=== PATIENT | male | born 1950 | race Caucasian/White ===

== ENCOUNTER 2021-08-18 08:06 | Inpatient (IN) | payer OTHER, SELFPAY ==
[2021-08-18] VITALS (15 sets, daily range): BP systolic 111–150; BP diastolic 67–97; PULSE 37–137; RESP 17–25; TEMP 36.1–36.9; O2SAT 95–100; BMI 32.5
--- NOTE | 2021-08-18 | ECHO_ITS ---
Patient Info Name: Rico Monteiro Age: 71 years : 1950 Gender: Male Ht: 71 in Wt: 225 lbs BSA: 2.29 m2 HR: 82 bpm BP: 140 / 80 mmHg Heart Rhythm: Atrial Fibrillation Technical Quality: Fair Exam Date: 08/18/2021 1:32 PM Exam Location: [facility] Patient Status: Outpatient Admit Date: 08/18/2021 Staff Ordering Physician: Dustin Wagner PA-C Home Appliance Installer: Karol Hall RDCS Attending Provider: Angy Wall MD Referring Physician: Bernard PIZANO; Exam Type: CA echo doppler color flow Study Info Indications - PULMONARY CONGESTION I51.7 - Cardiomegaly Complete two-dimensional, color flow and Doppler transthoracic echocardiogram is performed. Summary 1. Complete two-dimensional, color flow and Doppler transthoracic echocardiogram is performed. 2. Left ventricular systolic function is moderately reduced, estimated at 35-40% with severe hypokinesis of the anterolateral and anterior moore.. 3. Left ventricular chamber dimension is moderately enlarged. 4. Left ventricular septal wall motion is abnormal with septal motion related to bundle branch block. 5. Right ventricular chamber dimension is mildly enlarged. 6. Left atrial chamber dimension is severely enlarged. 7. There is no aortic valve stenosis. 8. There is mild mitral valve regurgitation. 9. There is mild tricuspid valve regurgitation. 10. No pulmonary hypertension, estimated pulmonary arterial systolic pressure is 29 mmHg. Left Ventricle Left ventricular systolic function is moderately reduced, estimated at 35-40% with severe hypokinesis of the anterolateral and anterior moore.. Left ventricular chamber dimension is moderately enlarged. There is mildly increased left ventricular wall thickness. Left ventricular septal wall motion is abnormal with septal motion related to bundle branch block. The left ventricular diastolic function is indeterminate. Right Ventricle Right ventricular chamber dimension is mildly enlarged. Right ventricular systolic function is normal. Left Atria Left atrial chamber dimension is severely enlarged. Right Atria Right atrial chamber dimension is moderately enlarged. Aortic Valve The aortic valve is trileaflet. There is mild aortic valve sclerosis. There is no aortic valve stenosis. There is mild aortic valve regurgitation. Pulmonic Valve The pulmonic valve is not well visualized. There is trace pulmonic regurgitation. Mitral Valve The mitral valve has normal leaflets. There is mild mitral valve regurgitation. The mitral valve annulus is mildly calcified. Tricuspid Valve The tricuspid valve leaflets are normal. There is mild tricuspid valve regurgitation. No pulmonary hypertension, estimated pulmonary arterial systolic pressure is 29 mmHg. Pericardium/Pleural The pericardium appears normal. There is no pericardial effusion. Inferior Vena Cava Normal inferior vena cava with >50% collapse upon inspiration consistent with normal right atrial pressure, 5 mmHg. Aorta The aortic root size at the sinus of Valsalva is normal. There is mild-moderate aortic atherosclerosis. Left Ventricular Outflow Tract Name Value Normal LVOT 2D LVOT Diameter 2.0 cm
--- NOTE | ~2021-08-18 | MR_ITS ---
EXAMINATION: MR brain/brain stem wo con DATE: 08/20/2021 13:08 INDICATION: Syncope. New onset atrial fibrillation. TECHNIQUE: Magnetic resonance imaging (MRI) of the brain and brainstem was performed without intraven ous contrast. Sequences included sagittal and axial T1-weighted SE, axial diffusion-weighted FS SE, a xial T2*-weighted GRE, axial T2-weighted FLAIR, and axial T2-weighted FSE. Apparent diffusion coeffic ient (ADC) maps were created. COMPARISON: Head CT dated 08/18/2021 FINDINGS: There are no areas of restricted diffusion to suggest acute infarction. Small old infarcts in the deanne ateral cerebellar hemispheres. No intracranial hemorrhage or abnormal intracranial mass lesion. There are scattered areas of nonspecific increased T2-weighted signal intensity in the cerebral white ramirez er, predominantly involving the deep and periventricular white matter is within normal limits for age . There are no intraparenchymal signal abnormalities seen on the other pulse sequences. Symmetric pro minence of the sulci and and subarachnoid spaces overlying the convexities consistent with mild age-a ppropriate diffuse cerebral volume loss. The ventricles are symmetric and normal in size. There are no abnormal extra-axial fluid collections. Flow voids are seen in the cerebral arteries on the T2-sergio ghted sequences consistent with their expected patency. Left vertebral artery is dominant. Mucosal th ickening throughout the paranasal sinuses. Small right mastoid effusion. Visualized orbits and soft t issues are unremarkable. IMPRESSION: 1. 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 No acute intracranial process. Reviewed, dictated and finalized at location A.
--- NOTE | ~2021-08-18 | XR_ITS ---
EXAMINATION: XR chest 1V portable EXAM DATE: 08/18/2021 10:16 INDICATION: Chest pain, vertigo. Falling. Confusion. TECHNIQUE: Portable AP frontal chest x-ray was obtained. There is no prior study for comparison. FINDINGS: There is cardiomegaly and pulmonary vascular congestion. No confluent consolidation, pneumo thorax or pleural effusion suspected. There are no osseous abnormalities identified. IMPRESSION: Cardiomegaly, pulmonary vascular congestion. Reviewed, dictated and finalized at location A.
--- NOTE | ~2021-08-18 | US_ITS ---
EXAMINATION: US renal BI DATE: 08/20/2021 10:15 INDICATION: Abnormal exophytic lesion at the lower pole of the right kidney on prior CT. TECHNIQUE: Multiple ultrasound grayscale images of the kidneys were obtained. COMPARISON: CT dated 08/18/2021 FINDINGS: The right kidney measures 10.5 x 5.1 x 6.2 cm. The left kidney measures 1.7 x 5.3 x 5.6 cm. Bilateral mild diffuse increased renal cortical echogenicity consistent with medical renal disease. Several bi lateral anechoic renal cysts the largest measuring 2.9 cm on the right and 1.4 cm on the left. The 9 mm exophytic lesion at the lower pole the right kidney seen on prior CT is visualized in the current study. There is no hydronephrosis in either kidney. Tiny renal stone seen on prior CT are also not i dentified on the current study likely due to their small size. The bladder is normal. IMPRESSION: 1. Bilateral renal cysts. The 9 mm exophytic lesion at the lower pole of the right kidney seen on pr ior CT is not identified in the current study. Recommend further evaluation with pre and postcontrast MRI or CT . 2. Mild bilateral increased renal cortical echogenicity consistent with medical renal disease. Reviewed, dictated and finalized at location A. IMPRESSION: 1. Bilateral renal cysts. The 9 mm exophytic lesion at the lower pole of the r ight kidney seen on prior CT is not identified in the current study. Recommend further evaluation with pre and postcontrast MRI or CT . 2. Mild bilateral increased renal cortical echogenicity consistent with medical renal disease.
--- NOTE | ~2021-08-18 | CT_ITS ---
EXAMINATION: CT brain wo con INDICATION: Headache COMPARISON: None TECHNIQUE: Standard unenhanced head CT. The dose-length product (DLP) was 681.00 mGy-cm. The mA was a djusted according to patient size. Iterative reconstruction technique was employed. FINDINGS: There is no acute intraparenchymal hemorrhage. No evidence of mass lesion. No evidence of a cute infarction. There is mild periventricular and subcortical hypodensity probably related to small vessel ischemic disease. There is mild prominence of the sulci and ventricles related to cerebral atr ophy. Intracranial calcified cerebral atherosclerosis is noted. There are no extra-axial collections. There is no mass effect or midline shift. The orbits and soft tissues are unremarkable. There is mil d mucosal thickening of the paranasal sinuses. IMPRESSION: 1. No acute intracranial abnormality. 2. Age related findings. Reviewed, dictated and finalized at location B.
--- NOTE | ~2021-08-18 | US_ITS ---
EXAMINATION: US carotid duplex BI EXAM DATE: 08/19/2021 14:23 INDICATION: Recurrent syncope, dizziness . TECHNIQUE: Grayscale, color and pulsed Doppler images of the cervical carotid arteries were obtained . The degree of vessel stenosis is placed in one of the following categories: normal, <50% stenosis, 50-69% stenosis, >=70% stenosis but less than near-occlusion, near-occlusion, or occlusion. Note that percent stenosis relative to normal distal artery lumen diameter is indirectly measured from velocit y measurements as described by Lenny, et al. Radiology 2003; 229:340-346. There is no prior study fo r comparison. FINDINGS: Arrhythmia. RIGHT SIDE: Right common carotid artery peak systolic velocity (PSV in cm/s): 68 Right bulb/internal carotid artery peak systolic velocity (PSV in cm/s): 48 Right internal carotid artery end diastolic velocity (EDV in cm/s): 16 Right ICA/CCA peak systolic ratio: 0.7 Right external carotid artery peak systolic velocity (PSV in cm/s): 53 Right vertebral artery antegrade flow: yes There is no focal plaque identified. LEFT SIDE: Left common carotid artery peak systolic velocity (PSV in cm/s): 61 Left bulb/internal carotid artery peak systolic velocity (PSV in cm/s): 62 Left internal carotid artery end diastolic velocity (EDV in cm/s): 27 Left ICA/CCA peak systolic ratio: 1.0 Left external carotid artery peak systolic velocity (PSV in cm/s): 56 Left vertebral artery antegrade flow: yes There is no focal plaque identified. IMPRESSION: 1. Normal right internal carotid artery. 2. Normal left internal carotid artery. 3. Arrhythmia. Correlate with EKG. Reviewed, dictated and finalized at location A.
--- NOTE | ~2021-08-18 | US_ITS ---
EXAMINATION: US thyroid DATE: 08/20/2021 14:01 INDICATION: Goiter with thyroid mass. TECHNIQUE: Multiple ultrasound images of the thyroid were obtained. COMPARISON: None. FINDINGS: The right thyroid lobe measures 4.2 x 2.0 x 1.7 cm. The left thyroid lobe measures 5.4 x 3.5 x 2.6 c m. Multiple TI-RADS 4 (moderately suspicious, FNA if >=1.5 cm, annual followup is >=1 cm) nodules in the left and right thyroid lobes which are all solid, hypoechoic, wider than tall and with either sm ooth or ill-defined margins and without echogenic foci. These measure 9 mm at the upper pole of the r ight thyroid, 1.8 cm and 1.4 cm in the mid left thyroid and 2.6 cm in the inferior left thyroid. Hete rogeneous echotexture and coarsened echogenicity throughout the thyroid. IMPRESSION: 1. Multinodular goiter with 4 TI-RADS 4 nodules. Would recommend biopsy of the largest 2.6 cm nodule in the inferior left thyroid. Reviewed, dictated and finalized at location A.
--- NOTE | ~2021-08-18 | CT_ITS ---
EXAMINATION: CTA chest PE protocol DATE: 08/18/2021 18:58 INDICATION: Chest pain. Syncope. Dizziness. Loss of consciousness, fatigue, multiple falls. TECHNIQUE: Computed tomography angiography (CTA) of the chest was performed with 100 mL Omnipaque-350 intravenous contrast timed to evaluate the pulmonary arteries. Coronal maximum intensity projection 3D-reconstructions were created by the technologist. Automated exposure control and iterative reconst ruction technique were employed. Exam dose: 761.38 mGy-cm total exam DLP. COMPARISON: 08/2021 portable AP chest FINDINGS: There is diagnostic contrast enhancement of the pulmonary arteries and no evidence of pulmo nary embolism. Left substernal thyroid goiter and/or thyroid mass lesion. 1.7 x 1.4 cm anterior mediastinal lymph node. Cardiomegaly. No pericardial or pleural effusion. No hilar or mediastinal mass lesion or lymphadenopathy. Thoracic aortic aneurysm, the aortic arch measuring up to 3.6 cm diameter. And 5 mm nodule in the middle lobe (series 4 image 59). There is focal infiltrate or atelectasis in the posterolateral right lower lobe. There is patchy groundglass density of the lungs which may be due to small airways disease. Normal morphology of the adrenal glands. Occasional scattered renal nonobstructing calculi. Right renal cysts. Indeterminate exophytic lesions of the posterolateral aspect of the lower pole of the right kidney. Probable small posterior upper pole left renal cyst. There is mild anterior wedging of T8, likely chronic there is degenerative spurring of the thoracic s pine. No suspicious osteolytic or osteoblastic lesions. A right fourth and right hip pain. IMPRESSION: No evidence of pulmonary embolism Left substernal thyroid goiter Cardiomegaly Mild thoracic aortic aneurysm 5 mm middle lobe pulmonary nodule Focal infiltrate or atelectasis in the posterolateral right lower lobe and patchy bilateral groundgla ss density of the lungs which may be due to small airways disease Bilateral nephrolithiasis, renal cysts Indeterminate exophytic lesions of the posterolateral aspect of lower pole the right kidney; renal ne oplasm is not excluded Reviewed, dictated and finalized at Location A. Reviewed, dictated and finalized at location A. IMPRESSION: No evidence of pulmonary embolism Left substernal thyroid goiter Cardiomegaly Mild thoracic aortic aneurysm 5 mm middle lobe pulmonary nodule Focal infiltrate or atelectasis in the posterolateral right lower lobe and patc hy bilateral groundglass density of the lungs which may be due to small airways disease Bilateral nephrolithiasis, renal cysts Indeterminate exophytic lesions of the posterolateral aspect of lower pole the right kidney; renal neoplasm is not excluded
--- NOTE | 2021-08-18 08:24 | ECG_ITS ---
Measurements Intervals [place] Rate: 95 P: IA: 0 QRS: 114 QRSD: 124 T: -50 QT: 378 QTc: 476 Interpretive Statements ATRIAL FIBRILLATION VENTRICULAR PREMATURE COMPLEX RIGHT AXIS DEVIATION INTRAVENTRICULAR CONDUCTION DELAY BORDERLINE R WAVE PROGRESSION, ANTERIOR LEADS ST-T WAVE ABNORMALITY IN INFERIOR LEADS- CONSIDER ISCHEMIA BASELINE ARTIFACT- I, II, AVR, AVF ABNORMAL ECG Electronically Signed On 08-18-2021 9:07:33 CDT by Florian Duenas D.O.
[2021-08-18 08:38] LABS: Basophils Absolute Auto 0.1 K/mm3 (0.0-0.1); Basophils Percent Auto 0.8 % (0.2-1.2); Eosinophils Absolute Auto 0.3 K/mm3 (0-0.3); Hematocrit 46.9 % (42.0-52.0); Hemoglobin 16.8 g/dL (14.0-18.0); Immature Granulocyte Absolute 0.03 K/mm3 (0.00-0.031); Immature Granulocyte Percent A 0.5 % (0-0.5); Lymphocytes Absolute Auto 1.41 K/mm3 (0.9-3.2); Lymphocytes Percent Auto 22.6 % (18.3-44.2); Mean Corpuscular HGB Conc 35.8 g/dl (32-36); Mean Corpuscular Hemoglobin 31.8 pg (26-34); Mean Corpuscular Volume 88.8 fl (80-100); Mean Platelet Volume 10.6 fl (7.4-10.4); Monocytes Absolute Auto 0.7 K/mm3 (0.1-0.6); Monocytes Percent Auto 10.6 % (2.6-8.5); Neutrophils Absolute Auto 3.8 K/mm3 (1.3-6.7); Neutrophils Percent Auto 60.5 % (45.5-73.1); Platelet Count Result 157 k/mm3 (150-375); Red Blood Count 5.28 M/mm3 (4.6-6.20); Red Cell Distribution Width 13.3 % (11.5-14.5); White Blood Count 6.3 K/mm3 (4.5-10.0)
[2021-08-18 09:02] LABS: Alanine Aminotransferase 23 U/L (4-50); Albumin Level 4.4 g/dL (3.5-5.1); Alkaline Phosphatase 62 U/L (38-126); Anion Gap 8 mmol/L (8-16); Aspartate Amino Transferase 26 U/L (17-59); Bilirubin,Total 0.9 mg/dL (0.2-1.3); Blood Urea Nitrogen 28 mg/dL (9-20); Calcium 9.2 mg/dL (8.4-10.2); Carbon Dioxide 31 mmol/L (22-30); Chloride 105 mmol/L (98-107); Estimated CRCL calculation 65 ml/min; Estimated Glomerular Filt Rate > 60; Glucose 113 mg/dL (65-110); Potassium 3.5 mmol/L (3.4-5.0); Sodium 144 mmol/L (137-145)
[2021-08-18 09:13] LABS: Troponin I < 0.012 ng/mL (0.000-0.034)
--- NOTE | 2021-08-18 09:32 | ED.GENADULT ---
HPI - General Adult General Chief complaint: Altered Mental Status Stated complaint: fall, AMS Time Seen by Provider: 08/18/21 09:13 Source: patient and family () Limitations: no limitations History of Present Illness HPI narrative: Patient is 71-year-old male with history of TIA in 1996, borderline diabetes and hypertension presenting with chief complaint of recurrent episodes of dizziness that have occurred since February. Patient also reports he has had recurrent left-sided headaches. He has also experienced left-sided chest pain with tingling down his left arm. Patient reports this last episode occurred today at approximately 4:30 a.m. he reports they occur when he stands up quickly and he is oftentimes found on the floor. Patient states that he saw his primary care yesterday due to the dizzy spells. He sees Dr Gigi Uriarte in [facility]. He reports that flushed ears and diagnosed with vertigo yesterday and started on Antivert. Patient reports that since February he has also felt more tired with exertion. He denies any changes in his medications or daily habits at that time. Patient denies fever, chills, cough, shortness of breath, nausea, vomiting, diarrhea, bleeding, unilateral weakness or speech problems. Patient states when she found the patient on the bathroom floor today he had passed out very briefly. She also reports the patient was acting confused as well. Patient is now presently at his baseline per . Patient denies having any dizziness with cardiology or neurology to investigate his symptoms. Related Data Home Medications Medication Instructions Recorded Confirmed amlodipine 08/18/21 08/18/21 aspirin mg PO 08/18/21 hydrochlorothiazide 08/18/21 losartan 08/18/21 meclizine [Antivert/25] mg 08/18/21 metformin mg PO 08/18/21 potassium chloride [Klor-Con M20] meq PO 08/18/21 Allergies Allergy/AdvReac Type Severity Reaction Status Date / Time No Known Allergies Allergy Verified 08/18/21 09:19 Review of Systems Review of Systems: CONSTITUTIONAL: Denies fever, chills, or sweats. EYES: Denies visual changes, redness, or discharge. ENT: Denies rhinorrhea, congestion, sore throat, or otalgia. CARDIOVASCULAR: Denies chest pain, palpitations, or edema. RESPIRATORY: Denies cough or dyspnea. GASTROINTESTINAL: Denies abdominal pain, nausea, vomiting, or diarrhea. GENITOURINARY: Denies dysuria or hematuria. SKIN: Denies rash or itching. MUSCULOSKELETAL: Denies back pain, joint pain, or myalgia. NEUROLOGIC: Reports intermittent dizziness, tingling, syncope and headache is denies numbness or weakness. PSYCHIATRIC: Denies anxiety or depression. Exam Narrative: GENERAL: Well-appearing, well-nourished, and in no acute distress. HEAD: Normocephalic, atraumatic. No tenderness with palpation of temporal areas. EYES: PERRLA and EOMI. ENT: Nares clear, no rhinorrhea or epistaxis. Mucous membranes moist. Oropharynx without tonsillar hypertrophy exudate or other lesions. Bilateral TMs pearly gordon nonbulging. No hemotympanum. NECK: Supple. No adenopathy or masses. ROM intact CHEST: Clear to auscultation. No respiratory distress. No wheezes rales or rhonchi HEART: Irregular rate and rhythm. ABDOMEN: Soft, nontender, nondistended, normal active bowel sounds. EXTREMITIES: Normal range of motion. No peripheral edema. SKIN: Warm, dry, no rash. NEURO: No unilateral deficits appreciated. Range of motion and sensation intact in upper and lower extremities bilaterally. alert and oriented x3. PSYCH: Normal mood and affect. Course Vital Signs Vital signs: Vital Signs Temperature 98.4 F 08/18/21 08:16 Pulse Rate 100 08/18/21 08:16 Respiratory Rate 22 H 08/18/21 08:16 Blood Pressure 150/93 H 08/18/21 08:16 Pulse Oximetry 99 08/18/21 08:16 Temperature 98.4 F 08/18/21 08:16 Pulse Rate 100 08/18/21 08:16 Respiratory Rate 22 H 08/18/21 08:16 Blood Pressure 150/93 H 08/18/21 08:16 Pulse Oximetry 99
[2021-08-18 09:43] LABS: Add Urine Microscopic? YES; Appearance Urine Cloudy (Clear); Bacteria Urine Trace /hpf; Bilirubin Urine Negative (Negative); Blood Urine Negative (Negative); Color Urine Amber (Yellow); Glucose Urine UA Negative (Negative); Ketones Urine Negative (Negative); Leukocyte Esterase Ur Trace LEU/UL (Negative); Mucus Urine Moderate /lpf; Nitrate Urine Negative (Negative); Protein Urine 1+ mg/dL (Negative); Specific Grav Ur 1.019 (1.001-1.035); Transitional Epi Cells Urine Rare /hpf (None Seen); WBC Urine 0-3 /hpf
[2021-08-18] MEDS: ASPIRIN 81 MG CHEWABLE TABLET 324 MG PO (10:12)
[2021-08-18 10:51] LABS: NT Pro B Type Natriuretic Pept 575 pg/mL (5-100)
[2021-08-18 11:27] LABS: Erythrocyte Sedimentation Rate 6 mm/hr (0-20)
--- NOTE | 2021-08-18 12:40 | PC.NURSE ---
This patient, Rico Monteiro, was admitted to [facility] Surg Room 314-01. Patient/family oriented to hospital policies and general routines including ID bracelet, bed and alarms, visiting hours, pain management, procedures, bathroom and other care routines, personal items, smoking policy, room service/diet, and visiting hours. Report received from Megan MORALES. Information on how to activate the Rapid Response Team has been discussed. Patient/Family are encouraged to report perceived risks to care and to ask questions if they do not understand what they are told or what they should do.
--- NOTE | 2021-08-18 13:16 | ADMGEN ---
This patient, Rico Monteiro, was admitted to [address] [facility] Surg Room 314-01. Patient/family oriented to hospital policies and general routines including ID bracelet, bed and alarms, visiting hours, pain management, procedures, bathroom and other care routines, personal items, smoking policy, room service/diet, and visiting hours. at bedside, pt alert, able to answer all questions. Information on how to activate the Rapid Response Team has been discussed. Patient/Family are encouraged to report perceived risks to care and to ask questions if they do not understand what they are told or what they should do.
--- NOTE | 2021-08-18 15:46 | PM.IMHP ---
H&P: HPI History of Present Illness Date/Time: 08/18/21 15:46 this is a 71-year-old male patient who has had a history of a TIA, diabetes and hypertension. The patient stated that he has been having episodes of dizziness ever since February. The dizziness has been getting progressively worse. Had an episode this morning at 4:30 a.m. where he feels dizzy when he stands up too quickly. This morning the found him on the bathroom floor where he lost consciousness. The patient does not recall the events and did realize that he had fallen on the floor. The patient has been feeling more tired with exertion. No changes in any medications. He has had no prior arrhythmias. The patient was confused earlier and stated he finally became aware when he was in the emergency room. The patient stated that he was seen by his regular primary care doctor yesterday with some lab work. The patient stated that he explained to his physician that he is feeling dizzy and he was given Antivert. The patient stated that he is been falling and fell at least 3 times in July due to the dizziness. The patient stated he has not taken Antivert so he does not office working or not. The patient stated that his blood sugars have been doing very well and there was some discussion about him stopping the metformin with his primary care doctor. After the discussion it was decided that the patient should just continue with metformin. Chest x-ray was read as cardiomegaly, pulmonary vascular congestion. Head CT no acute intracranial abnormality. Age-related findings. The patient was found to be in AFib with rate control. The patient was given an aspirin in the emergency room. The patient has no prior history of being in atrial fibrillation. Cardiology has been consulted. The patient is being admitted to observation status on the date of service of 08/18/2021. Chief Complaint: Dizziness with syncopal episode Review of Systems Review of Systems: All systems reviewed & are unremarkable except as noted in HPI and below Constitutional: Constitutional: Reports as per HPI and Reports no additional constitutional complaints Eyes: Eyes: Reports as per HPI and Reports no additional eye complaints ENT: Reports system reviewed and no additional complaints, except as documented and Reports Normal hearing present Cardiovascular: Cardiovascular: Reports no additional cardiovascular complaints Respiratory: Respiratory: Reports no additional respiratory complaints and Reports no additional respiratory complaints Gastrointestinal: Gastrointestinal: Reports as per HPI and Reports no additional gastrointestinal complaints Musculoskeletal: Musculoskeletal: Reports no additional musculoskeletal complaints Integumentary/Breasts: Skin/Breast: Reports system reviewed and no additional complaints, except as docu and Reports as per HPI Neurologic: Reports system reviewed and no additional complaints, except as documented, Reports as per HPI and Reports Normal hearing present Psychiatric: Psychiatric: Reports no additional psychiatric complaints and Reports as per HPI Endocrine: Endocrine: Reports no additional endocrine complaints Hematologic/Lymphatic: Hematologic/Lymphatic: Reports no additional hematologic/lymphatic complaints Allergic/Immunologic: Allergic/Immunologic: Reports no additional allergic/immunologic complaints [facility] Past Medical History Medical History (Updated 08/18/21 @ 16:02 by Alicia Torres NP) Diabetes Hypertension Normal colonoscopy TMJ (dislocation of temporomandibular joint) Vertigo Surgical History Surgical History (Updated 08/18/21 @ 15:59 by Alicia Torres NP) History of colonoscopy Family History Family History (Updated 08/18/21 @ 16:02 by Alicia Torres NP) Sibling Acute myocardial infarction Diabetes mellitus Father Cancer Mother Acute myocardial infarction Alcoholic Social History Social History (Updated 08/18/21 @ 16:03 b
[2021-08-18] MEDS: ENOXAPARIN 100 MG/ML SYRINGE SUB-Q (18:31)
[2021-08-18 20:39] LABS: Glucose Point of Care 90 mg/dl (65-105)
[2021-08-18 22:01] LABS: Glucose Point of Care 123 mg/dl (65-105)
[2021-08-19] VITALS (12 sets, daily range): BP systolic 108–139; BP diastolic 69–95; PULSE 63–98; RESP 16–18; TEMP 36.3–36.8; O2SAT 94–100
[2021-08-19] MEDS: ENOXAPARIN 100 MG/ML SYRINGE SUB-Q ×2 (05:44→17:34)
[2021-08-19 06:38] LABS: Basophils Percent Auto 0.8 % (0.2-1.2); Eosinophils Absolute Auto 0.3 K/mm3 (0-0.3); Eosinophils Percent Auto 6.3 % (0-4.4); Hemoglobin 15.9 g/dL (14.0-18.0); Immature Granulocyte Absolute 0.02 K/mm3 (0.00-0.031); Immature Granulocyte Percent A 0.4 % (0-0.5); Immature Platelet Fraction Pct 4.7 % (0.9-11.2); Lymphocytes Absolute Auto 1.05 K/mm3 (0.9-3.2); Lymphocytes Percent Auto 21.2 % (18.3-44.2); Mean Corpuscular HGB Conc 35.3 g/dl (32-36); Mean Corpuscular Hemoglobin 31.1 pg (26-34); Mean Corpuscular Volume 87.9 fl (80-100); Mean Platelet Volume 10.7 fl (7.4-10.4); Monocytes Absolute Auto 0.5 K/mm3 (0.1-0.6); Monocytes Percent Auto 10.9 % (2.6-8.5); Neutrophils Percent Auto 60.4 % (45.5-73.1); Platelet Count Result 128 k/mm3 (150-375); Red Blood Count 5.12 M/mm3 (4.6-6.20); Red Cell Distribution Width 13.1 % (11.5-14.5)
[2021-08-19 06:51] LABS: Alanine Aminotransferase 21 U/L (4-50); Albumin Level 3.8 g/dL (3.5-5.1); Alkaline Phosphatase 54 U/L (38-126); Anion Gap 6 mmol/L (8-16); Aspartate Amino Transferase 25 U/L (17-59); Bilirubin,Total 1.6 mg/dL (0.2-1.3); Blood Urea Nitrogen 26 mg/dL (9-20); Calcium 8.6 mg/dL (8.4-10.2); Carbon Dioxide 27 mmol/L (22-30); Chloride 105 mmol/L (98-107); Estimated CRCL calculation 77 ml/min; Estimated Glomerular Filt Rate > 60; Glucose 97 mg/dL (65-110); Magnesium 2.1 mg/dL (1.6-2.3); Potassium 3.1 mmol/L (3.4-5.0); Sodium 138 mmol/L (137-145)
[2021-08-19 07:49] LABS: Hemoglobin A1C 5.3 % (<5.7)
[2021-08-19 08:20] LABS: Glucose Point of Care 98 mg/dl (65-105)
[2021-08-19] MEDS: LOSARTAN POTASSIUM 100 MG TABLET PO (08:22)
[2021-08-19] MEDS: amLODIPine BESYLATE 5 MG TABLET 10 MG PO (08:22)
[2021-08-19] MEDS: hydroCHLOROthiazide 25 MG TABLET PO (08:22)
[2021-08-19] MEDS: POTASSIUM CHLORIDE 20 MEQ TABLET.ER PO (08:22)
[2021-08-19] MEDS: metFORMIN HCL XR 500 MG TAB.SR.24H PO (08:22)
--- NOTE | 2021-08-19 09:16 | PM.CNCAR ---
Assessment and Plan Assessment and plan (1) Cardiomyopathy: Code(s): I42.9 - Cardiomyopathy, unspecified Status: Acute Assessment and Plan: New diagnosis moderate LV dysfunction EF 35-40% with severe hypokinesis of anterior anterolateral wall suggestive underlying CAD and or prior myocardial infarction. Patient is not in decompensated heart failure. Symptoms exertional dyspnea, fatigue and chest discomfort concerning for angina since in light of abnormalities warrant further invasive angiography to delineate coronary anatomy. Unfortunately, patient had eaten breakfast this morning and received full dose subcutaneous enoxaparin therefore angiography must be deferred in the interest of patient safety. Therefore, given recurrent syncope, new atrial fibrillation, LV dysfunction with severe wall motion abnormalities likely have underlying CAD is high. While this would not be ideal it would be prudent that patient remain hospitalized over the weekend for coronary angiography on Sunday morning while we optimize medical therapy and observe tolerance in addition to additional workup. Losartan 100 mg daily. Discontinue hydrochlorothiazide now. Cautious initiation of beta-jitendra with carvedilol 3.125 mg twice daily. Add ASA 81mg daily. Check lipid panel. Add statin therapy. Discussed potential dangers nature of the above findings and syncope, LV dysfunction, ventricular arrhythmia risk and concern for underlying CAD. All questions answered patient and his 's satisfaction. Spent 62 minutes in the care of this patient including bedside examination, discussion/counseling, chart review, and medical decision making. (2) Atrial fibrillation: Qualifiers: Atrial fibrillation type: unspecified Qualified Code(s): I48.91 - Unspecified atrial fibrillation Code(s): I48.91 - Unspecified atrial fibrillation Status: Acute Assessment and Plan: New diagnosis atrial fibrillation with controlled ventricular response and nonspecific interventricular conduction delay underlying. Duration is unknown. Discussed likelihood etiology related to underlying CAD given findings on echocardiogram in exertional symptoms. Given multiple falls and recurrent syncope patient is a questionable candidate for systemic anticoagulation at this time. Ultimately, however, this is yet to be precisely determined. CHADS2 Vasc score 6-7 (h/o TIA, HTN, DM, cardiomyopathy, age >65, +/- CAD) placing him at high risk for recurrent stroke with atrial fibrillation. We discussed the pathophysiology, embolic stroke risk and bleeding risk associated systemic anticoagulation as well as management options including medications, CHACORTA guided cardioversion. I would not consider cardioversion until after coronary angiography completed further plans of care solidified. Add carvedilol 3.125 mg twice daily predominantly for support of his cardiomyopathy. Caution given underlying conduction abnormality relative heart rate control to avoid symptomatic hypotension and or bradycardia. Continue telemetry. Monitor renal function and electrolytes. TSH normal 2.22 While we may eventually transition to oral anticoagulation at discharge if deemed a reasonable candidate DO NOT do so at this time in anticipation for coronary angiography Sunday. Continue with enoxaparin 1 milligram/kilogram subcutaneous q12 hours for now. (3) Syncope and collapse: Code(s): R55 - Syncope and collapse Status: Acute Assessment and Plan: Etiology unknown. Symptoms suggestive of orthostasis yet his vital signs were not consistent with hemodynamically significant orthostatic hypotension. Brief nonsustained VT on telemetry. Concern for ventricular arrhythmia or bradyarrhythmia as explanation for recurrent unexplained syncope. Continue telemetry in this regard. Check carotid duplex ultrasound given suggestion of underlying CAD and multiple risk factors, although clini
[2021-08-19 12:09] LABS: Glucose Point of Care 105 mg/dl (65-105)
--- NOTE | 2021-08-19 15:54 | PM.IMPN ---
Progress Note: A&P Assessment and Plan (1) Atrial fibrillation: Qualifiers: Atrial fibrillation type: unspecified Qualified Code(s): I48.91 - Unspecified atrial fibrillation Code(s): I48.91 - Unspecified atrial fibrillation Status: Acute Assessment and Plan: -New onset, was started on Lovenox on admission, rate controlled -CHADS2 Vasc score 6-7 (h/o TIA, HTN, DM, cardiomyopathy, age >65, +/- CAD) placing him at high risk for recurrent stroke with atrial fibrillation -Given multiple falls and recurrent syncope will defer to cardiology regarding oral anticoagulation -Holding at this time in anticipation of coronary angiography planned for Sunday -Per cardiology recommendations: 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 Carvedilol 3.125 BID. Aspirin 81 mg daily. Checking lipid panel. Atorvastatin 40 mg. -Continue telemetry monitoring -Continue to monitor electrolytes and renal function -Cardiology will continue to follow, appreciate their input (2) Cardiomyopathy: Code(s): I42.9 - Cardiomyopathy, unspecified Status: Acute Assessment and Plan: -New diagnosis moderate LV dysfunction EF 35-40% with severe hypokinesis of anterior anterolateral wall suggestive underlying CAD and or prior myocardial infarction -Patient is not in decompensated heart failure. -Per cardiology: symptoms exertional dyspnea, fatigue and chest discomfort concerning for angina since in light of abnormalities warrant further invasive angiography to delineate coronary anatomy. Therefore, given recurrent syncope, new atrial fibrillation, LV dysfunction with severe wall motion abnormalities likely have underlying CAD is high -Plan for patient to remain hospitalized over the weekend for cardiac cath Sunday -Further management per cardiology. (3) Syncope: Code(s): R55 - Syncope and collapse Status: Acute Assessment and Plan: -Etiology unknown at this time -Symptoms suggestive of orthostasis yet his vital signs were not consistent with hemodynamically significant orthostatic hypotension -Brief nonsustained VT on telemetry. Concern for ventricular arrhythmia or bradyarrhythmia as explanation for recurrent unexplained syncope. -Continue telemetry monitoring (4) Diabetes: Code(s): E11.9 - Type 2 diabetes mellitus without complications Status: Chronic Assessment and Plan: Continue with metformin. Accu-Cheks AC and HS. (5) Hypertension: Code(s): I10 - Essential (primary) hypertension Status: Chronic Assessment and Plan: Continue with amlodipine and losartan. HCTZ currently on hold per cardiology. Subjective Date/time seen: 08/19/21 15:54 Patient is a very pleasant 71-year-old male with a past medical history significant for remote TIA, hypertension, diabetes mellitus presents to the emergency department with complaints of progressive dyspnea as well as vertigo, multiple falls in 2-3 episodes where he lost consciousness over the past 1-2 weeks. He was subsequently found to be in new onset afib and admitted for further management and cardiology consult. This afternoon he feels well. Has not been dizzy since admission to the hospital. States when he gets the episodes he becomes dizzy sometimes passing out with associated cp and sob. He has no complaints at this time. Review of Systems Review of Systems: General: Denies fevers, chills Eyes: Denies vision changes or eye pain ENT: Denies nasal congestion or sore throat Respiratory: Denies cough, +shortness of breath Cardiovascular: + chest pain, no palpitations or lower extremity edema Gastrointestinal: Denies abdominal pain, vomiting, or diarrhea Genitourinary: Denies dysuria or urinary frequency Musculoskeletal: Denies back pain or muscle aches Neurological: +syncope, +dizziness Integumentary: Denies rash Exam Narrative: General: No a
[2021-08-19 16:01] LABS: Troponin I < 0.012 ng/mL (0.000-0.034)
[2021-08-19] MEDS: POTASSIUM CHLORIDE 20 MEQ PACKET (FOR LIQUID) PO (16:01)
[2021-08-19 16:19] LABS: Glucose Point of Care 97 mg/dl (65-105)
[2021-08-19] MEDS: ATORVASTATIN 40 MG TABLET PO (20:42)
[2021-08-19 22:10] LABS: Glucose Point of Care 106 mg/dl (65-105)
[2021-08-20] VITALS (14 sets, daily range): BP systolic 110–122; BP diastolic 71–86; PULSE 64–99; RESP 12–18; TEMP 36–36.4; O2SAT 95–99
[2021-08-20] MEDS: ENOXAPARIN 100 MG/ML SYRINGE SUB-Q ×2 (05:57→17:38)
[2021-08-20 06:56] LABS: Basophils Absolute Auto 0.1 K/mm3 (0.0-0.1); Basophils Percent Auto 1.3 % (0.2-1.2); Eosinophils Absolute Auto 0.3 K/mm3 (0-0.3); Eosinophils Percent Auto 6.4 % (0-4.4); Hematocrit 44.2 % (42.0-52.0); Immature Granulocyte Absolute 0.01 K/mm3 (0.00-0.031); Immature Granulocyte Percent A 0.2 % (0-0.5); Immature Platelet Fraction Pct 4.4 % (0.9-11.2); Lymphocytes Absolute Auto 0.86 K/mm3 (0.9-3.2); Lymphocytes Percent Auto 18.9 % (18.3-44.2); Mean Corpuscular HGB Conc 36.2 g/dl (32-36); Mean Corpuscular Hemoglobin 31.4 pg (26-34); Mean Corpuscular Volume 86.8 fl (80-100); Mean Platelet Volume 11.1 fl (7.4-10.4); Monocytes Absolute Auto 0.6 K/mm3 (0.1-0.6); Monocytes Percent Auto 12.1 % (2.6-8.5); Neutrophils Absolute Auto 2.8 K/mm3 (1.3-6.7); Neutrophils Percent Auto 61.1 % (45.5-73.1); Platelet Count Result 132 k/mm3 (150-375); Red Blood Count 5.09 M/mm3 (4.6-6.20); Red Cell Distribution Width 12.9 % (11.5-14.5); White Blood Count 4.6 K/mm3 (4.5-10.0)
[2021-08-20 07:02] LABS: INR 1.1; Prothrombin Time 14.1 Seconds (11.1-14.7)
[2021-08-20 07:03] LABS: Partial Thromboplastin Time 33.9 SECONDS (22.3-36.8)
[2021-08-20 07:05] LABS: Anion Gap 5 mmol/L (8-16); Blood Urea Nitrogen 27 mg/dL (9-20); Calcium 8.8 mg/dL (8.4-10.2); Carbon Dioxide 29 mmol/L (22-30); Chloride 105 mmol/L (98-107); Cholesterol 143 mg/dL (0-200); Estimated CRCL calculation 77 ml/min; Estimated Glomerular Filt Rate > 60; Glucose 114 mg/dL (65-110); HDL Direct 31 mg/dL; Potassium 3.3 mmol/L (3.4-5.0); Sodium 139 mmol/L (137-145); Triglycerides 132 mg/dL (<150)
[2021-08-20 07:15] LABS: LDL Cholesterol Direct 86 mg/dL
[2021-08-20 08:02] LABS: Glucose Point of Care 109 mg/dl (65-105)
[2021-08-20] MEDS: amLODIPine BESYLATE 5 MG TABLET 10 MG PO (08:40)
[2021-08-20] MEDS: metFORMIN HCL XR 500 MG TAB.SR.24H PO (08:40)
[2021-08-20] MEDS: LOSARTAN POTASSIUM 100 MG TABLET PO (08:40)
[2021-08-20] MEDS: carvediloL 3.125 MG TABLET PO ×2 (08:41→20:46)
[2021-08-20] MEDS: POTASSIUM CHLORIDE 20 MEQ PACKET (FOR LIQUID) 40 MEQ PO (08:41)
[2021-08-20] MEDS: POTASSIUM CHLORIDE 20 MEQ TABLET.ER PO (08:41)
[2021-08-20 11:48] LABS: Glucose Point of Care 101 mg/dl (65-105)
--- NOTE | 2021-08-20 12:04 | PM.PNCARD ---
Progress Note: A&P Assessment and Plan (1) Cardiomyopathy: Code(s): I42.9 - Cardiomyopathy, unspecified Status: Acute Assessment and Plan: New diagnosis moderate LV dysfunction EF 35-40% with severe hypokinesis of anterior anterolateral wall suggestive underlying CAD and or prior myocardial infarction. Patient is not in decompensated heart failure. Symptoms exertional dyspnea, fatigue and chest discomfort concerning for angina since in light of abnormalities warrant further invasive angiography to delineate coronary anatomy. Unfortunately, patient had eaten breakfast this morning and received full dose subcutaneous enoxaparin therefore angiography must be deferred in the interest of patient safety. Continue Losartan 100 mg daily. Aspirin 81 mg daily, atorvastatin 40 mg at bedtime. Once again, discussed potential dangers nature of the above findings and syncope, LV dysfunction, ventricular arrhythmia risk and concern for underlying CAD. All questions answered patient and his 's satisfaction. Reviewed at length risks and benefits with coronary angiography including but not limited to bleeding, stroke, NC, , renal insufficiency and what to expect from angiography. We discussed the difference between ischemic and nonischemic cardiomyopathy possibility of coronary intervention and or referral for CABG depending upon anatomy results. Once again discussed the need to remain hospitalized for angiography prior to discharge. They both agree completely. Spent 28 minutes in the care of this patient including bedside examination, discussion/counseling, chart review, and medical decision making. (2) Atrial fibrillation: Qualifiers: Atrial fibrillation type: unspecified Qualified Code(s): I48.91 - Unspecified atrial fibrillation Code(s): I48.91 - Unspecified atrial fibrillation Status: Acute Assessment and Plan: New diagnosis atrial fibrillation with generally controlled ventricular response and nonspecific interventricular conduction delay underlying. Duration is unknown. Discussed likelihood etiology related to underlying CAD given findings on echocardiogram in exertional symptoms. Given multiple falls and recurrent syncope patient is a questionable candidate for systemic anticoagulation at this time. Ultimately, however, this is yet to be precisely determined. CHADS2 Vasc score 6-7 (h/o TIA, HTN, DM, cardiomyopathy, age >65, +/- CAD) placing him at high risk for recurrent stroke with atrial fibrillation. We discussed the pathophysiology, embolic stroke risk and bleeding risk associated systemic anticoagulation as well as management options including medications, CHACORTA guided cardioversion. Again, I would not consider cardioversion until after coronary angiography completed further plans of care solidified. Continue carvedilol 3.125 mg twice daily. Transition to metoprolol if significant recurrent nonsustained VT. Caution given underlying conduction abnormality relative heart rate control to avoid symptomatic hypotension and or bradycardia. Continue telemetry. Monitor renal function and electrolytes. TSH normal 2.22 While we may eventually transition to oral anticoagulation at discharge if deemed a reasonable candidate DO NOT do so at this time in anticipation for coronary angiography Sunday. Continue with enoxaparin 1 milligram/kilogram subcutaneous q12 hours for now. (3) Syncope and collapse: Code(s): R55 - Syncope and collapse Status: Acute Assessment and Plan: Etiology unknown. Negative orthostatic vital signs. Brief nonsustained VT on telemetry. Concern for ventricular arrhythmia or bradyarrhythmia as explanation for recurrent unexplained syncope. Continue telemetry in this regard. Carotid duplex ultrasound normal bilaterally. 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 (4) Exertional angina:
--- NOTE | 2021-08-20 13:12 | PM.IMPN ---
Progress Note: A&P Assessment and Plan (1) Atrial fibrillation: Qualifiers: Atrial fibrillation type: unspecified Qualified Code(s): I48.91 - Unspecified atrial fibrillation Code(s): I48.91 - Unspecified atrial fibrillation Status: Acute Assessment and Plan: -New onset and rate controlled -CHADS2 Vasc score 6-7 (h/o TIA, HTN, DM, cardiomyopathy, age >65, +/- CAD) placing him at high risk for recurrent stroke with atrial fibrillation. Continue Lovenox until after catheterization -plan for cardiac catheterization on Sunday -continue losartan, carvedilol, and aspirin as well as atorvastatin -Continue telemetry monitoring (2) Cardiomyopathy: Code(s): I42.9 - Cardiomyopathy, unspecified Status: Acute Assessment and Plan: -New diagnosis moderate LV dysfunction EF 35-40% with severe hypokinesis of anterior anterolateral wall suggestive underlying CAD and or prior myocardial infarction -patient appears euvolemic -due to recent symptoms and new findings, plan for cardiac catheterization on Sunday. No signs of ACS at this current time. Patient is to call out if he has any chest pain (3) Syncope: Code(s): R55 - Syncope and collapse Status: Acute Assessment and Plan: -concerning for cardiac etiology, may consider monitor at discharge -will obtain MRI due to sudden dizziness/syncope and new onset AFib to ensure no CVA although patient neurologically it on exam looks normal -Brief nonsustained VT on telemetry per previous provider. Concern for ventricular arrhythmia or bradyarrhythmia as explanation for recurrent unexplained syncope. -Continue telemetry monitoring (4) Diabetes: Code(s): E11.9 - Type 2 diabetes mellitus without complications Status: Chronic Assessment and Plan: Last glucose 101 -continue metformin and sliding scale insulin (5) Hypertension: Code(s): I10 - Essential (primary) hypertension Status: Chronic Assessment and Plan: Last blood pressure 110/73 -continue amlodipine, losartan and carvedilol Time Spent With Patient Time with patient: 25 - 35 minutes Subjective Date/time seen: 08/20/21 13:12 Interval history: Pt is a 71-year-old male here for syncope and new onset AFib. Patient was seen today and states he is feeling great. He has not had any further syncope or dizziness episodes. He denies chest pain, shortness of breath, fevers, chills, nausea or vomiting. He has no neurological deficits. Review of Systems Review of Systems: All systems reviewed & are unremarkable except as noted in HPI and below Exam Narrative: General: Well developed well nourished patient in NAD HEENT: normocephalic Neck: supple Neuro: Alert and oriented x4. Cranial nerves 2-12 intact. Equal strength upper lower extremity 5/5 CV:RRR. Telemetry reviewed which shows occasional PVC and rate controlled AFib 96 Resp:CTA Abd: Soft, non distended. No pain to palpation. Positive bowel sounds Extremities: No swelling, erythema, or pain to palpation. Objective Data Vital Signs Vital Signs: Vital Signs - 24 hr 08/19/21 14:00 08/19/21 16:00 08/19/21 20:00 Temperature 97.4 F L 98.2 F Pulse Rate 82 85 78 Respiratory Rate 18 Blood Pressure 117/74 117/79 Pulse Oximetry 97 100 08/19/21 21:19 08/19/21 21:20 08/19/21 21:22 Temperature 98.2 F Pulse Rate 88 88 88 Respiratory Rate 18 Blood Pressure 117/79 110/78 139/83 Pulse Oximetry 100 97 99 08/20/21 00:00 08/20/21 04:00 08/20/21 06:00 Temperature 96.8 F L Pulse Rate 86 89 88 Respiratory Rate 18 Blood Pressure 118/80 Pulse Oximetry 95 08/20/21 08:00 08/20/21 08:22 08/20/21 08:25 Temperature Pulse Rate Respiratory Rate Blood Pressure 120/71 117/86 110/73 Pulse Oximetry 08/20/21 08:41 08/20/21 12:00 Temperature Pulse Rate 99 78 Respiratory Rate Blood Pressure Pulse Oximetry
[2021-08-20 16:44] LABS: Glucose Point of Care 103 mg/dl (65-105)
[2021-08-20] MEDS: ATORVASTATIN 40 MG TABLET PO (20:48)
[2021-08-21] VITALS (10 sets, daily range): BP systolic 100–123; BP diastolic 71–90; PULSE 54–101; RESP 14–20; TEMP 36.1–36.3; O2SAT 97–99
--- NOTE | 2021-08-21 01:00 | PC.NURSE ---
Daylight Savings Time For Daylight Savings Time Ending in the Fall - Clocks are moved back. For Daylight Savings Time Beginning in the Spring - Clocks are moved ahead. For [facility], the time of change occurs at 0200 hrs. Time is taken from the windows server administrator. This entry on the patient's chart recognizes the change in time reflected during documentation. Example: 2 entries for vital signs may be charted for 0200 hrs.
[2021-08-21] MEDS: ENOXAPARIN 100 MG/ML SYRINGE SUB-Q (05:45)
[2021-08-21 06:48] LABS: Glucose Point of Care 99 mg/dl (65-105)
[2021-08-21 07:20] LABS: Anion Gap 8 mmol/L (8-16); Blood Urea Nitrogen 26 mg/dL (9-20); Calcium 8.9 mg/dL (8.4-10.2); Carbon Dioxide 24 mmol/L (22-30); Chloride 107 mmol/L (98-107); Estimated CRCL calculation 77 ml/min; Estimated Glomerular Filt Rate > 60; Glucose 104 mg/dL (65-110); Magnesium 2.1 mg/dL (1.6-2.3); Potassium 3.6 mmol/L (3.4-5.0); Sodium 139 mmol/L (137-145)
--- NOTE | 2021-08-21 07:41 | PM.IMPN ---
Progress Note: A&P Assessment and Plan (1) Atrial fibrillation: Qualifiers: Atrial fibrillation type: unspecified Qualified Code(s): I48.91 - Unspecified atrial fibrillation Code(s): I48.91 - Unspecified atrial fibrillation Status: Acute Assessment and Plan: -New onset and rate controlled -CHADS2 Vasc score 6-7 (h/o TIA, HTN, DM, cardiomyopathy, age >65, +/- CAD) placing him at high risk for recurrent stroke with atrial fibrillation. Continue Lovenox until after catheterization -plan for cardiac catheterization on Sunday -continue losartan, carvedilol, and aspirin as well as atorvastatin -Continue telemetry monitoring (2) Cardiomyopathy: Code(s): I42.9 - Cardiomyopathy, unspecified Status: Acute Assessment and Plan: -New diagnosis moderate LV dysfunction EF 35-40% with severe hypokinesis of anterior anterolateral wall suggestive underlying CAD and or prior myocardial infarction -patient appears euvolemic -due to recent symptoms and new findings, plan for cardiac catheterization on Sunday. No signs of ACS at this current time. Patient is to call out if he has any chest pain (3) Syncope: Code(s): R55 - Syncope and collapse Status: Acute Assessment and Plan: -concerning for cardiac etiology, may consider monitor at discharge -MRI shows no acute CVA but does show his known old strokes -Brief nonsustained VT on telemetry per previous provider. Concern for ventricular arrhythmia or bradyarrhythmia as explanation for recurrent unexplained syncope. -Continue telemetry monitoring (4) Diabetes: Code(s): E11.9 - Type 2 diabetes mellitus without complications Status: Chronic Assessment and Plan: Last glucose 104 -continue metformin and sliding scale insulin (5) Hypertension: Code(s): I10 - Essential (primary) hypertension Status: Chronic Assessment and Plan: Last blood pressure 123/88 -continue amlodipine, losartan and carvedilol (6) Thyroid goiter: Code(s): E04.9 - Nontoxic goiter, unspecified Status: Acute Assessment and Plan: U/S shows: Multinodular goiter with 4 TI-RADS 4 nodules. Would recommend biopsy of the largest 2.6 cm nodule in the inferior left thyroid. -would recommend outpt biopsy once acute illness has improved, discussed with patient. -tsh wnl (7) Renal lesion: Code(s): N28.9 - Disorder of kidney and ureter, unspecified Status: Acute Assessment and Plan: CTA showed Indeterminate exophytic lesions of the posterolateral aspect of lower pole the right kidney; renal neoplasm is not excluded. u/s was not able to evaluate this abnormality. Pt will need outpt MRI for further evaluation Subjective Date/time seen: 08/21/21 07:41 Interval history: Pt is a 71-year-old male here for syncope and new onset AFib. Patient was seen today and states he is feeling great. He has not had any further syncope or dizziness episodes. He states he occasionally feels off with his balance but it quicky goes away and nothing like the episodes that brought him him. He has not had any further fluttering in his chest. He denies chest pain, shortness of breath, fevers, chills, nausea or vomiting. He has no neurological deficits. He had a hx of a stroke in 1996 Exam Narrative: General: Well developed well nourished patient in NAD HEENT: normocephalic Neck: supple Neuro: Alert and oriented x4. Cranial nerves 2-12 intact. Equal strength upper lower extremity 5/5 CV:Irregularly irregular. Telemetry reviewed which shows occasional PVC and rate controlled AFib 96 Resp:CTA Abd: Soft, non distended. No pain to palpation. Positive bowel sounds Extremities: No swelling, erythema, or pain to palpation. Objective Data Vital Signs Vital Signs: Vital Signs - 24 hr 08/20/21 12:00 08/20/21 14:00 08/20/21 16:00 Temperature 97.6 F Pulse Rate 78
[2021-08-21 07:49] LABS: Glucose Point of Care 107 mg/dl (65-105)
[2021-08-21] MEDS: amLODIPine BESYLATE 5 MG TABLET 10 MG PO (09:13)
[2021-08-21] MEDS: carvediloL 3.125 MG TABLET PO ×2 (09:13→21:07)
[2021-08-21] MEDS: metFORMIN HCL XR 500 MG TAB.SR.24H PO (09:14)
[2021-08-21] MEDS: LOSARTAN POTASSIUM 100 MG TABLET PO (09:14)
[2021-08-21] MEDS: POTASSIUM CHLORIDE 20 MEQ TABLET.ER PO (09:14)
--- NOTE | 2021-08-21 10:51 | PM.PNCARD ---
Progress Note: A&P Assessment and Plan (1) Cardiomyopathy: Code(s): I42.9 - Cardiomyopathy, unspecified Status: Acute Assessment and Plan: New diagnosis moderate LV dysfunction EF 35-40% with severe hypokinesis of anterior anterolateral wall suggestive underlying CAD and or prior myocardial infarction. PAtient presented with symptoms concerning for angina with exertional dyspnea, fatigue and chest discomfort. . -Continue Losartan 100 mg daily. Aspirin 81 mg daily, atorvastatin 40 mg at bedtime. He is not in decompensated HF. -NPO after midnight for coronary angiography tomorrow morning. Patient must not receive subcutaneous enoxaparin tomorrow morning. Recommendation to follow after coronary angiography. (2) Atrial fibrillation: Qualifiers: Atrial fibrillation type: unspecified Qualified Code(s): I48.91 - Unspecified atrial fibrillation Code(s): I48.91 - Unspecified atrial fibrillation Status: Acute Assessment and Plan: New diagnosis atrial fibrillation with generally controlled ventricular response and nonspecific interventricular conduction delay underlying. Duration is unknown. Discussed likelihood etiology related to underlying CAD given findings on echocardiogram in exertional symptoms. Given multiple falls and recurrent syncope patient is a questionable candidate for systemic anticoagulation at this time. Ultimately, however, this is yet to be precisely determined. CHADS2 Vasc score 6-7 (h/o TIA, HTN, DM, cardiomyopathy, age >65, +/- CAD) placing him at high risk for recurrent stroke with atrial fibrillation. We discussed the pathophysiology, embolic stroke risk and bleeding risk associated systemic anticoagulation as well as management options including medications, CHACORTA guided cardioversion. Again, I would not consider cardioversion until after coronary angiography completed further plans of care solidified. Heart rate controlled and tolerating Carvedilol 3.125 mg twice daily. Transition to metoprolol if significant recurrent nonsustained VT. Caution given underlying conduction abnormality relative heart rate control to avoid symptomatic hypotension and or bradycardia. Continue telemetry. Monitor renal function and electrolytes. TSH normal 2.22 multinodular goiter on thyroid ultrasound up to 2.6cm biopsy recommended. While we may eventually transition to oral anticoagulation at discharge if deemed a reasonable candidate DO NOT do so at this time in anticipation for coronary angiography Sunday. Continue with enoxaparin 1 milligram/kilogram subcutaneous q12 hours for now. (3) Syncope and collapse: Code(s): R55 - Syncope and collapse Status: Acute Assessment and Plan: Etiology unknown. Negative orthostatic vital signs. Brief nonsustained VT on telemetry. Concern for ventricular arrhythmia or bradyarrhythmia as explanation for recurrent unexplained syncope. Continue telemetry in this regard. Carotid duplex ultrasound normal bilaterally. 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 (4) Exertional angina: Code(s): I20.8 - Other forms of angina pectoris Status: Acute Assessment and Plan: Currently stable asymptomatic in this regard. Repeat troponin negative. (5) Hypertension associated with type 2 diabetes mellitus: Code(s): E11.59 - Type 2 diabetes mellitus with other circulatory complications; I15.2 - Hypertension secondary to endocrine disorders Status: Acute Assessment and Plan: BP controlled. Tolerating home medical therapy. (6) Thrombocytopenia: Code(s): D69.6 - Thrombocytopenia, unspecified Status: Acute Assessment and Plan: Chronicity unknown, mild severity, platelet count stable. Continue to monitor. Check CBC in AM. Subjective Date/time seen: Date of service: 08/21/21 10:51 Follow-up for syncope, exertional ang
[2021-08-21 12:33] LABS: Glucose Point of Care 81 mg/dl (65-105)
[2021-08-21 17:04] LABS: Glucose Point of Care 139 mg/dl (65-105)
[2021-08-21] MEDS: ATORVASTATIN 40 MG TABLET PO (21:07)
[2021-08-22] VITALS (29 sets, daily range): BP systolic 107–129; BP diastolic 65–97; PULSE 49–96; RESP 12–18; TEMP 36.3–37.2; O2SAT 92–100
[2021-08-22 06:59] LABS: Hematocrit 44.8 % (42.0-52.0); Hemoglobin 15.8 g/dL (14.0-18.0); Immature Platelet Fraction Pct 5.1 % (0.9-11.2); Mean Corpuscular HGB Conc 35.3 g/dl (32-36); Mean Corpuscular Hemoglobin 31.9 pg (26-34); Mean Corpuscular Volume 90.3 fl (80-100); Platelet Count Result 137 k/mm3 (150-375); Red Blood Count 4.96 M/mm3 (4.6-6.20); White Blood Count 4.4 K/mm3 (4.5-10.0)
[2021-08-22 07:15] LABS: Anion Gap 6 mmol/L (8-16); Blood Urea Nitrogen 22 mg/dL (9-20); Calcium 8.7 mg/dL (8.4-10.2); Carbon Dioxide 24 mmol/L (22-30); Chloride 108 mmol/L (98-107); Estimated CRCL calculation 70 ml/min; Estimated Glomerular Filt Rate > 60; Glucose 112 mg/dL (65-110); Potassium 3.8 mmol/L (3.4-5.0); Sodium 138 mmol/L (137-145)
[2021-08-22 08:08] LABS: Glucose Point of Care 100 mg/dl (65-105)
[2021-08-22] MEDS: metFORMIN HCL XR 500 MG TAB.SR.24H PO (08:24)
[2021-08-22] MEDS: ASPIRIN 81 MG ENTERIC TABLET PO (08:25)
[2021-08-22] MEDS: LOSARTAN POTASSIUM 100 MG TABLET PO (08:25)
[2021-08-22] MEDS: POTASSIUM CHLORIDE 20 MEQ TABLET.ER PO (08:25)
[2021-08-22] MEDS: amLODIPine BESYLATE 5 MG TABLET 10 MG PO (08:25)
--- NOTE | 2021-08-22 09:40 | WPDMODSED ---
Moderate Sedation Note-Pt Data Patient Data Diagnosis: new diagnoses of atrial fib in left ventricular systolic dysfunction Present Complaint: syncopal event Procedure to be performed/Plan: left heart catheterization Allergies Allergy/AdvReac Type Severity Reaction Status Date / Time No Known Allergies Allergy Verified 08/18/21 13:37 Home Medications Medication Instructions Recorded Confirmed Type amlodipine 10 mg PO DAILY 08/18/21 08/18/21 History hydrochlorothiazide 25 mg PO DAILY 08/18/21 08/18/21 History losartan [Cozaar] 100 mg PO DAILY 08/18/21 08/18/21 History meclizine [Antivert/25] 25 mg PO PRN PRN 08/18/21 08/18/21 History metformin 500 mg PO DAILY 08/18/21 08/18/21 History potassium chloride [Klor-Con M20] 20 meq PO DAILY 08/18/21 08/18/21 History Current Medications: Active Medications Amlodipine Besylate (Amlodipine Besylate 5 Mg Tablet) 10 mg PO DAILY [facility] Last Admin: 08/22/21 08:25 Dose: 10 mg Documented by: Aspirin (Aspirin 81 Mg Enteric Tablet) 81 mg PO QAM [facility] Last Admin: 08/22/21 08:25 Dose: 81 mg Documented by: Atorvastatin Calcium (Atorvastatin 40 Mg Tablet) 40 mg PO HS [facility] Last Admin: 08/21/21 21:07 Dose: 40 mg Documented by: Carvedilol (Carvedilol 3.125 Mg Tablet) 3.125 mg PO Q12HR [facility] Last Admin: 08/21/21 21:07 Dose: 3.125 mg Documented by: Dextrose (Dextrose 50% 25 Gm/50 Ml Syringe) 12.5 gm IV PUSH PRN PRN; Protocol PRN Reason: Hypoglycemia Enoxaparin Sodium (Enoxaparin 100 Mg/Ml Syringe) 100 mg SUB-Q Q12H [facility] Last Admin: 08/21/21 05:45 Dose: 100 mg Documented by: Glucagon (Glucagon For Inj 1 Mg Vial) 1 mg IM PRN PRN; Protocol PRN Reason: Hypoglycemia Glucose (Glucose Oral Gel 15 Gm Of Glucse In 37.5 Gm Tube) 15 gm PO PRN PRN; Protocol PRN Reason: Hypoglycemia Dextrose (Dextrose 5% 1,000 Ml) 1,000 mls @ 100 mls/hr IVPB PRN PRN; Protocol PRN Reason: Hypoglycemia Insulin Aspart (Insulin Aspart (*Bkc) 100 Units/Ml) 2 - 5 units SUB-Q TIDWM [facility]; Protocol Last Admin: 08/22/21 08:30 Dose: Not Given Documented by: Losartan Potassium (Losartan Potassium 100 Mg Tablet) 100 mg PO DAILY [facility] Last Admin: 08/22/21 08:25 Dose: 100 mg Documented by: Meclizine HCl (Meclizine Hcl 25 Mg Tablet) 25 mg PO PRN PRN PRN Reason: Dizziness Metformin HCl (Metformin Hcl Xr 500 Mg Tab.Sr.24h) 500 mg PO DAILY@0800 [facility] Last Admin: 08/22/21 08:24 Dose: 500 mg Documented by: Potassium Chloride (Potassium Chloride 20 Meq Tablet.Er) 20 meq PO DAILY [facility] Last Admin: 08/22/21 08:25 Dose: 20 meq Documented by: Sedation/Anesthesia: No previous sedation/anesthesia problems (including family history). 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 He has 4 children. He lives with his . Lifelong nonsmoker does not use any alcohol marijuana or illicit drugs. His is the durable power attorney lawyer for healthcare. Code status full code Smoking status: Never smoker Alcohol intake: never Substance use: never Spiritual care concerns: No Mod Sed Physical Exam Physical Exam Pre Procedural Exam: Normal: Appearance ( overweight man in no distress), Neck, Throat, Airway, Lungs, Heart Size, Neuro Exam and Extremities and Variation: Heart Rate and Heart Rhythm ( irregularly irregular) Hours since solid foods: 12 Hours since liquid intake: 12 Mall
--- NOTE | 2021-08-22 10:22 | PC.NURSE ---
Pt went to [facility] at 1000.
--- NOTE | 2021-08-22 11:06 | WPDCARDPROC ---
Cardiac Cath Procedure Note Date of procedure:: 08/22/21 Performing physician:: Saulo Pearson MD Indication:: atrial fibrillation of unknown chronicity LV systolic dysfunction syncopal episode Brief clinical history:: this is a 71-year-old man who presents to the hospital after having a syncopal episode at home. He was found to be in atrial fibrillation with no prior history of this. He was also found to have significant left ventricular systolic dysfunction by ECHO prompting the recommendation for catheterization. Procedure Procedure performed:: Left ventriculography coronary angiography Sedation/Medication given:: fentanyl 50 mg Versed 2 mg case start 10 40 a.m. case end time 11:04 a.m. sedation provided by Arlette Granger RN, Access site:: right femoral Estimated blood loss:: 15 cc Procedure note:: patient was brought to the cardiac catheterization lab in the postabsorptive state where the right femoral triangle was prepared and draped in the usual fashion. Anesthesia was provided with 1% lidocaine infiltrated locally. Using modified Seldinger technique the femoral artery was punctured and a 5 Israeli vascular sheath was placed. After this I used a 5 Israeli angled pigtail catheter to measure left-sided hemodynamics and to inject LV g in the SAAVEDRA projection. Following this the pigtail catheter was withdrawn I used a 5 Israeli FL4 catheter to engage and inject the left coronary artery. After this the right coronary artery was engaged and injected using a standard 5 Israeli JR4 catheter. The cineangiograms were then reviewed and the case was terminated. The patient was taken to the holding area for manual sheath removal and there were no apparent procedural complications. 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 Findings:: Hemodynamics: Central aortic pressure is 140 over 84 left ventricle 140/80 end-diastolic pressure 18 there is no significant gradient on pullback across the aortic valve. Left ventricle: The LV is markedly dilated there is severe global hypocontractility in all segments the ejection fraction I would visually estimate to be 25%. the left main coronary artery is a large caliber vessel with mild distal disease that continues into the ostial /proximal segment of the LAD as detailed below. The left main itself has about 30-40% distal stenosis. The left anterior descending is a moderate to large caliber artery extending down to around the apex the LAD has ostial / proximal stenosis of 95%. There is an area of ostial to proximal disease that extends from the distal left main disease described above into the origin of the LAD where this high-grade subtotal stenosis is noted. There is CHRISTINA 3 flow in the LAD. The circumflex is a medium caliber artery consisting of 2 marginal branches the 1st of these is large and free of significant disease. The 2nd OM branch is smaller medium size vessel with about 70% stenosis in the midportion. The right coronary artery is large in caliber and dominant to the posterior circulation the 2nd portion of the right coronary artery has about 30-40% stenosis in a discrete segment. Conclusion:: 1. Coronary artery disease with severe stenosis in the proximal/ostial segment of the LAD which appears to extend from more modest atherosclerosis extending from the distal left main as detailed above. 2. Approximately 70% stenosis in the 2nd OM branch of the circumflex 3. modest 30-40% stenosis of the mid right coronary 4. left ventricular dilation with severe global systolic dysfunction as detailed above. Low ejection fraction and moderately elevated LVEDP 5. atrial fibrillation of unknown duration Saulo Pearson MD [facility]
--- NOTE | 2021-08-22 11:10 | SUR.PHASEII ---
BEGIN PHASE II RECOVERY. RETURNS TO SOCIAL RESEARCH ASSISTANT 5 VIA STRETCHER S/P [facility] W/ DR. REYES. 5FR SHEATH INTACT R. GROIN. DRESSING OVER SITE C/D/I. SITE SOFT, NONTENDER. NO BLEEDING OR HEMATOMA NOTED. DENIES CP OR SOB. ORIENTED TO ROOM, PLAN OF CARE, RECOVERY PROCESS. QUESTIONS ANSWERED. REVIEWED BEDREST ACTIVITY RESTRICTIONS. IVF'S RUNNING ORDERED. MONITOR AFIB. VSS. WILL MONITOR.
--- NOTE | 2021-08-22 11:37 | SUR.PHASEII ---
DR. REYSE TO BEDSIDE TO SPEAK W/ PT. AND RE: FINDINGS AND PLAN.
--- NOTE | 2021-08-22 12:06 | SUR.PHASEII ---
5FR SHEATH PULL FROM R. GROIN PUNCTURE PER PROTOCOL BY THIS RN, ANNETTE, AT 1206. TOLERATED WELL. FIRM, STEADY, MANUAL PRESSURE TO SITE UNTIL HEMOSTASIS ACHIEVED.
--- NOTE | 2021-08-22 12:36 | SUR.PHASEII ---
HEMOSTASIS ACHIEVED TO R. GROIN PUNCTURE SITE AFTER 30 MINUTE MANUAL PRESSURE HOLD BY THIS RN, ANNETTE. TOLERATED WELL. VSS. SITE SOFT, NONTENDER. NO BLEEDING OR HEMATOMA NOTED. SITE DRESSED W/ STAT SEAL AND TEGADERM DRESSING. REVIEWED MONITORING OF SITE WITH PT. REVIEWED BEDREST ORDERS AND RESTRICTIONS OF ACTIVITY WHILE ON BEDREST POST HEMOSTASIS. VOICED UNDERSTADING OF ALL. WILL CONTINUE TO MONITOR. TO BEDSIDE AND UPDATED.
--- NOTE | 2021-08-22 12:50 | SUR.PHASEII ---
NOTIFIED BICYCLE RENTAL CLERK SUSSY MONREAL OF PT/ DESIRE FOR TRANSFER TO [facility] FOR ADVANCED CARDIAC CARE/ CABG.
--- NOTE | 2021-08-22 13:30 | SUR.PHASEII ---
REPORT CALLED TO JENNIFER MORALES ON 3RD MED/SURG TELE. QUESTIONS ANSWERED. PT. IS TO RETURN TO 314 POST PHASE II RECOVERY. PT. STABLE. 314 ON TELE (PT'S PRE PROCEDURE LOCATION) APPROVED BY DR. REYES AND JUAN TUCKER RN FOR POST CATH RECOVERY.
--- NOTE | 2021-08-22 14:00 | SUR.PHASEII ---
END PHASE II RECOVERY. RETURNED TO 314 VIA BED ON TELE MONITOR. NO CHANGE IN R. GROIN SITE NOTED. VSS. IVF'S RUNNING. VOICES NO C/O. NO DISTRESS NOTED.
[2021-08-22] MEDS: carvediloL 3.125 MG TABLET PO ×2 (14:17→20:57)
[2021-08-22 14:53] LABS: Glucose Point of Care 99 mg/dl (65-105)
[2021-08-22] MEDS: SODIUM CHLORIDE 0.9% IV 1,000 ML 125 ML IV CONT (15:08)
--- NOTE | 2021-08-22 15:25 | PC.NURSE ---
Pt is awaiting transfer to [facility]. Pt transferred back to room at 1410.
--- NOTE | 2021-08-22 15:40 | PM.TDS ---
Transfer Discharge Sum: Prov Provider Date of admission: 08/18/21 10:45 Primary care physician: PHYSICIAN NOT ON STAFF Admitting clinician: Angy Wall MD Consults: 08/18/21 Consult to Physician Routine Comment: spoke to exchange @1815 (,us) Consulting Provider: Zeferino Bullard scallop shucker/MD group to consult: Cardiology Reason for consultation: New onset of AFib Has provider been notified: Yes 08/21/21 Care Coordination Consult Routine Comment: plz give pt a list of pcps. thanks! Reason for Consult:: Other Transfer Discharge Sum: Med Medications Active and Home Medications: Home Medications amlodipine 10 mg PO DAILY 08/18/21 [History Confirmed 08/18/21] hydrochlorothiazide 25 mg PO DAILY 08/18/21 [History Confirmed 08/18/21] losartan [Cozaar] 100 mg PO DAILY 08/18/21 [History Confirmed 08/18/21] meclizine [Antivert/25] 25 mg PO PRN PRN 08/18/21 [History Confirmed 08/18/21] metformin 500 mg PO DAILY 08/18/21 [History Confirmed 08/18/21] potassium chloride [Klor-Con M20] 20 meq PO DAILY 08/18/21 [History Confirmed 08/18/21] Active Medications Amlodipine Besylate (Amlodipine Besylate 5 Mg Tablet) 10 mg PO DAILY [facility] Last Admin: 08/22/21 08:25 Dose: 10 mg Documented by: Aspirin (Aspirin 81 Mg Enteric Tablet) 81 mg PO QAM [facility] Last Admin: 08/22/21 08:25 Dose: 81 mg Documented by: Atorvastatin Calcium (Atorvastatin 40 Mg Tablet) 40 mg PO HS [facility] Last Admin: 08/21/21 21:07 Dose: 40 mg Documented by: Carvedilol (Carvedilol 3.125 Mg Tablet) 3.125 mg PO Q12HR [facility] Last Admin: 08/22/21 14:17 Dose: 3.125 mg Documented by: Dextrose (Dextrose 50% 25 Gm/50 Ml Syringe) 12.5 gm IV PUSH PRN PRN; Protocol PRN Reason: Hypoglycemia Enoxaparin Sodium (Enoxaparin 100 Mg/Ml Syringe) 100 mg SUB-Q Q12H [facility] Last Admin: 08/21/21 05:45 Dose: 100 mg Documented by: Glucagon (Glucagon For Inj 1 Mg Vial) 1 mg IM PRN PRN; Protocol PRN Reason: Hypoglycemia Glucose (Glucose Oral Gel 15 Gm Of Glucse In 37.5 Gm Tube) 15 gm PO PRN PRN; Protocol PRN Reason: Hypoglycemia Dextrose (Dextrose 5% 1,000 Ml) 1,000 mls @ 100 mls/hr IVPB PRN PRN; Protocol PRN Reason: Hypoglycemia Sodium Chloride (Normal Saline Iv) 1,000 mls @ 125 mls/hr IV CONT .Q8H ONE Stop: 08/22/21 19:03 Last Admin: 08/22/21 15:08 Dose: 125 mls/hr Documented by: Insulin Aspart (Insulin Aspart (*Bkc) 100 Units/Ml) 2 - 5 units SUB-Q TIDWM [facility]; Protocol Last Admin: 08/22/21 14:25 Dose: Not Given Documented by: Losartan Potassium (Losartan Potassium 100 Mg Tablet) 100 mg PO DAILY [facility] Last Admin: 08/22/21 08:25 Dose: 100 mg Documented by: Meclizine HCl (Meclizine Hcl 25 Mg Tablet) 25 mg PO PRN PRN PRN Reason: Dizziness Metformin HCl (Metformin Hcl Xr 500 Mg Tab.Sr.24h) 500 mg PO DAILY@0800 [facility] Last Admin: 08/22/21 08:24 Dose: 500 mg Documented by: Potassium Chloride (Potassium Chloride 20 Meq Tablet.Er) 20 meq PO DAILY [facility] Last Admin: 08/22/21 08:25 Dose: 20 meq Documented by: Transfer Discharge Sum: Hosp Hospital Course Hospital course: Rico Monteiro is a 71 year old male Time Spent with Patient Time attestation: Total time spent providing and/or coordinating transfer services: DS: Data Data Completed and Pending Labs on day of discharge: Labs from last 24 hours 08/22/21 08/22/21 08/22/21 14:22 07:57 06:43 WBC RBC Hgb Hct MCV MCH MCHC RDW Plt Count MPV % Immature Plt Fraction Sodium 138 Potassium 3.8 Chloride 108 H Carbon Dioxide 24 Anion Gap 6 L BUN 22 H Creatinine 1.00 Estim Creat Clear Calc 70 Estimated GFR > 60 Glucose 112 H POC Capillary Glucose 99 100 Calcium 8.7 08/22/21 08/21/21 06:43 16:57 WBC 4.4 L RBC 4.96 Hgb 15.8 Hct 44.8 MCV 90.3 MCH 31.9 MCHC 35.3 RDW 13.0 Plt Count 137 L MPV 11.0 H % Immature Plt Fraction 5.1 Sodium Potassium Chloride Carbon Dioxide
--- NOTE | 2021-08-22 16:00 | PM.IMPN ---
Progress Note: A&P Assessment and Plan (1) Atrial fibrillation: Qualifiers: Atrial fibrillation type: unspecified Qualified Code(s): I48.91 - Unspecified atrial fibrillation Code(s): I48.91 - Unspecified atrial fibrillation Status: Acute Assessment and Plan: -New onset and rate controlled -CHADS2 Vasc score 6-7 (h/o TIA, HTN, DM, cardiomyopathy, age >65, +/- CAD) placing him at high risk for recurrent stroke with atrial fibrillation. Patient was on Lovenox but it is being held due to possible intervention -cardiac catheterization revealed extensive disease and he is awaiting a bed at [facility] for transfer -continue losartan, carvedilol, and aspirin as well as atorvastatin -Continue telemetry monitoring (2) Cardiomyopathy: Code(s): I42.9 - Cardiomyopathy, unspecified Status: Acute Assessment and Plan: -New diagnosis moderate LV dysfunction EF 35-40% with severe hypokinesis of anterior anterolateral wall suggestive underlying CAD and or prior myocardial infarction -patient appears euvolemic -as above (3) Syncope: Code(s): R55 - Syncope and collapse Status: Acute Assessment and Plan: -concerning for cardiac etiology -MRI shows no acute CVA but does show his known old strokes -Brief nonsustained VT on telemetry per previous provider. Concern for ventricular arrhythmia or bradyarrhythmia as explanation for recurrent unexplained syncope. -Continue telemetry monitoring (4) Diabetes: Code(s): E11.9 - Type 2 diabetes mellitus without complications Status: Chronic Assessment and Plan: Last glucose 89 -continue metformin and sliding scale insulin (5) Hypertension: Code(s): I10 - Essential (primary) hypertension Status: Chronic Assessment and Plan: Last blood pressure 135/71 -continue amlodipine, losartan and carvedilol (6) Thyroid goiter: Code(s): E04.9 - Nontoxic goiter, unspecified Status: Acute Assessment and Plan: U/S shows: Multinodular goiter with 4 TI-RADS 4 nodules. Would recommend biopsy of the largest 2.6 cm nodule in the inferior left thyroid. -would recommend outpt biopsy once acute illness has improved, discussed with patient. -tsh wnl (7) Renal lesion: Code(s): N28.9 - Disorder of kidney and ureter, unspecified Status: Acute Assessment and Plan: CTA showed Indeterminate exophytic lesions of the posterolateral aspect of lower pole the right kidney; renal neoplasm is not excluded. u/s was not able to evaluate this abnormality. Pt will need outpt MRI for further evaluation Subjective Date/time seen: 08/22/21 0930 Interval history: Pt is a 71-year-old male here for syncope and new onset AFib. Patient was seen prior to his procedure. He was feeling a little anxious about the procedure but overall feeling okay okay. He was having no chest pain, shortness of breath, fevers, chills, nausea, vomiting, dizziness, or leg swelling. Exam Narrative: General: Well developed well nourished patient in NAD HEENT: normocephalic Neck: supple Neuro: Alert and oriented x4. Cranial nerves 2-12 intact. Equal strength upper lower extremity 5/5 CV:Irregularly irregular. Telemetry reviewed which shows occasional PVC and rate controlled AFib 90 Resp:CTA Abd: Soft, non distended. No pain to palpation. Positive bowel sounds Extremities: No swelling, erythema, or pain to palpation. Objective Data Vital Signs Vital Signs: Vital Signs - 24 hr 08/22/21 08:00 08/22/21 08:30 08/22/21 11:20 Temperature 97.4 F L Pulse Rate 83 88 Respiratory Rate 17 Blood Pressure 118/86 123/85 117/97 H Pulse Oximetry 92 08/22/21 11:35 08/22/21 11:50 08/22/21 12:05 Temperature Pulse Rate 86 90 84 Respiratory Rate 18 16 12 Blood Pressure 112/92 H 126/86 119/88 Pulse Oximetry 92 96 93 08/22/21 12:15 08/22/21 12:25 08/22/21
[2021-08-22 17:17] LABS: Glucose Point of Care 100 mg/dl (65-105)
[2021-08-22] MEDS: ATORVASTATIN 40 MG TABLET PO (20:58)
[2021-08-23] VITALS (17 sets, daily range): BP systolic 104–135; BP diastolic 61–94; PULSE 69–115; RESP 16–20; TEMP 36.5–36.8; O2SAT 94–100
[2021-08-23 02:05] LABS: Glucose Point of Care 89 mg/dl (65-105)
[2021-08-23 07:55] LABS: Glucose Point of Care 95 mg/dl (65-105)
[2021-08-23] MEDS: POTASSIUM CHLORIDE 20 MEQ TABLET.ER PO (09:30)
[2021-08-23] MEDS: carvediloL 3.125 MG TABLET PO ×2 (09:30→21:27)
[2021-08-23] MEDS: LOSARTAN POTASSIUM 100 MG TABLET PO (09:31)
[2021-08-23] MEDS: ASPIRIN 81 MG ENTERIC TABLET PO (09:31)
[2021-08-23] MEDS: amLODIPine BESYLATE 5 MG TABLET 10 MG PO (09:31)
[2021-08-23] MEDS: metFORMIN HCL XR 500 MG TAB.SR.24H PO (09:31)
--- NOTE | 2021-08-23 10:58 | ECG_ITS ---
Measurements Intervals Squires Rate: 88 P: MD: 0 QRS: 106 QRSD: 118 T: -41 QT: 381 QTc: 463 Interpretive Statements ATRIAL FIBRILLATION VENTRICULAR PREMATURE COMPLEX RIGHT AXIS DEVIATION INTRAVENTRICULAR CONDUCTION DELAY CANNOT RULE OUT SEPTAL INFARCT, AGE INDETERMINATE ST-T WAVE ABNORMALITY IN INFERIOR LEADS- CONSIDER ISCHEMIA ABNORMAL ECG Electronically Signed On 08-23-2021 11:16:08 FISH FLIPPER by Florian Duenas D.O.
[2021-08-23] MEDS: NITROGLYCERIN SL 0.4 MG TABLET SUBLINGUAL (11:08)
[2021-08-23 11:37] LABS: Glucose Point of Care 99 mg/dl (65-105)
--- NOTE | 2021-08-23 11:48 | PC.NURSE ---
On 08/23/21, the student, [ Toña Dean], provided care and completed [facility] documentation on this patient. I have reviewed the student's documentation and agree with the findings.
[2021-08-23 12:27] LABS: Basophils Percent Auto 0.6 % (0.2-1.2); Eosinophils Absolute Auto 0.2 K/mm3 (0-0.3); Eosinophils Percent Auto 4.3 % (0-4.4); Hematocrit 43.1 % (42.0-52.0); Hemoglobin 15.2 g/dL (14.0-18.0); Immature Granulocyte Absolute 0.02 K/mm3 (0.00-0.031); Immature Granulocyte Percent A 0.4 % (0-0.5); Immature Platelet Fraction Pct 4.4 % (0.9-11.2); Lymphocytes Percent Auto 12.4 % (18.3-44.2); Mean Corpuscular HGB Conc 35.3 g/dl (32-36); Mean Corpuscular Hemoglobin 31.8 pg (26-34); Mean Corpuscular Volume 90.2 fl (80-100); Mean Platelet Volume 11.3 fl (7.4-10.4); Monocytes Absolute Auto 0.5 K/mm3 (0.1-0.6); Monocytes Percent Auto 10.3 % (2.6-8.5); Neutrophils Absolute Auto 3.5 K/mm3 (1.3-6.7); Platelet Count Result 133 k/mm3 (150-375); Red Blood Count 4.78 M/mm3 (4.6-6.20); Red Cell Distribution Width 13.1 % (11.5-14.5); White Blood Count 4.8 K/mm3 (4.5-10.0)
[2021-08-23 12:38] LABS: Anion Gap 4 mmol/L (8-16); Blood Urea Nitrogen 23 mg/dL (9-20); Calcium 8.6 mg/dL (8.4-10.2); Carbon Dioxide 23 mmol/L (22-30); Chloride 111 mmol/L (98-107); Estimated CRCL calculation 70 ml/min; Estimated Glomerular Filt Rate > 60; Glucose 104 mg/dL (65-110); Magnesium 2.2 mg/dL (1.6-2.3); Potassium 3.8 mmol/L (3.4-5.0); Sodium 138 mmol/L (137-145)
[2021-08-23 12:39] LABS: Prothrombin Time 13.4 Seconds (11.1-14.7)
--- NOTE | 2021-08-23 12:39 | PM.PNCARD ---
Progress Note: A&P Assessment and Plan (1) Cardiomyopathy: Code(s): I42.9 - Cardiomyopathy, unspecified <CHAU Hopper - Last Filed: 08/23/21 15:29> Status: Acute <CHAU Hopper - Last Filed: 08/23/21 15:29> Assessment and Plan: New diagnosis moderate LV dysfunction EF 35-40% with severe hypokinesis of anterior anterolateral wall suggestive underlying CAD and or prior myocardial infarction. PAtient presented with symptoms concerning for angina with exertional dyspnea, fatigue and chest discomfort. . -Continue Losartan 100 mg daily. Aspirin 81 mg daily, atorvastatin 40 mg at bedtime. He is not in decompensated HF. Coronary angiogram performed 08/22/2021 revealing 1. Coronary artery disease with severe stenosis in the proximal/ostial segment of the LAD which appears to extend from more modest atherosclerosis extending from the distal left main as detailed above. 2. Approximately 70% stenosis in the 2nd OM branch of the circumflex 3. modest 30-40% stenosis of the mid right coronary 4. Left ventricular dilation with severe global systolic dysfunction is also noted. Low ejection fraction and moderately elevated LVEDP. He is awaiting transfer to [facility] for consideration for CABG with Dr. Knight <CHAU Hopper - Last Filed: 08/23/21 15:29> (2) Atrial fibrillation: Qualifiers: Atrial fibrillation type: unspecified Qualified Code(s): I48.91 - Unspecified atrial fibrillation <CHAU Hopper - Last Filed: 08/23/21 15:29> Code(s): I48.91 - Unspecified atrial fibrillation <CHAU Hopper - Last Filed: 08/23/21 15:29> Status: Acute <CHAU Hopper - Last Filed: 08/23/21 15:29> Assessment and Plan: New diagnosis atrial fibrillation with generally controlled ventricular response and nonspecific interventricular conduction delay underlying. Duration is unknown. Given multiple falls and recurrent syncope patient is a questionable candidate for systemic anticoagulation at this time. Ultimately, however, this is yet to be precisely determined. CHADS2 Vasc score 6-7 (h/o TIA, HTN, DM, cardiomyopathy, age >65, +/- CAD) placing him at high risk for recurrent stroke with atrial fibrillation. Heart rate controlled and tolerating Carvedilol 3.125 mg twice daily. Transition to metoprolol if significant recurrent nonsustained VT. <CHAU Hopper - Last Filed: 08/23/21 15:29> (3) Syncope and collapse: Code(s): R55 - Syncope and collapse <CHAU Hopper - Last Filed: 08/23/21 15:29> Status: Acute <CHAU Hopper - Last Filed: 08/23/21 15:29> Assessment and Plan: Etiology unknown. Negative orthostatic vital signs. Brief nonsustained VT on telemetry. Concern for ventricular arrhythmia or bradyarrhythmia as explanation for recurrent unexplained syncope. Continue telemetry in this regard. Carotid duplex ultrasound normal bilaterally. Outpatient 30 day quality assurance monitor body unless further etiology elucidated prior to discharge. <CHAU Hopper - Last Filed: 08/23/21 15:29> (4) Exertional angina: Code(s): I20.8 - Other forms of angina pectoris <CHAU Hopper - Last Filed: 08/23/21 15:29> Status: Acute <CHAU Hopper - Last Filed: 08/23/21 15:29> Assessment and Plan: Currently stable asymptomatic in this regard. Repeat troponin negative. He did have some chest pain this morning that correlated with having a long run of ventricular tachycardia. PRN nitro ordered for any further occurrences of chest pain. Placed on heparin gtt. <CHAU Hopper - Last Filed: 08/23/21 15:29> (5) Hypertension associated with type 2 diabetes mellitus: Code(s): E11.59 - Type 2 diabetes mellitus with other circulatory complications; I15.2 - Hypertension secondary to endocrine disorders <WILLIE Hopper
--- NOTE | 2021-08-23 12:48 | PM.EVENT ---
Event Note Event Note Event Note: Received call from RN at 1050 to notify me of patient complaining of chest pain and dizziness after getting up to use the urinal. VS checked and stable. Ordered stat EKG and SL nitro PRN and proceeded to bedside to assess patient. Arrived at bedside to assess patient and found him asleep but arousable, alert and oriented once awake. Patient states he began to feel dizzy while using the urinal then developed chest tightness and shortness of breath. He also reports left arm numbness. Chest pain 4/10 at the time of bedside evaluation. EKG had not yet been performed but was reviewed with Dr. Phillips when it was available. No changes. Heparin gtt ordered. Telemetry showed sustained run of VT occurring at 10:33. Plan to transfer to IMU level of care, initiate amiodarone gtt, check BMP, mag levels. Called transfer center to update [facility] on change in patient status. Plan of care discussed with Dr. Phillips.
[2021-08-23 12:52] LABS: Troponin I < 0.012 ng/mL (0.000-0.034)
[2021-08-23] MEDS: HEPARIN SODIUM 5,000 UNITS/ML VIAL 4000 UNITS IV PUSH (13:18)
[2021-08-23] MEDS: HEPARIN SOD/D5W 100 UNITS/ML 25,000 UNITS/250 ML BAG 10 UNITS IV CONT (13:18)
--- NOTE | 2021-08-23 13:36 | PM.IMPN ---
Progress Note: A&P Assessment and Plan (1) Ventricular tachycardia: Code(s): I47.2 - Ventricular tachycardia Status: Acute Assessment and Plan: With symptoms of CP, SOB and dizziness -resolved on its own, symptoms improved with nitro -Discussed with cardiology and he was placed on heparin and amiodarone -bmp, trop, and mag WNL -Likely due to cardiomyopathy as noted below -plan to transfer when bed opens up. INSTITUTIONAL CUSTODIAN Al[facility] called and spoke with Lisa about this occurance (2) Cardiomyopathy: Code(s): I42.9 - Cardiomyopathy, unspecified Status: Acute Assessment and Plan: -New diagnosis moderate LV dysfunction EF 35-40% with severe hypokinesis of anterior anterolateral wall suggestive underlying CAD and or prior myocardial infarction -cardiac cath shows extensive disease and he is awaiting transfer -patient appears euvolemic -as above (3) Atrial fibrillation: Qualifiers: Atrial fibrillation type: unspecified Qualified Code(s): I48.91 - Unspecified atrial fibrillation Code(s): I48.91 - Unspecified atrial fibrillation Status: Acute Assessment and Plan: -New onset and rate controlled -CHADS2 Vasc score 6-7 (h/o TIA, HTN, DM, cardiomyopathy, age >65, +/- CAD) placing him at high risk for recurrent stroke with atrial fibrillation. Patient was on Lovenox but it is being held due to possible intervention -cardiac catheterization revealed extensive disease and he is awaiting a bed at [facility] for transfer -continue losartan, carvedilol, and aspirin as well as atorvastatin -Continue telemetry monitoring (4) Syncope: Code(s): R55 - Syncope and collapse Status: Acute Assessment and Plan: Likely due to ventricular arrhythmia since pt had a similar episode and VT was noted on the tele -MRI shows no acute CVA but does show his known old strokes (5) Diabetes: Code(s): E11.9 - Type 2 diabetes mellitus without complications Status: Chronic Assessment and Plan: Last glucose 89 -continue metformin and sliding scale insulin (6) Hypertension: Code(s): I10 - Essential (primary) hypertension Status: Chronic Assessment and Plan: Last blood pressure 135/71 -continue amlodipine, losartan and carvedilol (7) Thyroid goiter: Code(s): E04.9 - Nontoxic goiter, unspecified Status: Acute Assessment and Plan: U/S shows: Multinodular goiter with 4 TI-RADS 4 nodules. Would recommend biopsy of the largest 2.6 cm nodule in the inferior left thyroid. -would recommend outpt biopsy once acute illness has improved, discussed with patient. -tsh wnl (8) Renal lesion: Code(s): N28.9 - Disorder of kidney and ureter, unspecified Status: Acute Assessment and Plan: CTA showed Indeterminate exophytic lesions of the posterolateral aspect of lower pole the right kidney; renal neoplasm is not excluded. u/s was not able to evaluate this abnormality. Pt will need outpt MRI for further evaluation Subjective Date/time seen: 08/23/21 13:36 Interval history: Pt is a 71-year-old male here for syncope and new onset AFib. Patient was seen today and states he did not feel well earlier. At approximately 10:30 a.m. he was getting up to use the urinal and suddenly felt like he was going to pass out. He had substernal chest pain, arm pain, and felt short of breath. He felt like he was going to pass out. He said this was like his other episodes but was his worst 1 yet. He let the nurse know and cardiology came to see him. They gave him a nitro which resolved his symptoms. He has now feeling better without any issues. Exam Narrative: General: Well developed well nourished patient in NAD HEENT: normocephalic Neck: supple Neuro: Alert and oriented x4. Cranial nerves 2-12 intact. Equal strength upper lower extremity 5/5 CV:Irregularly irregular. Telemetry
--- NOTE | 2021-08-23 14:40 | PC.NURSE ---
This patient, Rico Monteiro, was transferred to IMU 207 on 08/23/21 at 1440. Personal belongings sent with patient. Report given to ANDREW Manjarrez. Appropriate documentation sent with patient.
[2021-08-23] MEDS: AMIODARONE 150 MG/D5W 100 ML 150 MG/100 ML BAG 600 MG IV CONT (15:24)
[2021-08-23] MEDS: AMIODARONE 360 MG/D5W 200 ML 360 MG/200 ML BAG 33.33 MG IV CONT (15:26)
[2021-08-23 19:02] LABS: Partial Thromboplastin Time 70.2 SECONDS (22.3-36.8)
[2021-08-23 20:15] LABS: Glucose Point of Care 114 mg/dl (65-105)
[2021-08-23] MEDS: ATORVASTATIN 40 MG TABLET PO (21:27)
[2021-08-23] MEDS: AMIODARONE 360 MG/D5W 200 ML 360 MG/200 ML BAG 16.67 MG IV CONT (21:28)
[2021-08-24] VITALS (11 sets, daily range): BP systolic 113–127; BP diastolic 82–94; PULSE 63–88; RESP 12–22; TEMP 36.6–36.9; O2SAT 95–100
[2021-08-24] MEDS: HEPARIN SODIUM 5,000 UNITS/ML VIAL 3500 UNITS IV PUSH (01:07)
[2021-08-24 07:45] LABS: Basophils Percent Auto 0.7 % (0.2-1.2); Eosinophils Absolute Auto 0.2 K/mm3 (0-0.3); Eosinophils Percent Auto 4.4 % (0-4.4); Hematocrit 42.6 % (42.0-52.0); Hemoglobin 15.1 g/dL (14.0-18.0); Immature Granulocyte Absolute 0.01 K/mm3 (0.00-0.031); Immature Granulocyte Percent A 0.2 % (0-0.5); Immature Platelet Fraction Pct 5.7 % (0.9-11.2); Lymphocytes Absolute Auto 0.76 K/mm3 (0.9-3.2); Lymphocytes Percent Auto 14.1 % (18.3-44.2); Mean Corpuscular HGB Conc 35.4 g/dl (32-36); Mean Corpuscular Hemoglobin 31.7 pg (26-34); Mean Corpuscular Volume 89.5 fl (80-100); Mean Platelet Volume 11.4 fl (7.4-10.4); Monocytes Absolute Auto 0.6 K/mm3 (0.1-0.6); Monocytes Percent Auto 10.9 % (2.6-8.5); Neutrophils Absolute Auto 3.8 K/mm3 (1.3-6.7); Neutrophils Percent Auto 69.7 % (45.5-73.1); Platelet Count Result 133 k/mm3 (150-375); Red Blood Count 4.76 M/mm3 (4.6-6.20); Red Cell Distribution Width 13.1 % (11.5-14.5); White Blood Count 5.4 K/mm3 (4.5-10.0)
[2021-08-24 07:56] LABS: Partial Thromboplastin Time 78.6 SECONDS (22.3-36.8)
[2021-08-24] MEDS: amLODIPine BESYLATE 5 MG TABLET 10 MG PO (08:46)
[2021-08-24] MEDS: ASPIRIN 81 MG ENTERIC TABLET PO (08:46)
[2021-08-24] MEDS: POTASSIUM CHLORIDE 20 MEQ TABLET.ER PO (08:46)
[2021-08-24] MEDS: metFORMIN HCL XR 500 MG TAB.SR.24H PO (08:46)
[2021-08-24] MEDS: carvediloL 3.125 MG TABLET PO (08:46)
[2021-08-24] MEDS: LOSARTAN POTASSIUM 100 MG TABLET PO (08:46)
[2021-08-24] MEDS: AMIODARONE 360 MG/D5W 200 ML 360 MG/200 ML BAG 16.67 MG IV CONT (08:59)
[2021-08-24 09:02] LABS: Glucose Point of Care 104 mg/dl (65-105)
--- NOTE | 2021-08-24 09:35 | PM.PNCARD ---
Progress Note: A&P Assessment and Plan (1) Ventricular tachycardia: Code(s): I47.2 - Ventricular tachycardia Status: Acute Assessment and Plan: He had an episode of sustained ventricular tachycardia rate 240 on 08/23/2021 complaints of dizziness and chest pain. He came out of this arrhythmia without intervention. Amiodarone drip initiated with no recurrence. Likely this is the etiology of his syncopal episodes recently. Although he will be revascularized he will need EP evaluation, possibly Life Vest or ICD, prior to discharge fr CABG.. (2) CAD (coronary artery disease): Code(s): I25.10 - Atherosclerotic heart disease of [place] coronary artery without angina pectoris Status: Acute Assessment and Plan: Has exertional angina. No ACS. Cardiac catheterization showed multivessel CAD and he is awaiting transfer to [facility] for CABG. Patient states he will go to [facility] of no bed is available at [facility]. Called cardiothoracic surgery at [facility] spoke to ANDREW Chavez who will work on transfer and call me back. (3) Cardiomyopathy: Code(s): I42.9 - Cardiomyopathy, unspecified Status: Acute Assessment and Plan: New diagnosis moderate LV dysfunction EF 35-40% with severe hypokinesis of anterior anterolateral wall suggestive underlying CAD and or prior myocardial infarction. No CHF. (4) Atrial fibrillation: Qualifiers: Atrial fibrillation type: unspecified Qualified Code(s): I48.91 - Unspecified atrial fibrillation Code(s): I48.91 - Unspecified atrial fibrillation Status: Acute Assessment and Plan: New diagnosis atrial fibrillation with generally controlled ventricular response and nonspecific interventricular conduction delay underlying. Heart rate controlled and tolerating beta-jitendra. Because of V-tach, will transition to metoprolol and titrate dose. (5) Syncope and collapse: Code(s): R55 - Syncope and collapse Status: Acute Assessment and Plan: Due to ventricular tachycardia. (6) Hypertension associated with type 2 diabetes mellitus: Code(s): E11.59 - Type 2 diabetes mellitus with other circulatory complications; I15.2 - Hypertension secondary to endocrine disorders Status: Acute Assessment and Plan: BP controlled. Tolerating home medical therapy. (7) Thrombocytopenia: Code(s): D69.6 - Thrombocytopenia, unspecified Status: Acute Assessment and Plan: Mild thrombocytopenia since admission. Platelet count today 133 K. Continue to monitor with daily CBC as he is now on heparin - Concern for HIT Subjective Date/time seen: 08/24/21 09:35 Interval history: Follow-up for CAD, V-tach, cardiomyopathy EF 35-40%, new atrial fibrillation. Patient was admitted with recurrent syncope and angina, though not ACS. Catheterization showed multivessel coronary disease and CABG is recommended. He is waiting for a bed at [facility]. He had an episode of ventricular tachycardia, rate 240, lasting about 45 seconds on 08/23/2021 associated with presyncope. He was started on heparin and IV amiodarone. Date of service 08/23/2021: Underwent LHC yesterday that showed severe LAD disease for which CABG was recommended. Arrangements have been made to transfer patient to [facility] for surgery. Long run of ventricular tachycardia as described above, transferred back to IMU to start amiodarone drip. Date of service 08/24/2021: Pt did well overnight, had a chest cramps resolved by change of position but no anginalchest pain or shortness of breath. Telemetry showed no ventricular tachycardia, although he did have some short pauses during the core rescuer hours up to 2.7 seconds. Review of Systems Constitutional: Constitutional: Reports no additional constitutional complaints Eyes: Eyes: Reports no additional eye complaints ENT: Denies epistaxis [facility]
--- NOTE | 2021-08-24 10:01 | PM.IMPN ---
Progress Note: A&P Assessment and Plan (1) Ventricular tachycardia: Code(s): I47.2 - Ventricular tachycardia Status: Acute Assessment and Plan: Seen 08/23/21 with no recurrence. During this time he had symptoms of CP, SOB and dizziness -resolved on its own, symptoms improved with nitro -now on heparin and amiodarone -bmp, trop, and mag WNL -Likely due to cardiomyopathy as noted below -plan to transfer when bed opens up. [facility] updated (2) Cardiomyopathy: Code(s): I42.9 - Cardiomyopathy, unspecified Status: Acute Assessment and Plan: -New diagnosis moderate LV dysfunction EF 35-40% with severe hypokinesis of anterior anterolateral wall suggestive underlying CAD and or prior myocardial infarction -cardiac cath shows extensive disease and he is awaiting transfer -patient appears euvolemic -as above (3) Atrial fibrillation: Qualifiers: Atrial fibrillation type: unspecified Qualified Code(s): I48.91 - Unspecified atrial fibrillation Code(s): I48.91 - Unspecified atrial fibrillation Status: Acute Assessment and Plan: -New onset and rate controlled and now on amiodarone -CHADS2 Vasc score 6-7 (h/o TIA, HTN, DM, cardiomyopathy, age >65, +/- CAD) placing him at high risk for recurrent stroke with atrial fibrillation. Patient was on Lovenox but it is being held due to possible intervention -cardiac catheterization revealed extensive disease and he is awaiting a bed at [facility] for transfer -continue losartan, carvedilol, heparin drip, and aspirin as well as atorvastatin -Continue telemetry monitoring (4) Syncope: Code(s): R55 - Syncope and collapse Status: Acute Assessment and Plan: Likely due to ventricular arrhythmia since pt had a similar episode and VT was noted on the tele -MRI shows no acute CVA but does show his known old strokes (5) Diabetes: Code(s): E11.9 - Type 2 diabetes mellitus without complications Status: Chronic Assessment and Plan: Last glucose 104 -continue metformin and sliding scale insulin (6) Hypertension: Code(s): I10 - Essential (primary) hypertension Status: Chronic Assessment and Plan: Last blood pressure 127/85 -continue amlodipine, losartan and carvedilol (7) Thyroid goiter: Code(s): E04.9 - Nontoxic goiter, unspecified Status: Acute Assessment and Plan: U/S shows: Multinodular goiter with 4 TI-RADS 4 nodules. Would recommend biopsy of the largest 2.6 cm nodule in the inferior left thyroid. -would recommend outpt biopsy once acute illness has improved, discussed with patient. -tsh wnl (8) Renal lesion: Code(s): N28.9 - Disorder of kidney and ureter, unspecified Status: Acute Assessment and Plan: CTA showed Indeterminate exophytic lesions of the posterolateral aspect of lower pole the right kidney; renal neoplasm is not excluded. u/s was not able to evaluate this abnormality. Pt will need outpt MRI for further evaluation Subjective Date/time seen: 08/24/21 10:01 Interval history: Pt is a 71-year-old male here for syncope and new onset AFib. Patient was seen today and had no new events overnight. He did have a new symptom of chest cramp overnight but this resolved with sitting up. He did not have any lightheadedness, arm pain or presyncopal episodes with this and it resolved on its own. He has not had any shortness of breath but has not been out of bed. He has a decreased appetite due to anxiety. He has not had a bowel movement. Exam Narrative: General: Well developed well nourished patient in NAD HEENT: normocephalic Neck: supple Neuro: Alert and oriented x4. Cranial nerves 2-12 intact. Equal strength upper lower extremity 5/5 CV:Irregularly irregular. Telemetry with no further ventricular rhythms noted Resp:CTA Abd: Soft, non distended. No pain to palpa
[2021-08-24] MEDS: METOPROLOL TARTRATE 25 MG TABLET PO (11:46)
[2021-08-24] MEDS: HEPARIN SOD/D5W 100 UNITS/ML 25,000 UNITS/250 ML BAG 12 UNITS IV CONT (11:46)
[2021-08-24 12:25] LABS: Glucose Point of Care 102 mg/dl (65-105)
--- NOTE | 2021-08-24 14:12 | PC.NURSE ---
Pt transferred to [facility] PCU Rm#[id number] via [facility]. Amiodarone drip and Heparin drip infusing and sent with patient. Report called to ANDREW Rico @ 0060.
--- NOTE | 2021-08-24 15:00 | PM.TDS ---
Transfer Discharge Sum: Prov Provider Date of admission: 08/23/21 14:41 Primary care physician: PHYSICIAN NOT ON STAFF Admitting clinician: Angy Wall MD Consults: 08/18/21 Consult to Physician Routine Comment: spoke to exchange @0036 (,[place]) Consulting Provider: Zeferino Bulladr directory assistance operator/MD group to consult: Cardiology Reason for consultation: New onset of AFib Has provider been notified: Yes 08/21/21 Care Coordination Consult Routine Comment: plz give pt a list of pcps. thanks! Reason for Consult:: Other DS: Admitting Diagnosis Discharge Date 08/24/21 Admitting Diagnosis syncope DS: Discharge Diagnosis Discharge Diagnosis (1) Ventricular tachycardia: Code(s): I47.2 - Ventricular tachycardia Status: Acute Assessment and Plan: Seen 08/23/21 with no recurrence. During this time he had symptoms of CP, SOB and dizziness -resolved on its own, symptoms improved with nitro -now on heparin and amiodarone -bmp, trop, and mag WNL -Likely due to cardiomyopathy as noted below. Will need to see EP specalist -pts transferred to [facility] room 1251 (2) Cardiomyopathy: Code(s): I42.9 - Cardiomyopathy, unspecified Status: Acute Assessment and Plan: -New diagnosis moderate LV dysfunction EF 35-40% with severe hypokinesis of anterior anterolateral wall suggestive underlying CAD and or prior myocardial infarction -cardiac cath shows extensive disease and he is awaiting transfer -patient appears euvolemic -as above (3) Atrial fibrillation: Qualifiers: Atrial fibrillation type: unspecified Qualified Code(s): I48.91 - Unspecified atrial fibrillation Code(s): I48.91 - Unspecified atrial fibrillation Status: Acute Assessment and Plan: -New onset and rate controlled and now on amiodarone -CHADS2 Vasc score 6-7 (h/o TIA, HTN, DM, cardiomyopathy, age >65, +/- CAD) placing him at high risk for recurrent stroke with atrial fibrillation. Patient was on Lovenox but it is being held due to possible intervention -cardiac catheterization revealed extensive disease and he is awaiting a bed at [facility] for transfer -continue losartan, carvedilol, heparin drip, and aspirin as well as atorvastatin (4) Syncope: Code(s): R55 - Syncope and collapse Status: Acute Assessment and Plan: Likely due to ventricular arrhythmia since pt had a similar episode and VT was noted on the tele -MRI shows no acute CVA but does show his known old strokes (5) Diabetes: Code(s): E11.9 - Type 2 diabetes mellitus without complications Status: Chronic Assessment and Plan: Last glucose 102 -continue metformin and sliding scale insulin (6) Hypertension: Code(s): I10 - Essential (primary) hypertension Status: Chronic Assessment and Plan: Last blood pressure 122/94 -continue amlodipine, losartan and carvedilol (7) Thyroid goiter: Code(s): E04.9 - Nontoxic goiter, unspecified Status: Acute Assessment and Plan: U/S shows: Multinodular goiter with 4 TI-RADS 4 nodules. Would recommend biopsy of the largest 2.6 cm nodule in the inferior left thyroid. -would recommend outpt biopsy once acute illness has improved, discussed with patient. -tsh wnl (8) Renal lesion: Code(s): N28.9 - Disorder of kidney and ureter, unspecified Status: Acute Assessment and Plan: CTA showed Indeterminate exophytic lesions of the posterolateral aspect of lower pole the right kidney; renal neoplasm is not excluded. u/s was not able to evaluate this abnormality. Pt will need outpt MRI for further evaluation Transfer Discharge Sum: Med Medications Active and Home Medications: Home Medications amlodipine 10 mg PO DAILY 08/18/21 [History Confirmed 08/18/21] hydrochlorothiazide 25 mg PO DAILY 08/18/21 [History Confirmed 08/18/21] snaty
== END 2021-08-24 14:17 | disposition short-term general hospital (02) | DRG 287 ==
LOC: ANHED 10:54 → ANH3MEDSUR 16:15 → ANHIMU 08-23 15:50
PROVIDERS: Internal Medicine Cardiovascular Disease; Nurse Practitioner; Physician Assistant; Specialist; Admitting Provider Hospitalist; Emergency Provider Emergency Medicine; Visit Provider Internal Medicine Cardiovascular Disease
PROC: 4A023N7 Measurement of Cardiac Sampling and Pressure, Left Heart, Percutaneous Approach (ICD-10-PCS; CPT 93452; principal; 2021-08-22 11:30)
DX: I47.2 Ventricular tachycardia (principal); I42.9 Cardiomyopathy, unspecified; I48.91 Unspecified atrial fibrillation; I25.118 Atherosclerotic heart disease of native coronary artery with other forms of angina pectoris; Z86.73 Personal history of transient ischemic attack (TIA), and cerebral infarction without residual deficits; I10 Essential (primary) hypertension; I51.7 Cardiomegaly; R09.89 Other specified symptoms and signs involving the circulatory and respiratory systems; E11.9 Type 2 diabetes mellitus without complications; Z79.84 Long term (current) use of oral hypoglycemic drugs; R29.6 Repeated falls; Z79.82 Long term (current) use of aspirin; E04.9 Nontoxic goiter, unspecified; N28.9 Disorder of kidney and ureter, unspecified; I49.3 Ventricular premature depolarization; D69.6 Thrombocytopenia, unspecified
CPT/HCPCS: 36415; 70450; 70551; 71045; 71275; 76536; 76775; 80048; 80053; 80061; 81001; 82948; 83036; 83735; 83880; 84443; 84484; 85025; 85027; 85055; 85610; 85652; 85730; 93005; 93306; 93458; 93880; 96365; 96372; 99285; A9270; C1887; C1894; G0378; J0282; J0461; J1644; J1650; J2250; J3010; J7030; J7040; Q9967

== ENCOUNTER 2021-10-13 13:30 | Outpatient (RCR) | payer OTHER, SELFPAY ==
[2021-09-20 09:02] VITALS: PULSE 45
== END 2021-11-14 14:28 | disposition home or self-care (01) ==
LOC: ANHCPREHAB 13:30
DX: Z95.5 Presence of coronary angioplasty implant and graft (principal)
CPT/HCPCS: 93798

== ENCOUNTER 2021-10-29 08:28 | Emergency (ER) | payer OTHER, SELFPAY ==
--- NOTE | ~2021-10-29 | XR_ITS ---
[XR ribs LT 2V w CXR 2V ] INDICATION: Left rib pain after fall TECHNIQUE: Frontal projection of the upper left ribs, frontal projection of the lower left ribs, obli que projection of all the left ribs, frontal inspiratory chest x-ray for interpretation. FINDINGS: There are no displaced rib fractures identified. There are no soft tissue abnormality see n. The lungs are clear. There is a healed left third rib fracture. There is a coronary artery stent s. There is atherosclerosis of the thoracic and abdominal aorta. IMPRESSION: 1:No acute displaced rib fractures. Reviewed, dictated and finalized at location [facility]. [facility]
[2021-10-29 08:34] VITALS: BP 135/76; PULSE 54; RESP 16; TEMP 36.4; O2SAT 100
--- NOTE | 2021-10-29 08:56 | ED.FALL ---
HPI - Fall General Chief Complaint: Fall Stated Complaint: fall, low back pain Time Seen by Provider: 10/29/21 08:52 Source: patient Mode of arrival: ambulatory Limitations: no limitations History of Present Illness HPI Narrative: Patient is a 71-year-old male complaining of left posterior rib pain, 8 out of 10, dull, worse with palpation and movement after he tripped on a recliner last night and fell hitting his left back ribs against a furniture. Patient was able to get up and ambulate after the fall. Patient denies any head, neck, chest, abdomen, back, pelvis, hip or any extremity pain/injury. Related Data Home Medications Medication Instructions Recorded Confirmed apixaban 5 mg PO BID 09/20/21 09/20/21 atorvastatin 40 mg PO DAILY 09/20/21 09/20/21 clopidogrel 75 mg PO DAILY 09/20/21 09/20/21 metoprolol succinate 50 mg PO DAILY 09/20/21 09/20/21 multivitamin 1 tablet PO DAILY 09/20/21 09/20/21 sacubitril-valsartan 1 tablet PO BID 09/20/21 09/20/21 spironolactone 25 mg PO DAILY 09/20/21 09/20/21 Allergies Allergy/AdvReac Type Severity Reaction Status Date / Time No Known Allergies Allergy Verified 10/29/21 08:41 Review of Systems Review of Systems: All systems reviewed & are unremarkable except as noted in HPI and below Constitutional: Constitutional: Denies body ache(s), Denies chills, Denies excessive sweating, Denies fatigue, Denies fever(s), Denies headache(s), Denies lethargy, Denies malaise, Denies weakness and Denies weight loss Eyes: Eyes: Denies blurry vision, Denies change in vision and Denies loss of vision ENT: Denies dizziness, Denies ear discharge, Denies headache(s), Denies lip swelling, Denies epistaxis, Denies nasal congestion, Denies neck pain, Denies throat swelling and Denies tongue swelling Cardiovascular: Cardiovascular: Denies chest pain, Denies chest pain at rest, Denies chest pain with activity, Denies diaphoresis, Denies rapid heart rate, Denies edema, Denies irregular heart rhythm, Denies lightheadedness, Denies palpitations, Denies dyspnea and Denies dyspnea on exertion Respiratory: Respiratory: Denies chest congestion, Denies cough, Denies hemoptysis, Denies dyspnea and Denies dyspnea on exertion Gastrointestinal: Gastrointestinal: Denies abdominal pain, Denies melena, Denies hematochezia, Denies diarrhea, Denies nausea, Denies vomiting and Denies hematemesis Musculoskeletal: Musculoskeletal: Denies abnormal gait, Denies deformity, Denies joint swelling, Denies limited range of motion, Denies neck pain and Denies numbness Neurologic: Denies Abnormal speech present, Denies abnormal gait, Denies confusion, Denies dizziness, Denies headache(s), Denies focal weakness, Denies loss of vision, Denies numbness, Denies Other visual disturbances, Denies Sensory deficit (Neuro) and Denies weakness Psychiatric: Psychiatric: Denies confusion, Denies depression, Denies auditory hallucinations, Denies homicidal ideation and Denies suicidal ideation Endocrine: Endocrine: Denies cold intolerance, Denies excessive sweating, Denies fatigue, Denies heat intolerance and Denies palpitations Hematologic/Lymphatic: Hematologic/Lymphatic: Denies easy bleeding and Denies easy bruising Allergic/Immunologic: Allergic/Immunologic: Denies lip swelling, Denies throat swelling and Denies tongue swelling PMFSH Past Medical History Medical History Diabetes Hypertension Normal colonoscopy TMJ (dislocation of temporomandibular joint) Vertigo Surgical History Surgical History History of colonoscopy Family History Family History Sibling Diabetes mellitus Acute myocardial infarction Hypercholesteremia Father Cancer Hypercholesteremia Lung disease Mother Acute myocardial infarction Alcoholic Cancer Hypertension Hypercholesteremia Diabete
[2021-10-29] MEDS: HYDROcodone/acetaminophen (*CRX) 5-325 MG TABLET 1 TAB PO (09:03)
[2021-10-29 09:45] VITALS: PULSE 55; RESP 14; O2SAT 98
== END 2021-10-29 09:45 | disposition home or self-care (01) ==
PROVIDERS: Emergency Provider Emergency Medicine; PCP Family Medicine
DX: S20.212A Contusion of left front wall of thorax, initial encounter (principal); E11.9 Type 2 diabetes mellitus without complications; I10 Essential (primary) hypertension; Z79.01 Long term (current) use of anticoagulants; W18.09XA Striking against other object with subsequent fall, initial encounter
CPT/HCPCS: 71046; 71100; 99283; A9270

== ENCOUNTER 2023-06-11 16:23 | Emergency (ER) | payer OTHER, SELFPAY ==
[2023-06-11] VITALS (9 sets, daily range): BP systolic 63–107; BP diastolic 31–72; PULSE 69–117; RESP 14–28; TEMP 36.6; O2SAT 86–100
--- NOTE | ~2023-06-11 | XR_ITS ---
EXAMINATION: XR chest 1V portable DATE: 06/11/2023 17:14 INDICATION: Syncope. Fall. TECHNIQUE: A single frontal view of the chest was obtained. COMPARISON: Chest 2 views 10/29/2021 FINDINGS: There is a diffuse interstitial pattern, consistent with mild pulmonary edema. No pleural e ffusion or pneumothorax. Cardiomegaly is noted. There is a left chest wall pacer with leads in the ri ght atrium and right ventricle. IMPRESSION: 1. Mild pulmonary edema. 2. Cardiomegaly. Reviewed, dictated and finalized at location E.
--- NOTE | ~2023-06-11 | CT_ITS ---
EXAMINATION: CT chest abdomen pelvis w con DATE: 06/11/2023 17:50 INDICATION: Abdominal tenderness. Fall. Hypotension. TECHNIQUE: Computed tomography (CT) of the chest, abdomen, and pelvis was performed with 100 mL Omnip aque 350 intravenous contrast. Automated exposure control and iterative reconstruction technique were employed. The dose-length product was 1605.03 mGy-cm. COMPARISON: Chest CT 08/18/2021 FINDINGS: CHEST CT: The lungs demonstrate mild atelectasis. There is a cluster small nodules in right lower lobe, likely infection. No pleural effusion. There is a multinodular goiter with the largest nodule measuring 1.8 cm . There is a 15 mm mass in the anterior mediastinum. The heart size is normal. There are coronary artery calcifications. There is a left chest wall pacer with leads in the right atrium and right vent ricle. There is a trace pericardial effusion. There is mild chronic anterior wedging of multiple thor acic vertebral bodies. There is severe thoracic spondylosis. ABDOMEN/PELVIS CT: The liver, gallbladder, spleen, pancreas, and adrenal glands are normal. There is a large right perin ephric hematoma with mass effect on the kidney. There are cysts in the kidneys measuring up to 3.0 cm on the right. There are 2 foci of active extravasation of contrast from the right kidney. There are lacerations of right kidney with the deepest laceration from the renal cortex to a calyx. The prostat e is severely enlarged. There is a left inguinal hernia containing fat. There is diverticulosis of th e colon without evidence of diverticulitis. The inferior vena cava is flattened. There is mild aortic atherosclerosis. There are no pathologically enlarged lymph nodes. There is severe lumbar spondylosi s. IMPRESSION: 1. Laceration of right kidney with maximum depth extending from the cortex to a calyx. Large right pe rinephric hematoma with 2 foci of active extravasation of contrast. I called this result to Dr. Nargis lawrence 2. Cluster of nodules in right lung lower lobe, likely infection. 3. Multinodular goiter. Consider thyroid ultrasound for risk stratification. 4. 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 Consider thyroid scintigraphy. Reviewed, dictated and finalized at location E. IMPRESSION: 1. Laceration of right kidney with maximum depth extending from the cortex to a calyx. Large right perinephric hematoma with 2 foci of active extravasation of contrast. I called this result to Dr. Patel. 2. Cluster of nodules in right lung lower lobe, likely infection. 3. Multinodular goiter. Consider thyroid ultrasound for risk stratification. 4. 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 Consider thyroid scintigraph y.
--- NOTE | 2023-06-11 16:55 | ECG_ITS ---
Measurements Intervals [place] Rate: 70 P: -69 [place]: 193 QRS: 97 QRSD: 150 T: -10 QT: 443 QTc: 481 Interpretive Statements ELECTRONIC ATRIAL PACEMAKER ELECTRONIC VENTRICULAR PACEMAKER ABNORMAL RHYTHM ECG COMPARED TO ECG 08/23/2021 11:14:43 PATIENT IS NOW ELECTRONICALLY PACED, PREVIOUS ECG WAS ATRIAL FIBRILLATION Electronically Signed On 06-12-2023 11:56:30 CDT by Saulo Pearson M.D.
--- NOTE | 2023-06-11 17:07 | ED.FALL ---
HPI - Fall General Chief Complaint: Fall Stated Complaint: fell yesterday, L shoulder pain, hit head Time Seen by Provider: 06/11/23 16:54 History of Present Illness HPI Narrative: Pt said he passed out yesterday and fell and struck his left shoulder and his right ribs on a push zinc plater he thinks. He awoke laying on the mower.. Pt says he continues to have right rib and left shoulder pain and passed out again at triage. Pt denies CP. Pt complains of right lower latera rib pain and left shoulder pain. Related Data Home Medications Medication Instructions Recorded Confirmed apixaban 5 mg tablet 5 mg PO BID 09/20/21 09/20/21 atorvastatin 40 mg tablet 40 mg PO DAILY 09/20/21 09/20/21 clopidogrel 75 mg tablet 75 mg PO DAILY 09/20/21 09/20/21 metoprolol succinate 50 mg 50 mg PO DAILY 09/20/21 09/20/21 tablet,extended release 24 hr multivitamin 1 tablet PO DAILY 09/20/21 09/20/21 sacubitril 24 mg-valsartan 26 mg 1 tablet PO BID 09/20/21 09/20/21 tablet spironolactone 25 mg tablet 25 mg PO DAILY 09/20/21 09/20/21 Allergies Allergy/AdvReac Type Severity Reaction Status Date / Time No Known Allergies Allergy Verified 10/29/21 08:41 Review of Systems Review of Systems: All systems reviewed & are unremarkable except as noted in HPI and below PMFSH Past Medical History Medical History Diabetes Hypertension Normal colonoscopy TMJ (dislocation of temporomandibular joint) Vertigo Surgical History Surgical History History of colonoscopy Family History Family History Sibling Diabetes mellitus Acute myocardial infarction Hypercholesteremia Father Cancer Hypercholesteremia Lung disease Mother Acute myocardial infarction Alcoholic Cancer Hypertension Hypercholesteremia Diabetes mellitus Social History Social History Social History: 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 He has 4 children. He lives with his . Lifelong nonsmoker does not use any alcohol marijuana or illicit drugs. His is the durable power admitted attorneys for healthcare. Code status full code Smoking status: Never smoker Alcohol intake: never Substance use: never Spiritual care concerns: No Exam Const: General: no acute distress Nutritional Appearance: well nourished Orientation/consciousness: patient oriented x3 Limitations: no limitations HENMT: Head: normal to inspection Eyes: Pupils: Equal, round and reactive pupils present EOM: EOMs intact bilaterally Neck: Neck: normal visual inspection and no meningeal signs Other: no midline pain Chest: Other: tender over right lower lateral ribs, no crepitance Resp: Effort & Inspection: normal respiratory effort Auscultation: clear to auscultation bilaterally Cardio: Rate: regular rate Rhythm: regular rhythm GI: Auscultation: normal bowel sounds Other: tender right upper quadrant Skin: General skin exam: pallor Wounds: no wounds Neuro: General: patient oriented x3, moves all extremities and no focal motor deficits Speech: normal speech Extrem: Other: bruising left shoulder Psych: Mental Status: mental status grossly normal Affect: normal affect Attitude: cooperative Course Vital Signs Vital signs: Vital Signs Temperature 98 F 06/11/23 16:54 Pulse Rate 117 H 06/11/23 16:54 Respiratory Rate 14 06/11/23 16:54 Blood Pressure 63/31 L 06/11/23 16:54 Pulse Oximetry 86 L 06/11/23 16:54 Oxygen Delivery Room Air 06/11/23 16:54 Temperature 97.9 F 06/11/23 18:42 Pulse Rate 71 06/11/23 18:42 Respiratory Rate 28 H 06/11/23 18:42 Blood Pressure 107/70 06/11/23 18:42 Pulse Oximetry 99 06/11/23 18:42 Oxygen Delivery Room Air 06/11/23 16:54
[2023-06-11 17:12] LABS: Basophils Percent Auto 0.2 % (0.2-1.2); Eosinophils Percent Auto 0.2 % (0-4.4); Hematocrit 37.1 % (42.0-52.0); Hemoglobin 12.3 g/dL (14.0-18.0); Immature Granulocyte Absolute 0.07 K/mm3 (0.00-0.031); Immature Granulocyte Percent A 0.6 % (0-0.5); Lymphocytes Absolute Auto 1.03 K/mm3 (0.9-3.2); Lymphocytes Percent Auto 8.4 % (18.3-44.2); Mean Corpuscular HGB Conc 33.2 g/dl (32-36); Mean Corpuscular Hemoglobin 31.7 pg (26-34); Mean Corpuscular Volume 95.6 fl (80-100); Mean Platelet Volume 11.9 fl (7.4-10.4); Neutrophils Absolute Auto 10.1 K/mm3 (1.3-6.7); Neutrophils Percent Auto 82.6 % (45.5-73.1); Platelet Count Result 118 k/mm3 (150-375); Red Blood Count 3.88 M/mm3 (4.6-6.20); Red Cell Distribution Width 13.9 % (11.5-14.5); White Blood Count 12.2 K/mm3 (4.5-10.0)
--- NOTE | 2023-06-11 17:15 | PC.NURSE ---
Patient states he had a fall yesterday hitting his right side on a tractor. Patient is tender to the RUQ.
[2023-06-11 17:22] LABS: Alanine Aminotransferase 28 U/L (6-50); Albumin Level 3.2 g/dL (3.5-5.1); Alkaline Phosphatase 45 U/L (38-126); Anion Gap 5 mmol/L (8-16); Aspartate Amino Transferase 22 U/L (17-59); Bilirubin,Total 1.4 mg/dL (0.2-1.3); Blood Urea Nitrogen 38 mg/dL (9-20); Calcium 8.5 mg/dL (8.4-10.2); Carbon Dioxide 21 mmol/L (22-30); Chloride 107 mmol/L (98-107); Estimated CRCL calculation 42 ml/min; Estimated Glomerular Filt Rate 42; Glucose 217 mg/dL (65-110); Lipase 73 U/L (23-300); Sodium 133 mmol/L (137-145)
[2023-06-11 17:24] LABS: INR 1.3; Partial Thromboplastin Time 25.4 SECONDS (22.3-36.8); Prothrombin Time 17.2 Seconds (11.1-14.7)
[2023-06-11 17:33] LABS: Troponin I < 0.012 ng/mL (0.000-0.034)
[2023-06-11] MEDS: SODIUM CHLORIDE 0.9% IV 1,000 ML 999 ML IV CONT (17:43)
[2023-06-11 18:41] LABS: Magnesium 2.2 mg/dL (1.6-2.3)
[2023-06-11 18:42] LABS: Lactic Acid Reflex 2.6 mmol/L (0.7-2.0)
[2023-06-11 21:26] LABS: Reflex Lactic Acid Yes or No Add Lactic
== END 2023-06-11 18:59 | disposition short-term general hospital (02) ==
PROVIDERS: Emergency Provider Emergency Medicine; PCP Family Medicine
DX: S37.031A Laceration of right kidney, unspecified degree, initial encounter (principal); E11.9 Type 2 diabetes mellitus without complications; I10 Essential (primary) hypertension; Z95.0 Presence of cardiac pacemaker; W18.30XA Fall on same level, unspecified, initial encounter
CPT/HCPCS: 36415; 36430; 71045; 71260; 74177; 80053; 83605; 83690; 83735; 84484; 85025; 85610; 85730; 86850; 86900; 86901; 86920; 93005; 96360; 99285; J7030; P9016; Q9967

== ENCOUNTER 2024-09-15 10:59 | Emergency (ER) | payer OTHER, SELFPAY ==
--- NOTE | ~2024-09-15 | CT_ITS ---
EXAMINATION: CT brain wo con DATE: 09/15/2024 11:29 INDICATION: Endocrine the patient post fall with posterior head injury TECHNIQUE: Computed tomography (CT) of the head was performed without intravenous contrast. Sagittal and coronal reconstructions were performed. The mA was adjusted according to patient size. Iterative reconstruction technique was employed. The dose-length product was 605.33 mGy-cm. COMPARISON: head CT dated 08/18/2021 FINDINGS: No fracture. No acute intracranial hemorrhage, acute infarction or abnormal extra axial fluid collect ion. There is mild scattered white matter hypoattenuation consistent with chronic small vessel ischem ic disease. Symmetric prominence of the sulci and subarachnoid spaces overlying the convexities consi stent with mild to moderate age-appropriate diffuse cerebral volume loss. Ventricles are normal and s ymmetric. No mass/mass effect. Intracranial calcified cerebral atherosclerosis is noted. The orbits, paranasal sinuses and mastoid air cells are normal. IMPRESSION: 1. Normal aging brain. No fracture or acute intracranial process. Reviewed, dictated and finalized at location A. DENTIAL INSTRUCTOR
--- NOTE | ~2024-09-15 | CT_ITS ---
EXAMINATION: CT cervical spine wo con DATE: 09/15/2024 11:29 INDICATION: Neck injury. Fall. TECHNIQUE: Computed tomography (CT) of the cervical spine was performed without intravenous contrast. Automated exposure control and iterative reconstruction technique were employed. The dose-length pro duct was 487.95 mGy-cm. COMPARISON: Thyroid ultrasound 08/20/2021 FINDINGS: Again seen is a multinodular goiter. Bone alignment is normal. Vertebral body heights are n ormal. There is moderately decreased disc height at C3-C4 and mildly decreased disc height at C5-C6 a nd C6-C7. The following disc levels are specifically discussed: C2-C3: There is mild bilateral uncovertebral joint osteoarthritis. There is moderate right and severe left facet joint osteoarthritis. There is mild left neural foraminal stenosis. There is no central c anal stenosis. C3-C4: There is severe bilateral uncovertebral joint osteoarthritis. There is severe bilateral facet joint osteoarthritis. There is mild bilateral neural foraminal stenosis. There is mild central canal stenosis. C4-C5: There is mild bilateral uncovertebral joint osteoarthritis. There is severe right and moderate left facet joint osteoarthritis. There is mild bilateral neural foraminal stenosis. There is mild ce ntral canal stenosis. C5-C6: There is mild bilateral uncovertebral joint osteoarthritis. There is severe bilateral facet hermelinda int osteoarthritis. There is mild left neural foraminal stenosis. There is mild central canal stenosi s. C6-C7: There is mild bilateral uncovertebral joint osteoarthritis. There is severe bilateral facet hermelinda int osteoarthritis. There is mild bilateral neural foraminal stenosis. There is no central canal sten osis. C7-T1: There is no uncovertebral joint osteoarthritis. There is severe bilateral facet joint osteoart hritis. There is mild bilateral neural foraminal stenosis. There is no central canal stenosis. IMPRESSION: 1. No fracture. 2. Moderate cervical spondylosis. Reviewed, dictated and finalized at location A. ER CUTTER
[2024-09-15 11:02] VITALS: BP 169/109; PULSE 74; RESP 18; TEMP 36.6; O2SAT 100
--- NOTE | 2024-09-15 14:55 | ED_ITS ---
HPI - Fall General Chief Complaint: Fall Stated Complaint: fall Time Seen by Provider: 09/15/24 14:27 History of Present Illness HPI Narrative: 74-year-old male presenting after a fall. He was getting out of his car when he slipped on the ice and fell straight back striking his head. No loss of consciousness. Went to urgent care who advised he come to the ER for CT scan is he is on Eliquis. States that he was having some pain in the back of his head earlier but this is improved. Denies complaints currently. Related Data Home Medications Medication Instructions Recorded Confirmed apixaban 5 mg tablet 5 mg PO BID 09/20/21 09/20/21 atorvastatin 40 mg tablet 40 mg PO DAILY 09/20/21 09/20/21 clopidogrel 75 mg tablet 75 mg PO DAILY 09/20/21 09/20/21 metoprolol succinate 50 mg 50 mg PO DAILY 09/20/21 09/20/21 tablet,extended release 24 hr multivitamin 1 tablet PO DAILY 09/20/21 09/20/21 sacubitril 24 mg-valsartan 26 mg 1 tablet PO BID 09/20/21 09/20/21 tablet spironolactone 25 mg tablet 25 mg PO DAILY 09/20/21 09/20/21 Allergies Allergy/AdvReac Type Severity Reaction Status Date / Time No Known Allergies Allergy Verified 09/15/24 10:59 Review of Systems Review of Systems: All systems reviewed & are unremarkable except as noted in HPI and below PMFSH Past Medical History Medical History Diabetes Hypertension Normal colonoscopy TMJ (dislocation of temporomandibular joint) Vertigo Surgical History Surgical History History of colonoscopy Family History Family History Sibling Diabetes mellitus Acute myocardial infarction Hypercholesteremia Father Cancer Hypercholesteremia Lung disease Mother Acute myocardial infarction Alcoholic Cancer Hypertension Hypercholesteremia Diabetes mellitus Social History Social History Social History: 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 He has 4 children. He lives with his . Lifelong nonsmoker does not use any alcohol marijuana or illicit drugs. His is the durable power sports attorney for healthcare. Code status full code Smoking status: Never smoker Alcohol intake: never Substance use: never Spiritual care concerns: No Exam Narrative: GENERAL: Well-appearing, in no acute distress, pleasant cooperative HEAD: Normocephalic, atraumatic. EYES: PERRLA and EOMI. ENT: Mucous membranes moist. NECK: Supple. No midline tenderness CHEST: No respiratory distress. HEART: Regular rate and rhythm EXTREMITIES: Normal range of motion SKIN: Warm, dry, no rash. NEURO: Alert and oriented x3. PSYCH: Normal mood and affect. Course Vital Signs Vital signs: Vital Signs Temperature 97.9 F 09/15/24 11:02 Pulse Rate 74 09/15/24 11:02 Respiratory Rate 18 09/15/24 11:02 Blood Pressure 169/109 H 09/15/24 11:02 Pulse Oximetry 100 09/15/24 11:02 Temperature 97.9 F 09/15/24 11:02 Pulse Rate 74 09/15/24 11:02 Respiratory Rate 18 09/15/24 11:02 Blood Pressure 169/109 H 09/15/24 11:02 Pulse Oximetry 100 09/15/24 11:02 MDM - Fall MDM Narrative Medical decision making narrative: 74-year-old male presenting after a ground level fall. Vitals are stable. Exam remarkable for the above. CT brain and C-spine show no acute abnormalities. Patient is safe for outpatient management. Discussed appropriate supportive care and follow-up. Appropriate return precautions given. Patient is agreeable this plan. Discharged in stable condition. Differential Diagnosis Differential diagnosis: Likely other (Fall, closed head trauma, cervical strain) Medical Records Attestation: I reviewed the patient's medical records. Imaging Data Radiologist's impression: ITS Impressions Head CT 09/15/24 11:33 IMPRESSION: 1. Normal aging brain. No fracture or acute intracranial process. Cervical Spine CT 09/15/24 11:51 IMPRESSION: 1. No fracture. 2. Moderate cervical spondylosis. Critical Care Time Critical Care Time Critical Care Time: No Discharge Plan Discharge Clinical Impression: Fall, Closed head injury Patient Disposition: Home, Self-Care Condition: Stable Instructions: Antibiotic Form, Head Injury (ED) Additional Instructions: The imaging today shows no acute abnormalities. Please use Tylenol for pain control. Follow-up closely with your PCP. If your symptoms worsen or other concerning symptoms arise, please return to the ER. Prescriptions: No Action hydrocodone-acetaminophen 5-325 mg tablet 1 tablet PO Q8-10H PRN (Reason: pain) Qty: 6 0RF multivitamin Tablet 1 tablet PO DAILY atorvastatin 40 mg Tablet 40 mg PO DAILY metoprolol succinate 50 mg Tablet Extended Release 24 Hr 50 mg PO DAILY clopidogrel 75 mg Tablet 75 mg PO DAILY spironolactone 25 mg Tablet 25 mg PO DAILY apixaban 5 mg Tablet 5 mg PO BID sacubitril-valsartan 24-26 mg Tablet 1 tablet PO BID Follow-up/Referrals: Ronan,Ignacio Witt MD [Non-Staff] -
== END 2024-09-15 15:24 | disposition home or self-care (01) ==
PROVIDERS: Emergency Provider Emergency Medicine; PCP Family Medicine
DX: S09.90XA Unspecified injury of head, initial encounter (principal); W00.0XXA Fall on same level due to ice and snow, initial encounter; Z79.01 Long term (current) use of anticoagulants; E11.9 Type 2 diabetes mellitus without complications; I10 Essential (primary) hypertension
CPT/HCPCS: 70450; 72125; 99284

== ENCOUNTER 2024-11-03 12:45 | Outpatient (CLI) | payer OTHER, SELFPAY ==
[2024-11-03 13:31] LABS: Basophils Absolute Auto 0.1 K/mm3 (0.0-0.1); Eosinophils Absolute Auto 0.3 K/mm3 (0-0.3); Hematocrit 46.3 % (42.0-52.0); Hemoglobin 15.6 g/dL (14.0-18.0); Immature Granulocyte Absolute 0.01 K/mm3 (0.00-0.031); Immature Granulocyte Percent A 0.2 % (0-0.5); Immature Platelet Fraction Pct 4.3 % (0.9-11.2); Lymphocytes Absolute Auto 1.05 K/mm3 (0.9-3.2); Lymphocytes Percent Auto 20.3 % (18.3-44.2); Mean Corpuscular HGB Conc 33.7 g/dl (32-36); Mean Corpuscular Hemoglobin 31.7 pg (26-34); Mean Corpuscular Volume 94.1 fl (80-100); Mean Platelet Volume 11.2 fl (7.4-10.4); Monocytes Absolute Auto 0.7 K/mm3 (0.1-0.6); Monocytes Percent Auto 12.9 % (2.6-8.5); Neutrophils Absolute Auto 3.1 K/mm3 (1.3-6.7); Neutrophils Percent Auto 59.6 % (45.5-73.1); Platelet Count Result 102 k/mm3 (150-375); Red Blood Count 4.92 M/mm3 (4.6-6.20); Red Cell Distribution Width 12.9 % (11.5-14.5); White Blood Count 5.2 K/mm3 (4.5-10.0)
[2024-11-03 14:01] LABS: Alanine Aminotransferase 26 U/L (6-50); Albumin Level 4.2 g/dL (3.5-5.1); Alkaline Phosphatase 49 U/L (38-126); Anion Gap 6 mmol/L (4-12); Aspartate Amino Transferase 35 U/L (17-59); Bilirubin,Total 1.3 mg/dL (0.2-1.3); Blood Urea Nitrogen 27 mg/dL (9-20); Calcium 9.1 mg/dL (8.4-10.2); Carbon Dioxide 28 mmol/L (22-30); Chloride 107 mmol/L (98-107); Cholesterol 97 mg/dL (0-200); Estimated Glomerular Filt Rate > 60; Glucose 93 mg/dL (65-110); HDL Direct 46 mg/dL; Potassium 4.6 mmol/L (3.4-5.0); Sodium 141 mmol/L (137-145); Triglycerides 64 mg/dL (<150)
[2024-11-03 14:06] LABS: LDL Cholesterol Direct 38 mg/dL
[2024-11-03 14:14] LABS: Prostate Specific Antigen 3.2 ng/mL (< OR = 4.0)
[2024-11-03 14:38] LABS: Hemoglobin A1C 5.3 % (<5.7)
== END 2024-11-03 12:46 | disposition home or self-care (01) ==
LOC: ANHGOSHLAB 12:46
PROVIDERS: PCP Internal Medicine; Visit Provider Internal Medicine
DX: E11.59 Type 2 diabetes mellitus with other circulatory complications (principal); I48.91 Unspecified atrial fibrillation; I15.2 Hypertension secondary to endocrine disorders; I25.10 Atherosclerotic heart disease of native coronary artery without angina pectoris; Z12.5 Encounter for screening for malignant neoplasm of prostate; E04.9 Nontoxic goiter, unspecified; Z86.2 Personal history of diseases of the blood and blood-forming organs and certain disorders involving the immune mechanism; I11.0 Hypertensive heart disease with heart failure; I50.9 Heart failure, unspecified
CPT/HCPCS: 36415; 80053; 80061; 82172; 82728; 83036; 84153; 84443; 85025; 85055; G0103

== ENCOUNTER 2025-03-14 10:03 | Emergency (ER) | payer OTHER, SELFPAY ==
--- NOTE | ~2025-03-14 | XR_ITS ---
EXAMINATION: XR chest 2V 03/14/2025 10:55 INDICATION: Cough PROCEDURE: 2 view chest COMPARISON: 06/11/2023 FINDINGS: The lungs are clear. Moderate cardiomegaly. There is ectasia of the aorta. There are no ple ural effusions. There is no pneumothorax suspected. Pacemaker leads in expected position. IMPRESSION: 1: NO ACUTE CARDIOPULMONARY DISEASE. Reviewed, dictated and finalized at location A.
--- NOTE | ~2025-03-14 | CT_ITS ---
EXAMINATION: CT diagnostic chest wo con DATE: 03/14/2025 12:01 INDICATION: Productive cough. Right-sided chest pain. TECHNIQUE: Computed tomography (CT) of the chest was performed without intravenous contrast. The dose -length product was 250.11 mGy-cm. Automated exposure control and iterative reconstruction technique were employed. COMPARISON: CT dated 06/11/2023 FINDINGS: Cardiomegaly. There is a new 4.3 cm low-density mass along the right cardiophrenic angle, l ikely a pericardial cyst versus atypical lymph node. Nonobstructing left nephrolithiasis. There is a 3.2 cm low-density mass in the right kidney, consistent with a cyst. The pancreas and adrenal glands are unremarkable. Visualized bowel pattern is nonobstructive.. There is a prevascular space lymph nod e anterior to the aortic arch measuring 1.4 cm short axis. There is enlargement of the left thyroid l obe. Pacemaker leads are in expected position. There is a 3-4 mm right middle lobe nodule. There is a calcified granuloma right lower lobe adjacent to the fissure measuring 4 mm. No focal airspace conso lidation. IMPRESSION: 1. No acute cardiopulmonary disease. 2: Mediastinal lymphadenopathy, nonspecific. Low density right cardiophrenic angle mass measuring 4.3 cm which may represent a cyst or atypical ly mph node. 3: Right middle lobe nodule measuring 3-4 mm, likely benign. Consider follow-up low dose CT chest and 6-12 months. Reviewed, dictated and finalized at location A. IMPRESSION: 1. No acute cardiopulmonary disease. 2: Mediastinal lymphadenopathy, nonspecific. Low density right cardiophrenic angle mass measuring 4.3 cm which may represent a cyst or atypical lymph node. 3: Right middle lobe nodule measuring 3-4 mm, likely benign. Consider follow-up low dose CT chest and 6-12 months.
--- NOTE | ~2025-03-14 | XR_ITS ---
XR knee LT 3V 03/14/2025 10:55 Indication: Left knee pain Procedure: 3 views left knee Comparison: No prior studies for comparison. Findings: No fracture, subluxation or dislocation. No significant joint effusion. No foreign bodies. There is atherosclerosis. Impression: 1: No acute bone or joint abnormality. Reviewed, dictated and finalized at location A. Impression: 1: No acute bone or joint abnormality.
--- NOTE | ~2025-03-14 | CT_ITS ---
EXAMINATION: CTA chest abdomen pelvis DATE: 03/14/2025 13:25 CDT INDICATION: Right-sided chest pain and headache. Brief loss of consciousness. TECHNIQUE: Computed tomographic angiography (CTA) of the chest, abdomen, and pelvis was performed wit hout and with 100 mL Omnipaque-350 intravenous contrast. The dose-length product was 818.73 mGy-cm. M aximum intensity projection 3D-reconstructions of the aorta and other arteries were constructed by dionte sharpe technologist on a separate workstation. Automated exposure control and iterative reconstruction ki hnique were employed. COMPARISON: CT dated 03/14/2025 FINDINGS: CHEST CTA: Borderline heart size. Low-density mass right cardiophrenic angle, likely a cyst or atypical lymph no de. Cardiomegaly. No significant pleural or pericardial effusion. Pacemaker leads are present. Medias tinal lymphadenopathy in the prevascular space reidentified. There is fusiform dilation of the thorac ic abdominal aorta measuring up to 3.2 cm in the suprarenal abdominal aorta. There is ectasia of the common iliac arteries without aneurysm. There is patchy groundglass opacities, likely secondary to ex piratory imaging. No endobronchial lesions. No pneumothorax. ABDOMEN AND PELVIS CTA: Fatty infiltration of the liver. The spleen, pancreas, adrenal glands are unremarkable. There is bila teral renal atrophy. There is a right renal cysts. Gallbladder is present. Nonobstructive bowel gas p attern. Severely enlarged prostate gland. Moderate thoracic and lumbar spondylosis. Mild wedge compre ssion deformity of T8, likely chronic. The celiac axis, SMA and HELEN are patent. There is mild atheros clerosis at the origin of the left renal artery. The right renal artery is widely patent. IMPRESSION: 1. Mild fusiform dilation of the thoracic and abdominal aorta with ectasia. 2: Mediastinal lymphadenopathy. Low-density mass right cardiophrenic angle, likely benign cyst or aty pical lymph node. 3: Cardiomegaly. 4: Severely enlarged prostate gland. Reviewed, dictated and finalized at location A. IMPRESSION: 1. Mild fusiform dilation of the thoracic and abdominal aorta with ectasia. 2: Mediastinal lymphadenopathy. Low-density mass right cardiophrenic angle, lik robbie benign cyst or atypical lymph node. 3: Cardiomegaly. 4: Severely enlarged prostate gland.
--- NOTE | ~2025-03-14 | CT_ITS ---
EXAMINATION: CT BRAIN W/O DATE: 03/14/2025 10:44 INDICATION: Weakness. TECHNIQUE: Computed tomography (CT) of the head was performed without intravenous contrast. The dose- length product was 681.00 mGy-cm. Automated exposure control and iterative reconstruction technique w ere employed. COMPARISON: No prior studies for comparison. FINDINGS: There is generalized atrophy. There are scattered mild periventricular and subcortical whit e matter changes, most likely related to small vessel ischemic disease (microangiopathy). There is in tracranial atherosclerosis. No acute infarction, hemorrhage, mass or mass effect. No ventriculomegaly or midline shift. Midline sagittal images demonstrate a normal corpus callosum, c raniovertebral junction and sella turcica. Basilar cisterns are patent. There are air-fluid levels in the maxillary sinuses. There is mucosal thickening of the maxillary, et hmoid and frontal sinuses. Mastoids are pneumatized. IMPRESSION: 1. Moderate sinus disease. 2: Chronic age-related findings. Reviewed, dictated and finalized at location A.
[2025-03-14 10:09] VITALS: BP 134/81; PULSE 73; RESP 16; TEMP 36.9; O2SAT 100
--- NOTE | 2025-03-14 10:14 | ECG_ITS ---
Test Date: 2025-03-14 10:19:46 Measurements Intervals [place] Rate: 70 P: 140 DE: 199 QRS: -33 QRSD: 165 T: 114 QT: 446 QTc: 482 Interpretive Statements ELECTRONIC ATRIAL PACEMAKER ELECTRONIC VENTRICULAR PACEMAKER VENTRICULAR PREMATURE COMPLEX BASELINE ARTIFACT- I, III, AVR, AVL NO FURTHER INTERPRETATION IS POSSIBLE ATYPICAL ECG No previous ECG available for comparison Electronically Signed On 03-15-2025 06:45:02 CDT by Florian Duenas D.O.
[2025-03-14 10:31] VITALS: PULSE 73
--- NOTE | 2025-03-14 10:34 | ED_ITS ---
HPI - General Adult General Chief complaint: Dizziness Stated complaint: cough x 2 weeks, dizzy Time Seen by Provider: 03/14/25 10:15 History of Present Illness HPI narrative: This is a 74-year-old male presenting for dizziness. Patient has had a dry cough for the last 2 weeks associated with right-sided chest pain. Yesterday started to become weak and dizzy and had a fall where he landed on his knee. He did not strike his head. He is on blood thinners. He denies fevers chills nausea vomiting or diarrhea. No abdominal pain. Related Data Home Medications ?Medication ?Instructions ?Recorded ?Confirmed ?Last Taken ?Type apixaban 5 mg tablet 5 mg PO BID 09/20/21 11/03/24 Unknown History atorvastatin 40 mg tablet 40 mg PO DAILY 09/20/21 11/03/24 Unknown History multivitamin 1 tablet PO DAILY 09/20/21 11/03/24 Unknown History aspirin 81 mg tablet,delayed 81 mg PO DAILY 11/03/24 11/03/24 Unknown History release (Adult Aspirin Regimen) carvedilol 12.5 mg tablet 12.5 mg PO Q12H 11/03/24 11/03/24 Unknown History ketoconazole 2 % shampoo 1 applic topical 3XW 11/03/24 11/03/24 Unknown History losartan 50 mg tablet 50 mg PO DAILY 11/03/24 11/03/24 Unknown History tamsulosin 0.4 mg capsule (Flomax) 0.4 mg PO DAILY 11/03/24 11/03/24 Unknown History Allergies Allergy/AdvReac Type Severity Reaction Status Date / Time No Known Allergies Allergy Verified 03/14/25 10:09 [facility] Past Medical History Medical History Chronic kidney disease History of CHF (congestive heart failure) Chronic anticoagulation CHF (congestive heart failure) 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 He has 4 children. He lives with his . Lifelong nonsmoker does not use any alcohol marijuana or illicit drugs. His is the durable power employee benefits attorney for healthcare. Code status full code Smoking status: Never smoker Alcohol intake: never Substance use: never Do You Feel Safe in your Home?: Yes Lack of Transportation: No Lack of Food: Never True Current Housing: I Have Housing Concerned About Future Housing: No Difficulty Paying Gas/Electric Bills: No Difficulty Paying for Meds: No Currently Unemployed: No Education: Decline to Answer Difficulty w/ Childcare or Family Care: No Living arrangements: with family Occupation/Education: retired Gender identity (if verbalized by the patient): Male Sexual Orientation (if Verbalized by the Patient): Straight or Heterosexual Spiritual care concerns: No Exam 2 Narrative: APPEARANCE: No apparent distress. Head: atraumatic. EYES: EOMI, NOSE: Atraumatic NECK: Trachea midline RESPIRATORY: No increased rate of breathing clear to auscultation CARDIOVASCULAR: RRR, no peripheral edema ABDOMINAL: Non-distended soft nontender MUSCULOSKELETAl: No obvious deformities, reproducible chest wall pain over the right side of the abdomen NEURO: Alert. Cranial nerves 2-12 grossly intact. Sensation light touch, motor function cerebellar function intact for 4 extremities. Gait exam was normal. SKIN:: Warm, dry. Normal color PSYCHIATRIC: Normal affect Course Vital Signs Vital signs: Vital Signs Temperature 98.5 F 03/14/25 10:09 Pulse Rate 73 03/14/25 10:09 Respiratory Rate 16 03/14/25 10:09 Blood Pressure 134/81 03/14/25 10:09 Pulse Oximetry 100 03/14/25 10:09 Oxygen Delivery Room Air 03/14/25 10:09 Temperature 97.5 F L 03/14/25 12:48 Pulse Rate 71 03/14/25 15:46 Respiratory Rate 14 03/14/25 15:46 Blood Pressure 131/90 03/14/25 15:46 Pulse Oximetry 97 03/14/25 15:46 Oxygen Delivery Room Air 03/14/25 10:09 Medical Decision Making [facility] Narrative Medical decision making narrative: -Course: This is a 74-year-old male presenting ED with CC of cough and dizziness with a fall yesterday. CT imaging the brain was negative for acute bleed. On physical exam his neurologic exam is normal. He does have some reproducible chest pain over the right thorax. The rest of his workup was largely unremarkable. However during his stay he developed an episode where he became unresponsive, had upward gaze deviation and forced extension of the right arm. Episode lasted for approximately 15 seconds before he regained consciousness. No postictal period. No tongue biting or loss of consciousness. During this episodes the patient remained in a paced rhythm on the monitor. Patient does not recall the episode. His pacemaker was interrogated they reported no dysrhythmias. CTA chest abdomen pelvis was added on due to the complaint of right-sided chest pain and headache. This showed some fusiform dilation of the thoracic and abdominal aorta with ectasia but no other findings. Patient was given 1500 of Keppra case this was a focal seizure. We do not have neurology this weekend. Patient will be transferred to the [facility] system for further workup of his transient loss of consciousness. Accepted by Dr. Kc at [facility]. -DDX includes but is not limited to: Sepsis UTI dehydration pneumonia viral syndrome syncope-cardiac, focal seizures Independent EKG interpretation: Rhythm [sinus], Rate [69], Wright -[normal], WI -[normal], QRS [wide], QTC [458], T waves -[negative for concerning inversions], ST Segments - [Negative for concerning elevations] Final interpretations: Paced rhythm Vital Signs Vital Signs: Vital Signs Temperature 98.5 F 03/14/25 10:09 Pulse Rate 73 03/14/25 10:09 Respiratory Rate 16 03/14/25 10:09 Blood Pressure 134/81 03/14/25 10:09 Pulse Oximetry 100 03/14/25 10:09 Oxygen Delivery Room Air 03/14/25 10:09 Temperature 97.5 F L 03/14/25 12:48 Pulse Rate 71 03/14/25 15:46 Respiratory Rate 14 03/14/25 15:46 Blood Pressure 131/90 03/14/25 15:46 Pulse Oximetry 97 03/14/25 15:46 Oxygen Delivery Room Air 03/14/25 10:09 Lab Data 03/14/25 10:29 03/14/25 10:29 Labs: Lab Results 03/14/25 03/14/25 Range/Units 10:29 11:07 WBC 5.1 (4.5-10.0) K/mm3 RBC 4.69 (4.6-6.20) M/mm3 Hgb 14.8 (14.0-18.0) g/dL Hct 43.3 (42.0-52.0) % MCV 92.3 (80-100) fl MCH 31.6 (26-34) pg MCHC 34.2 (32-36) g/dl RDW 13.2 (11.5-14.5) % Plt Count 107 L (150-375) k/mm3 MPV 10.2 (7.4-10.4) fl Immature Gran % (Auto) 0.0 (0-0.5) % Neut % (Auto) 71.1 (45.5-73.1) % Lymph % (Auto) 15.6 L (18.3-44.2) % [place] % (Auto) 8.9 H (2.6-8.5) % Eos % (Auto) 3.8 (0-4.4) % Baso % (Auto) 0.6 (0.2-1.2) % Lymph # (Auto) 0.79 L (0.9-3.2) K/mm3 [place] # (Auto) 0.5 (0.1-0.6) K/mm3 Eos # (Auto) 0.2 (0-0.3) K/mm3 Baso # (Auto) 0.0 (0.0-0.1) K/mm3 Abs Immat Gran (auto) 0.00 (0.00-0.031) K/mm3 Absolute Neuts (auto) 3.6 (1.3-6.7) K/mm3 Absolute Nucleated RBC 0.000 (0.0-0.012) K/mm3 Nucleated RBC % 0.0 (0.0-0.2) % PT 16.7 H (11.1-14.7) Seconds INR 1.4 APTT 29.2 (22.3-36.8) Seconds Sodium 138 (137-145) mmol/L Potassium 4.0 (3.4-5.0) mmol/L Chloride 107 (98-107) mmol/L Carbon Dioxide 24 (22-30) mmol/L Anion Gap 7 (4-12) mmol/L BUN 28 H (9-20) mg/dL Creatinine 0.89 (0.7-1.3) mg/dL Estim Creat Clear Calc 66 ml/min Estimated GFR > 60 (59 - ) Glucose 105 (65-110) mg/dL Lactic Acid 0.7 (0.7-2.0) mmol/L Calcium 8.8 (8.4-10.2) mg/dL Total Bilirubin 1.1 (0.2-1.3) mg/dL AST 24 (17-59) U/L ALT 23 (6-50) U/L Alkaline Phosphatase 60 (38-126) U/L Troponin I < 0.012 (0.000-0.034) ng/mL NT-Pro-B Natriuret Pep 292 H (19.9-100) pg/mL Total Protein 6.0 L (6.3-8.2) g/dL Albumin 3.7 (3.5-5.1) g/dL Influenza A (RT-PCR) Negative (Negative) Influenza B (RT-PCR) Negative (Negative) RSV (RT-PCR) Negative (Negative) SARS-CoV-2 RNA (RT-PCR) Negative (Negative) Discharge Plan Discharge Clinical Impression: Consciousness loss, transient Patient Disposition: Acute Care Hospital Condition: Stable Patient Language: Chinese Prescriptions: No Action carvedilol 12.5 mg tablet 12.5 mg PO Q12H Rx Instructions: must administer with a meal/food losartan 50 mg tablet 50 mg PO DAILY tamsulosin [Flomax] 0.4 mg capsule 0.4 mg PO DAILY aspirin [Adult Aspirin Regimen] 81 mg tablet,delayed release (DR/EC) 81 mg PO DAILY ketoconazole 2 % shampoo 1 applic topical 3XW multivitamin Tablet 1 tablet PO DAILY atorvastatin 40 mg Tablet 40 mg PO DAILY apixaban 5 mg Tablet 5 mg PO BID Follow-up/Referrals: Ignacio Henry DO [Primary Care Provider] -
--- OUTSIDE RECORDS SUMMARY | 2025-03-14 10:34 | XMS_ITS | Referral Summary ---
Author Organization [facility] [place] [address] Address [address] [place] [address] Care Team Providers Care Imaging Nurse Name Role Phone Roverto Velazquez MD Unavailable Wade PERSON MD, Viet Boo Unavailable [phone] Miscellaneous, Not In File Unavailable Unava ilable Valdez Leyva MD Unavailable [phone] Missy Jones NP Unavailable Obed Garcia MD Unavailable Etta Vivas MD Unavailable [phone] Ignacio Henyr DO Primary Care Provider [phone] Encounters Date Type Department Care Team Description 03/13/2025 Results Follow-Up [facility] Cardiology [address] [place] [address] Delmy Garcia NP Potassium level, serum 03/13/2025 10:00 AM CDT Lab [address] [place] [address] Hyperkalemia 03/13/2025 10:30 AM CDT Ancillary Procedure [facility] Cardiology [address] [place] [address] Ischemic cardiomyopathy; Heart failure with reduced ejection fraction, NYHA class III (HCC) 03/04/2025 Results Follow-Up [facility] Cardiology [address] [place] [address] [address] [place] [address] Delmy Garcia, BRAIDING MACHINE OPERATOR CBC with auto differential, Basic metabolic panel, Pro B-type natriuretic peptide, Additional followed-up results: 3 03/04/2025 12:05 PM CDT Lab [facility] Outpatient Lab [address] [place] [phone] Cardiomyopathy, unspecified type (HCC); Biventricular congestive heart failure (HCC); Hypertension, unspecified type; MARI (dyspnea on exertion) 03/03/2025 Telephone [facility] Cardiology [address] [place] [address] [address] [place] [address] Delmy Garcia, BRAIDING MACHINE OPERATOR Testing 03/02/2025 Documentation [facility] Cardiology [address] [place] [address] [address] [place] [address] Delmy Garcia, BRAIDING MACHINE OPERATOR 01/13/2025 Telephone [facility] Cardiology [address] [place] [address] [address] [place] [address] Delmy Garcia BRAIDING MACHINE OPERATOR 01/12/2025 Results Follow-Up [facility] Cardiology [address] [place] [address] [address] [place] [address] Delmy Garcia, BRAIDING MACHINE OPERATOR Magnesium, Basic metabolic panel, eGFR 01/09/2025 11:00 AM CDT Lab [facility] Outpatient Lab [address] [place] [phone] Heart failure with reduced ejection fraction, NYHA class III (HCC); Encounter for long-term current use of medication 12/29/2024 Results Follow-Up [facility] Cardiology [address] [place] [address] [address] [place] [address] Delmy Garcia NP Magnesium, Basic metabolic panel, eGFR 12/28/2024 12:05 PM CDT Lab [facility] Outpatient Lab [address] [place] [address] Encounter for long-term current use of medication 12/14/2024 8:15 AM EXPERIMENTAL MACHINING LAB MANAGER Ancillary Procedure [facility] [address] [facility] [address] [place] [address] Presence of cardiac pacemaker (Primary Dx); Complete heart block (HCC) from Last 3 Months Allergies Active Allergy Reactions Criticality Noted Date Comments Opioids - Morphine Analogues Nausea only Low 2021 Hiccups Medications aspirin 81 mg enteric coated tablet Take 1 tablet (81 mg total) by mouth daily Active MULTIVITAMIN ORAL Take 1 tablet by mouth daily Active atorvastatin (LIPITOR) 40 mg tablet TAKE 1 TABLET BY MOUTH EVERY DAY AT NIGHT 90 tablet 3 4 Active ketoconazole (NIZORAL) 2 % shampoo APPLY TO SCALP TWO TO THREE TIMES WEEKLY 4 Active benzonatate (TESSALON) 100 mg capsuleIndicatio ns:Cough Take 1 capsule (100 mg total) by mouth 3 (three) times a day as needed for cough 42 capsule 4 Active Additional Information Patient not taking.Reported on 11/07/2024 clobetasoL (TEMOVATE) 0.05 % external solution APPLY TO SCALP TWICE DAILY NEEDED 4 Active tamsulosin (FLOMAX) 0.4 mg extended release capsule TAKE 1 CAPSULE BY MOUTH EVERY DAY WITH DINNER 90 capsule 3 4 Active Eliquis 5 mg tablet TAKE 1 TABLET BY MOUTH EVERY 12 HOURS 180 tablet 3 4 Active carvediloL (COREG) 12.5 mg tablet TAKE 1 TABLET BY MOUTH TWICE A DAY WITH MEAL/FOOD 180 tablet 1 5 Active sacubitriL-valsa rtan (ENTRESTO) 24-26 mg tabletIndication s:chronic heart failure Take 1 tablet by mouth 2 (two) times a day 180 tablet 3 5 Active dapagliflozin propanediol (FARXIGA) 10 mg tabletIndication s:Heart failure with reduced ejection fraction, NYHA class III (HCC) Take 1 tablet (10 mg total) by mouth daily 30 tablet 11 5 Active Hospital, Clinic, or Other Facility Administered Medication Ordered Dose Route Frequency Start Date End Date Status perflutren lipid (DEFINITY) 1.5 mL in sodium chloride 0.9% 10 mL syringe 1 - 10 mL IV Once in imaging 03/13/2025 03/13/2025 Ended Active Problems Problem Noted Date Diagnosed Date Viral upper respiratory tract infection 09/26/20 Assessment & Plan (09/26/2024 8:56 PM EXPERIMENTAL MACHINING LAB MANAGER): Viral infection. [id number] for symptoms Bilateral impacted cerumen 09/26/2024 Assessment & Plan (09/26/2024 8:56 PM EXPERIMENTAL MACHINING LAB MANAGER): Rinsed with warm water bilaterally until clear. Platelets decreased 11/07/2023 Chronic renal failure, stage 3a 11/07/2023 Encounter for Medicare annual wellness exam 10/16 Assessment & Plan (11/07/2023 9:34 AM EXPERIMENTAL MACHINING LAB MANAGER): A(n) yearly Medicare Annual Wellness Visit has been performed today. Rico Monteiro is not up to date on screening tests. He is in need of Cholesterol screening. He is not up to date on needed preventative vaccinations; He is in need of Zoster and Covid-19 (booster). We discussed healthy lifestyle habits, educational material has been given. Medications reviewed, changes documented as per the medical record and discussed with patient along with risks vs benefits. Return in 6 months Encounter for interrogation of cardiac pacemaker 05/07/2023 Complete heart block 08/14/2022 Assessment & Plan (06/25/2024 3:16 PM CDT): Chronic, stable problem. S/p dual chamber pacemaker, excellent function. 88% HEALTH POLICY NURSE in context of moderate LV dysfunction (LVEF 40%). No heart failure symptoms. Could consider device revision to RCIS-P system, but in absence of clinical HF would favor observation for now. --Continue remote device monitoring --Consider device revision to RCIS-P system in future if HF symptoms arise, LVEF declines or at time of generator replacement. Assessment & Plan (06/26/2023 9:43 AM CDT): S/p dual chamber pacemaker. Excellent device function. --Continue remote device f/u remotely Assessment & Plan (10/02/2022 9:03 AM EXPERIMENTAL MACHINING LAB MANAGER): Transient, perioperatively. No recurrence. No current indication for pacing. Assessment & Plan (08/14/2022 10:01 AM CDT): Transient episode of complete AV block following cardioversion during AF ablation. Recovered conduction within 12 hours. Pt has baseline LBBB and is at risk for recurrent AV block in future. Recent symptoms of dizziness more likely related to vagal effect from coughing. --OK to continue metoprolol --No current indication for pacing --Report any syncope Atrial fibrillation with RVR 05/09/2022 Assessment & Plan (06/26/2023 10:23 AM CDT): Prior to signing off on note, Urology OV reviewed, Eliquis was restarted. Thyroid nodule 11/02/2021 Chronic systolic heart failure 09/13/2021 Assessment & Plan (04/29/2024 9:39 AM CDT): Euvolemic with stable NYHA 2 symptoms. Continue metoprolol XL 25, torsemide 20 daily. Continue carvedilol and losartan Assessment & Plan (10/30/2023 11:03 AM EXPERIMENTAL MACHINING LAB MANAGER): Well compensated on physical exam. No significant weight gain. Had previously been on Entresto and Aldactone suspect these were discontinued with hypotension and hyperkalemia. Continue carvedilol, losartan. Most recent EF 40%. Assessment & Plan (05/01/2023 2:15 PM CDT): Euvolemic with stable NYHA 2 symptoms. Continue metoprolol XL 25, torsemide 20 daily. Continue carvedilol and losartan Assessment & Plan (01/30/2023 10:31 AM CDT): With normalization of his EF. Continue losartan 50 mg. Will transition from metoprolol XL to carvedilol. We discussed that if he is gaining more than 3 lb in 24 hours or 5 lb in 1 week he should call our office to discuss diuretic therapy. Assessment & Plan (10/25/2022 10:03 AM EXPERIMENTAL MACHINING LAB MANAGER): Euvolemic with stable NYHA 2 symptoms. Continue metoprolol XL 25, torsemide 20 daily. Due to high co-pay cost switch Entresto to losartan 25 daily, which should be reasonably equivalent therapy given he has a normalization of his EF Assessment & Plan (07/19/2022 10:07 AM CDT): EF 25% at time of diagnosis etiology likely multifactorial due to ischemic heart disease and also nonischemic component due to AFib. EF has recovered with revascularization and medical therapy. Euvolemic on exam with stable NYHA 2 symptoms. - continue metoprolol XL 25, Entresto 24-26 b.i.d torsemide 20 daily Assessment & Plan (03/22/2022 11:43 AM CDT): EF 25% at time of diagnosis etiology likely multifactorial due to ischemic heart disease and also nonischemic component due to AFib. EF has recovered with revascularization and medical therapy. Euvolemic on exam with stable NYHA 2 minimal symptoms - continue metoprolol XL 25, Entresto 24-26 b.i.d. and spironolactone 25 Assessment & Plan (12/14/2021 10:28 AM EXPERIMENTAL MACHINING LAB MANAGER): EF 25% at time of diagnosis etiology likely multifactorial due to ischemic heart disease and also nonischemic component due to AFib. Significantly improved symptoms following cardioversion, stable NYHA 2 and his ejection fraction has improved to normal range on medical therapy and revascularization - continue metoprolol XL 25, Entresto 24-26 b.i.d. and spironolactone 25 Assessment & Plan (11/09/2021 2:00 PM EXPERIMENTAL MACHINING LAB MANAGER): EF 25% at time of diagnosis etiology likely multifactorial due to ischemic heart disease and also nonischemic component due to AFib. His symptoms have significantly improved after cardioversion and he is euvolemic with NYHA 2 symptoms. - continue metoprolol 25, Entresto 24-26 b.i.d. and spironolactone 25 - repeat echo in early November to determine need for ICD and/or pacemaker placement to up titrate his beta-jitendra - he had symptomatic bradycardia which improved with decreasing his metoprolol Assessment & Plan (10/18/2021 3:32 PM EXPERIMENTAL MACHINING LAB MANAGER): EF 25%, euvolemic on exam but persistent NYHA 3 symptoms. He has ischemic heart disease however the may be superimposed nonischemic cardiomyopathy given the degree of his cardiomyopathy seems out of proportion to Coronary artery disease. He is fully revascularized and euvolemic on exam but has persistent symptoms. I think his bradycardia is contributing so we have to decrease his beta-jitendra - reduce metoprolol to 25 daily XL - continue Entresto 24-26 b.i.d., spironolactone 25 - hold off on starting SGL2 inhibitor pending this hypoglycemia eval - plan to repeat echo in a month to determine need for device implant Assessment & Plan (09/14/2021 1:52 PM EXPERIMENTAL MACHINING LAB MANAGER): EF 25%, has underlying Coronary artery disease however suspect there is both ischemic and nonischemic component given his cardiomyopathy seems disproportionate to his coronary disease. He is fully revascularized now and on suboptimal medical therapy. We will adjust. He appears euvolemic and stable NYHA 3 symptoms - change metoprolol to 50 mg XL daily - stop losartan and start Entresto 24-26 b.i.d. - start spironolactone 25 - check labs 1 week - start Farxiga next visit - repeat echo in 3 months to determine ICD Coronary artery disease invo l[place] coronary artery of [place] heart without angina pectoris 08/24/2021 Assessment & Plan (04/29/2024 9:39 AM CDT): Status post PCI of LAD. Remains free of angina. LDL at goal - continue Eliquis, aspirin 81 - continue lipitor 20 daily Assessment & Plan (10/30/2023 11:02 AM EXPERIMENTAL MACHINING LAB MANAGER): Reassuring recent catheterization with nonobstructive CAD and patent LAD stent. Continue aspirin, statin, beta-jitendra, on Eliquis. Assessment & Plan (05/01/2023 2:14 PM CDT): Status post PCI of LAD. Remains free of angina. LDL at goal - continue Eliquis, aspirin 81 - continue lipitor 20 daily Assessment & Plan (01/30/2023 10:27 AM CDT): S/p PCI to LAD. Denies chest pain. LDL 65, at goal. Continue statin. Continue BB, ASA and Eliquis. Assessment & Plan (10/25/2022 9:10 AM EXPERIMENTAL MACHINING LAB MANAGER): Status post PCI of LAD. Remains free of angina. LDL at goal - continue Eliquis, aspirin 81 - continue lipitor 20 daily Assessment & Plan (07/19/2022 10:06 AM CDT): Status post PCI of LAD. Remains free of angina - continue Eliquis, Plavix and Lipitor Assessment & Plan (03/22/2022 11:42 AM CDT): Status post PCI of LAD. IFR negative circumflex. Fully revascularized, continue secondary prevention. Remains free of angina - continue Eliquis, Plavix and Lipitor Assessment & Plan (12/14/2021 10:27 AM EXPERIMENTAL MACHINING LAB MANAGER): Status post PCI of LAD. IFR negative circumflex. Fully revascularized, continue secondary prevention. Remains free of angina - continue Eliquis, Plavix and Lipitor Assessment & Plan (10/18/2021 3:33 PM EXPERIMENTAL MACHINING LAB MANAGER): Status post PCI of LAD. IFR negative circumflex. Fully revascularized continue secondary prevention - continue Eliquis, Plavix and Lipitor Assessment & Plan (09/14/2021 1:50 PM EXPERIMENTAL MACHINING LAB MANAGER): Status post PCI of LAD. IFR negative circumflex. Fully revascularized continue secondary prevention - stop aspirin - continue Eliquis and Plavix and Lipitor Ventricular tachycardia 08/24/2021 Assessment & Plan (10/30/2023 11:00 AM EXPERIMENTAL MACHINING LAB MANAGER): [facility]ed [facility], Dr. Olvera. Continue beta-jitendra. Assessment & Plan (05/29/2022 2:27 PM CDT): Resolved. Initially occurring during ACS. No recurrence, feeling well. --Continue metoprolol. Assessment & Plan (11/29/2021 11:17 AM EXPERIMENTAL MACHINING LAB MANAGER): SMVT, occurring in context of severe proximal LAD disease with NSTEMI. Now s/p PCI to proximal LAD. Doing well, without recurrence of VT. Wearing LifeVest without any therapies or arrhythmias documented. LVEF has markedly improved (essentially normalized) after PCI and on medical therapy- EF 60-6%. Discussed at length with patient. Suspect his VT was driven by ischemia. Now successfully revascularized with normalization of LV function and no VT for 3 months. Risk for SCD/recurrent VT is low. I would not recommend ICD implantation at this point. LifeVest can be removed. I asked him to call if he develops recurrent syncope or sustained palpitations. --No current indication for ICD implantation --OK to remove wearable defibrillator (LifeVest) --Continue metoprolol XL 25 mg daily --Monitor clinically for syncope and palpitations Assessment & Plan (11/09/2021 1:59 PM EXPERIMENTAL MACHINING LAB MANAGER): Continue life vest, no recent device therapies. Follow-up with Dr. Olvera for mid November after his repeat echo Assessment & Plan (10/18/2021 3:33 PM EXPERIMENTAL MACHINING LAB MANAGER): No recent shocks. Continue on with life vest pending decision about need for ICD implant Assessment & Plan (09/14/2021 1:50 PM EXPERIMENTAL MACHINING LAB MANAGER): Monomorphic VT prior to revascularization during index hospitalization. Currently on LifeVest. Seen by Dr. Olvera. Plan to reassess ICD need after 3 months of therapy and repeat echo Sinus node dysfunction 08/24/2021 Assessment & Plan (10/30/2023 11:01 AM EXPERIMENTAL MACHINING LAB MANAGER): Followed by EP as mentioned above. Assessment & Plan (10/02/2022 9:02 AM EXPERIMENTAL MACHINING LAB MANAGER): Mild, asymptomatic. No current indication for pacing. Assessment & Plan (05/29/2022 2:28 PM CDT): Significant resting sinus bradycardia. Rate 45 bpm currently on low dose metoprolol. Unable to tolerate antiarrhythmic drugs or higher dose metoprolol. Pacing might be required in future for adequate medical therapy for HF/CAD. --AF ablation as above. --Avoiding pacing for now. Assessment & Plan (11/29/2021 11:18 AM EXPERIMENTAL MACHINING LAB MANAGER): With symptomatic sinus bradycardia on amiodarone and higher dose metoprolol. Now doing better, with resolution of symptoms off amiodarone and lower dose metoprolol. Discussed possible need for pacing in future, but no immediate indication. --Continue metoprolol XL 25 mg daily --Consider pacing in future if pt requires escalation of metoprolol or antiarrhythmic drugs History of CVA (cerebrovascu lar accident) without residual deficits 08/24/2021 Multinodular goiter (nontoxic) 08/24/2021 Assessment & Plan (03/24/2024 9:23 AM CDT): History of multinodular goiter No compressive symptoms Status post dominant left thyroid nodule FNA biopsy 12/2021 with benign cytology Last TSH within normal limits Performed a follow-up thyroid ultrasound in office today - noted stable thyroid nodules Follow-up in 1 year Assessment & Plan (04/23/2023 7:18 AM CDT): History of multinodular goiter No compressive symptoms Status post dominant left thyroid nodule FNA biopsy 12/2021 with benign cytology Last TSH within normal limits Performed a follow-up thyroid ultrasound in office today - noted stable thyroid nodules Follow-up in 1 year Assessment & Plan (03/20/2022 11:16 AM CDT): History of multinodular goiter No compressive symptoms Status post dominant left thyroid nodule FNA biopsy 12/2021 with benign cytology Last TSH within normal limits Performed a follow-up thyroid ultrasound in office today - noted stable thyroid nodules Follow-up in 1 year Assessment & Plan (11/11/2021 9:07 AM EXPERIMENTAL MACHINING LAB MANAGER): Reviewed patient recent thyroid ultrasound report and images Bilateral thyroid nodules No compressive symptoms Recent TSH within normal limits Family history of thyroid cancer post Bilateral thyroid nodules meet criteria for FNA biopsy Patient currently on Eliquis Eliquis needs to be held 5 days prior to thyroid nodule FNA. He has history of atrial fibrillation and recent history of V-tach on LifeVest Patient following with surveyor helper rod and hair spring winder, he is due for cardiac procedure next month. Advised patient to discuss with his surveyor helper rod and hair spring winder before holding Eliquis. Advised patient to call me back once he gets cleared by his surveyor helper rod. Will schedule thyroid nodule biopsy Accordingly Further plans based on cytology results. Renal cyst 08/24/2021 Persistent atrial fibrillation 08/24/2021 Assessment & Plan (06/25/2024 3:15 PM CDT): Chronic, stable problem. Doing well, no recurrent AF post-ablation. 0% burden by device interrogation. Discussed anticoagulation with patient. He had some traumatic bleeding last year, but no recurrence and falls are not a chronic problem. Recommend continuing DOAC for now. Could consider LAAO in future of bleeding continues to be a problem. --Continue apixaban 5 mg BID --Continue carvedilol 12.5 mg BID Assessment & Plan (10/30/2023 11:01 AM EXPERIMENTAL MACHINING LAB MANAGER): Heart rates are controlled on oral beta-jitendra, continue Eliquis. Assessment & Plan (08/01/2023 10:19 AM CDT): Continuing Eliquis 5 mg BID. Has stress test scheduled for 08/09/23 per Cardio and ECHO 10/31/23. Recently had Coreg adjusted per Cardiology back to his original dose of 12.5 mg BID. No recurrence of A-fib post-ablation, there is discussion about possible Watchman's Procedure. Assessment & Plan (06/26/2023 9:43 AM CDT): No recurrence post-ablation. Doing well. --Resume Eliquis 5 mg BID, as directed by urology Assessment & Plan (05/01/2023 2:14 PM CDT): In sinus today, no recurrence since ablation. Continue coreg and Eliquis. S/p PPM for CHB Assessment & Plan (01/30/2023 10:26 AM CDT): S/p ablation. Underwent PPM placement on 01/22/[address] Olvera for CHB. Doing well since. Currently holding Eliquis and aspirin for procedure tomorrow, will resume tomorrow evening. Will transition from metoprolol to carvedilol. Assessment & Plan (10/25/2022 10:02 AM EXPERIMENTAL MACHINING LAB MANAGER): In sinus today, no recurrence since ablation. Continue metoprolol XL 25 and Eliquis Assessment & Plan (10/02/2022 9:02 AM EXPERIMENTAL MACHINING LAB MANAGER): Doing very well, maintaining sinus rhythm after AF ablation. --Continue apixaban 5 mg BID --Continue metoprolol XL 25 mg daily Assessment & Plan (08/14/2022 10:00 AM CDT): S/p AF ablation with partial PVI and CTI ablation. Doing very well, maintaining sinus rhythm without any AF recurrence. [id number] = 6+. Indefinite anticoagulation recommended. --Continue apixaban 5 mg BID --Continue metoprolol XL 25 mg daily Assessment & Plan (07/19/2022 10:07 AM CDT): Recurrent atrial fibrillation status post recent ablation with Dr. Olvera. Remains in sinus rhythm today and doing well following the ablation. Continue Eliquis and metoprolol Assessment & Plan (05/29/2022 2:27 PM CDT): Recurrent, highly symptomatic AF. Occurring on background of sinus node dysfunction. Pt unlikely to tolerate any antiarrhythmic drugs or escalation of rate control therapy. Reviewed options, including pacing and catheter ablation. We agreed catheter ablation is the preferred next step. I reviewed procedural steps, risks/benefits, recovery and expected outcomes in detail. He is at elevated risk for procedural complications due to coronary artery disease. He understands and would like to proceed. --Atrial fibrillation ablation w/anesthesia --Continue apixaban 5 mg BID. Hold starting the evening prior to procedure. --Continue metoprolol XL 25 mg daily. Assessment & Plan (03/22/2022 11:42 AM CDT): Remains in sinus rhythm by exam today - continue metoprolol 25 and Eliquis Assessment & Plan (12/14/2021 10:27 AM EXPERIMENTAL MACHINING LAB MANAGER): Status post cardioversion remains in sinus rhythm today - continue metoprolol 25 and Eliquis Assessment & Plan (11/29/2021 11:20 AM EXPERIMENTAL MACHINING LAB MANAGER): Highly symptomatic. Pt reports profound improvement in symptoms/QOL after cardioversion. Maintaining sinus rhythm without recurrence. Will manage expectantly for now. Strong indication for rhythm control if AF returns, given severe symptoms. [id number] = 4. Recommend indefinite anticoagulation. --Continue metoprolol XL 25 mg daily --Continue apixaban 5 mg BID Assessment & Plan (11/09/2021 1:59 PM EXPERIMENTAL MACHINING LAB MANAGER): Status post cardioversion remains in sinus rhythm today - continue metoprolol 25 and Eliquis Assessment & Plan (10/18/2021 3:32 PM EXPERIMENTAL MACHINING LAB MANAGER): Status post cardioversion and remains in sinus rhythm today - continue Eliquis - reduce metoprolol as stated Assessment & Plan (09/14/2021 1:51 PM EXPERIMENTAL MACHINING LAB MANAGER): Persistent AFib. Remains in AFib now and his rate control however remains symptomatic and with low EF therefore recommend rhythm control strategy. - schedule CHACORTA cardioversion - continue Eliquis - drop amiodarone to 200 mg daily maintenance History of non-ST elevation myocardial infarctio n (NSTEMI) 08/22/2021 Overview (08/25/2021): Added automatically from request for surgery [id number] Parkinson's disease without dyskinesia, unspecified whether manifestations fluctuate 07/22/2020 Assessment & Plan (08/01/2023 10:12 AM CDT): Has never been officially diagnosed per pt, he states that a prior PCP said he may have the beginning signs d/t a tremor. Patient's notes occasional shuffling gait and tremor that has remained unchanged. No tremor visualized today and normal vianey. Discussed potentially seeing Neurologist down the road if needed. Unilateral inguinal hernia without obstruction o r gangrene 04/23/2019 Essential hypertension 05/31/2013 Overview (08/24/2021): Description: prior to 01/2008 Assessment & Plan (10/30/2023 11:02 AM EXPERIMENTAL MACHINING LAB MANAGER): Blood pressure was initially elevated, when rechecked was back into normal range. Does monitor this daily at home and usually ranges 120-130/80s. Does have some occasional dizziness will not advance his medical therapy at this time, continue losartan and carvedilol. Assessment & Plan (06/26/2023 10:19 AM CDT): Home BP's ranging 110's-130's/60-70's. Continuing to hold the Losartan and take the decreased dose of Coreg per his [employer]. Assessment & Plan (01/30/2023 10:29 AM CDT): Blood pressure readings at home elevated. Now that he has PPM, we can go back up on beta-jitendra for blood pressure control. He would like to switch from metoprolol to carvedilol to see if this shows any improvement to his blood pressures. We discussed that discontinuing his hydrochlorothiazide will also help with his frequent urination. He will call our office if he gains more than 3 lb in 24 hours or 5 lb in 1 week. Assessment & Plan (11/09/2021 1:59 PM EXPERIMENTAL MACHINING LAB MANAGER): Well controlled, continue current meds Resolved Problems Problem Noted Date Diagnosed Date Resolved Date Administrative encounter 05/26/202406/2024 Assessment & Plan (05/26/2024 10:05 AM CDT): A(n) yearly Essence Enhanced Encounter has been performed today. Rico Monteiro is the up to date on screening tests. He is in need of Hep B screening . He is up to date on needed preventative vaccinations. We discussed healthy lifestyle habits, educational material has been given. Medications reviewed, changes documented as per the medical record and discussed with patient along with risks vs benefits. Return in 6 months Other chest pain 08/13/2023 09/26/2024 Fall, initial encounter 06/11/202309/14 Colon cancer screening 03/19/202309/26 A-fib 07/04/2022 01/25/2023 Paroxysmal atrial fibrillation 05/29/2022 07/12/2022 Overview (05/29/2022): Added automatically from request for surgery [id number] Stage 3b chronic kidney disease 05/18/2022 07/26/2023 Overview (07/26/2023): Per Dr Ferraro 04-12-23 this is resolved Atrial fibrillation with rap id ventricular response 05/12/2022 05/18/2022 Hyperkalemia 05/09/2022 09/26/2024 Acute kidney injury 05/09/2022 05/18/20 22 Contusion of rib on left side 11/02/2021 07/12/2022 Hypoglycemia 10/18/2021 12/15/2021 Assessment & Plan (10/18/2021 3:34 PM EXPERIMENTAL MACHINING LAB MANAGER): He was interestingly noted to have a glucose of 58 on a nonfasting chemistry panel on last check. He is on no hypoglycemic inducing medications. This is either a laboratory error or some type of Endocrine pathology. My guess is may be the former since his glucose is normal to today again however I will have him see Endocrine just to make sure he does need further testing Sinus bradycardia 10/18/2021 09/26/2024 Assessment & Plan (11/09/2021 2:00 PM EXPERIMENTAL MACHINING LAB MANAGER): This problem has improved since decreasing his metoprolol Assessment & Plan (10/18/2021 3:33 PM EXPERIMENTAL MACHINING LAB MANAGER): He has symptomatic sinus bradycardia on metoprolol but needs a beta-jitendra. He has follow-up scheduled with Dr. Olvera and we discussed possibly that he will need a device implant with class 1 indication due to needing a beta-jitendra precluded by sinus bradycardia Unstable angina 08/24/2021 10/18/2021 Class 1 obesity due to exces s calories with serious comorbidity and body mass index (BMI) of 31.0 to 31.9 in adult 08/24/2021 07/12/2022 Vertigo 08/17/2021 07/12/2022 Herpes zoster without complication 10/14/2020 07/12/2022 Impaired fasting glucose 05/31/201312/2021 Palpitations 07/12/2022 Immunizations Immunization Administration Dates Next Due Influenza, Quad, Adjuvantate d, Intramuscular 08/03/2023 Influenza, Quadrivalent, Hig h Dose, Preservative Free, Intrr 06/16/2022 Influenza, Quadrivalent, Spl it, Preservative Free, Intramuscular 06/24/2020 Influenza, Trivalent, High D ose, Split, Preservative Free, Intramuscular 06/18/2024,08/27/2019 Influenza, Unspecified 11/07/2023(Deferr ed: Patient Refused),08/03/2023,10/15/2022(Deferre d: Patient Refused),07/15/2021,08/01/2018 Pfizer Sars-Cov-2 Bivalent V accination (12+ YRS) 12/26/2022 Pneumococcal Conjugate PCV 13 08/07/2018 Pneumococcal Polysaccharide PPV23 08/29/2019 Respiratory Syncytial Virus (Rsv) Mab, Unspecified 07/07/2024 Sars-cov-2 Covid-19 Mrna, Bi valent, Original/spencer Ba.1 06/18/2024,08/11/2023 Tdap 04/18/2016 [facility] 09/14/2010 Social History Tobacco Use Types Packs/Day Years Used Date Smoking Tobacco: Never Cigarettes Passive Smoke Exposure: Never Smokeless Tobacco: Never Tobacco Cessation:Counseling Given: Not Answered Alcohol Use Standard Drinks/Week Comments Not Asked 0 (1 standard drink = 0.6 oz pure alcohol) Stopped alcohol consumption 2 years ago Social Connection and Isolat ion Panel [NHANES] Answer Date Recorded In a typical week, how many times do you talk on the phone with family, friends, or neighbors? More than three times a week 06/19/2023 How often do you get togethe r with friends or relatives? More than three times a week 06/19/2023 How often do you attend chur ch or congregation services? Never 06/19/2023 Do you belong to any clubs o r organizations such as sikhism groups, unions, fraternal or athletic groups, or school groups? No 06/19/2023 How often do you attend meet ings of the clubs or organizations you belong to? Never 06/19/2023 Are you , , di vorced, , never , or living with a partner? 06/19/2023 AUDIT-C Answer Date Recorded Q1: How often do you have a drink containing alcohol? Never 11/07/2023 Q2: How many drinks containi ng alcohol do you have on a typical day when you are drinking? Patient does not drink Q3: How often do you have si x or more drinks on one occasion? Never 11/07/2023 Overall Financial Resource Strain (CARDIA) Answe r Date Recorded How hard is it for you to pa y for the very basics like food, housing, medical care, and heating? Not hard at all 06/19/2023 PHQ-2 Answer Date Recorded PHQ-2 Total Score (If total score is 3 or more points, staff should administer the PHQ-9) 0 05/26/2024 Hunger Vital Sign Answer Date Recorded Within the past 12 months, y ou worried that your food would run out before you got the money to buy more. Never true 06/19/20 23 Within the past 12 months, t he food you bought just didn't last and you didn't have money to get more. Never true 06/19/2023 PRAPARE - Transportation Answer Date Re corded In the past 12 months, has l ack of transportation kept you from medical appointments or from getting medications? No 02/2023 In the past 12 months, has l ack of transportation kept you from meetings, work, or from getting things needed for daily living? No 06/19/2023 Housing Stability Vital Sign Answer Asael e Recorded In the last 12 months, was t here a time when you were not able to pay the mortgage or rent on time? No 06/19/2023 In the last 12 months, how many places have you lived? 1 06/19/2023 In the last 12 months, was t here a time when you did not have a steady place to sleep or slept in a detention (including now)? No 06/19/2023 Personal Safety Answer Date Recorded Have you ever been in or are you currently in a harmful physical or emotional relationship or is someone making you feel afraid or unsafe? Denies 01/03/2024 Sex and Gender Information Value Date Recorded Sex Assigned at Not on file Legal Sex Male 7:05 PM EXPERIMENTAL MACHINING LAB MANAGER Gender Identity Male 09/18/2021 7:10 AM EXPERIMENTAL MACHINING LAB MANAGER Sexual Orientation Straight 09/18/2021 7: 10 AM EXPERIMENTAL MACHINING LAB MANAGER Last Filed Vital Signs Vital Sign Reading Time Taken Comments Blood Pressure 144/80 11/07/2024 9:05 AM EXPERIMENTAL MACHINING LAB MANAGER Pulse 64 11/07/2024 9:05 AM EXPERIMENTAL MACHINING LAB MANAGER Temperature 36.6 C (97.8 F) 09/22/2024 3:30 PM EXPERIMENTAL MACHINING LAB MANAGER Respiratory Rate 16 09/22/2024 3:30 PM EXPERIMENTAL MACHINING LAB MANAGER Oxygen Saturation 98% 11/07/2024 9:05 AM EXPERIMENTAL MACHINING LAB MANAGER Inhaled Oxygen Concentration - - Weight 98.6 kg (217 lb 6.4 oz) 11/07/2024 9:05 A M EXPERIMENTAL MACHINING LAB MANAGER Height 175.3 cm (5' 9) 11/07/2024 9:05 AM EXPERIMENTAL MACHINING LAB MANAGER Body Mass Index 32.1 11/07/2024 9:05 AM EXPERIMENTAL MACHINING LAB MANAGER Plan of Treatment Not on file Medical Devices Implanted Type Area Nursing Specialist Device Identifier Shelf Expiration Date Model / Serial / Lot CardiERUCES Medical Inc Vascade Mvp 6-12fr Venous Closure [id number] - [id number] - [id number] Implanted:Qty : 1 on 07/05/2022 by Viet Olvera III, MD at [facility] Collagen [employer] Inc 04/05/2024 800-612C- 10U / [id number] 30B / [id number] 30B Cardiva [employer] Inc Vascade Mvp 6-12fr Venous Closure [id number] - [id number] - [id number] Implanted:Qty : 1 on 07/05/2022 by Viet Olvera III, MD at [facility] Collagen [employer] 04/05/2024 800-612C- 10U / [id number] 30B / [id number] 30B [employer]iva [employer] Inc Device Closure Vascade Od5 Fr Femoral Artery [id number] - [id number] - [id number] Implanted:Qty : 1 on 07/05/2022 by Viet Olvera III, MD at [facility] Collagen [employer] Inc 11/29/2023 [id number] -[id number] / [id number] / [id number] 217A [employer]iva [employer] Inc Vascade Mvp 6-12fr Venous Closure [id number] - [id number] - [id number] Implanted:Qty : 1 on 07/05/2022 by Viet Olvera III, MD at [facility] Collagen [employer] Inc 03/30/2024 800-612C- 10U / [id number] 28A / [id number] 28A Medtronic Inc Capsurefix Novus 6.2fr 2mm 58cm Bipolar Screw In Implantable 5076-58 - [id number] - [id number] Implanted:Qty : 1 on 01/22/2023 by Viet Olvera III, MD at [facility] Lead Medtronic Inc [id number] 09/19/2024 5076-58 / [id number] / Medtronic Inc Capsurefix Novus 6.2fr 2mm 52cm Bipolar Screw In Implantable Latex Free 5076-52 - [id number] - [id number] Implanted:Qty : 1 on 01/22/2023 by Viet Olvera III, MD at [facility] Lead Medtronic Inc [id number] 12/01/2024 5076-52 / [id number] / Davol Inc/C R Bard Mesh Surg 3dmax [id number] Left Mid Large Inguinal Hernia [id number] - [id number] Implanted:Qty : 1 on 12/22/2022 by Valdez Leyva MD at [facility] Mesh Left: Inguinal Davol Inc/C R Bard [id number] 04/11/2027 [id number] / / [id number] Other - See Comments Other - see comments Forehead Description:Internal stitche s from [facility] 11/2022 Medtronic Inc [place] S Mri Surescan 50.8x46.6mm 2 Chamber 7.4mm Pacemaker 22.5gm [id number] - [id number] - [id number] Implanted:Qty : 1 on 01/22/2023 by Viet Olvera III, MD at [facility] Pacemaker Medtronic Inc 05/28/2024 [id number] / [id number] / Fortuna [employer] Mari [id number] Synergy Xd Monorail 4mm 24mm 144cm Delivery System 1 Access Port - [id number] - [id number] Implanted:Qty : 1 on 08/25/2021 by Roverto Velazquez MD at [facility] Stent [employer] Mari 12/13/2022 [id number] / [id number] / [id number] Description:pLAD Moody Vascular Device Clsr Perclose Prostyle Sut-Mediatd Closure-Repai r Sys 57994-96 - S0 - [id number] Implanted:Qty : 1 on 08/22/2023 by Roverto Velazquez MD at [facility] Vascular Closure Device Right: Femoral [employer] V[employer] 05/14/2025 13466-52 / 0 / [id number] TerBioapter Medical Mari Angio-Seal Vip 6fr Closere Device [id number] - [id number] Implanted:Qty : 1 on 06/11/2023 at [facility] Ter[employer] Medical Mari 11/14/2023 [id number] / / [id number] Explanted Type Area Nursing Specialist Device Identifier Shelf Expiration Date Model / Serial / Lot [employer] Inc Tendril Sts 6fr 52cm Is-1 Connector Active Fixation Bipolar Soft - [id number] - [id number] Implanted:Qty : 1 on 07/05/2022 by Viet Olvera III, MD at [facility] Explanted:Qty : 1 on 07/06/[address] [employer] Inc [id number] 04/13/2025 / [id number] / [employer] Inc Assurity Mri [id number] 1 Chamber Is-1 Connector Thk6mm Pacemaker [id number] - [id number] - [id number] Implanted:Qty : 1 on 07/05/2022 by Viet Olvera III, MD at [facility] Pacemaker [employer] Inc [id number] 03/14/2023 [id number] / [id number] / Procedures Procedure Name Priority Date/Time Associated Diagnosis Comments POTASSIUM LEVEL, SERUM Routine 03/13/2025 10:11 AM CDT Hyperkalemia EGFR Routine 03/04/2025 12:16 PM CDT Cardiomyopathy, unspecified type (HCC) Biventricular congestive heart failure (HCC) Hypertension, unspecified type MARI (dyspnea on exertion) DIFFERENTIAL AUTO Routine 03/04/2025 12: 16 PM CDT Cardiomyopathy, unspecified type (HCC) Biventricular congestive heart failure (HCC) Hypertension, unspecified type MARI (dyspnea on exertion) MAGNESIUM Routine 03/04/2025 12:16 PM CDT Cardiomyopathy, unspecified type (HCC) Biventricular congestive heart failure (HCC) Hypertension, unspecified type MARI (dyspnea on exertion) PRO B-TYPE NATRIURETIC PEPTIDE Routine 03/04/2025 12:16 PM CDT Cardiomyopathy, unspecified type (HCC) Biventricular congestive heart failure (HCC) Hypertension, unspecified type MARI (dyspnea on exertion) BASIC METABOLIC PANEL Routine 03/04/2025 12:16 PM CDT Cardiomyopathy, unspecified type (HCC) Biventricular congestive heart failure (HCC) Hypertension, unspecified type MARI (dyspnea on exertion) CBC WITH AUTO DIFFERENTIAL Routine 03/04/2025 12:16 PM CDT Cardiomyopathy, unspecified type (HCC) Biventricular congestive heart failure (HCC) Hypertension, unspecified type MARI (dyspnea on exertion) EGFR Routine 01/09/2025 11:10 AM CDT Heart failure with reduced ejection fraction, NYHA class III (HCC) Encounter for long-term current use of medication BASIC METABOLIC PANEL Routine 01/09/2025 11:10 AM CDT Heart failure with reduced ejection fraction, NYHA class III (HCC) Encounter for long-term current use of medication MAGNESIUM Routine 01/09/2025 11:10 AM CDT Heart failure with reduced ejection fraction, NYHA class III (HCC) Encounter for long-term current use of medication EGFR Routine 12/28/2024 12:17 PM CDT Encounter for long-term current use of medication BASIC METABOLIC PANEL Routine 12/28/2024 12:17 PM CDT Encounter for long-term current use of medication MAGNESIUM Routine 12/28/2024 12:17 PM CDT Encounter for long-term current use of medication DEVICE CHECK - REMOTE Routine 12/14/2024 11:18 AM EXPERIMENTAL MACHINING LAB MANAGER Complete heart block (HCC) LIPID PANEL Routine 04/29/2024 1:18 PM CDT Essential hypertension HEPATITIS C ANTIBODY Routine 07/26/2023 8:13 AM CDT Encounter for hepatitis C screening test for low risk patient HEMOGLOBIN A1C Routine 07/26/2023 8:13 AM CDT Impaired fasting blood sugar COLONOSCOPY 04/19/2023 11:42 AM CDT from Last 3 Months or Most Recently Relevant to Health Maintenance Results * Potassium level, serum (03/13/2025 10:11 AM CDT) Potassium, sr 4.3 3.6 - 5.2 mmol/L Blood 03/13/2025 10:1 1 AM CDT 03/13/2025 11:10 AM CDT Delmy Garcia NP LAB BLOOD ORDERABLES Final Re sult Performing Organization Address [facility] Co de Phone Number [facility] [address] [place] [address] * eGFR (03/04/2025 12:16 PM CDT) eGFR 82 >=60 mL/min/1. 73 m2 Comment: Interpretive Data Reference Interval Normal >/= 90 mL/min/1.73m2 Mildly decreased* 60 - 89 mL/min/1.73m2 Mildly to moderately decreased 45 - 59 mL/min/1.73m2 Moderately to severely decreased 30 - 44 mL/min/1.73m2 Severely decreased 15 - 29 mL/min/1.73m2 Kidney Failure < 15 mL/min/1.73m2 *Relative to young adult level Estimated glomerular filtration rate is determined by the 2020 CKD-EPI equation recommended by the National Kidney Foundation (A Unifying Approach to GFR Estimation: Recommendations of the NKF-ASK Task Force on Reassessing the Inclusion of Race in Diagnosing Kidney Disease, JASN 2020). The CKD-EPI equation should not be used for patients with unstable renal function and has not been validated in children and those over 70. Current interpretive data was last reviewed 2021. Blood 03/04/2025 12:1 6 PM CDT 03/04/2025 12:53 PM CDT Delmy Garcia NP LAB BLOOD ORDERABLES Final Re sult Performing Organization Address [facility]/ZIP Co de Phone Number [facility] [address] Department [place] [address] * (ABNORMAL) Differential, auto (03/04/2025 12:16 PM CDT) Neutrophil abs 2.97 1.50 - 6.50 K/cumm Imm gran abs 0.01 0.00 - 0.10 K/cumm [facility] Lymphocyte abs 0.77(L) 0.80 - 3.30 K/cumm [facility] Monocyte abs 0.50 0.20 - 0.80 K/cumm [facility] Eosinophil abs 0.24 0.00 - 0.50 K/cumm [facility] Basophil abs 0.04 0.00 - 0.10 K/cumm [facility] Neutrophil pct 65.6 % [facility] Comment: Interpretive Data Percent cell count reference ranges are not reported, since discordance with absolute values may lead to misinterpretation of CBC data. Current Interpretive Data was last revised on 2018. Imm gran pct 0.2 % [facility] Comment: Interpretive Data Percent cell count reference ranges are not reported, since discordance with absolute values may lead to misinterpretation of CBC data. Current Interpretive Data was last revised on 2018. Lymphocyte pct 17.0 % [facility] Comment: Interpretive Data Percent cell count reference ranges are not reported, since discordance with absolute values may lead to misinterpretation of CBC data. Current Interpretive Data was last revised on 2018. Monocyte pct 11.0 % [facility] Comment: Interpretive Data Percent cell count reference ranges are not reported, since discordance with absolute values may lead to misinterpretation of CBC data. Current Interpretive Data was last revised on 2018. Eosinophil pct 5.3 % [facility] Comment: Interpretive Data Percent cell count reference ranges are not reported, since discordance with absolute values may lead to misinterpretation of CBC data. Current Interpretive Data was last revised on 2018. Basophil pct 0.9 % [facility] Comment: Interpretive Data Percent cell count reference ranges are not reported, since discordance with absolute values may lead to misinterpretation of CBC data. Current Interpretive Data was last revised on 2018. Blood 03/04/2025 12:1 6 PM CDT 03/04/2025 12:53 PM CDT Delmy Garcia NP LAB BLOOD ORDERABLES Final Re sult [facility] [address] Department [place] [address] * Pro B-type natriuretic peptide (03/04/2025 12:16 PM CDT) NT-proBNP 227 <=450 pg/mL Comment: Interpretive Comments: A. Dyspnea in Acute Care Setting All Ages: < 300 pg/ml, acute heart failure unlikely. < 50 yrs: 300 - 450 pg/ml, further investigation warranted. > 450 pg/ml, acute heart failure likely. 50 - 74 yrs: 300 - 900 pg/ml, further investigation warranted. > 900 pg/ml, acute heart failure likely . > or = 75 yrs: 450 - 1800 pg/ml, further investigation warranted. > 1800 pg/ml, acute heart failure likely. B. Non-acute Setting < 75 yrs < 125 pg/ml, rules out heart failure. > or = 125 pg/ml, further investigation warranted. > or = 75 yrs < 450 pg/ml, rules out heart failure. > or = 450 pg/ml, further investigation warranted. - Knowledge of each individual patient's NT-proBNP range may be more useful than using similar cut-points for every patient. Please note that marked elevations in NT-proBNP levels may be observed in state other than Left Ventricular Congestive Failure, including: acute coronary syndromes, right heart strain/failure (including pulmonary embolism and cor pulmonale), critical illness, renal failure, as well as advanced age. - References: 1. Myah SALCEDO et.al. Eur Heart J. 2006:27:330-337. 2. Suzy RW, Bill AM. J. AM Raul Cardiol: Cardiovasc Imag. 2009;2: 216- 225. Interpretive Data Last Revised Date: 2018. Blood 03/04/2025 12:1 6 PM CDT 03/04/2025 12:53 PM CDT Delmy Garcia BRAIDING MACHINE OPERATOR LAB BLOOD ORDERABLES Final Re sult Performing Organization Address [facility]/ZIP Co de Phone Number [facility] [address] [facility] [place] [address] * (ABNORMAL) CBC with auto differential (03/04/2025 12:16 PM CDT) WBC 4.53 3.80 - 9.90 K/cumm Hgb 14.8 13.0 - 17.5 g/dL [facility] Hct 44.4 38.9 - 50.3 % [facility] Plt 113(L) 150 - 400 K/cumm [facility] MPV 11.0 9.1 - 12.3 fL [facility] RBC 4.74 4.30 - 5.80 M/cumm [facility] MCV 93.7 81.3 - 96.4 fL [facility] MCH 31.2 27.1 - 33.3 pg [facility] MCHC 33.3 32.3 - 35.7 g/dL [facility] RDW CV 13.4 11.1 - 14.9 % [facility] RDW SD 45.7 35.7 - 48.1 fL [facility] NRBC abs 0.00 0.00 - 0.01 K/cumm [facility] Blood 03/04/2025 12:1 6 PM CDT 03/04/2025 12:53 PM CDT Delmy Garcia BRAIDING MACHINE OPERATOR LAB BLOOD ORDERABLES Final Re sult [facility] [address] Department [employer] [place], [place] [id number] * Magnesium (03/04/2025 12:16 PM CDT) Pathologist [facility] Magnesium 2.3 1.4 - 2.5 mg/dL Blood 03/04/2025 12:1 6 PM CDT 03/04/2025 12:53 PM CDT Delmy Garcia BRAIDING MACHINE OPERATOR LAB BLOOD ORDERABLES Final Re sult [facility] [address] [place] [address] * (ABNORMAL) Basic metabolic panel (03/04/2025 12:16 PM CDT) Sodium 140 135 - 145 mmol/L Potassium, pl 5.1(H) 3.3 - 4.9 mmol/L [facility] Chloride 106 97 - 110 mmol/L [facility] CO2 25 22 - 32 mmol/L [facility] Anion gap 9 2 - 15 mmol/L [facility] BUN 19 6 - 25 mg/dL [facility] Creatinine 0.96 0.80 - 1.30 mg/dL [facility] Glucose 91 70 - 199 mg/dL [facility] Comment: Interpretive Data Fasting glucose >/= 126 mg/dl is diagnostic for diabetes. Fasting is defined as no caloric intake for at least 8 hours. Fasting glucose between 100 mg/dl to 125 mg/dl is diagnostic of prediabetes. In a patient with classic symptoms of hyperglycemia or hyperglycemic crisis, a random glucose >/= 200 mg/dl is diagnostic for diabetes. In the absence of unequivocal hyperglycemia, results should be confirmed by repeat testing. The classification and Diagnosis of Diabetes Diabetes Care 2021; 46: S19-S40. Current interpretive data was last revised 2022. Calcium 8.8 8.5 - 10.3 mg/dL [facility] Blood 03/04/2025 12:1 6 PM CDT 03/04/2025 12:53 PM CDT Delmy Garcia BRAIDING MACHINE OPERATOR LAB BLOOD ORDERABLES Final Re sult [facility] [address] [place] [place] [address] * eGFR (01/09/2025 11:10 AM CDT) Pathologist [facility] eGFR 82 >=60 mL/min/1. 73 m2 Comment: Interpretive Data Reference Interval Normal >/= 90 mL/min/1.73m2 Mildly decreased* 60 - 89 mL/min/1.73m2 Mildly to moderately decreased 45 - 59 mL/min/1.73m2 Moderately to severely decreased 30 - 44 mL/min/1.73m2 Severely decreased 15 - 29 mL/min/1.73m2 Kidney Failure < 15 mL/min/1.73m2 *Relative to young adult level Estimated glomerular filtration rate is determined by the 2020 CKD-EPI equation recommended by the National Kidney Foundation (A Unifying Approach to GFR Estimation: Recommendations of the NKF-ASK Task Force on Reassessing the Inclusion of Race in Diagnosing Kidney Disease, JASN 2020). The CKD-EPI equation should not be used for patients with unstable renal function and has not been validated in children and those over 70. Current interpretive data was last reviewed 2021. Blood 01/09/2025 11:1 0 AM CDT 01/09/2025 11:42 AM CDT Delmy Garcia NP LAB BLOOD ORDERABLES Final Re sult Performing Organization Address [facility] Co de Phone Number [facility] [address] [facility] [employer] [place], [place] [phone] * Magnesium (01/09/2025 11:10 AM CDT) Pathologist [facility] Magnesium 2.1 1.4 - 2.5 mg/dL Blood 01/09/2025 11:1 0 AM CDT 01/09/2025 11:42 AM CDT Delmy Garcia NP LAB BLOOD ORDERABLES Final Re sult Performing Organization Address City/[facility] Co de Phone Number [facility] [address] [facility] [place] [address] * (ABNORMAL) Basic metabolic panel (01/09/2025 11:10 AM CDT) Sodium 141 135 - 145 mmol/L Potassium, pl 4.6 3.3 - 4.9 mmol/L [facility] Chloride 107 97 - 110 mmol/L [facility] CO2 20(L) 22 - 32 mmol/L [facility] Anion gap 14 2 - 15 mmol/L [facility] BUN 27(H) 6 - 25 mg/dL [facility] Creatinine 0.96 0.80 - 1.30 mg/dL [facility] Glucose 105 70 - 199 mg/dL [facility] Comment: Interpretive Data Fasting glucose >/= 126 mg/dl is diagnostic for diabetes. Fasting is defined as no caloric intake for at least 8 hours. Fasting glucose between 100 mg/dl to 125 mg/dl is diagnostic of prediabetes. In a patient with classic symptoms of hyperglycemia or hyperglycemic crisis, a random glucose >/= 200 mg/dl is diagnostic for diabetes. In the absence of unequivocal hyperglycemia, results should be confirmed by repeat testing. The classification and Diagnosis of Diabetes Diabetes Care 2021; 46: S19-S40. Current interpretive data was last revised 2022. Calcium 8.7 8.5 - 10.3 mg/dL [facility] Blood 01/09/2025 11:1 0 AM CDT 01/09/2025 11:42 AM CDT us Delmy Garcia NP LAB BLOOD ORDERABLES Final Re sult [facility] [address] Department [place] [address] * eGFR (12/28/2024 12:17 PM CDT) eGFR 77 >=60 mL/min/1. 73 m2 Comment: Interpretive Data Reference Interval Normal >/= 90 mL/min/1.73m2 Mildly decreased* 60 - 89 mL/min/1.73m2 Mildly to moderately decreased 45 - 59 mL/min/1.73m2 Moderately to severely decreased 30 - 44 mL/min/1.73m2 Severely decreased 15 - 29 mL/min/1.73m2 Kidney Failure < 15 mL/min/1.73m2 *Relative to young adult level Estimated glomerular filtration rate is determined by the 2020 CKD-EPI equation recommended by the National Kidney Foundation (A Unifying Approach to GFR Estimation: Recommendations of the NKF-ASK Task Force on Reassessing the Inclusion of Race in Diagnosing Kidney Disease, JASN 202). The CKD-EPI equation should not be used for patients with unstable renal function and has not been validated in children and those over 70. Current interpretive data was last reviewed 2021. Blood 12/28/2024 12:1 7 PM CDT 12/28/2024 12:45 PM CDT Delmy Garcia NP LAB BLOOD ORDERABLES Final Re sult Performing Organization Address [facility]/ZIP Co de Phone Number [facility] [address] [facility] [place], [place] [id number] * Magnesium (12/28/2024 12:17 PM CDT) Pathologist [facility] Magnesium 2.2 1.4 - 2.5 mg/dL Blood 12/28/2024 12:1 7 PM CDT 12/28/2024 12:45 PM CDT Delmy Garcia BRAIDING MACHINE OPERATOR LAB BLOOD ORDERABLES Final Re sult Performing Organization Address [facility]/ZIP Co de Phone Number [facility] [address] [facility] [place] [address] * Basic metabolic panel (12/28/2024 12:17 PM CDT) Sodium 142 135 - 145 mmol/L Potassium, pl 4.3 3.3 - 4.9 mmol/L [facility] Chloride 107 97 - 110 mmol/L [facility] CO2 24 22 - 32 mmol/L [facility] Anion gap 11 2 - 15 mmol/L [facility] BUN 20 6 - 25 mg/dL [facility] Creatinine 1.01 0.80 - 1.30 mg/dL [facility] Glucose 92 70 - 199 mg/dL [facility] Comment: Interpretive Data Fasting glucose >/= 126 mg/dl is diagnostic for diabetes. Fasting is defined as no caloric intake for at least 8 hours. Fasting glucose between 100 mg/dl to 125 mg/dl is diagnostic of prediabetes. In a patient with classic symptoms of hyperglycemia or hyperglycemic crisis, a random glucose >/= 200 mg/dl is diagnostic for diabetes. In the absence of unequivocal hyperglycemia, results should be confirmed by repeat testing. The classification and Diagnosis of Diabetes Diabetes Care 2021; 46: S19-S40. Current interpretive data was last revised 2022. Calcium 8.6 8.5 - 10.3 mg/dL [facility] Blood 12/28/2024 12:1 7 PM CDT 12/28/2024 12:45 PM CDT us Delmy Garcia NP LAB BLOOD ORDERABLES Final Re sult [facility] [address] Department [place] [address] * DEVICE CHECK - REMOTE (12/14/2024 11:18 AM EXPERIMENTAL MACHINING LAB MANAGER) Anatomical Region Laterality Modality Other Narrative 12/25/2024 7:53 AM CDT Table formatting from the original result was not included. PM CHECK (REMOTE) Patient ID: Rico Monteiro is a 74 y.o. male This patient received a Medtronic Pacemaker. They had a routine remote transmission on 12/14/2024. Device implant indications: Complete heart block Interrogation of the patient's device demonstrates the following: Presenting EGM: A paced V paced @ 70 bpm Original Device Settings Right Atrium Right Ventricle Sensitivity (mV) 0.3 mV 1.2 mV Pacing Outputs 3.0 V @ 0.4 ms 2.0 V @ 0.4 ms Testing Measurements Right Atrium Right Ventricle Sensitivity (mV) 3.8 mV 11.4 mV Impedence (Ohms) 456 ohms 475 ohms Pace Threshold 0.5 V @ 0.4 ms 0.5 V @ 0.4 ms Pacing % 99.1 % 94.2 % Battery Status: 7.4 years to ABBEY Episodes last 90 days/Comments: AF [place] 0 %, longest duration 0. There was 1 episode of nonsustained ventricular tachycardia 7 beats at a rate of 190 beats per minute. NORMAL DEVICE FUNCTION PROGRAMMED MEDICATIONS: Anti-coagulant(s): Eliquis 5 mg twice daily, aspirin 81 mg daily Anti-arrhythmic(s): Coreg 12.5 mg twice daily PLAN: 1) Medtronic Pacemaker evaluation 2) Medtronic remote transmission scheduled in 3 months. 3) Programming appropriate for device measurements Eleuterio Hernandes RN Viet Olvera III, MD [facility] PROCEDURES Final Result * Lipid panel (04/29/2024 1:18 PM CDT) Cholesterol 102 30 - 199 mg/dL Comment: Interpretive Data Ages < or = 19 years Acceptable: <170 mg/dL Borderline high: 170-199 mg/dL High: >or= 200 mg/dL Ages > or = 20 years Desirable: <200 mg/dL Borderline high: 200-239 mg/dL High: >or= 240 mg/dL Literature References: 1. Expert Panel on Integrated Guidelines for Cardiovascular Health and Risk Reduction in Children and Adolescents. Pediatrics 2011;128:S213 2. NCEP Expert Panel. Circulation 2004;110:227 Current Interpretive Data was last revised on 2018. Triglycerides 71 <=149 mg/dL [facility] Comment: Interpretive Data Ages < or = 9 years Acceptable: <75 mg/dL Borderline high: 75-99 mg/dL High: >or= 100 mg/dL Ages 10 to 20 years Acceptable: <90 mg/dL Borderline high: 90-129 mg/dL High: >or= 130 mg/dL Ages > or = 20 years Desirable: <150 mg/dL Borderline high: 150-199 mg/dL High: 200-499 mg/dL Very high: >or= 499 mg/dL Literature References: 1. Expert Panel on Integrated Guidelines for Cardiovascular Health and Risk Reduction in Children and Adolescents. Pediatrics 2011;128:S213 2. NCEP Expert Panel. Circulation 2004;110:227 Current Interpretive Data was last revised on 2018. HDL 46 >=40 mg/dL [facility] Comment: Interpretive Data Ages < or = 19 years Acceptable: >45 mg/dL Borderline low: 40-45 mg/dL Low: <40 mg/dL Ages > or = 20 years Desirable: >or= 60 mg/dL Low: <40 mg/dL Literature References: 1. Expert Panel on Integrated Guidelines for Cardiovascular Health and Risk Reduction in Children and Adolescents. Pediatrics 2011;128:S213 2. NCEP Expert Panel. Circulation 2004;110:227 Current Interpretive Data was last revised on 2018. LDL, calculated 42 <=129 mg/dL [facility] Comment: Interpretive Data Ages < or = 19 years Acceptable: <110 mg/dL Borderline high: 110-129 mg/dL High: >or= 130 mg/dL Ages > or = 20 years Optimal: <100 mg/dL Near optimal: 100-129 mg/dL Borderline high: 130-159 mg/dL High: >160 mg/dL Literature References: 1. Expert Panel on Integrated Guidelines for Cardiovascular Health and Risk Reduction in Children and Adolescents. Pediatrics 2011;128:S213 2. NCEP Expert Panel. Circulation 2004;110:227 Current Interpretive Data was last revised on 2018. Non-HDL Cholesterol 56 mg/dL [facility] Comment: Interpretive Data Ages < or = 19 years Acceptable: <120 mg/dL Borderline high: 120-144 mg/dL High: >145 mg/dL Ages > or = 20 years When triglycerides are >200 mg/dL, Non-HDL cholesterol is a secondary target of therapy with treatment goals that are 30 mg/dL greater than the LDL cholesterol target. Literature References: 1. Expert Panel on Integrated Guidelines for Cardiovascular Health and Risk Reduction in Children and Adolescents. Pediatrics 2011;128:S213 2. NCEP Expert Panel. Circulation 2004;110:227 Current Interpretive Data was last revised on 2018. Chol/HDL ratio 2 [facility] Blood 04/29/2024 1:18 PM CDT 04/29/2024 2:04 PM CDT us Gonzalo Helm MD LAB BLOOD ORDERABLES Final Result [facility] Department [place] [address] * Hepatitis C antibody Blood (07/26/2023 8:13 AM CDT) Hep C Ab Nonreactive Nonreactive Comment: Interpretive Data Nonreactive: Antibodies to HCV not detected. Does NOT exclude the possibility of recent exposure to HCV. Equivocal: Equivocal for HCV antibodies. Supplemental molecular testing will be automatically performed to determine infection status in accordance with current CDC screening recommendations. Reactive: Positive for HCV antibodies. This may represent current or past HCV infection. Supplemental molecular testing will be automatically performed to determine current infection status in accordance with current CDC screening recommendations. Interpretive data was last revised on 2019. Blood 07/26/2023 8:13 AM CDT 07/26/2023 2:07 PM CDT us Missy Jones NP LAB MICROBIOLOGY - GENERAL ORDER EMILIANA Final Result Performing Organization Address [facility] de Phone Number [facility] [address] [place] [address] * Hemoglobin A1c (07/26/2023 8:13 AM CDT) Hgb A1C 5.0 4.0 - 5.6 % Estimated Average Glucose 97 mg/dL [facility] Comment: The ADA recommends reporting an estimated Average Glucose (eAG) with all Hemoglobin A1c results using the equation derived from a study of 507 normal and diabetic adults. Minority populations were underrepresented and children were not included. (Diabetes Care 31:0277-2947, 2008). The eAG is not equivalent to a fasting glucose. Blood 07/26/2023 8:13 AM CDT 07/26/2023 2:07 PM CDT us Missy Jones NP LAB BLOOD ORDERABLES Final Resul t Performing Organization Address [facility] Co de Phone Number [facility] [address] [place], [place] [id number] * COLONOSCOPY (04/19/2023 11:42 AM CDT) Anatomical Region Laterality Modality Other Narrative Procedure Note David Wilkins, - 04/19/2023 11:42 AM CDT [facility] Patient Name: Rico Monteiro Procedure Date: 04/19/2023 11:42 AM Date of : 1950 Admit Type: Outpatient Age: 72 Gender: Male Attending MD: David Wilkins D.O. Room: [facility] ENDOSCOPY ROOM 05 Note Status: Finalized Procedure: Colonoscopy Indications: Screening for colorectal malignant neoplasm Referring MD: Ignacio Ferraro M.D. Providers: David Wilkins D.O. Medicines: See the Anesthesia note for documentation of the administered medications Complications: No immediate complications. Estimated blood loss:None. Estimated Blood Loss: Estimated blood loss: none. Procedure: The benefits, risks and alternatives of theprocedure and sedation were discussed and informed consentwas obtained. All questions were answered. Please referto the signed informed consent document in the medical record. The scope was passed under direct vision.The CF-H180AL colonoscope was introduced through theanus and advanced to the cecum, identified byappendiceal orifice and ileocecal valve. The colonoscopy was performed without difficulty. The patient tolerated the procedure well. The quality of the bowel preparation was good. Prep was administered in asplit dose. Findings: A polyp was found in the ascending colon. The polyp was sessile. The polyp was removed with a hot biopsy forceps. Resection and retrieval were complete. Impression: - One polyp in the ascending colon, removed with ahot biopsy forceps. Resected and retrieved. Recommendation: - Patient has a contact number available for emergencies. The signs and symptoms of potential delayed complications were discussed with thepatient. Return to normal activities tomorrow. Written discharge instructions were provided to thepatient. - Resume previous diet. - Continue present medications. - Await pathology results. - Repeat colonoscopy in 5 years for surveillancebased on pathology results. David Wilkins D.O. 04/19/2023 12:08:37 PM Number of Addenda: 0 Note Initiated On: 04/19/2023 11:42 AM Recognized by the [employer] for promoting quality in endoscopy David Wilkins DO ENDOSCOPY PROCEDURES Fin al Result from Last 3 Months or Most Recently Relevant to Health Maintenance Insurance Extend Labs CHOICE PPO Extend Labs CHOICE PPO [facility] Advance Directives For more information, please contact: [phone] Documents on File Type Date Recorded Patient Composition Worker Expl anation Advance Directives and Livin g Will 12/22/2022 5:37 AM Advance Directives and Livin g Will 09/11/2021 1:37 PM Advance Directives and Livin g Will 08/25/2021 2:50 PM * Full Code (Latest Code Status on File) Date Activated Date Inactivated Comments 06/12/2023 11:29 AM 06/15/2023 6:20 PM * Full Code Date Activated Date Inactivated Comments 07/04/2022 7:16 AM 07/07/2022 3:34 PM * Full Code Date Activated Date Inactivated Comments 05/09/2022 8:49 PM 05/10/2022 9:36 PM * Full Code Date Activated Date Inactivated Comments 08/24/2021 4:28 PM 08/28/2021 5:21 PM Care Teams Imaging Nurse Relationship Specialty [place] [address] [facility] [address] [place] [address] PCP - General Internal Medicine 12/09/24 Roverto Velazquez MD [address] [facility] [address] [place] [address] Consulting Physician Cardiovascular Disease 08/28/21 Viet Olvera III, MD [address] [facility] [address] [place] [address] Consulting Physician Cardiology 08/28/21 Miscellaneous, Not In File 05/10/22 Valdez Leyva MD [address] [facility] [address] [place] [address] Consulting Physician General Surgery 12/22/22 Missy Jones NP [address] [facility] [address] [place] [address] Nurse Practitioner Family Medicine 06/26/23 Obed Garcia MD [address] [facility] [address] [place] [address] Consulting Physician Urology 11/07/23 [place] [address] [facility] [address] [place] [address] Consulting Physician Endocrinology 11/07/23
--- OUTSIDE RECORDS SUMMARY | 2025-03-14 10:34 | XMS_ITS | Encounter Summary ---
Author Organization [facility] Healthcare Address [address] [place] [address] Care Team Providers Care University Librarian Name Role Phone Roverto Velazquez MD Unavailable [phone] Wade PERSON MD, Viet Boo Unavailable [phone] Miscellaneous, Not In File Unavailable Unava ilable Valdez Leyva MD Unavailable [phone] Missy Jones NP Unavailable Obed Garcia MD Unavailable Etta Vivas MD Unavailable [phone] Ignacio Henry DO Primary Care Provider [phone] Reason for Visit * Cardiology (Routine) - Closed Specialty Diagnoses / Procedures Referred By Contac t Referred To Contact Diagnoses Ischemic cardiomyopathy Heart failure with reduced ejection fraction, NYHA class III (HCC) Procedures Transthoracic Echo (TTE) Complete W Doppler/CF Delmy Garcia NP [address] [place] [address] Phone: tel: fax: [facility] Medical Group Cardiology [address] [facility] [address] [place] [address] Phone: tel: fax: Referral ID Status Reason Start Date Expiration Date Visits Re quested Visits Authorized [id number] Closed 03/03/2025 04/02/2026 1 1 Encounter Details Date Type Department Care Team (Latest Contact Info) Description 03/13/2025 10:30 AM CDT Ancillary Procedure [facility] Medical [facility] Cardiology [address] [facility] [address] [place] [address] Ischemic cardiomyopathy; Heart failure with reduced ejection fraction, NYHA class III (HCC) Social History Tobacco Use Types Packs/Day Years Used Date Smoking Tobacco: Never Cigarettes Passive Smoke Exposure: Never Smokeless Tobacco: Never Alcohol Use Standard Drinks/Week Comments Not Asked [...] often do you attend chur ch or restorationist services? Never 06/19/2023 Do you belong to any clubs o r organizations such as bahai groups, unions, fraternal or athletic groups, or [...] place to sleep or slept in a retirement (including now)? No 06/19/2023 Personal Safety Answer Date Recorded Have you ever been in or are you currently in a harmful physical or emotional relationship or is someone making you feel afraid or unsafe? Denies 01/03/2024 Sex and Gender Information Value Date Recorded Sex Assigned at Not on file Legal Sex Male 7:05 PM PROJECTION PRINTER Gender Identity Male 09/18/2021 7:10 AM PROJECTION PRINTER Sexual Orientation Straight 09/18/2021 7: 10 AM PROJECTION PRINTER documented as of this encounter Plan of Treatment Pending Results Name Type Priority Associated Diagnoses Date/Time Transthoracic Echo (TTE) Complete W Doppler/CF Echocardiography Routine Ischemic cardiomyopathy Heart failure with reduced ejection fraction, NYHA class III (HCC) 03/13/2025 11:21 AM CDT documented as of this encounter Visit Diagnoses Diagnosis Ischemic cardiomyopathy Other specified forms of chronic ischemic heart disease Heart failure with reduced ejection fraction, NYHA class III (HCC) documented in this encounter Administered Medications Inactive Administered Medications - up to 3 most recent administrations Medication Order MAR Action Action Date Dose Rate Site perflutren lipid (DEFINITY) 1.5 mL in sodium chloride 0.9% 10 mL syringe 1-10 mL, intravenous, Once in imaging, contrast, Starting on Sun03/13/25 at 1121, For 1 dose, Intra-Procedure (CV) Contrast Given 03/13/2025 11:21 AM CDT 10 mL documented in this encounter Orders Medications Ordered That Mj ht Not Have Been Administered Count Last Ordered Date First Ordered Date perflutren lipid (DEFINITY) 1.5 mL in sodium chloride 0.9% 10 mL syringe 1 03/13/2025 documented in this encounter Care Teams University Librarian Relationship Specialty [place] [address] [facility] [facility] [address] [place] [address] PCP - General Internal Medicine 12/09/24 Roverto Velazquez MD [address] [facility] [address] [place] [address] Consulting Physician Cardiovascular Disease 08/28/21 Viet Olvera III, MD [address] [facility] [address] [place] [address] Consulting Physician Cardiology 08/28/21 Miscellaneous, Not In File 05/10/22 Valdez Leyva MD [address] [facility] [address] [place] [address] Consulting Physician General Surgery 12/22/22 Missy Jones NP [address] [facility] [address] [place], [place] [id number] Nurse Practitioner Family Medicine 06/26/23 Obed Garcia MD [address] [facility] [address] [place] [address] Consulting Physician Urology 11/07/23 [place] [address] [address] Consulting Physician Endocrinology 11/07/23 documented as of this encounter
--- OUTSIDE RECORDS SUMMARY | 2025-03-14 10:34 | XMS_ITS | Encounter Summary ---
Author Organization [facility] Healthcare Address [address] [place] [address] Care Team Providers Care Type Casting Machine Operator Name Role Phone Roverto Velazquez MD Unavailable aWde PERSON MD, Viet Boo Unavailable [phone] Miscellaneous, Not In File Unavailable Unava ilable Valdez Leyva MD Unavailable [phone] Missy Jones NP Unavailable Obed Garcia MD Unavailable Etta Vivas MD Unavailable [phone] Ignacio Henry DO Primary Care Provider [phone] Reason for Visit * Reason Onset Date Comments Test Results 03/13/2025 Encounter Details Date Type Department Care Team (Late st Contact Info) Description 03/13/2025 Results Follow-Up [facility] Medical Group Cardiology [address] [facility] [address] [place] [address] Delmy Garcia NP [address] [facility] [address] [place] [address] Potassium level, serum Social History Tobacco Use Types Packs/Day Years [...] often do you attend chur ch or anglican services? Never 06/19/2023 Do you belong to any clubs o r organizations such as lutheran groups, unions, fraternal or athletic groups, or [...] place to sleep or slept in a residential (including now)? No 06/19/2023 Personal Safety Answer Date Recorded Have you ever been in or are you currently in a harmful physical or emotional relationship or is someone making you feel afraid or unsafe? Denies 01/03/2024 Sex and Gender Information Value Date Recorded Sex Assigned at Not on file Legal Sex Male 7:05 PM AUTOMOTIVE CUSTOMER EXPERIENCE ADVISOR Gender Identity Male 09/18/2021 7:10 AM AUTOMOTIVE CUSTOMER EXPERIENCE ADVISOR Sexual Orientation Straight 09/18/2021 7: 10 AM AUTOMOTIVE CUSTOMER EXPERIENCE ADVISOR documented as of this encounter Miscellaneous Notes * Telephone Encounter - Enma Niño - 03/13/2025 4:01 PM CDT Pt notified of results. Verbal understanding. * Result Encounter Note - Delmy Garcia NP - 03/13/2025 3:41 PM CDT Please let Don know potassium level is normal Continue current medications documented in this encounter Plan of Treatment Not on file documented as of this encounter Visit Diagnoses Not on filedocumented in this encounter Care Teams Type Casting Machine Operator Relationship Specialty Start [place] [address] [facility] [address] [place] [address] PCP - General Internal Medicine 12/09/24 Roverto Velazquez MD [address] [place] [address] Consulting Physician Cardiovascular Disease 08/28/21 Viet Olvera III, MD [address] [place] [address] Consulting Physician Cardiology 08/28/21 Miscellaneous, Not In File 05/10/22 Valdez Leyva MD [address] [facility] [address] [place], [place] [id number] Consulting Physician General Surgery 12/22/22 Missy Jones NP [address] [place], [place] [address] Nurse Practitioner Family Medicine 06/26/23 Obed Garcia MD [address] [facility] [address] [place] [address] Consulting Physician Urology 11/07/23 [place] [address] [address] [place] [address] Consulting Physician Endocrinology 11/07/23 documented as of this encounter
--- OUTSIDE RECORDS SUMMARY | 2025-03-14 10:34 | XMS_ITS | Encounter Summary ---
Author Organization [facility] Address [address] [place] [address] Care Team Providers Care Snow Removal Supervisor Name Role Phone WilkinsDavid dean Primary Care Provider [phone] Encounter Details Date Type Department Care Team (Late st Contact Info) Description 09/18/2023 Lab Requisition [facility] - DermPath Lab [address], [place] [id number] Wendy Castellanos DO [address] [place] [address] Social History Tobacco Use Types Packs/Day Years Used Date Smoking Tobacco: Never Smokeless Tobacco: Never Alcohol Use Standard Drinks/Week Comments Yes 0 (1 standard drink = 0.6 oz pur e alcohol) Sex and Gender Information Value Date Recorded Sex Assigned at Not on file Legal Sex Male 5:33 PM ROULETTE DEALER Gender Identity Not on file Sexual Orientation Not on file documented as of this encounter Plan of Treatment Not on file documented as of this encounter Procedures Procedure Name Priority Date/Time Associated Diagnosis Comments DERMATOPATHOLOGY Routine 09/18/2023 10:4 9 AM ROULETTE DEALER documented in this encounter Results * DERMATOPATHOLOGY (09/18/2023 10:49 AM ROULETTE DEALER) Case Report Dermatopathology Report Case: [id number] Authorizing Provider: Wendy Castellanos DO Collected: 09/18/2023 10:49 AM Ordering Location: [facility] DermPath Lab Received: 09/19/2023 01:36 PM Pathologist: Lydia Gomez MD Specimens: A) - Skin, left preauricular B) - Skin, right neck 1:48 PM [facility] DERMATOPATHOLOGY LABORATORY Final Diagnosis Specimen A. SKIN, left preauricular: BASAL CELL CARCINOMA, INFILTRATIVE PATTERN (C44.319) Specimen B. SKIN, right neck: SQUAMOUS CELL CARCINOMA, ACANTHOLYTIC TYPE (C44.42) 1:48 PM [facility] DERMATOPATHOLOGY LABORATORY at [address] ROULETTE DEALER Clinical History A: R/O BCC Growing B: R/O SCC Growing 1:48 PM [facility] DERMATOPATHOLOGY LABORATORY Gross Description Specimen A: Received is one formalin filled container labeled with the patient's name and designated left preauricular. The specimen consists of a shave biopsy measuring 5x4x1 mm. Jar 0. Specimen B: Received is one formalin filled container labeled with the patient's name and designated right neck. The specimen consists of a shave biopsy measuring 7x6x2 mm. Jar 0. 1:48 PM [facility] DERMATOPATHOLOGY LABORATORY Microscopic Description Specimen A. SKIN, left preauricular: Within the dermis there are nodular aggregates of basaloid cells associated with fibromyxoid stroma and epithelial-stromal clefts. At the advancing margin of the neoplasm, there are smaller angulated nests that infiltrate the dermis. Specimen B. SKIN, right neck: Sections show skin with irregularly shaped nests of keratinocytes with evidence of cornification. In some nests, there is loss of cohesion between the neoplastic cells, as well as individual dyskeratotic cells that lack intercellular bridges. 1:48 PM [facility] DERMATOPATHOLOGY LABORATORY Disclaimer An external and internal positive and negative controls are appropriate for the histochemical, immunohistochemical and immunofluorescence stain(s) in this case (if any), except where stated explicitly. The performance characteristics of the stain(s) cited in this report were developed and its performance characteristic determined by the Dermatopathology Laboratory at [facility], directed by Dr. Haylie Paz. These tests need not be, and therefore are not, approved by the [place] Food and Drug Administration. The tests are used for clinical purposes. Billing Codes Specimen Charges Stain Charges 62639 85146 1 1 3 1:48 PM ROULETTE DEALER DERMATOPATHOLOGY LABORATORY Embedded Images 3 1:48 PM ROULETTE DEALER DERMATOPATHOLOGY LABORATORY Pathology/Cytology TISSUE SPECIMEN FROM SKIN / Unknown 09/18/2023 10:49 AM ROULETTE DEALER 09/19/2023 1:36 PM ROULETTE DEALER Miscellaneous samples (specimen) TISSUE SPECIMEN FROM SKIN / Unknown 09/18/2023 10:49 AM ROULETTE DEALER 09/19/2023 1:36 PM ROULETTE DEALER Wendy Castellanos DO LAB - PATHOLOGY/CYTOLOGY ORDERABLES Final Result DERMATOPATHOLOGY LABORATORY [facility] - Department of Dermatology [facility] Specialized Medicine [address] [place] [address], [address] [phone] documented in this encounter Visit Diagnoses Not on filedocumented in this encounter Care Teams Snow Removal Supervisor Relationship Specialty Start Date End Date David Wilkins DO [address] [place] [address] PCP - General 03/19/17 documented as of this encounter
--- OUTSIDE RECORDS SUMMARY | 2025-03-14 10:34 | XMS_ITS | Encounter Summary ---
Author Organization [facility] Address [address] [place] [address] Care Team Providers Care Development Disability Specialist Name Role Phone Roverto Velazquez MD Unavailable Wade PERSON MD, Viet Boo Unavailable [phone] Miscellaneous, Not In File Unavailable Unava ilable Valdez Leyva MD Unavailable [phone] Missy Jones NP Unavailable Obed Garcia MD Unavailable Etta Vivas MD Unavailable [phone] Ignacio Henry DO Primary Care Provider [phone] Encounter Details Date Type Department Care Team (Late st Contact Info) Description 03/13/2025 10:00 AM CDT Lab [address] [place] [address] Hyperkalemia Social History Tobacco Use Types Packs/Day Years [...] often do you attend chur ch or judaism services? Never 06/19/2023 Do you belong to any clubs o r organizations such as oriental orthodox groups, unions, fraternal or athletic groups, or [...] place to sleep or slept in a mcc (including now)? No 06/19/2023 Personal Safety Answer Date Recorded Have you ever been in or are you currently in a harmful physical or emotional relationship or is someone making you feel afraid or unsafe? 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 Gender Identity Male 09/18/2021 7:10 AM SUPERVISOR SHUTTLE VENEERING Sexual Orientation Straight 09/18/2021 7: 10 AM SUPERVISOR SHUTTLE VENEERING documented as of this encounter Plan of Treatment Not on file documented as of this encounter Procedures Procedure Name Priority Date/Time Associated Diagnosis Comments POTASSIUM LEVEL, SERUM Routine 03/13/2025 10:11 AM CDT Hyperkalemia documented in this encounter Results * Potassium level, serum (03/13/2025 10:11 AM CDT) Potassium, sr 4.3 3.6 - 5.2 mmol/L Blood 03/13/2025 10:1 1 AM CDT 03/13/2025 11:10 AM CDT us Delmy Garcia LIFT TRUCK MECHANIC LAB BLOOD ORDERABLES Final Re sult [facility] [address] Department [place] [address] documented in this encounter Visit Diagnoses Diagnosis Hyperkalemia Hyperpotassemia documented in this encounter Care Teams Development Disability Specialist Relationship Specialty [place] [address] [address] [facility] [address] [place] [address] PCP - General Internal Medicine 12/09/24 Roverto Velazquez MD [address] [place] [address] Consulting Physician Cardiovascular Disease 08/28/21 Viet Olvera III, MD [address] [place] [address] Consulting Physician Cardiology 08/28/21 Miscellaneous, Not In File 05/10/22 Valdez Leyva MD [address] [facility] [address] [place], [place] [id number] Consulting Physician General Surgery 12/22/22 Missy Jones NP [address] [place], [place] [id number] Nurse Practitioner Family Medicine 06/26/23 Obed Garcia MD [address] [facility] [address] [place] [address] Consulting Physician Urology 11/07/23 [place] [address] [address] [place] [address] Consulting Physician Endocrinology 11/07/23 documented as of this encounter
--- OUTSIDE RECORDS SUMMARY | 2025-03-14 10:34 | XMS_ITS | Encounter Summary ---
Author Organization [facility] Address [address] [place] [address] Care Team Providers Care Property Technician Name Role Phone Roverto Velazquez MD Unavailable Wade PERSON MD, Viet Boo Unavailable [phone] Miscellaneous, Not In File Unavailable Unava ilable Valdez Leyva MD Unavailable [phone] Missy Jones NP Unavailable Obed Garcia MD Unavailable Etta Vivas MD Unavailable [phone] Ignacio Henry DO Primary Care Provider [phone] Reason for Visit * Reason Onset Date Comments Test Results 01/12/2025 Encounter Details Date Type Department Care Team (Late st Contact Info) Description 01/12/2025 Results Follow-Up [facility] Medical Group Cardiology [address] [place] [address] Delmy Garcia NP [address] [facility] [address] [place] [address] Magnesium, Basic metabolic panel, eGFR Social History Tobacco Use Types Packs/Day Years [...] often do you attend chur ch or shinto services? Never 06/19/2023 Do you belong to any clubs o r organizations such as sikh groups, unions, fraternal or athletic groups, or [...] place to sleep or slept in a fci (including now)? No 06/19/2023 Personal Safety Answer Date Recorded Have you ever been in or are you currently in a harmful physical or emotional relationship or is someone making you feel afraid or unsafe? 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 Patient expressed understanding. BP excellent. 104-126/72-85. Takes 3 times daily. * Telephone Encounter - Martha Weller - 01/12/2025 4:00 PM CDT ----- Message from Delmy Garcia NP sent at 01/12/2025 3:07 PM CDT ----- Please let patient know that his labs look good. Please see what his blood pressures have been running at home. documented in this encounter Plan of Treatment Not on file documented as of this encounter Visit Diagnoses Not on filedocumented in this encounter Care Teams Property Technician Relationship Specialty [place] [address] [address] [facility] [address] [place] [address] PCP - General Internal Medicine 12/09/24 Roverto Velazquez MD [address] [facility] [address] [place] [address] Consulting Physician Cardiovascular Disease 08/28/21 Viet Olvera III, MD [address] [facility] [address] [place] [address] Consulting Physician Cardiology 08/28/21 Miscellaneous, Not In File 05/10/22 Valdez Leyva MD [address] [facility] [address] [place], [place] [phone] Consulting Physician General Surgery 12/22/22 Missy Jones NP [address] [facility] [address] [place], [place] [phone] Nurse Practitioner Family Medicine 06/26/23 Obed Garcia MD [address] [facility] [address] [place] [address] Consulting Physician Urology 11/07/23 [place] [address] [address] [facility] [address] [place] [address] Consulting Physician Endocrinology 11/07/23 documented as of this encounter
--- OUTSIDE RECORDS SUMMARY | 2025-03-14 10:34 | XMS_ITS | Clinical Summary ---
Author Organization [facility] [place] [address] Address [address] [place] [address] Care Team Providers Care Application Security Engineer Name Role Phone Roverto Velazquez MD Unavailable Wade PERSON MD, Viet Boo Unavailable [phone] Miscellaneous, Not In File Unavailable Unava ilable Valdez Leyva MD Unavailable [phone] Missy Jones NP Unavailable Obed Garcia MD Unavailable Etta Vivas MD Unavailable [phone] Ignacio Henry DO Primary Care Provider [phone] Allergies Active Allergy Reactions Criticality Noted Date [...] 09/26/20 Assessment & Plan (09/26/2024 8:56 PM AUTOMATION APPLICATION ENGINEER): Viral infection. Ysxx-csj-aieahbqf for symptoms Bilateral impacted cerumen 09/26/2024 Assessment & Plan (09/26/2024 8:56 PM AUTOMATION APPLICATION ENGINEER): Rinsed with warm water bilaterally until clear. Platelets decreased 11/07/2023 Chronic renal failure, stage 3a 11/07/2023 Encounter for Medicare annual wellness exam 10/16 Assessment & Plan (11/07/2023 9:34 AM AUTOMATION APPLICATION ENGINEER): A(n) yearly Medicare Annual Wellness Visit has [...] S/p dual chamber pacemaker, excellent function. 88% MANAGER INSURANCE in context of moderate LV dysfunction (LVEF 40%). No heart failure symptoms. Could consider device revision to PHP MYSQL DEVELOPER-P system, but in absence of clinical HF would favor observation for now. --Continue remote device monitoring --Consider device revision to PHP MYSQL DEVELOPER-P system in future if HF symptoms arise, LVEF declines or at time of generator replacement. Assessment & Plan (06/26/2023 9:43 AM CDT): S/p dual chamber pacemaker. Excellent device function. --Continue remote device f/u remotely Assessment & Plan (10/02/2022 9:03 AM AUTOMATION APPLICATION ENGINEER): Transient, perioperatively. No recurrence. No current indication [...] losartan Assessment & Plan (10/30/2023 11:03 AM AUTOMATION APPLICATION ENGINEER): Well compensated on physical exam. No significant [...] therapy. Assessment & Plan (10/25/2022 10:03 AM AUTOMATION APPLICATION ENGINEER): Euvolemic with stable NYHA 2 symptoms. Continue [...] 25 Assessment & Plan (12/14/2021 10:28 AM AUTOMATION APPLICATION ENGINEER): EF 25% at time of diagnosis etiology likely multifactorial due to ischemic heart disease and also nonischemic component due to AFib. Significantly improved symptoms following cardioversion, stable NYHA 2 and his ejection fraction has improved to normal range on medical therapy and revascularization - continue metoprolol XL 25, Entresto 24-26 b.i.d. and spironolactone 25 Assessment & Plan (11/09/2021 2:00 PM AUTOMATION APPLICATION ENGINEER): EF 25% at time of diagnosis etiology [...] metoprolol Assessment & Plan (10/18/2021 3:32 PM AUTOMATION APPLICATION ENGINEER): EF 25%, euvolemic on exam but persistent [...] implant Assessment & Plan (09/14/2021 1:52 PM AUTOMATION APPLICATION ENGINEER): EF 25%, has underlying Coronary artery disease [...] determine ICD Coronary artery disease invo lving [place] coronary artery of [place] heart without angina pectoris 08/24/2021 Assessment & Plan (04/29/2024 9:39 AM CDT): Status post PCI of LAD. Remains free of angina. LDL at goal - continue Eliquis, aspirin 81 - continue lipitor 20 daily Assessment & Plan (10/30/2023 11:02 AM AUTOMATION APPLICATION ENGINEER): Reassuring recent catheterization with nonobstructive CAD and [...] Eliquis. Assessment & Plan (10/25/2022 9:10 AM AUTOMATION APPLICATION ENGINEER): Status post PCI of LAD. Remains free [...] Lipitor Assessment & Plan (12/14/2021 10:27 AM AUTOMATION APPLICATION ENGINEER): Status post PCI of LAD. IFR negative circumflex. Fully revascularized, continue secondary prevention. Remains free of angina - continue Eliquis, Plavix and Lipitor Assessment & Plan (10/18/2021 3:33 PM AUTOMATION APPLICATION ENGINEER): Status post PCI of LAD. IFR negative circumflex. Fully revascularized continue secondary prevention - continue Eliquis, Plavix and Lipitor Assessment & Plan (09/14/2021 1:50 PM AUTOMATION APPLICATION ENGINEER): Status post PCI of LAD. IFR negative circumflex. Fully revascularized continue secondary prevention - stop aspirin - continue Eliquis and Plavix and Lipitor Ventricular tachycardia 08/24/2021 Assessment & Plan (10/30/2023 11:00 AM AUTOMATION APPLICATION ENGINEER): [facility], Dr. Olvera. Continue beta-jitendra. Assessment & Plan (05/29/2022 2:27 PM CDT): Resolved. Initially occurring during ACS. No recurrence, feeling well. --Continue metoprolol. Assessment & Plan (11/29/2021 11:17 AM AUTOMATION APPLICATION ENGINEER): SMVT, occurring in context of severe proximal [...] palpitations Assessment & Plan (11/09/2021 1:59 PM AUTOMATION APPLICATION ENGINEER): Continue life vest, no recent device therapies. Follow-up with Dr. Olvera for mid November after his repeat echo Assessment & Plan (10/18/2021 3:33 PM AUTOMATION APPLICATION ENGINEER): No recent shocks. 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 Currently on LifeVest. Seen by Dr. Olvera. Plan to reassess ICD need after 3 months of therapy and repeat echo Sinus node dysfunction 08/24/2021 Assessment & Plan (10/30/2023 11:01 AM AUTOMATION APPLICATION ENGINEER): Followed by EP as mentioned above. Assessment & Plan (10/02/2022 9:02 AM AUTOMATION APPLICATION ENGINEER): Mild, asymptomatic. No current indication for pacing. Assessment & Plan (05/29/2022 2:28 PM CDT): Significant resting sinus bradycardia. Rate 45 bpm currently on low dose metoprolol. Unable to tolerate antiarrhythmic drugs or higher dose metoprolol. Pacing might be required in future for adequate medical therapy for HF/CAD. --AF ablation as above. --Avoiding pacing for now. Assessment & Plan (11/29/2021 11:18 AM AUTOMATION APPLICATION ENGINEER): With symptomatic sinus bradycardia on amiodarone and [...] year Assessment & Plan (11/11/2021 9:07 AM AUTOMATION APPLICATION ENGINEER): Reviewed patient recent thyroid ultrasound report and [...] of V-tach on LifeVest Patient following with buying intern and stamper blocker, he is due for cardiac procedure next month. Advised patient to discuss with his buying intern and stamper blocker before holding Eliquis. Advised patient to call me back once he gets cleared by his buying intern. Will schedule thyroid nodule biopsy Accordingly Further [...] BID Assessment & Plan (10/30/2023 11:01 AM AUTOMATION APPLICATION ENGINEER): Heart rates are controlled on oral beta-jitendra, [...] carvedilol. Assessment & Plan (10/25/2022 10:02 AM AUTOMATION APPLICATION ENGINEER): In sinus today, no recurrence since ablation. Continue metoprolol XL 25 and Eliquis Assessment & Plan (10/02/2022 9:02 AM AUTOMATION APPLICATION ENGINEER): Doing very well, maintaining sinus rhythm after AF ablation. --Continue apixaban 5 mg BID --Continue metoprolol XL 25 mg daily Assessment & Plan (08/14/2022 10:00 AM CDT): S/p AF ablation with partial PVI and CTI ablation. Doing very well, maintaining sinus rhythm without any AF recurrence. [id number] = 6+. Indefinite anticoagulation recommended. --Continue apixaban [...] Eliquis Assessment & Plan (12/14/2021 10:27 AM AUTOMATION APPLICATION ENGINEER): Status post cardioversion remains in sinus rhythm today - continue metoprolol 25 and Eliquis Assessment & Plan (11/29/2021 11:20 AM AUTOMATION APPLICATION ENGINEER): Highly symptomatic. Pt reports profound improvement in symptoms/QOL after cardioversion. Maintaining sinus rhythm without recurrence. Will manage expectantly for now. Strong indication for rhythm control if AF returns, given severe symptoms. [id number] = 4. Recommend indefinite anticoagulation. --Continue metoprolol XL 25 mg daily --Continue apixaban 5 mg BID Assessment & Plan (11/09/2021 1:59 PM AUTOMATION APPLICATION ENGINEER): Status post cardioversion remains in sinus rhythm today - continue metoprolol 25 and Eliquis Assessment & Plan (10/18/2021 3:32 PM AUTOMATION APPLICATION ENGINEER): Status post cardioversion and remains in sinus rhythm today - continue Eliquis - reduce metoprolol as stated Assessment & Plan (09/14/2021 1:51 PM AUTOMATION APPLICATION ENGINEER): Persistent AFib. Remains in AFib now and his rate control however remains symptomatic and with low EF therefore recommend rhythm control strategy. - schedule ABHINAV cardioversion - continue Eliquis - drop amiodarone to 200 mg daily maintenance History of non-ST elevation myocardial infarctio n (NSTEMI) 08/22/2021 Overview (08/25/2021): Added automatically from request for surgery [id number] Parkinson's disease without dyskinesia, unspecified whether manifestations [...] 01/2008 Assessment & Plan (10/30/2023 11:02 AM AUTOMATION APPLICATION ENGINEER): Blood pressure was initially elevated, when rechecked [...] the decreased dose of Coreg per his Registered Nurse Behavioral Health. Assessment & Plan (01/30/2023 10:29 AM CDT): [...] week. Assessment & Plan (11/09/2021 1:59 PM AUTOMATION APPLICATION ENGINEER): Well controlled, continue current meds Resolved Problems [...] (05/29/2022): Added automatically from request for surgery [id number] Stage 3b chronic kidney disease 05/18/2022 07/26/2023 Overview (07/26/2023): Per Dr Ferraro 04-12-23 this is resolved Atrial fibrillation with rap id ventricular response 05/12/2022 05/18/2022 Hyperkalemia 05/09/2022 09/26/2024 Acute kidney injury 05/09/2022 05/18/20 22 Contusion of rib on left side 11/02/2021 07/12/2022 Hypoglycemia 10/18/2021 12/15/2021 Assessment & Plan (10/18/2021 3:34 PM AUTOMATION APPLICATION ENGINEER): He was interestingly noted to have a [...] 09/26/2024 Assessment & Plan (11/09/2021 2:00 PM AUTOMATION APPLICATION ENGINEER): This problem has improved since decreasing his metoprolol Assessment & Plan (10/18/2021 3:33 PM AUTOMATION APPLICATION ENGINEER): He has symptomatic sinus bradycardia on metoprolol [...] 07/12/2022 Impaired fasting glucose 05/31/201312/2021 Palpitations 07/12/2022 Encounters Date Type Department Care Team Description 03/13/2025 10:30 AM CDT Ancillary Procedure [facility] [address] [place] [address] Ischemic cardiomyopathy; Heart failure with reduced ejection fraction, NYHA class III (HCC) 03/13/2025 10:00 AM CDT Lab [facility] [address] [place] [address] Hyperkalemia 03/13/2025 Results Follow-Up [facility] [address] [place] [address] [address] [place] [address] Delmy Garcia, UNDERGROUND MINING SECTION FOREMAN Potassium level, serum 03/04/2025 12:05 PM CDT Lab [facility] Outpatient Lab [address] [place] [address] Cardiomyopathy, unspecified type (HCC); Biventricular congestive heart failure (HCC); Hypertension, unspecified type; MARI (dyspnea on exertion) 03/04/2025 Results Follow-Up [facility] [address] [place] [address] [address] [place] [address] Delmy Garcia, UNDERGROUND MINING SECTION FOREMAN CBC with auto differential, Basic metabolic panel, Pro B-type natriuretic peptide, Additional followed-up results: 3 03/03/2025 Telephone [facility] [address] [place] [address] [address] [place] [address] Delmy Garcia, UNDERGROUND MINING SECTION FOREMAN Testing 03/02/2025 Documentation [facility] [address] [place] [address] [address] [place] [address] ZilandDelmy, UNDERGROUND MINING SECTION FOREMAN 01/13/2025 Telephone [facility] [address] [place] [address] [address] [address] Delmy Garcia, UNDERGROUND MINING SECTION FOREMAN 01/12/2025 Results Follow-Up [facility] [address] [place] [address] [address] [address] Delmy Garcia, UNDERGROUND MINING SECTION FOREMAN Magnesium, Basic metabolic panel, eGFR 01/09/2025 11:00 AM CDT Lab [facility] Outpatient Lab [address] [place] [address] Heart failure with reduced ejection fraction, NYHA class III (HCC); Encounter for long-term current use of medication 12/29/2024 Results Follow-Up [facility] [address] [place] [address] Delmy Garcia NP Magnesium, Basic metabolic panel, eGFR 12/28/2024 12:05 PM CDT Lab [facility] Outpatient Lab [address] [place] [address] Encounter for long-term current use of medication 12/14/2024 8:15 AM AUTOMATION APPLICATION ENGINEER Ancillary Procedure [facility] [address] [place] [address] Presence of cardiac pacemaker (Primary Dx); Complete heart block (HCC) from Last 3 Months Immunizations Immunization Administration Dates Next Due Influenza, [...] Unspecified 07/07/2024 Sars-cov-2 Covid-19 Mrna, Bi valent, Original/omicron Ba.1 06/18/2024,08/11/2023 Tdap 04/18/2016 ZOSTER LIVE 09/14/2010 Surgical History Surgery Date Site/Laterality Comments CARDIAC CATHETERIZATION 08/25/2021 CARDIOVERSION 06/15/2022 - 07/14/2022 Abhinav guided CARDIAC ELECTROPHYSIOLOGY MAPPING AND ABLATION 06/15/2022 - 07/14/2022 CARDIAC STENT PLACEMENT 10/15/2020 - 10/14/2021 X1 to proximal LAD. INSERT / REPLACE / REMOVE PACEMAKER 10/15/2022 - 10/14/2023 FL FLUORO GUIDED INJECTION H IP LEFT 01/31/2023 Left COLONOSCOPY VASECTOMY 1985 FL FLUORO GUIDED INJECTION H IP LEFT 05/25/2023 Left HERNIA REPAIR 2022 Medical History Medical History Date Comments Atrial fibrillation (HCC) Coronary artery disease Covid-19 06/2022 History of Ventricular tachycardia 2020 Wore life vest X90 days, no events since. NSTEMI (non-ST elevated myoc ardial infarction) (HCC) 2020 Hypertension TIA (transient ischemic attack) 1996 No residuals. Nontoxic multinodular goiter PONV (postoperative nausea and vomiting) GERD (gastroesophageal reflux disease) Rarely R/T diet. Colon polyp Basal cell carcinoma Anxiety Cataract Heart disease Stroke (HCC) Benign prostatic hyperplasia Clotting disorder Chronic kidney disease 2022 Family History Medical History Relation Name Comments Heart attack Brother 1 Javier Thania Obesity Brother 2 Tremayne Cancer Father David Thyroid cancer Father David Diabetes Mother Evangelina Monteiro Early Mother Evangelina Monteiro Heart attack Mother Evangelina Monteiro Obesity Mother Evangelina Monterio Hypothyroidism Sister Relation Name Status Comments Brother 1 Javier Thania Brother 2 Tremayne Father David Mother Evangelina Monteiro Sister Social History Tobacco Use Types Packs/Day Years [...] 06/19/2023 How often do you attend chur [employer] or orthodoxy services? Never 06/19/2023 Do you belong to any clubs o r organizations such as spiritism groups, unions, fraternal or athletic groups, or [...] place to sleep or slept in a half-way (including now)? No 06/19/2023 Personal Safety Answer Date Recorded Have you ever been in or are you currently in a harmful physical or emotional relationship or is someone making you feel afraid or unsafe? Denies 01/03/2024 Sex and Gender Information Value Date Recorded Sex Assigned at Not on file Legal Sex Male 7:05 PM AUTOMATION APPLICATION ENGINEER Gender Identity Male 09/18/2021 7:10 AM AUTOMATION APPLICATION ENGINEER Sexual Orientation Straight 09/18/2021 7: 10 AM AUTOMATION APPLICATION ENGINEER Obstetrics History Last Filed Vital Signs Vital Sign Reading Time Taken Comments Blood Pressure 144/80 11/07/2024 9:05 AM AUTOMATION APPLICATION ENGINEER Pulse 64 11/07/2024 9:05 AM AUTOMATION APPLICATION ENGINEER Temperature 36.6 C (97.8 F) 09/22/2024 3:30 PM AUTOMATION APPLICATION ENGINEER Respiratory Rate 16 09/22/2024 3:30 PM AUTOMATION APPLICATION ENGINEER Oxygen Saturation 98% 11/07/2024 9:05 AM AUTOMATION APPLICATION ENGINEER Inhaled Oxygen Concentration - - Weight 98.6 kg (217 lb 6.4 oz) 11/07/2024 9:05 AM AUTOMATION APPLICATION ENGINEER Height 175.3 cm (5' 9) 11/07/2024 9:05 AM AUTOMATION APPLICATION ENGINEER Body Mass Index 32.1 11/07/2024 9:05 AM AUTOMATION APPLICATION ENGINEER Plan of Treatment Health Maintenance Due Date Last Done Comments Albumin Creatinine Ratio, Urine 1948 Dilated Eye Exam 1950 Foot Exam 1948 Hepatitis B Screening 1966 Zoster Vaccine (2 of 3) 11/09/2010 09/14/2010 Hemoglobin A1C 01/25/2024 07/26/2023, 10/15, 08/24/2021 Covid-19 Vaccine (2023-2 5 season) 2024 06/18/2024, 08/11/2023, 08/11/2023, Additional history exists Lipid Panel 04/29/2025 04/29/2024, 07/15, 06/12/2023, Additional history exists Depression Screening 05/26/2025 05/26/2024, 11/07/2023, 08/01/2023, Additional history exists Fall Risk Assessment 05/26/2025 05/26/2024, 03/24/2024, 11/07/2023, Additional history exists Well Visit 65+ 05/26/2025 05/26/2024, 11/07/2023 eGFR 03/04/2026 03/04/2025, 12/14, 12/28/2024, Additional history exists DTaP/Tdap/Td Vaccine (2 - Td or Tdap) 04/18/2026 04/18/2016 Pneumococcal vaccine 65+ Completed 08/29/2019, 07/16 Colon Cancer Screening-Colonoscopy Discontinued 04/19/2023, 03/03/2013 Hepatitis C Screening Completed 07/26/2023 Influenza Vaccine Completed 06/18/2024, , 08/03/2023, Additional history exists Medical Devices Implanted Type Area Bobbin Fixer Device Identifier Shelf Expiration Date Model / Serial / Lot [employer] Inc Vascade Mvp 6-12fr Venous Closure [id number] - [id number] - [id number] Implanted:Qty : 1 on 07/05/2022 by Viet Olvera III, MD at [facility] Collagen [employer] Inc 04/05/2024 800-612C- 10U / [id number] 30B / [id number] 30B [employer] Inc Vascade Mvp 6-12fr Venous Closure [id number] - [id number] - [id number] Implanted:Qty : 1 on 07/05/2022 by Viet Olvera III, MD at [facility] Collagen [employer] Inc 04/05/2024 800-612C- 10U / [id number] 30B / [id number] 30B [employer] Inc Device Closure Vascade Od5 Fr Femoral Artery [id number] - [id number] - [id number] Implanted:Qty : 1 on 07/05/2022 by Viet Olvera III, MD at [facility] Collagen [employer] Inc 11/29/2023 [id number] -05U / [id number] / [id number] 217A [employer] Vascade Mvp 6-12fr Venous Closure [id number] - [id number] - [id number] Implanted:Qty : 1 on 07/05/2022 by Viet Olvera III, MD at [facility] Collagen [employer] Inc 03/30/2024 800-612C- 10U / [id number] 28A / [id number] 28A Medtronic Inc Capsurefix Novus 6.2fr 2mm 58cm Bipolar Screw In Implantable 5076-58 - [id number] - [id number] Implanted:Qty : 1 on 01/22/2023 by Viet Olvera III, MD at [facility] Lead Medtronic Inc [id number] 09/19/2024 5076-58 / [id number] / Medtronic Inc Capsurefix Novus 6.2fr 2mm 52cm Bipolar Screw In Implantable Latex Free 5076-52 - [id number] - [id number] Implanted:Qty : 1 on 01/22/2023 by Viet Olvera III, MD at [facility] Lead Medtronic Inc [id number] 12/01/2024 5076-52 / [id number] / Davol Inc/C R Bard Mesh Surg 3dmax 17d12es Left Mid Large Inguinal Hernia [id number] - [id number] Implanted:Qty : 1 on 12/22/2022 by Valdez Leyva MD at [facility] Mesh Left: Inguinal [employer]ol Inc/C R Bard [id number] 04/11/2027 [id number] / / [id number] Other - See Comments Other - see comments Forehead Description:Internal stitche s from MOHS 11/2022 Medtronic Inc [place] S Mri Surescan 50.8x46.6mm 2 Chamber 7.4mm Pacemaker 22.5gm [id number] - [id number] - [id number] Implanted:Qty : 1 on 01/22/2023 by Viet Olvera III, MD at [facility] Pacemaker Medtronic Inc 05/28/2024 [id number] / [id number] / [employer] Mari [id number] Synergy Xd Monorail 4mm 24mm 144cm Delivery System 1 Access Port - [id number] - [id number] Implanted:Qty : 1 on 08/25/2021 by Roverto Velazquez MD at [facility] Stent [employer] Mari 12/13/2022 [id number] / [id number] / [id number] Description:pLAD Moody Vascular Device Clsr Perclose Prostyle Sut-Mediatd Closure-Repai r Sys 93908-20 - S0 - [id number] Implanted:Qty : 1 on 08/22/2023 by Roverto Velazquez MD at [facility] Vascular Closure Device Right: Femoral [employer] 05/14/2025 99107-56 / 0 / [id number] TerMine Mari Angio-Seal Vip 6fr Closere Device [id number] - [id number] Implanted:Qty : 1 on 06/11/2023 at [facility] [employer] Mari 11/14/2023 [id number] / / [id number] Explanted Type Area Bobbin Fixer Device Identifier Shelf Expiration Date Model / Serial / Lot [employer] Inc Tendril Sts 6fr 52cm Is-1 Connector Active Fixation Bipolar Soft 52 - [id number] - [id number] Implanted:Qty : 1 on 07/05/2022 by Viet Olvera III, MD at [facility] Explanted:Qty : 1 on 07/06/[address] [employer] Inc [id number] 04/13/20252087TC/52 / [id number] / [employer] Inc Assurity Mri [id number] 1 Chamber Is-1 Connector Thk6mm Pacemaker [id number] - [id number] - [id number] Implanted:Qty : 1 on 07/05/2022 by Viet Olvera III, MD at [facility] Pacemaker [employer] [id number] 03/14/2023 [id number] / [id number] / Procedures Procedure Name Priority Date/Time Associated [...] CHECK - REMOTE Routine 12/14/2024 11:18 AM AUTOMATION APPLICATION ENGINEER Complete heart block (HCC) LIPID PANEL Routine [...] CDT 03/13/2025 11:10 AM CDT Delmy Garcia UNDERGROUND MINING SECTION FOREMAN LAB BLOOD ORDERABLES Final Re sult [facility] [address] Department [place] [address] * eGFR (03/04/2025 12:16 PM CDT) eGFR [...] 6 PM CDT 03/04/2025 12:53 PM CDT us Delmy Garcia NP LAB BLOOD ORDERABLES Final Re sult [facility] [address] [place] [address] * (ABNORMAL) Differential, auto (03/04/2025 12:16 PM [...] 6 PM CDT 03/04/2025 12:53 PM CDT us Delmy Garcia UNDERGROUND MINING SECTION FOREMAN LAB BLOOD ORDERABLES Final Re sult [facility] [address] [place] [address] * Pro B-type natriuretic peptide (03/04/2025 12:16 [...] CDT 03/04/2025 12:53 PM CDT Delmy Garcia UNDERGROUND MINING SECTION FOREMAN LAB BLOOD ORDERABLES Final Re sult [facility] [address] [place] [address] * (ABNORMAL) CBC with auto differential (03/04/2025 [...] CDT 03/04/2025 12:53 PM CDT Delmy Garcia UNDERGROUND MINING SECTION FOREMAN LAB BLOOD ORDERABLES Final Re sult Performing Organization Address [facility] Co de Phone Number [facility] [address] [facility] [place] [address] * Magnesium (03/04/2025 12:16 PM CDT) [facility] Magnesium 2.3 1.4 - 2.5 mg/dL Blood 03/04/2025 12:1 6 PM CDT 03/04/2025 12:53 PM CDT Delmy Garcia UNDERGROUND MINING SECTION FOREMAN LAB BLOOD ORDERABLES Final Re sult Performing Organization Address [facility] de Phone Number [facility] [address] [place] [address] * (ABNORMAL) Basic metabolic panel (03/04/2025 12:16 PM CDT) Pathologist [facility] Sodium 140 135 - 145 mmol/L Potassium, [...] 2022. Calcium 8.8 8.5 - 10.3 mg/dL [facility] Blood 03/04/2025 12:1 6 PM CDT 03/04/2025 12:53 PM CDT us Delmy Garcia NP LAB BLOOD ORDERABLES Final Re sult [facility] [address] [place] [address] * eGFR (01/09/2025 11:10 AM CDT) eGFR 82 >=60 mL/min/1. 73 m2 [...] ORDERABLES Final Re sult Performing Organization Address City/[facility]/ZIP Co de Phone Number [facility] [address] [place] [address] * Magnesium (01/09/2025 11:10 AM CDT) Pathologist [facility] Magnesium 2.1 1.4 - 2.5 mg/dL Blood 01/09/2025 11:1 0 AM CDT 01/09/2025 11:42 AM CDT Delmy Garcia NP LAB BLOOD ORDERABLES Final Re sult [facility] [address] Department [place] [address] * (ABNORMAL) Basic metabolic panel (01/09/2025 11:10 AM CDT) [facility] Sodium 141 135 - 145 mmol/L Potassium, [...] CDT 01/09/2025 11:42 AM CDT Delmy Garcia UNDERGROUND MINING SECTION FOREMAN LAB BLOOD ORDERABLES Final Re sult Performing Organization Address [facility] Co de Phone Number [facility] [address] [employer] [place], [place] [id number] * eGFR (12/28/2024 12:17 PM CDT) eGFR [...] CDT 12/28/2024 12:45 PM CDT Delmy Garcia UNDERGROUND MINING SECTION FOREMAN LAB BLOOD ORDERABLES Final Re sult Performing Organization Address [facility] Co de Phone Number [facility] [address] Department [employer] [place], [place] [id number] * Magnesium (12/28/2024 12:17 PM CDT) Magnesium 2.2 1.4 - 2.5 mg/dL Blood 12/28/2024 12:1 7 PM CDT 12/28/2024 12:45 PM CDT Delmy Garcia NP LAB BLOOD ORDERABLES Final Re sult [facility] [address] [place] [address] * Basic metabolic panel (12/28/2024 12:17 PM [...] NP LAB BLOOD ORDERABLES Final Re sult [facility] [address] [place] [address] * DEVICE CHECK - REMOTE (12/14/2024 11:18 AM AUTOMATION APPLICATION ENGINEER) Anatomical Region Laterality Modality Other Narrative 12/25/2024 [...] to ABBEY Episodes last 90 days/Comments: AF [place] 0 %, longest duration 0. There was [...] 3) Programming appropriate for device measurements Eleuterio Hernandes, RN Viet Olvera III, MD CV CARDIAC [...] revised on 2018. Triglycerides 71 <=149 mg/dL [facility] Comment: Interpretive Data Ages < or = [...] revised on 2018. HDL 46 >=40 mg/dL [facility] Comment: Interpretive Data Ages < or = [...] on 2018. LDL, calculated 42 <=129 mg/dL [facility] Comment: Interpretive Data Ages < or = [...] revised on 2018. Non-HDL Cholesterol 56 mg/dL [facility] Comment: Interpretive Data Ages < or = [...] last revised on 2018. Chol/HDL ratio 2 [facility] Blood 04/29/2024 1:18 PM CDT 04/29/2024 2:04 PM CDT Gonzalo Helm MD LAB BLOOD ORDERABLES Final Result Performing Organization Address [facility] Co de Phone Number [facility] Department [place] [address] * Hepatitis C antibody Blood (07/26/2023 8:13 [...] MICROBIOLOGY - GENERAL ORDER EMILIANA Final Result [facility] [address] [place] [address] * Hemoglobin A1c (07/26/2023 8:13 AM CDT) Hgb A1C 5.0 4.0 - 5.6 % Estimated Average Glucose 97 mg/dL [facility] Comment: The ADA recommends reporting an estimated Average Glucose (eAG) with all Hemoglobin A1c results using the equation derived from a study of 507 normal and diabetic adults. Minority populations were underrepresented and children were not included. (Diabetes Care 31:0467-7379, 2008). The eAG is not equivalent to a fasting glucose. Blood 07/26/2023 8:13 AM CDT 07/26/2023 2:07 PM CDT Missy Jones NP LAB BLOOD ORDERABLES Final Resul t [facility] [address] [place] [address] * COLONOSCOPY (04/19/2023 11:42 AM CDT) Anatomical Region Laterality Modality Other Narrative Procedure Note David Wilkins, - 04/19/2023 11:42 AM CDT [facility] GI ENDOSCOPY Patient Name: Rico Monteiro Procedure Date: 04/19/2023 11:42 AM Date of : 1950 Admit Type: Outpatient Age: 72 Gender: Male Attending MD: David Wilkins D.O. Room: [facility] ENDOSCOPY ROOM 05 Note Status: Finalized Procedure: [...] On: 04/19/2023 11:42 AM Recognized by the [employer] for promoting quality in endoscopy David Wilkins DO ENDOSCOPY PROCEDURES Fin al Result from Last 3 Months or Most Recently Relevant to Health Maintenance Insurance [facility] ADVANTAGE CHOICE PPO [facility] [employer] CHOICE PPO [facility] Advance Directives For more information, please contact: [phone] Documents on File Type Date Recorded Patient Loss Prevention Detective Expl anation Advance Directives and Livin g [...] 4:28 PM 08/28/2021 5:21 PM Care Teams Application Security Engineer Relationship Specialty [place] [address] [facility] [address] [place] [address] PCP - General Internal Medicine 12/09/24 Roverto Velazquez MD [address] [facility] [address] [place] [address] Consulting Physician Cardiovascular Disease 08/28/21 Viet Olvera III, MD [address] [facility] [address] [place] [address] Consulting Physician Cardiology 08/28/21 Miscellaneous, Not In File 05/10/22 Valdez Leyva MD [address] [facility] [address] [place] [address] Consulting Physician General Surgery 12/22/22 Missy Jones NP [address] [facility] [address] [place] [address] Nurse Practitioner Family Medicine 06/26/23 Obed Garcia MD [address] [facility] [address] [facility] [place] [address] Consulting Physician Urology 11/07/23 [place] [address] [facility] [address] [place] [address] Consulting Physician Endocrinology 11/07/23
--- OUTSIDE RECORDS SUMMARY | 2025-03-14 10:34 | XMS_ITS | Clinical Summary ---
Author Organization [facility] Address [address] [facility] [place] [address] Care Team Providers Care Medical Records Analyst Name Role Phone WilkinsDavid dean Primary Care Provider [phone] Source Comments [facility],non-owned Affiliates and Associated Physician Practices is amultiple site organization consisting of ambulatory clinics and hospital sitesin [place], [place], [place] and [place]. This disclosure is being madepursuant to the Care Everywhere program and may not contain all information available regarding this patient. Last updated 18.[facility] Allergies Active Allergy Reactions Criticality Noted Date Comments Penicillins Other Low 04/02/2017 Unsure. Medications * Be aware that medications may not be up to date on this document. Alwaysverify current medications with the patient. aspirin (ASPIRIN) 81 MG tablet Take 81 mg by mouth DAILY. 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 Gender Identity Not on file Sexual Orientation Not on file Last Filed Vital Signs Vital Sign Reading Time Taken Comments Blood Pressure 141/84 05/09/2017 11:08 AM CDT Pulse 58 05/09/2017 11:08 AM CDT Temperature - - Respiratory Rate - - Oxygen Saturation 98% 05/09/2017 11:08 AM CDT Inhaled Oxygen Concentration - - Weight 90.7 kg (200 lb) 05/09/2017 8:59 AM CDT Height 177.8 cm (5' 10) 05/09/2017 8:59 AM CDT Body Mass Index 28.7 05/09/2017 8:59 AM CDT Plan of Treatment Health Maintenance Due Date Last Done Comments MEDICARE AWV 12 MONTHS 1950 HEPATITIS C SCREENING 05/15/1966 DTAP/TDAP/TD VACCINES (1 - Tdap) 1967 PNEUMOCOCCAL VACCINE 50+ (1 of 1 - PCV) 1998 ZOSTER VACCINE (1 of 2) 1998 Respiratory Syncytial Virus (RSV) Vaccine Pt: or over 60 yrs (1 - 1-dose 75+ series) 2023 COVID-19 VACCINE ( - 2023-2 5 season) 2024 DEPRESSION SCREENING 10/15/2024 INFLUENZA VACCINE (Season Ended) 2025 HEPATITIS B VACCINE Aged Out No longe r eligible based on patient's age to complete this topic HIB VACCINE Aged Out No longer eligi ble based on patient's age to complete this topic HPV VACCINE Aged Out No longer eligi ble based on patient's age to complete this topic MENINGOCOCCAL (Group B) VACC INE SHARED DECISION-MAKING Aged Out No longer eligibl e based on patient's age to complete this topic MENINGOCOCCAL GROUPS A/C/Y/W VACCINE Aged Out No longer eligible b ased on patient's age to complete this topic Insurance [facility] MEDICARE [employer] Care Teams Medical Records Analyst Relationship Specialty Start Date End Date David Wilkins DO [address] [place] [id number] PCP - General 03/19/17
[2025-03-14 10:35] LABS: Basophils Percent Auto 0.6 % (0.2-1.2); Eosinophils Absolute Auto 0.2 K/mm3 (0-0.3); Eosinophils Percent Auto 3.8 % (0-4.4); Hematocrit 43.3 % (42.0-52.0); Hemoglobin 14.8 g/dL (14.0-18.0); Lymphocytes Absolute Auto 0.79 K/mm3 (0.9-3.2); Lymphocytes Percent Auto 15.6 % (18.3-44.2); Mean Corpuscular HGB Conc 34.2 g/dl (32-36); Mean Corpuscular Hemoglobin 31.6 pg (26-34); Mean Corpuscular Volume 92.3 fl (80-100); Mean Platelet Volume 10.2 fl (7.4-10.4); Monocytes Absolute Auto 0.5 K/mm3 (0.1-0.6); Monocytes Percent Auto 8.9 % (2.6-8.5); Neutrophils Absolute Auto 3.6 K/mm3 (1.3-6.7); Neutrophils Percent Auto 71.1 % (45.5-73.1); Platelet Count Result 107 k/mm3 (150-375); Red Blood Count 4.69 M/mm3 (4.6-6.20); Red Cell Distribution Width 13.2 % (11.5-14.5); White Blood Count 5.1 K/mm3 (4.5-10.0)
[2025-03-14] MEDS: ACETAMINOPHEN 500 MG TABLET 1000 MG PO (10:37)
[2025-03-14 10:49] LABS: Alanine Aminotransferase 23 U/L (6-50); Albumin Level 3.7 g/dL (3.5-5.1); Alkaline Phosphatase 60 U/L (38-126); Anion Gap 7 mmol/L (4-12); Aspartate Amino Transferase 24 U/L (17-59); Bilirubin,Total 1.1 mg/dL (0.2-1.3); Blood Urea Nitrogen 28 mg/dL (9-20); Calcium 8.8 mg/dL (8.4-10.2); Carbon Dioxide 24 mmol/L (22-30); Chloride 107 mmol/L (98-107); Estimated CRCL calculation 66 ml/min; Estimated Glomerular Filt Rate > 60; Glucose 105 mg/dL (65-110); INR 1.4; Prothrombin Time 16.7 Seconds (11.1-14.7); Sodium 138 mmol/L (137-145)
[2025-03-14 10:50] LABS: Partial Thromboplastin Time 29.2 Seconds (22.3-36.8)
[2025-03-14 11:01] LABS: NT Pro B Type Natriuretic Pept 292 pg/mL (19.9-100); Troponin I < 0.012 ng/mL (0.000-0.034)
[2025-03-14 11:11] LABS: Influenza A QL RT-PCR Negative (Negative); Influenza B QL RT-PCR Negative (Negative); RSV RNA, RT-PCR Negative (Negative); SARS-CoV-2 RNA PCR Negative (Negative)
[2025-03-14 11:20] LABS: Lactic Acid Reflex 0.7 mmol/L (0.7-2.0)
[2025-03-14 12:48] VITALS: BP 137/94; PULSE 70; RESP 16; TEMP 36.4; O2SAT 98
--- NOTE | 2025-03-14 13:00 | PC.NURSE ---
Pt. had multiple syncopal events with this RN, pt. and Dr. Styles at bedside. Pt. unable to wake up for approximately 10 seconds. Pt. did not lose a pulse. When pt. came to he was c/o R. sided head pain. Pt. immediately taken to CT on a monitor with this RN and Nadine MORALES at bedside. Pt. remained alert during CT. Crash cart placed outside of pt. room, per Dr. Styles verbal instruction.
--- NOTE | 2025-03-14 13:15 | ECG_ITS ---
Test Date: 2025-03-14 13:18:46 Measurements Intervals [place] Rate: 69 P: -87 PA: 200 QRS: 79 QRSD: 169 T: -55 QT: 458 QTc: 493 Interpretive Statements ELECTRONIC ATRIAL PACEMAKER ELECTRONIC VENTRICULAR PACEMAKER NO FURTHER INTERPRETATION IS POSSIBLE ATYPICAL ECG Compared to ECG 03/14/2025 10:19:46 NO SIGNIFICANT CHANGE Electronically Signed On 03-15-2025 06:50:01 CDT by Florian Duenas D.O.
--- NOTE | 2025-03-14 13:27 | PC.NURSE ---
Pt. has a medtronic pacemaker. Pacemaker interrogated by this RN. Received results from group sales representative Arlette. Arlette states pacemaker is working well, no a-fib or v-fib. Dr. Styles notified.
[2025-03-14] MEDS: levETIRAcetam 1500MG/NACL100ML 1,500 MG/100 ML BAG 400 MG IVPB (14:32)
[2025-03-14 15:46] VITALS: BP 131/90; PULSE 71; RESP 14; O2SAT 97
--- NOTE | 2025-03-14 16:22 | PC.NURSE ---
This RN spoke with Yajaira at the [facility] transfer center. All questions answered. No update on bed availability at this time. Lucy states the number to call for an update is [phone] option 2.
--- NOTE | 2025-03-14 17:55 | PC.NURSE ---
Report called to Maria T and given to ANDREW Vazquez. All questions answered by this RN. Pt. going to [address]. Phone number report called to: [phone]. EMS ETA 1930.
[2025-03-14 19:35] VITALS: BP 130/92; PULSE 71; RESP 14; O2SAT 99
--- NOTE | 2025-03-14 19:47 | PC.NURSE ---
Report given to [facility]. All questions answered.
== END 2025-03-14 19:51 | disposition short-term general hospital (02) ==
PROVIDERS: Emergency Medicine; Emergency Provider Emergency Medicine; PCP Internal Medicine
DX: R55 Syncope and collapse (principal); I13.0 Hypertensive heart and chronic kidney disease with heart failure and stage 1 through stage 4 chronic kidney disease, or unspecified chronic kidney disease; I50.9 Heart failure, unspecified; E11.22 Type 2 diabetes mellitus with diabetic chronic kidney disease; N18.9 Chronic kidney disease, unspecified; Z95.0 Presence of cardiac pacemaker; Z95.5 Presence of coronary angioplasty implant and graft; Z79.01 Long term (current) use of anticoagulants; W19.XXXA Unspecified fall, initial encounter; Z20.822 Contact with and (suspected) exposure to COVID-19
CPT/HCPCS: 36415; 70450; 71046; 71250; 71275; 73562; 74174; 80053; 83605; 83880; 84484; 85025; 85610; 85730; 87040; 87637; 93005; 96374; 99285; A9270; J1953; Q9967

== ENCOUNTER 2025-04-03 09:16 | Outpatient (CLI) | payer OTHER, SELFPAY ==
[2025-04-03 18:45] LABS: Alanine Aminotransferase 27 U/L (6-50); Albumin Level 3.8 g/dL (3.5-5.1); Alkaline Phosphatase 59 U/L (38-126); Anion Gap 8 mmol/L (4-12); Aspartate Amino Transferase 39 U/L (17-59); Bilirubin,Total 1.1 mg/dL (0.2-1.3); Blood Urea Nitrogen 27 mg/dL (9-20); Calcium 8.9 mg/dL (8.4-10.2); Carbon Dioxide 25 mmol/L (22-30); Chloride 107 mmol/L (98-107); Cholesterol 94 mg/dL (0-200); Estimated Glomerular Filt Rate > 60; Glucose 99 mg/dL (65-110); HDL Direct 33 mg/dL; Potassium 4.7 mmol/L (3.4-5.0); Sodium 140 mmol/L (137-145); Total Protein 6.5 g/dL (6.3-8.2); Triglycerides 65 mg/dL (<150)
[2025-04-03 18:56] LABS: LDL Cholesterol Direct 37 mg/dL
[2025-04-03 19:15] LABS: Prostate Specific Antigen 6.3 ng/mL (< OR = 4.0)
== END 2025-04-03 09:17 | disposition home or self-care (01) ==
PROVIDERS: PCP Internal Medicine
DX: E78.5 Hyperlipidemia, unspecified (principal); Z79.899 Other long term (current) drug therapy
CPT/HCPCS: 36415; 80053; 80061; 84153

== ENCOUNTER 2025-05-04 15:14 | Outpatient (CLI) | payer OTHER, SELFPAY ==
--- OUTSIDE RECORDS SUMMARY | 2025-05-04 15:19 | XMS_ITS | Clinical Summary ---
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 This disclosure is being madepursuant to the Care Everywhere program and may not contain all information available regarding this patient. Last updated 18.[facility] Allergies Active Allergy Reactions Criticality Noted Date [...] (KLOR-CON M) 20 MEQ tablet 02/28/2017 Active Encounters Date Type Department Care Team Description 04/08/2025 Lab Requisition [facility] - D[facility] Lab [address] [facility] [place] [id number] Bhakti Munoz MD from Last 3 Months Social History Tobacco Use Types Packs/Day Years Used Date Smoking Tobacco: Never Smokeless Tobacco: Never Alcohol Use Standard Drinks/Week Comments Yes 0 (1 standard drink = 0.6 oz pur e alcohol) Sex and Gender Information Value Date Recorded Sex Assigned at Not on file 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 Gender Identity Not on file Sexual Orientation [...] season) 2024 DEPRESSION SCREENING 10/15/2024 INFLUENZA VACCINE (#1) 2025 HEPATITIS B VACCINE Aged Out No [...] on patient's age to complete this topic Procedures Procedure Name Priority Date/Time Associated Diagnosis Comments DERMATOPATHOLOGY Routine 04/08/2025 10:0 7 AM CDT from Last 3 Months Results * DERMATOPATHOLOGY (04/08/2025 10:07 AM CDT) Case Report Dermatopathology Report Case: [id number] Authorizing Provider: Bhakti Munoz MD Collected: 04/08/2025 10:07 AM Ordering Location: [facility] - Received: 04/10/2025 07:58 AM DermPath Lab Pathologist: Kandace Gomez MD Specimens: A) - Skin, left back B) - Skin, left hand 1:08 PM CDT DERMATOPATHOLOGY LABORATORY Final Diagnosis Specimen A. SKIN, left back: BASAL CELL CARCINOMA, SUPERFICIAL MULTIFOCAL (C44.519) (see microscopic description) Specimen B. SKIN, left hand: SQUAMOUS CELL CARCINOMA IN SITU, PRESENT AT THE BASE OF THE SPECIMEN (D04.62) (see microscopic description and comment) 1:08 PM CDT DERMATOPATHOLOGY LABORATORY at 1307 CDT Clinical History A: R/O BCC B: R/O SCC 1:08 PM CDT DERMATOPATHOLOGY LABORATORY Gross Description Specimen A: Received is one formalin filled container labeled with the patient's name and designated left back. The specimen consists of a shave biopsy measuring 7x6x1 mm. Jar 0. Specimen B: Received is one formalin filled container labeled with the patient's name and designated left hand. The specimen consists of a shave biopsy measuring 9x6x2 mm. Jar 0. 1:08 PM CDT DERMATOPATHOLOGY LABORATORY Microscopic Description Specimen A. SKIN, left back: Within the dermis there are aggregates of basaloid cells with a high nuclear to cytoplasmic ratio and peripheral palisading. Additional deeper sections were obtained and reviewed. Specimen B. SKIN, left hand: The epidermis shows parakeratosis, full thickness disorderly maturation of keratinocytes, mitoses at different levels, and dyskeratotic cells. The lesion extends to the base of the biopsy. COMMENT: An invasive squamous cell carcinoma cannot be ruled out. 1:08 PM CDT DERMATOPATHOLOGY LABORATORY Disclaimer An external and internal positive and negative controls are appropriate for the histochemical, immunohistochemical and immunofluorescence stain(s) in this case (if any), except where stated explicitly. The performance characteristics of the stain(s) cited in this report were developed and its performance characteristic determined by the Dermatopathology Laboratory at [facility], directed by Dr. Haylie Paz. These tests need not be, and therefore are not, approved by the [place] Food and Drug Administration. The tests are used for clinical purposes. Billing Codes Specimen Charges Stain Charges 67839 [id number] 1 1 5 1:08 PM CDT DERMATOPATHOLOGY LABORATORY Embedded Images 5 1:08 PM CDT DERMATOPATHOLOGY LABORATORY Pathology/Cytology TISSUE SPECIMEN FROM SKIN / Unknown 04/08/2025 10:07 AM CDT 04/10/2025 7:58 AM CDT Miscellaneous samples (specimen) TISSUE SPECIMEN FROM SKIN / Unknown 04/08/2025 10:07 AM CDT 04/10/2025 7:58 AM CDT Bhakti Munoz MD LAB - PATHOLOGY/CYTOLOGY ORD ERABLES Final Result DERMATOPATHOLOGY LABORATORY [facility] - Department of Dermatology [facility] Medicine [address] [place] [address], [address] [phone] from Last 3 Months Insurance [facility] MEDICARE [facility] [employer]ICARE [facility] MEDICARE ADV PPO Care Teams Sheetmetal Trades Worker Relationship Specialty Start Date End Date David Wilkins DO [address] [place] [phone] PCP - General 03/19/17
--- OUTSIDE RECORDS SUMMARY | 2025-05-04 15:19 | XMS_ITS | Clinical Summary ---
Author Organization [facility] Address [address] [place] [address] Care Team Providers Care Coordinator Cardiopulmonary Services Name Role Phone Gigi Castellanos MD Primary Care Provider [phone] Allergies Active Allergy Reactions Criticality Noted Date Comments Aleksandr Inhibitors Unknown 05/31/2013 Penicillins Other (see comment) Low 04/02/2017 Unsure. Medications aspirin 81 MG tablet Take 1 tablet by mouth daily. Active vitamin C 500 MG tablet Active fluticasone propionate 50 MCG/ACT nasal spray 2 sprays by Nasal route daily. 8 Active multivitamin tablet Active triamcinolone 0.1 % creamIndications: Dermatitis Apply topically 2 (two) times daily. 80 g 1 Active Amiodarone HCl 400 MG Tab Take 1 tablet by mouth 2 (two) times a day. 1 Active apixaban (ELIQUIS) 5 MG tablet Take 1 tablet (5 mg total) by mouth 2 (two) times daily. 60 tablet 1 Active atorvastatin 40 MG tablet Take 1 tablet (40 mg total) by mouth nightly at bedtime. 30 tablet 1 Active clopidogrel 75 MG tablet Take 1 tablet (75 mg total) by mouth daily. 30 tablet 1 Active losartan 25 MG tabletIndications :Essential hypertension Take 1 tablet (25 mg total) by mouth daily. 1 Active metoprolol succinate ER 25 MG 24 hr tablet Take 1 tablet (25 mg total) by mouth 2 (two) times a day. 30 tablet 1 Active Active Problems Problem Noted Date Diagnosed Date Coronary artery disease invo lving [place] coronary artery of [place] heart without angina pectoris 08/31/2021 Paroxysmal atrial fibrillation ([facility]) 08/31/2021 Vertigo 08/17/2021 Dermatitis 11/27/2020 Herpes zoster without complication 10/14/2020 Parkinson's disease ([facility]) 07/22/2020 Unilateral inguinal hernia without obstruction o r gangrene 04/23/2019 Dysfunction of Eustachian tube, unspecified late rality 12/03/2017 Cerumen impaction 11/12/2017 Acute sinusitis, recurrence not specified, unspecified location 12/04/2016 Essential hypertension 05/31/2013 Overview (04/22/2019): Description: prior to 01/2008 Impaired fasting glucose 05/31/2013 Resolved Problems Problem Noted Date Diagnosed Date Resolved Date Herpes zoster 12/13/2018 04/23/2019 Routine general medical exam ination at a health care facility 05/22/2013 08/01/2021 Immunizations Immunization Administration Dates Next Due Fluzone 6 Months+ Quad (0.5 mL Prefilled Syringe ) 06/24/2020 Fluzone High Dose - >Age 65 (Prefilled Syringe) 08/27/2019 Influenza Adult (Generic) 08/01/2018 PFIZER COVID-19 (ORIGINAL FO RMULATION, PURPLE CAP) mRNA, LNP-S, PF, 30 MCG/0.3 ML DOSE 12/13/2020,11/22/2020 Pneumococcal (Pneumovax 23) 08/29/2019 Pneumococcal (Prevnar 13) 08/07/2018 Tdap (Generic) 04/18/2016 Zoster (Zostavax) 56449 Unt/0.65Ml 09/14/2010 Family History Medical History Relation Comments Brain cancer Father COPD Father Coronary artery disease Father Relation Status Comments Father Social History Tobacco Use Types Packs/Day Years Used Date Smoking Tobacco: Never Smokeless Tobacco: Never Alcohol Use Standard Drinks/Week Comments No 0 (1 standard drink = 0.6 oz pur e alcohol) AUDIT-C Answer Date Recorded Frequency of Alcohol Consumption Never 04/22/2019 Average Number of Drinks Not on file 019 Frequency of Binge Drinking Not on file 06/2019 Sex and Gender Information Value Date Recorded Sex Assigned at Not on file Legal 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 Gender Identity Not on file Sexual Orientation Not on file Last Filed Vital Signs Vital Sign Reading Time Taken Comments Blood Pressure 128/80 08/31/2021 10:07 AM TRACTOR MECHANIC HELPER Pulse 72 07/22/2020 8:54 AM CDT Temperature 36.7 C (98.1 F) 02/04/2021 9:36 AM CDT Respiratory Rate - - Oxygen Saturation - - Inhaled Oxygen Concentration - - Weight 101.6 kg (224 lb) 08/31/2021 10:07 AM TRACTOR MECHANIC HELPER Height 180.3 cm (5' 11) 08/31/2021 10:07 AM TRACTOR MECHANIC HELPER Body Mass Index 31.24 08/31/2021 10:07 AM TRACTOR MECHANIC HELPER Plan of Treatment Health Maintenance Due Date Last Done Comments ASCVD Statin 1950 Hepatitis C 1968 Zoster Vaccines (2 of 3) 11/09/2010 09/14/2010 Annual Medicare Wellness Visit 07/23/2021 07/22/2020 ASCVD LDL 07/25/2022 07/25/2021, 1005/2020, 08/06/2019, Additional history exists RSV Immunization or 60+ Years (1 - 1-dose 75+ series) 2023 COVID-19 Vaccine ( - season) 2024 07/18/2021, 12/13/2020, 11/22/2020 DTaP, Tdap and Td Vaccines (2 - Td or Tdap) 04/18/2026 04/18/2016 Colorectal Cancer Screening Colonoscopy (10 Years) Discontinued 10/15/2012 Pneumococcal Vaccine: 50+ Years Completed 08/29/2019, 08/07/2018 Meningococcal B Vaccine Aged Out No l onger eligible based on patient's age to complete this topic Meningococcal Vaccine Aged Out No mando arti eligible based on patient's age to complete this topic RSV Immunizations Under 20 Months Aged Out No longer eligible based on patient's age to complete this topic Procedures Procedure Name Priority Date/Time Associated Diagnosis Comments LIPID PANEL Routine 07/25/2021 10:32 AM CDT Impaired fasting glucose Essential hypertension COLONOSCOPY Routine 10/15/2012 12:00 AM TRACTOR MECHANIC HELPER from Last 3 Months or Most Recently Relevant to Health Maintenance Results * LIPID PANEL (07/25/2021 10:32 AM CDT) CHOLESTEROL 147 <200 mg/dL [facility] HDL 40 > OR = 40 mg/dL [facility] TRIGLYCERIDES 78 <150 mg/dL [facility] LDL (CALCULATED) 90 mg/dL (calc) [facility] Comment: Reference range: <100 Desirable range <100 mg/dL for primary prevention; <70 mg/dL for patients with CHD or diabetic patients with > or = 2 CHD risk factors. LDL-C is now calculated using the Linda calculation, which is a validated novel method providing better accuracy than the Friedewald equation in the estimation of LDL-C. Ori FREIRE et al. GRICELDA. 2013;310(19): 3163-4591 (http://education.Overinter[employer] Media/faq/EQV047) CHOL/HDL RATIO 3.7 <5.0 (calc) [facility] NON HDL CHOLESTEROL 107 <130 mg/dL (calc) [facility] Comment: For patients with diabetes plus 1 major ASCVD risk factor, treating to a non-HDL-C goal of <100 mg/dL (LDL-C of <70 mg/dL) is considered a therapeutic option. 07/25/2021 10:3 2 AM CDT 07/26/2021 4:15 AM CDT us Gigi Castellanos MD LABORATORY Final Resul t [facility] [address] [place] [address] * Colonoscopy (10/15/2012 12:00 AM TRACTOR MECHANIC HELPER) 10/15/2012 10/15/2012 Narrative TOUCHWORKS TO EPIC CONVERSION - 10/15/2012 12:00 AM TRACTOR MECHANIC HELPER Documented hx of procedure Procedure Note , Generic Conversion, - 01/02/2019 Documented hx of procedure us Generic Conversion Md MG GI PROCEDURE ORDERABLES Final Result TOUCHWORKS TO EPIC CONVERSION from Last 3 Months or Most Recently Relevant to Health Maintenance Insurance [employer] Care Teams Coordinator Cardiopulmonary Services Relationship Specialty Start Date End Date Gigi Castellanos MD [address] [phone] PCP - General FAMILY PRACTICE 01/29/19
--- OUTSIDE RECORDS SUMMARY | 2025-05-04 15:19 | XMS_ITS | Encounter Summary ---
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
--- OUTSIDE RECORDS SUMMARY | 2025-05-04 15:19 | XMS_ITS | Encounter Summary ---
Author Organization [facility] Address [address] [place] [address] Care Team Providers Care Sephora Operations Consultant Name Role Phone Roverto Velazquez MD Unavailable [phone] Wade PERSON MD, Viet Boo Unavailable [phone] Miscellaneous, Not In File Unavailable Unava ilable Valdez Leyva MD Unavailable [phone] Missy Jones NP Unavailable Obed Garcia MD Unavailable Etta Vivas MD Unavailable + [phone] Ignacio Henry DO Primary Care Provider + [phone] Delmy Garcia NP Unavailable [phone] Estrella Mcleod MD Unavailable [phone] Reason for Visit * Reason Onset Date Comments Test Results 03/13/2025 Encounter Details Date Type Department Care Team (Late st Contact Info) Description 03/13/2025 Results Follow-Up [facility] Cardiology [address] [facility] [address] [place] [address] Delmy Garcia NP [address] [facility] [address] [place] [address] Potassium level, serum Social History Tobacco Use Types Packs/Day Years Used Date Smoking Tobacco: Never Cigarettes Passive Smoke Exposure: Never Smokeless Tobacco: Never Alcohol Use Standard Drinks/Week Comments Not Asked 0 (1 standard drink = 0.6 oz pure alcohol) Stopped alcohol consumption 2 years ago [facility] [employer] Group[employer] Answer Date Recorded In the past 12 months has [employer], [employer], oil, or water [employer] threatened to shut off services in your home? No 03/17/2025 Social Connection and Isolat ion Panel [NHANES] Answer Date Recorded In a typical week, how many times do you talk on the phone with family, friends, or neighbors? More than three times a week 03/17/2025 How often do you get togethe r with friends or relatives? More than three times a week 03/17/2025 How often do you attend chur or adventism services? Never 03/17/2025 Do you belong to any clubs o r organizations such as protestant groups, unions, fraternal or athletic groups, or school groups? Yes 03/17/2025 How often do you attend meet ings of the clubs or organizations you belong to? More than 4 times per year 03/17/2025 Are you , , di vorced, , never , or living with a partner? 03/17/2025 AUDIT-C Answer Date Recorded Q1: How often [...] food, housing, medical care, and heating? Not very hard 03/17/2025 PHQ-2 Answer Date Recorded PHQ-2 Total Score (If total score is 3 or more points, staff should administer the PHQ-9) 0 05/26/2024 Hunger Vital Sign Answer Date Recorded Within the past 12 months, y ou worried that your food would run out before you got the money to buy more. Never true 03/17/20 25 Within the past 12 months, t he food you bought just didn't last and you didn't have money to get more. Never true 03/17/2025 PRAPARE - Transportation Answer Date Re corded In the past 12 months, has l ack of transportation kept you from medical appointments or from getting medications? No 12/2024 In the past 12 months, has l ack of transportation kept you from meetings, work, or from getting things needed for daily living? No 03/17/2025 Housing Stability Vital Sign Answer Asael e [...] place to sleep or slept in a senior living (including now)? No 06/19/2023 Housing Stability Vital Sign Answer Asael e Recorded In the last 12 months, was t here a time when you were not able to pay the mortgage or rent on time? No 03/17/2025 In the past 12 months, how m any times have you moved where you were living? 0 03/17/2025 At any time in the past 12 m [facility], were you homeless or living in a senior living (including now)? No 03/17/2025 Personal Safety Answer Date Recorded Have you ever been in or are you currently in a harmful physical or emotional relationship or is someone making you feel afraid or unsafe? 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 Gender Identity Male 09/18/2021 7:10 AM BROODMARE BARN GROOM Sexual Orientation Straight 09/18/2021 7: 10 AM BROODMARE BARN GROOM documented as of this encounter Miscellaneous Notes [...] on filedocumented in this encounter Care Teams Sephora Operations Consultant Relationship Specialty [place] [address] [facility] [facility] [address] [place] [address] PCP - General Internal Medicine 12/09/24 Roverto Velazquez MD [address] [facility] [address] [place] [address] Consulting Physician Cardiovascular Disease 08/28/21 Viet Olvera III, MD [address] [facility] [address] [place] [address] Consulting Physician Cardiology 08/28/21 Miscellaneous, Not In File 05/10/22 Valdez Leyva MD [address] [facility] [address] [place] [address] Consulting Physician General Surgery 12/22/22 Missy Jones NP [address] [facility] [address] [place] [address] Nurse Practitioner Family Medicine 06/26/23 Obed Garcia MD [address] [facility] [address] [place] [address] Consulting Physician Urology 11/07/23 [place] [address] [place] [address] Consulting Physician Endocrinology 11/07/23 Delmy Garcia NP [address] [place] [address] Nurse Practitioner Cardiovascular Disease 03/17/25 Estrella Mcleod MD [address] [place] [address] Consulting Physician Neurology 03/17/25 documented as of this encounter
--- OUTSIDE RECORDS SUMMARY | 2025-05-04 15:19 | XMS_ITS | Encounter Summary ---
Author Organization [facility] Address [address] [facility] [place] [address] Care Team Providers Care Public Relations Representative Name Role Phone WilkinsDavid dean Primary Care Provider [phone] Encounter Details Date Type Department Care Team (Late st Contact Info) Description 09/18/2023 Lab Requisition [facility] - DermPath Lab [address] [facility], [place] [phone] Wendy Castellanos DO [address] [facility] [address] [place] [address] Social History Tobacco Use Types Packs/Day Years Used Date Smoking Tobacco: Never Smokeless Tobacco: Never Alcohol Use Standard Drinks/Week Comments Yes 0 (1 standard drink = 0.6 oz pur e alcohol) Sex and Gender Information Value Date Recorded Sex Assigned at Not on file Legal Sex Male 5:33 PM CHEMICAL CELL CHANGER Gender Identity Not on file Sexual Orientation Not on file documented as of this encounter Plan of Treatment Not on file documented as of this encounter Procedures Procedure Name Priority Date/Time Associated Diagnosis Comments DERMATOPATHOLOGY Routine 09/18/2023 10:4 9 AM CHEMICAL CELL CHANGER documented in this encounter Results * DERMATOPATHOLOGY (09/18/2023 10:49 AM CHEMICAL CELL CHANGER) Case Report Dermatopathology Report Case: [id number] Authorizing Provider: Wendy Castellanos DO Collected: 09/18/2023 10:49 AM Ordering Location: [facility] Derm[facility] Lab Received: 09/19/2023 01:36 PM Pathologist: Lydia Gomez MD Specimens: A) - Skin, left preauricular B) - Skin, right neck 1:48 PM [facility] DERMATOPATHOLOGY LABORATORY Final Diagnosis Specimen A. SKIN, left preauricular: BASAL CELL CARCINOMA, INFILTRATIVE PATTERN (C44.319) Specimen B. SKIN, right neck: SQUAMOUS CELL CARCINOMA, ACANTHOLYTIC TYPE (C44.42) 1:48 PM [facility] DERMATOPATHOLOGY LABORATORY at [address] CHEMICAL CELL CHANGER Clinical History A: R/O BCC Growing B: R/O SCC Growing 1:48 PM [facility] DERMATOPATHOLOGY LABORATORY Gross Description Specimen A: Received [...] measuring 7x6x2 mm. Jar 0. 1:48 PM [facility] DERMATOPATHOLOGY LABORATORY Microscopic Description Specimen A. SKIN, [...] cells that lack intercellular bridges. 1:48 PM [facility] DERMATOPATHOLOGY LABORATORY Disclaimer An external and internal positive and negative controls are appropriate for the histochemical, immunohistochemical and immunofluorescence stain(s) in this case (if any), except where stated explicitly. The performance characteristics of the stain(s) cited in this report were developed and its performance characteristic determined by the Dermatopathology Laboratory at [facility], directed by Dr. Haylie Paz. These tests need not be, and therefore are not, approved by the [place] Food and Drug Administration. The tests are used for clinical purposes. Billing Codes Specimen Charges Stain Charges 21728 16772 1 1 3 1:48 PM CHEMICAL CELL CHANGER DERMATOPATHOLOGY LABORATORY Embedded Images 3 1:48 PM CHEMICAL CELL CHANGER DERMATOPATHOLOGY LABORATORY Pathology/Cytology TISSUE SPECIMEN FROM SKIN / Unknown 09/18/2023 10:49 AM CHEMICAL CELL CHANGER 09/19/2023 1:36 PM CHEMICAL CELL CHANGER Miscellaneous samples (specimen) TISSUE SPECIMEN FROM SKIN / Unknown 09/18/2023 10:49 AM CHEMICAL CELL CHANGER 09/19/2023 1:36 PM CHEMICAL CELL CHANGER Wendy Castellanos DO LAB - PATHOLOGY/CYTOLOGY ORDERABLES Final Result DERMATOPATHOLOGY LABORATORY [facility] - Department of Dermatology [facility] Specialized Medicine [address] [place] [address], [address] [phone] documented in this encounter Visit Diagnoses Not on filedocumented in this encounter Care Teams Public Relations Representative Relationship Specialty Start Date End Date David Wilkins DO [address] [place] [id number] PCP - General 03/19/17 documented as of this encounter
--- OUTSIDE RECORDS SUMMARY | 2025-05-04 15:20 | XMS_ITS | Clinical Summary ---
Author Organization [facility] [address] Address [address] [place] [address] Care Team Providers Care Geodesist Name Role Phone Roverto Velazquez MD Unavailable Wade PERSON MD, Viet Boo Unavailable [phone] Miscellaneous, Not In File Unavailable Unava ilable Valdez Leyva MD Unavailable [phone] Missy Jones NP Unavailable Obed Garcia MD Unavailable Etta Vivas MD Unavailable [phone] Ignacio Henry DO Primary Care Provider [phone] Delmy Jordan NP Unavailable Estrella Mcleod MD Unavailable Allergies Active Allergy Reactions Criticality Noted Date Comments Opioids - Morphine Analogues Nausea only Low 2021 Hiccups Medications aspirin 81 mg enteric coated tablet Take 1 tablet (81 mg total) by mouth daily Active MULTIVITAMIN ORAL Take 1 tablet by mouth daily Active carvediloL (COREG) 12.5 mg tablet Take 1 tablet (12.5 mg total) by mouth 2 (two) times a day with meals Active apixaban (ELIQUIS) 5 mg tablet Take 1 tablet (5 mg total) by mouth 2 (two) times a day Active ketoconazole (NIZORAL) 2 % shampoo Apply topically 3 (three) times a week Apply to damp skin, lather, leave on 5 minutes, and rinse Active tamsulosin (FLOMAX) 0.4 mg extended release capsule Take 1 capsule (0.4 mg total) by mouth daily after dinner Active sacubitriL-ann sartan (ENTRESTO) 24-26 mg tabletIndicati ons:chronic heart failure Take 0.5 tablets by mouth daily 0.5 tablet in morning, 1 tablet in evening Active sacubitriL-ann sartan (ENTRESTO) 24-26 mg tabletIndicati ons:chronic heart failure Take 1 tablet by mouth nightly 0.5 tablet in morning, 1 tablet in evening Active gabapentin (NEURONTIN) 100 mg capsule Take 2 capsules (200 mg total) by mouth 2 (two) times a day 120 capsule 11 03/17/20 25 026 Active atorvastatin (LIPITOR) 40 mg tablet TAKE 1 TABLET BY MOUTH EVERY DAY AT NIGHT 90 tablet 3 04/24/20 25 Active atorvastatin (LIPITOR) 40 mg tablet Take 1 tablet (40 mg total) by mouth nightly 025 Discontinued Active Problems Problem Noted Date Diagnosed Date Mediastinal mass 04/10/2025 Syncope and collapse 03/14/2025 Viral upper respiratory tract infection 09/26/20 Assessment & Plan (09/26/2024 8:56 PM TREE TRIMMING LINE TECHNICIAN): Viral infection. Ragp-pmz-lwwiygvq for symptoms Bilateral impacted cerumen 09/26/2024 Assessment & Plan (09/26/2024 8:56 PM TREE TRIMMING LINE TECHNICIAN): Rinsed with warm water bilaterally until clear. Platelets decreased 11/07/2023 Chronic renal failure, stage 3a 11/07/2023 Encounter for Medicare annual wellness exam 10/16 Assessment & Plan (11/07/2023 9:34 AM TREE TRIMMING LINE TECHNICIAN): A(n) yearly Medicare Annual Wellness Visit has been performed today. Berna Monteiro is not up to date on [...] S/p dual chamber pacemaker, excellent function. 88% MARKETING PRODUCTION MANAGER in context of moderate LV dysfunction (LVEF 40%). No heart failure symptoms. Could consider device revision to SPECIAL OFFICER-P system, but in absence of clinical HF would favor observation for now. --Continue remote device monitoring --Consider device revision to SPECIAL OFFICER-P system in future if HF symptoms arise, LVEF declines or at time of generator replacement. Assessment & Plan (06/26/2023 9:43 AM CDT): S/p dual chamber pacemaker. Excellent device function. --Continue remote device f/u remotely Assessment & Plan (10/02/2022 9:03 AM TREE TRIMMING LINE TECHNICIAN): Transient, perioperatively. No recurrence. No current indication [...] losartan Assessment & Plan (10/30/2023 11:03 AM TREE TRIMMING LINE TECHNICIAN): Well compensated on physical exam. No significant [...] therapy. Assessment & Plan (10/25/2022 10:03 AM TREE TRIMMING LINE TECHNICIAN): Euvolemic with stable NYHA 2 symptoms. Continue [...] 25 Assessment & Plan (12/14/2021 10:28 AM TREE TRIMMING LINE TECHNICIAN): EF 25% at time of diagnosis etiology likely multifactorial due to ischemic heart disease and also nonischemic component due to AFib. Significantly improved symptoms following cardioversion, stable NYHA 2 and his ejection fraction has improved to normal range on medical therapy and revascularization - continue metoprolol XL 25, Entresto 24-26 b.i.d. and spironolactone 25 Assessment & Plan (11/09/2021 2:00 PM TREE TRIMMING LINE TECHNICIAN): EF 25% at time of diagnosis etiology [...] metoprolol Assessment & Plan (10/18/2021 3:32 PM TREE TRIMMING LINE TECHNICIAN): EF 25%, euvolemic on exam but persistent [...] implant Assessment & Plan (09/14/2021 1:52 PM TREE TRIMMING LINE TECHNICIAN): EF 25%, has underlying Coronary artery disease [...] determine ICD Coronary artery disease invo lving lower elwha coronary artery of lower el[place]a heart without angina pectoris 08/24/2021 Assessment & Plan (04/29/2024 9:39 AM CDT): Status post PCI of LAD. Remains free of angina. LDL at goal - continue Eliquis, aspirin 81 - continue lipitor 20 daily Assessment & Plan (10/30/2023 11:02 AM TREE TRIMMING LINE TECHNICIAN): Reassuring recent catheterization with nonobstructive CAD and [...] Eliquis. Assessment & Plan (10/25/2022 9:10 AM TREE TRIMMING LINE TECHNICIAN): Status post PCI of LAD. Remains free [...] Lipitor Assessment & Plan (12/14/2021 10:27 AM TREE TRIMMING LINE TECHNICIAN): Status post PCI of LAD. IFR negative circumflex. Fully revascularized, continue secondary prevention. Remains free of angina - continue Eliquis, Plavix and Lipitor Assessment & Plan (10/18/2021 3:33 PM TREE TRIMMING LINE TECHNICIAN): Status post PCI of LAD. IFR negative circumflex. Fully revascularized continue secondary prevention - continue Eliquis, Plavix and Lipitor Assessment & Plan (09/14/2021 1:50 PM TREE TRIMMING LINE TECHNICIAN): Status post PCI of LAD. IFR negative circumflex. Fully revascularized continue secondary prevention - stop aspirin - continue Eliquis and Plavix and Lipitor Ventricular tachycardia 08/24/2021 Assessment & Plan (10/30/2023 11:00 AM TREE TRIMMING LINE TECHNICIAN): [facility]ed [facility], Dr. Olvera. Continue beta-jitendra. Assessment & Plan (05/29/2022 2:27 PM CDT): Resolved. Initially occurring during ACS. No recurrence, feeling well. --Continue metoprolol. Assessment & Plan (11/29/2021 11:17 AM TREE TRIMMING LINE TECHNICIAN): SMVT, occurring in context of severe proximal [...] palpitations Assessment & Plan (11/09/2021 1:59 PM TREE TRIMMING LINE TECHNICIAN): Continue life vest, no recent device therapies. Follow-up with Dr. Olvera for mid November after his repeat echo Assessment & Plan (10/18/2021 3:33 PM TREE TRIMMING LINE TECHNICIAN): No recent shocks. 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 Currently on LifeVest. Seen by Dr. Olvera. Plan to reassess ICD need after 3 months of therapy and repeat echo Sinus node dysfunction 08/24/2021 Assessment & Plan (10/30/2023 11:01 AM TREE TRIMMING LINE TECHNICIAN): Followed by EP as mentioned above. Assessment & Plan (10/02/2022 9:02 AM TREE TRIMMING LINE TECHNICIAN): Mild, asymptomatic. No current indication for pacing. Assessment & Plan (05/29/2022 2:28 PM CDT): Significant resting sinus bradycardia. Rate 45 bpm currently on low dose metoprolol. Unable to tolerate antiarrhythmic drugs or higher dose metoprolol. Pacing might be required in future for adequate medical therapy for HF/CAD. --AF ablation as above. --Avoiding pacing for now. Assessment & Plan (11/29/2021 11:18 AM TREE TRIMMING LINE TECHNICIAN): With symptomatic sinus bradycardia on amiodarone and [...] Multinodular goiter (nontoxic) 08/24/2021 Assessment & Plan (04/13/2025 12:51 PM CDT): History of multinodular goiter No compressive symptoms Status post dominant left thyroid nodule FNA biopsy 12/2021 with benign cytology Last TSH within normal limits Performed a follow-up thyroid ultrasound in office today - noted stable thyroid nodules Follow-up in 1 year Assessment & Plan (03/24/2024 9:23 AM CDT): [...] year Assessment & Plan (11/11/2021 9:07 AM TREE TRIMMING LINE TECHNICIAN): Reviewed patient recent thyroid ultrasound report and [...] of V-tach on LifeVest Patient following with headlight adjuster and hoop bending machine operator, he is due for cardiac procedure next month. Advised patient to discuss with his headlight adjuster and hoop bending machine operator before holding Eliquis. Advised patient to call me back once he gets cleared by his headlight adjuster. Will schedule thyroid nodule biopsy Accordingly Further [...] BID Assessment & Plan (10/30/2023 11:01 AM TREE TRIMMING LINE TECHNICIAN): Heart rates are controlled on oral beta-jitendra, [...] carvedilol. Assessment & Plan (10/25/2022 10:02 AM TREE TRIMMING LINE TECHNICIAN): In sinus today, no recurrence since ablation. Continue metoprolol XL 25 and Eliquis Assessment & Plan (10/02/2022 9:02 AM TREE TRIMMING LINE TECHNICIAN): Doing very well, maintaining sinus rhythm after AF ablation. --Continue apixaban 5 mg BID --Continue metoprolol XL 25 mg daily Assessment & Plan (08/14/2022 10:00 AM CDT): S/p AF ablation with partial PVI and CTI ablation. Doing very well, maintaining sinus rhythm without any AF recurrence. [id number] = 6+. Indefinite anticoagulation recommended. --Continue apixaban [...] Eliquis Assessment & Plan (12/14/2021 10:27 AM TREE TRIMMING LINE TECHNICIAN): Status post cardioversion remains in sinus rhythm today - continue metoprolol 25 and Eliquis Assessment & Plan (11/29/2021 11:20 AM TREE TRIMMING LINE TECHNICIAN): Highly symptomatic. Pt reports profound improvement in symptoms/QOL after cardioversion. Maintaining sinus rhythm without recurrence. Will manage expectantly for now. Strong indication for rhythm control if AF returns, given severe symptoms. [id number] = 4. Recommend indefinite anticoagulation. --Continue metoprolol XL 25 mg daily --Continue apixaban 5 mg BID Assessment & Plan (11/09/2021 1:59 PM TREE TRIMMING LINE TECHNICIAN): Status post cardioversion remains in sinus rhythm today - continue metoprolol 25 and Eliquis Assessment & Plan (10/18/2021 3:32 PM TREE TRIMMING LINE TECHNICIAN): Status post cardioversion and remains in sinus rhythm today - continue Eliquis - reduce metoprolol as stated Assessment & Plan (09/14/2021 1:51 PM TREE TRIMMING LINE TECHNICIAN): Persistent AFib. Remains in AFib now and his rate control however remains symptomatic and with low EF therefore recommend rhythm control strategy. - schedule ABHINAV cardioversion - continue Eliquis - drop amiodarone to 200 mg daily maintenance History of non-ST elevation myocardial infarctio n (NSTEMI) 08/22/2021 Overview (08/25/2021): Added automatically from request for surgery [id number] Parkinson's disease without dyskinesia, unspecified whether manifestations [...] 01/2008 Assessment & Plan (10/30/2023 11:02 AM TREE TRIMMING LINE TECHNICIAN): Blood pressure was initially elevated, when rechecked [...] the decreased dose of Coreg per his Drywall Taper Helper. Assessment & Plan (01/30/2023 10:29 AM CDT): [...] week. Assessment & Plan (11/09/2021 1:59 PM TREE TRIMMING LINE TECHNICIAN): Well controlled, continue current meds Resolved Problems Problem Noted Date Diagnosed Date Resolved Date Administrative encounter 05/26/202406/2024 Assessment & Plan (05/26/2024 10:05 AM CDT): A(n) yearly Essence Enhanced Encounter has been performed today. Berna Junepkins is the up to date on screening [...] (05/29/2022): Added automatically from request for surgery [id number] Stage 3b chronic kidney disease 05/18/2022 07/26/2023 Overview (07/26/2023): Per Dr Ferraro 04-12-23 this is resolved Atrial fibrillation with rap id ventricular response 05/12/2022 05/18/2022 Hyperkalemia 05/09/2022 09/26/2024 Acute kidney injury 05/09/2022 05/18/20 22 Contusion of rib on left side 11/02/2021 07/12/2022 Hypoglycemia 10/18/2021 12/15/2021 Assessment & Plan (10/18/2021 3:34 PM TREE TRIMMING LINE TECHNICIAN): He was interestingly noted to have a [...] 09/26/2024 Assessment & Plan (11/09/2021 2:00 PM TREE TRIMMING LINE TECHNICIAN): This problem has improved since decreasing his metoprolol Assessment & Plan (10/18/2021 3:33 PM TREE TRIMMING LINE TECHNICIAN): He has symptomatic sinus bradycardia on metoprolol [...] Encounters Date Type Department Care Team Description 04/29/2025 Telephone [facility] Cardiology [address] [place] [address] Roverto Velazquez MD 04/27/2025 Orders Only [facility] Oncology [address] [facility] [facility] Floor 5 [place] [address] Jenise Saini NP Pulmonary nodule (Primary Dx) 04/22/2025 10:00 AM CDT - 04/22/2025 11:59 PM CDT Hospital Encounter [facility] [address] [address] Mediastinal mass; Other nonspecific abnormal finding of lung field Discharge Disposition: Discharge to home or self care 04/10/2025 9:45 AM CDT [facility] [address] [place] [phone] Ej Ni MD Mediastinal mass (Primary Dx); Abnormal chest CT; Other nonspecific abnormal finding of lung field 04/09/2025 5:30 PM CDT - 04/09/2025 11:59 PM CDT Hospital Encounter [facility] [address] [place] [address] Discharge Disposition: Discharge to home or self care 04/09/2025 5:28 PM CDT - 04/09/2025 11:59 PM CDT Hospital Encounter [facility] [address] [place] [address] Diagnosis unknown Discharge Disposition: Discharge to home or self care 04/09/2025 5:25 PM CDT - 04/09/2025 11:59 PM CDT Hospital Encounter [facility] [address] [place] [address] Diagnosis unknown Discharge Disposition: Discharge to home or self care 04/08/2025 Documentation [facility] Surgery [address] [facility] [address] [place] [phone] Wiley PatelryASHLEY 04/02/2025 11:30 AM CDT Office Visit [facility] Cardiology [address], [place] [address] Delmy Jordan NP 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) (Primary Dx); Ischemic cardiomyopathy; Coronary artery disease involving lower [place]wha coronary artery of lower [place]a heart without angina pectoris; Essential hypertension; Hyperlipidemia, unspecified hyperlipidemia type; Encounter for long-term current use of medication 03/23/2025 3:45 PM CDT Ancillary Procedure [facility] [address], [place] [address] Cardiac pacemaker (Primary Dx); Complete heart block (HCC) 03/23/2025 9:00 AM CDT Office Visit [facility] Diabetes and Endocrinology [address] [place] [phone] Etta Vivas MD Multinodular goiter (nontoxic) (Primary Dx) 03/17/2025 Results Follow-Up [facility] Cardiology [facility] [facility] [address], [place] [address] Delmy Jordan NP Transthoracic Echo (TTE) Complete W Doppler/CF 03/14/2025 8:40 PM CDT - 03/17/2025 4:36 PM CDT Hospital Encounter [address] [phone] Shelton Lanier MD Nafee, MD Tami Mckeon Thishara, MD Decuffa, Zeferino Figueroa MD Syncope and collapse (Primary Dx) Discharge Disposition: Discharge to home or self care 03/14/2025 Orders Only [address] [phone] Shelton Lanier MD 03/13/2025 10:30 AM CDT Ancillary Procedure [facility] Cardiology [address] [facility] [address] [place] [address] Ischemic cardiomyopathy; Heart failure with reduced ejection fraction, NYHA class III (HCC) 03/13/2025 10:00 AM CDT Lab [facility] [address] [facility] [address] [facility] [address] [place] [address] Hyperkalemia 03/13/2025 Results Follow-Up [facility] Cardiology [address] [place] [address] [address] [place] [phone] Delmy Jordan, MARKETING AMBASSADOR Potassium level, serum 03/04/2025 12:05 PM CDT Lab [facility] Outpatient Lab [address] [place] [phone] Cardiomyopathy, unspecified type (HCC); Biventricular congestive heart failure (HCC); Hypertension, unspecified type; MARI (dyspnea on exertion) 03/04/2025 Results Follow-Up [facility] Cardiology [address] [place] [address] [address] [place] [phone] Delmy Jordan, MARKETING AMBASSADOR CBC with auto differential, Basic metabolic panel, Pro B-type natriuretic peptide, Additional followed-up results: 3 03/03/2025 Telephone [facility] Cardiology [address] [place] [phone] Delmy Jordan MARKETING AMBASSADOR Testing 03/02/[address] [address] Delmy Jordan NP from Last 3 Months Immunizations Immunization Administration [...] Name Comments Heart attack Brother 1 Javier [place] Obesity Brother 2 Tremayne Cancer Father David Thyroid cancer Father David Diabetes Mother Evangelina Chadwick Thania Early Mother Evangelina Junepkins Heart attack Mother Evangelina Junepkins Obesity Mother Evangelina Netta Thania Hypothyroidism Sister Relation Name Status Comments Brother 1 Javier Thania Brother 2 Tremayne Father David Mother Evangelina Junepkins Sister Social History Tobacco Use Types Packs/Day Years Used Date Smoking Tobacco: Never Cigarettes Passive Smoke Exposure: Never Smokeless Tobacco: Never Tobacco Cessation:Counseling Given: Not Answered Alcohol Use Standard Drinks/Week Comments Not Asked 0 (1 standard drink = 0.6 oz pure alcohol) Stopped alcohol consumption 2 years ago [facility] Utilities Answer Date Recorded In the past 12 months has e electric, gas, oil, or water [employer] threatened to shut off services in your [...] 03/17/2025 How often do you attend chur ch or baptism services? Never 03/17/2025 Do you belong to any clubs o r organizations such as quaker groups, unions, fraternal or athletic groups, or [...] place to sleep or slept in a long-term (including now)? No 06/19/2023 Housing Stability Vital Sign Answer Asael e Recorded In the last 12 months, was t here a time when you were not able to pay the mortgage or rent on time? No 03/17/2025 In the past 12 months, how m any times have you moved where you were living? 0 03/17/2025 At any time in the past 12 m [facility], were you homeless or living in a long-term (including now)? No 03/17/2025 Personal Safety Answer Date Recorded Have you ever been in or are you currently in a harmful physical or emotional relationship or is someone making you feel afraid or unsafe? Denies 03/15/2025 Sex and Gender Information Value Date Recorded Sex Assigned at Not on file Legal Sex Male 7:05 PM TREE TRIMMING LINE TECHNICIAN Gender Identity Male 09/18/2021 7:10 AM TREE TRIMMING LINE TECHNICIAN Sexual Orientation Straight 09/18/2021 7: 10 AM TREE TRIMMING LINE TECHNICIAN Obstetrics History Last Filed Vital Signs Vital Sign Reading Time Taken Comments Blood Pressure 139/94 04/10/2025 9:02 AM CDT Pulse 78 04/10/2025 9:02 AM CDT Temperature 36.4 C (97.6 F) 04/10/2025 9:02 AM CDT Respiratory Rate 15 03/23/2025 9:02 AM CDT Oxygen Saturation 99% 04/10/2025 9:02 AM CDT Inhaled Oxygen Concentration - - Weight 97.3 kg (214 lb 6.4 oz) 04/10/2025 9:02 A M CDT Height 180.3 cm (5' 10.98) 04/10/2025 9:02 AM C DT Body Mass Index 29.92 04/10/2025 9:02 AM CDT Plan of Treatment Health Maintenance Due Date Last Done Comments Albumin Creatinine Ratio, Urine 1950 Dilated Eye Exam 1950 Foot Exam 1948 Hepatitis B Screening 1966 Zoster Vaccine (2 of 3) 11/09/2010 09/14/2010 Covid-19 Vaccine (2023-2 5 season) 2024 06/18/2024, 08/11/2023, 08/11/2023, Additional history exists Lipid Panel 04/29/2025 04/29/2024, 07/15, 06/12/2023, Additional history exists Depression Screening 05/26/2025 05/26/2024, 11/07/2023, 08/01/2023, Additional history exists Well Visit 65+ 05/26/2025 05/26/2024, 11/07/2023 Influenza Vaccine (#1) 2025 , 08/03/2023, 08/03/2023, Additional history exists Hemoglobin A1C 09/14/2025 03/15/2025, 07/15, 11/01/2022, Additional history exists Fall Risk Assessment 03/17/2026 03/17/2025, 05/26/2024, 03/24/2024, Additional history exists eGFR 03/17/2026 03/17/2025, 06/11/2024, 03/15/2025, Additional history exists DTaP/Tdap/Td Vaccine (2 - Td or Tdap) 04/18/2026 04/18/2016 Pneumococcal vaccine 65+ Completed 08/29/2019, 07/16 Colon Cancer Screening-Colonoscopy Discontinued 04/19/2023, 03/03/2013 Hepatitis C Screening Completed 07/26/2023 Medical Devices Implanted Type Area Hedis Coordinator Device Identifier Shelf Expiration Date Model / Serial / Lot [employer] Vascade Mvp 6-12fr Venous Closure [id number] - [id number] - [id number] Implanted:Qty : 1 on 07/05/2022 by Viet Olvera III, MD at [facility] Collagen [employer] 04/05/2024 800-612C- 10U / [id number] [id number] / [id number] [id number] [employer] Vascade Mvp 6-12fr Venous Closure [id number] - [id number] - [id number] Implanted:Qty : 1 on 07/05/2022 by Viet Olvera III, MD at [facility] Collagen [employer] 04/05/2024 800-612C- 10U / [id number] [id number] / [id number] [id number] [employer] Device Closure Vascade Od5 Fr Femoral Artery [id number] - [id number] - [id number] Implanted:Qty : 1 on 07/05/2022 by Viet Olvera III, MD at [facility] [employer] 11/29/2023 [id number] -[id number] / [id number] / [id number] [employer] Vascade Mvp 6-12fr Venous Closure [id number] - [id number] - [id number] Implanted:Qty : 1 on 07/05/2022 by Viet Olvera III, MD at [facility] [employer] 03/30/2024 800-612C- 10U / [id number] / [id number] Medtronic Inc Capsurefix Novus 6.2fr 2mm 58cm Bipolar Screw In Implantable 5076-58 - [id number] - [id number] Implanted:Qty : 1 on 01/22/2023 by Viet Olvera III, MD at [facility] Lead Medtronic Inc [id number] 09/19/2024 5076-58 / [id number] / Med[employer]onic Inc Capsurefix Novus 6.2fr 2mm 52cm Bipolar Screw In Implantable Latex Free 5076-52 - [id number] - [id number] Implanted:Qty : 1 on 01/22/2023 by Viet Olvera III, MD at [facility] Lead Med[employer]onic Inc [id number] 12/01/2024 5076-52 / [id number] / [employer] Inc/C R Bard Mesh Surg 3dmax [id number] Left Mid Large Inguinal Hernia [id number] - [id number] Implanted:Qty : 1 on 12/22/2022 by Valdez Leyva MD at [facility] Mesh Left: Inguinal [employer] Inc/C R Bard [id number] 04/11/2027 [id number] / [id number] Other - See Comments Other - see comments Forehead Description:Internal stitche s from [facility] 11/2022 Medtronic Inc [place] S Mri Surescan 50.8x46.6mm 2 Chamber 7.4mm Pacemaker 22.5gm [id number] - [id number] - [id number] Implanted:Qty : 1 on 01/22/2023 by Viet Olvera III, MD at [facility] Pacemaker Medtronic Inc 05/28/2024 [id number] / [id number] / [employer] [id number] Synergy Xd Monorail 4mm 24mm 144cm Delivery System 1 Access Port - [id number] - [id number] Implanted:Qty : 1 on 08/25/2021 by Roverto Velazquez MD at [facility] Stent [employer] 12/13/2022 [id number] / [id number] / [id number] Description:pLAD [employer] Device Clsr Perclose Prostyle Sut-Mediatd Closure-Repai r Sys 60373-40 - [id number] - [id number] Implanted:Qty : 1 on 08/22/2023 by Roverto Velazquez MD at [facility] Vascular Closure Device Right: Femoral [employer] 05/14/2025 [id number] / [id number] / [id number] Fit Steps Angio-Seal Vip 6fr Closere Device [id number] - [id number] Implanted:Qty : 1 on 06/11/2023 at [facility] Fit Steps 11/14/2023 [id number] / / [id number] Explanted Type Area Hedis Coordinator Device Identifier Shelf Expiration Date Model / Serial / Lot [employer] Tendril Sts 6fr 52cm Is-1 Connector Active Fixation Bipolar Soft /52 - [id number] - [id number] Implanted:Qty : 1 on 07/05/2022 by Viet Olvera III, MD at [facility] Explanted:Qty : 1 on 07/06/[address] [employer] [id number] 04/13/2025/52 / [id number] / [employer] Assurity Mri [id number] 1 Chamber Is-1 Connector Thk6mm Pacemaker [id number] - [id number] Implanted:Qty : 1 on 07/05/2022 by Viet Olvera III, MD at [facility] Pacemaker [employer] [id number] 03/14/2023 [id number] / [id number] / Procedures Procedure Name Priority Date/Time Associated Diagnosis Comments PET/CT FDG SKULL TO THIGH Schedule Routine, Read Routine (OP Routine) 04/22/2025 11:40 AM CDT Mediastinal mass Other nonspecific abnormal finding of lung field POCT GLUCOSE DEVICE Routine 04/22/2025 1 0:22 AM CDT US THYROID Schedule Routine, Read Routine (OP Routine) 04/13/2025 12:46 PM CDT Multinodular goiter (nontoxic) NEURO CT OUTSIDE REFERENCE Routine 04/09/2025 5:[address] BODY OUTSIDE CONSULT Routine 04/09/2025 5:28 PM CDT Diagnosis unknown CT BODY OUTSIDE CONSULT Routine 04/09/2025 5:26 PM CDT Diagnosis unknown DEVICE CHECK - REMOTE Routine 03/23/2025 8:32 AM CDT Complete heart block (HCC) MRI BRAIN W WO CONTRAST IP Routine 03/17/2025 12:21 PM CDT XR CHEST PA LATERAL 2 VIEWS IP Routine 03/17/2025 11:16 AM CDT EGFR Routine 03/17/2025 3:02 AM CDT DIFFERENTIAL AUTO Routine 03/17/2025 3:0 2 AM CDT VITAMIN B12 Routine 03/17/2025 3:02 AM CDT RENAL FUNCTION PANEL Routine 03/17/2025 3:02 AM CDT CBC WITH AUTO DIFFERENTIAL Routine 03/17/2025 3:02 AM CDT EEG Routine 03/16/2025 1:55 PM CDT EGFR Routine 03/16/2025 5:40 AM CDT DIFFERENTIAL AUTO Routine 03/16/2025 5:4 0 AM CDT CRP (ACUTE PHASE) Routine 03/16/2025 5:4 0 AM CDT RENAL FUNCTION PANEL Routine 03/16/2025 5:40 AM CDT CBC WITH AUTO DIFFERENTIAL Routine 03/16/2025 5:40 AM CDT ADD ON LAB TEST Add-On 03/15/2025 10:08 AM CDT ERYTHROCYTE SEDIMENTATION RATE Routine 03/15/2025 4:14 AM CDT HEMOGLOBIN A1C Routine 03/15/2025 4:14 AM CDT EGFR Routine 03/15/2025 4:14 AM CDT DIFFERENTIAL AUTO Routine 03/15/2025 4:1 4 AM CDT CBC WITH AUTO DIFFERENTIAL Routine 03/15/2025 4:14 AM CDT RENAL FUNCTION PANEL Routine 03/15/2025 4:14 AM CDT EGFR Routine 03/14/2025 10:44 PM CDT DIFFERENTIAL AUTO Routine 03/14/2025 10: 44 PM CDT PRO B-TYPE NATRIURETIC PEPTIDE Routine 03/14/2025 10:44 PM CDT THYROID FUNCTION CASCADE Routine 03/14/2025 10:44 PM CDT PROTIME-INR Routine 03/14/2025 10:44 PM CDT COMPREHENSIVE METABOLIC PANEL Routine 03/14/2025 10:44 PM CDT CBC WITH AUTO DIFFERENTIAL Routine 03/14/2025 10:44 PM CDT ECG 12-LEAD Routine 03/14/2025 10:27 PM CDT TRANSTHORACIC ECHO (TTE) COMPLETE W DOPPLER/CF W CONTRAST Routine 03/13/2025 11:21 AM CDT Ischemic cardiomyopathy Heart failure with reduced ejection fraction, NYHA class III (HCC) POTASSIUM LEVEL, SERUM Routine 03/13/2025 10:11 AM [...] Hypertension, unspecified type MARI (dyspnea on exertion) LIPID PANEL Routine 04/29/2024 1:18 PM CDT Essential hypertension HEPATITIS C ANTIBODY Routine 07/26/2023 8:13 AM CDT Encounter for hepatitis C screening test for low risk patient COLONOSCOPY 04/19/2023 11:42 AM CDT from Last 3 Months or Most Recently Relevant to Health Maintenance Results * PET/CT FDG Skull to Thigh (04/22/2025 11:40 AM CDT) Anatomical Region Laterality Modality N/A Positron Emissio n Tomography (PET) 04/22/2025 1:03 PM CDT Narrative 04/22/2025 1:21 PM CDT EXAM DESCRIPTION: PET/CT FDG SKULL TO THIGH REASON FOR STUDY: Enlarging mediastinal nodule, PET-CT for diagnosis and initial treatment strategy. Additional history includes basal cell carcinoma. RADIOPHARMACEUTICAL: 9.8 mCi F-18 Fluorodeoxyglucose (FDG) via a right antecubital IV site. TECHNIQUE: The patient's fasting blood glucose level, measured by glucometer before injection of FDG, was 105 mg/dL. After intravenous administration of FDG, noncontrast CT images were obtained for attenuation correction and for fusion with emission PET images to allow for anatomical localization of PET findings. Emission PET images were then obtained. The area imaged spanned the region from the skull base to the thighs. The uptake time was approximately 60 minutes. SUV max was normalized to body weight. COMPARISON: No prior PET-CT. CT chest abdomen and pelvis 03/14/2025. FINDINGS: For reference, a region of interest of the ascending thoracic aorta has a maximal SUV of 2.8 . For reference, a region of interest of the right hepatic lobe of the liver has a maximal SUV of 3.8. Head: Normal FDG uptake is seen in the included portion of the brain. Neck: There are mildly FDG avid foci of activity in the thyroid gland presumably related to nodules, on the right 0.8 cm maximal SUV 4.7 and laterally in the left thyroid lobe 1 cm maximal SUV 4.0. More medially in the left thyroid lobe there is a low-density nodule approximately 1 cm without abnormal uptake. Chest: In the anterior mediastinum there is a soft tissue attenuation nodule with metabolic activity 1.7 x 1.5 cm, maximal SUV is 3.6. There is the small focus of activity in the right hilum at the junction of the right main and upper lobe bronchus 0.6 cm maximal SUV 4.3. In the subcarinal station there is a 1.5 x 0.9 cm lymph node maximal SUV 4.3. No hypermetabolic axillary or supraclavicular lymphadenopathy. There is a left chest wall electronic device. There is a non FDG avid fluid attenuation structure at the right cardiophrenic angle characteristic of a pericardial cyst, 3.9 cm by 3.9 cm. There is no hypermetabolic pulmonary nodule or mass. There are few small pulmonary nodules similar to the prior CT, these are below PET resolution, example right middle lobe 0.6 cm (series 4, image 80 and in the right lower lobe 0.5 cm (image 72). The heart is mildly enlarged. There is no pleural or pericardial effusion. Activity associated with a small sliding hiatal hernia. Abdomen and Pelvis: Physiologic activity in the liver with no abnormal uptake. Gallbladder, spleen, pancreas, and both adrenal glands are normal. There is a right upper pole cyst 3.6 cm. Nonobstructing left renal calculi 0.3 cm. Normal excretion of FDG from the kidneys with expected accumulation of radiotracer in the urinary bladder. Mild ectasia of the abdominal aorta and iliac arteries. Prostate is markedly enlarged and heterogeneous without abnormal intense activity. No hypermetabolic abdominal or pelvic lymphadenopathy. Bones: Bone windows demonstrate no hypermetabolic acute or aggressive osseous lesions. IMPRESSION: 1. Anterior mediastinal soft tissue nodule is metabolically active, this is nonspecific in etiology. The size and activity are less than typically seen for thymic carcinoma. Considerations include thymoma, low grade neoplasm including potentially lymphoma, or reactive or granulomatous etiology. 2. Mildly FDG avid right hilar and subcarinal lymph nodes are nonspecific, attention on follow-up imaging is recommended. 3. Few small pulmonary nodules are below PET resolution, three-month follow-up chest CT recommended. 4. Metabolically active small thyroid nodules, correlation with thyroid ultrasound recommended. 5. Markedly enlarged thyroid gland without abnormal uptake, correlation with PSA level. THIS IS AN ELECTRONICALLY VERIFIED FINAL REPORT 04/22/2025 1:21 PM - Electronically signed by Mynor Morrissey M.D. CH: Report ID: [id number] Reading Location: [place] [address] Procedure Note Mynor Morrissey Jr., MD - 04/22/2025 EXAM DESCRIPTION: PET/CT FDG SKULL TO THIGH REASON FOR STUDY: Enlarging mediastinal nodule, PET-CT for diagnosis and initial treatment strategy. Additional history includes basal cellcarcinoma. RADIOPHARMACEUTICAL: 9.8 mCi F-18 Fluorodeoxyglucose (FDG) via a right antecubital IV site. TECHNIQUE: The patient's fasting blood glucose level, measured byglucometer before injection of FDG, was 105 mg/dL. After intravenousadministration of FDG, noncontrast CT images were obtained for attenuation correction andfor fusion with emission PET images to allow for anatomical localization ofPET findings. Emission PET images were then obtained. The area imaged spannedthe region from the skull base to the thighs. The uptake time wasapproximately 60 minutes. SUV max was normalized to body weight. COMPARISON: No prior PET-CT. CT chest abdomen and pelvis 03/14/2025. FINDINGS: For reference, a region of interest of the ascending thoracicaorta has a maximal SUV of 2.8 . For reference, a region of interest of theright hepatic lobe of the liver has a maximal SUV of 3.8. Head: Normal FDG uptake is seen in the included portion of the brain. Neck: There are mildly FDG avid foci of activity in the thyroid gland presumably related to nodules, on the right 0.8 cm maximal SUV 4.7 and laterally in the left thyroid lobe 1 cm maximal SUV 4.0. More medially inthe left thyroid lobe there is a low-density nodule approximately 1 cm without abnormal uptake. Chest: In the anterior mediastinum there is a soft tissue attenuationnodule with metabolic activity 1.7 x 1.5 cm, maximal SUV is 3.6. There is thesmall focus of activity in the right hilum at the junction of the right main and upper lobe bronchus 0.6 cm maximal SUV 4.3. In the subcarinal stationthere is a 1.5 x 0.9 cm lymph node maximal SUV 4.3. No hypermetabolic axillaryor supraclavicular lymphadenopathy. There is a left chest wall electronic device. There is a non FDG avid fluid attenuation structure at the right cardiophrenic angle characteristic of a pericardial cyst, 3.9 cm by 3.9cm. There is no hypermetabolic pulmonary nodule or mass. There are few small pulmonary nodules similar to the prior CT, these are below PET resolution, example right middle lobe 0.6 cm (series 4, image 80 and in the rightlower lobe 0.5 cm (image 72). The heart is mildly enlarged. There is nopleural or pericardial effusion. Activity associated with a small sliding hiatalhernia. Abdomen and Pelvis: Physiologic activity in the liver with no abnormaluptake. Gallbladder, spleen, pancreas, and both adrenal glands are normal. Thereis a right upper pole cyst 3.6 cm. Nonobstructing left renal calculi 0.3 cm. Normal excretion of FDG from the kidneys with expected accumulation of radiotracer in the urinary bladder. Mild ectasia of the abdominal aortaand iliac arteries. Prostate is markedly enlarged and heterogeneous without abnormal intense activity. No hypermetabolic abdominal or pelvic lymphadenopathy. Bones: Bone windows demonstrate no hypermetabolic acute or aggressiveosseous lesions. IMPRESSION: 1. Anterior mediastinal soft tissue nodule is metabolically active, thisis nonspecific in etiology. The size and activity are less than typicallyseen for thymic carcinoma. Considerations include thymoma, low grade neoplasm including potentially lymphoma, or reactive or granulomatous etiology. 2. Mildly FDG avid right hilar and subcarinal lymph nodes arenonspecific, attention on follow-up imaging is recommended. 3. Few small pulmonary nodules are below PET resolution, three-month follow-up chest CT recommended. 4. Metabolically active small thyroid nodules, correlation with thyroid ultrasound recommended. 5. Markedly enlarged thyroid gland without abnormal uptake, correlationwith PSA level. THIS IS AN ELECTRONICALLY VERIFIED FINAL REPORT 04/22/2025 1:21 PM - Electronically signed by Mynor Morrissey M.D. CH: Report ID: [id number] Reading Location: [place] [address] us Jenise Saini [employer] IMG PET PROCEDURES Final Result * POCT glucose (04/22/2025 10:22 AM CDT) Glucose, POC 105 70 - 199 mg/dL Comment:Testing performed by : [facility], [address] [place] [address]., [id number] Blood 04/22/2025 10:2 2 AM CDT 04/22/2025 10:22 AM CDT us Ignacio Henry DO LAB POCT ORDERABLES - VINCE CE Final Result [facility] [id number] [facility] Department [place] [address] * US Thyroid - Clinic Performed (04/13/2025 12:46 PM CDT) Anatomical Region Laterality Modality Head and Neck N/A Ultrasound Narrative 04/13/2025 12:46 PM CDT THYROID ULTRASOUND DATE: 03/23/2025 INDICATION: Thyroid nodules HISTORY: History of multinodular goiter diagnosed 10/2021, status post left thyroid dominant nodule FNA biopsy 12/2021 - benign cytology PROCEDURE: Using physician performed real time ultrasonography limited to the thyroid gland, longitudinal and transverse images were obtained of both lobes and isthmus. COMPARISON STUDY: 03/24/2024 03/26/2023 03/20/2022 10/26/2021 FINDINGS : The right thyroid lobe measures approx 3.88 X 1.64 X 2.16 cm. The left thyroid lobe measures approx 5.45 x 2.35 X 3.5 cm. Isthmus measures 0.62 cm Within the right lobe there is a solid hypoechoic dominant thyroid nodule measuring 1.37 X 1.22 x 1.18 cm, grade 3 vascularity, no calcifications noted Within the left inferior mid thyroid lobe there is a dominant solid thyroid nodule measuring 2.5 x 1.7 x 2.22 cm, grade 3 vascularity, no calcifications noted Within the left superior lobe there is a hypoechoic nodule measuring 1.3 cm, grade 1 vascularity, no calcifications noted Within the left inferior lobe there is a thyroid nodule measuring 1.74 x 1.35 x 1.64 cm, grade 3 vascularity, no calcifications noted IMPRESSION: overall stable multinodular goiter RECOMMENDATION: Follow-up in 1 year us Etta Zuleta MD IMG US PROCEDURES F inal Result * Neuro CT Outside Reference (04/09/2025 5:30 PM CDT) Impressions [facility] - 04/09/2025 5:30 PM CDT These images are for Reference purposes only and have not been reviewed by [facility]iology. There will be no report generated by a [facility] Radiologist. Narrative [facility] - 04/09/2025 5:30 PM CDT EXAMINATION: Images For Reference Purposes Only us Ej Ni MD IMG CT PROCEDURES Final R esult [facility] * CT Body Outside Consult (04/09/2025 5:28 PM CDT) Anatomical Region Laterality Modality Body N/A Computed Tomogra phy 04/10/2025 6:59 PM CDT Impressions 04/10/2025 6:59 PM CDT This study was initially nominated as a consult on outside images via Outside Image Sharing Service. However, a consult was not performed because a subsequent examination was provided for consultation and a report was generated. This examination was used as a comparison. Accordingly, there will be no separate report of this study generated by a [facility] Radiologist. Electronically signed by: Yadiel Petersen M.D. Narrative 04/10/2025 6:59 PM CDT EXAMINATION: CHANGE CONSULT ON OUTSIDE IMAGES TO REFERENCE IMAGES Procedure Note Yadiel Petersen MD - 04/10/2025 EXAMINATION: CHANGE CONSULT ON OUTSIDE IMAGES TO REFERENCE IMAGES IMPRESSION: This study was initially nominated as a consult on outside images via Outside Image Sharing Service. However, a consult was not performed because a subsequent examination was provided for consultation and a report was generated. This examination was used as a comparison. Accordingly, there will be no separate report of this study generated by a [facility] Radiologist. Electronically signed by: Yadiel Petersen M.D. Ej Ni MD IMG CT PROCEDURES Final R esult * CT Body Outside Consult (04/09/2025 5:26 PM CDT) Anatomical Region Laterality Modality Body N/A Computed Tomogra phy 04/10/2025 6:58 PM CDT Impressions 04/10/2025 6:58 PM CDT 1. The anterior mediastinal lesion originally seen in 2022 measures a few millimeters larger. Overall, the majority of this lesion does not enhance although there could be an enhancing component along the left aspect of it. Differential diagnosis would include a cystic thymoma or thymic cyst. Etiologies could be differentiated with an MRI if needed. 2. New cystic lesion along the right cardiophrenic angle, consistent with pericardial cyst. 3. Marked prostatomegaly. The findings, conclusions and recommendations within this report do not replace the initial findings, conclusions and recommendations made at the facility where the study was performed based upon the imaging and clinical condition at that time. Comparison with the prior report and clinical history is necessary. The provided images may or may not represent the lower [place] source data set and thus may contain changes that may lower the accuracy of this second-opinion interpretation. Electronically signed by: Yadiel Petersen M.D. Narrative 04/10/2025 6:58 PM CDT EXAMINATION: RADIOLOGY CONSULTATION ON OUTSIDE IMAGING STUDY STUDY INITIALLY PERFORMED: 03/14/2025 at [facility]. TYPE OF STUDY: Multiple CT images of the chest, abdomen, and pelvis with intravenous contrast are provided at the time of this interpretation. CONTRAST ROUTE: Intravenous The protocol was adequate to address the clinical question. The outside final report was not available at the time of this second opinion interpretation. TYPE OF CONSULTATION: Consult on outside imaging study with images submitted through Outside Image Sharing Service DATE OF CONSULTATION: 04/10/2025 6:47 PM HISTORY: Mediastinal mass COMPARISON: Noncontrast CT from 03/14/[address] from 06/11/2023. FINDINGS: Left subclavian pacemaker has tips in the right atrium and right ventricle. No supraclavicular, axillary, mediastinal, or hilar lymphadenopathy. There is a similar-appearing multinodular goiter. There is at least mild cardiomegaly. No pericardial effusion. Note is made of a new fluid attenuation lesion along the right cardiophrenic angle anteriorly which is probably a pericardial cyst, measuring up to 4 cm. Anteriorly, there is a 19 x 14 mm lesion that previously measured 17 x 15 mm in 2022. This lesion may have some mild enhancement along its left portion, but the majority of it does not appear to enhance when compared to the 03/14/[address] There is mosaic in attenuation the lungs, likely secondary to combination of small airways disease and partial expiratory phase of breathing. No suspicious pulmonary nodules or masses. No consolidation, effusion, or pneumothorax. Liver is normal. Gallbladder is normal. Portal and superior mesenteric veins are normal. Pancreas is normal. Spleen is normal. Adrenals are normal. No renal lesions or hydronephrosis. The aortoiliac system is tortuous. The prostate is markedly enlarged. No abdominal or pelvic lymphadenopathy. The bowel is normal in caliber without evidence of any focal wall thickening or obstruction. No free intraperitoneal fluid or gas. Procedure Note Yadiel Petersen MD - 04/10/2025 EXAMINATION: RADIOLOGY CONSULTATION ON OUTSIDE IMAGING STUDY STUDY INITIALLY PERFORMED: 03/14/2025 at [facility]. TYPE OF STUDY: Multiple CT images of the chest, abdomen, and pelvis with intravenous contrast are provided at the time of this interpretation. CONTRAST ROUTE: Intravenous The protocol was adequate to address the clinical question. The outside final report was not available at the time of this second opinion interpretation. TYPE OF CONSULTATION: Consult on outside imaging study with images submitted through Outside Image Sharing Service DATE OF CONSULTATION: 04/10/2025 6:47 PM HISTORY: Mediastinal mass COMPARISON: Noncontrast CT from 03/14/[address] from 06/11/2023. FINDINGS: Left subclavian pacemaker has tips in the right atrium and right ventricle. No supraclavicular, axillary, mediastinal, or hilar lymphadenopathy. There is a similar-appearing multinodular goiter. There is at least mild cardiomegaly. No pericardial effusion. Note is made of a new fluid attenuation lesion along the right cardiophrenic angle anteriorly which is probably a pericardial cyst, measuring up to 4 cm. Anteriorly, there is a 19 x 14 mm lesion that previously measured 17 x 15 mm in 2022. This lesion may have some mild enhancement along its left portion, but the majority of it does not appear to enhance when compared to the 03/14/[address] There is mosaic in attenuation the lungs, likely secondary to combination of small airways disease and partial expiratory phase of breathing. No suspicious pulmonary nodules or masses. No consolidation, effusion, or pneumothorax. Liver is normal. Gallbladder is normal. Portal and superior mesenteric veins are normal. Pancreas is normal. Spleen is normal. Adrenals are normal. No renal lesions or hydronephrosis. The aortoiliac system is tortuous. The prostate is markedly enlarged. No abdominal or pelvic lymphadenopathy. The bowel is normal in caliber without evidence of any focal wall thickening or obstruction. No free intraperitoneal fluid or gas. IMPRESSION: 1. The anterior mediastinal lesion originally seen in 2022 measures a few millimeters larger. Overall, the majority of this lesion does not enhance although there could be an enhancing component along the left aspect of it. Differential diagnosis would include a cystic thymoma or thymic cyst. Etiologies could be differentiated with an MRI if needed. 2. New cystic lesion along the right cardiophrenic angle, consistent with pericardial cyst. 3. Marked prostatomegaly. The findings, conclusions and recommendations within this report do not replace the initial findings, conclusions and recommendations made at the facility where the study was performed based upon the imaging and clinical condition at that time. Comparison with the prior report and clinical history is necessary. The provided images may or may not represent the lower [place] source data set and thus may contain changes that may lower the accuracy of this second-opinion interpretation. Electronically signed by: Yadiel Petersen M.D. us Ej Ni MD IMG CT PROCEDURES Final R esult * DEVICE CHECK - REMOTE (03/23/2025 8:32 AM CDT) Anatomical Region Laterality Modality Other Narrative 03/26/2025 4:04 PM CDT Table formatting from the original result was not included. PM CHECK (REMOTE) Patient ID: Berna Monteiro is a 74 y.o. male This patient received a [employer] Pacemaker. They had a routine remote transmission on 03/23/2025. Device implant indications: Complete heart block Interrogation of the patient's device demonstrates the following: Presenting EGM: A paced V paced @ 77 bpm Original Device Settings Right Atrium Right Ventricle Sensitivity (mV) 0.3 mV 1.2 mV Pacing Outputs 3.0 V @ 0.4 ms 2.0 V @ 0.4 ms Testing Measurements Right Atrium Right Ventricle Sensitivity (mV) 3.1 mV 5.9 mV Impedence (Ohms) 418 ohms 456 ohms Pace Threshold Not done V @ ms 0.375 V @ 0.4 ms Pacing % 99.7 % 96.2 % Battery Status: 6.8 years to ABBEY Episodes last 90 days/Comments: AF [place] 0 %, longest duration 0. NORMAL DEVICE FUNCTION PROGRAMMED MEDICATIONS: Anti-coagulant(s): Eliquis 5 mg twice daily, aspirin 81 mg daily Anti-arrhythmic(s): Coreg 12.5 mg twice daily PLAN: 1) Medtronic Pacemaker evaluation 2) [employer]onic remote transmission scheduled in 3 months. 3) Programming appropriate for device measurements Eleuterio Hernandes, RN Viet Olvera III, MD [facility] PROCEDURES Final Result * MRI Brain W WO Contrast (03/17/2025 12:21 PM CDT) Anatomical Region Laterality Modality Head and Neck N/A Magnetic Resonan ce 03/17/2025 2:12 PM CDT Impressions 03/17/2025 2:12 PM CDT 1. No acute intracranial abnormality. 2. Mild burden chronic microvascular ischemic changes and age-related parenchymal volume loss with few small chronic lacunar infarcts seen in the cerebellum. 3. Moderate to severe acute on chronic paranasal sinus mucosal inflammatory changes with fluid level seen in the maxillary sinuses bilaterally. 4. Irregular enhancing T2/FLAIR hyperintense lesions seen in the inferior right frontal bone and in the lateral right frontal and parietal bone along the suture corresponding to lucent lesion seen on CT 01/03/2024. Findings are indeterminate and possibly benign vascular lesion such as hemangiomas or venous lakes. CT of the head is recommended for more direct comparison to evaluate for stability. 5. Additional indeterminate T2 hyperintense enhancing lesion seen in the left parietal bone near the vertex without clear correlate on CT is indeterminate, possibly benign lesion such as atypical hemangioma with other marrow replacing lesions not excluded. Correlate clinically and follow-up MRI of the brain with and without contrast in 3-6 months can be obtained to evaluate for stability. Electronically signed by: Julio Camp M.D. Narrative 03/17/2025 2:12 PM CDT EXAM:MRI BRAIN W WO CONTRAST INDICATION: acute on chronic headache, syncope, convulsions COMPARISON: CT 01/03/2024 TECHNIQUE: Multiplanar multisequence pre and post contrast MR sequences through the head/brain. CONTRAST: 18 mL Dotarem IV. BRAIN FINDINGS: Brain Parenchyma: Mild periventricular and subcortical white matter T2/FLAIR hyperintensities, nonspecific, likely chronic microvascular ischemic changes. Mild age-related parenchymal volume loss. Small chronic lacunar infarcts are seen in the cerebellum bilaterally. No acute infarct or hemorrhage. No mass, mass effect, or midline shift. No abnormal parenchymal or meningeal enhancement is identified. Ventricles and Sulci: Normal for age. Extra-Axial Spaces: No extra-axial fluid collection. Intracranial Flow-Voids: Diminutive right V4 vertebral artery flow void with left dominant vertebral artery. The major vascular intracranial flow voids are present. Orbits: Intact. Paranasal Sinuses: Moderate mucosal thickening in the maxillary sinuses bilaterally with small left and large right maxillary sinus fluid level with near complete opacification of the right maxillary sinus. There is moderate to severe left and moderate right ethmoid air cell mucosal thickening. Mild mucosal thickening in the left frontal sinus. Mastoid Air Cells: Small right mastoid effusion. The left mastoid air cells and bilateral middle ear cavities are clear. Cranium: 1.2 cm enhancing T2 hyperintense lesions seen in the inferior right frontal bone corresponding to the lucent lesion seen on CT 01/03/2024. More posteriorly located right frontoparietal enhancing T2 hyperintense enhancing lesion measuring up to 2.8 cm also corresponds to lucent lesion seen on the prior CT. Both lesions display prominent adjacent vessels/venous channels. Additional 1.8 cm T2 hyperintense enhancing lesion seen in the left parietal bone at the vertex with associated T1 hypointensity is indeterminate and without clear correlate on the prior CT. Calvarium is otherwise intact. Extracranial Soft Tissues: No acute abnormality. Procedure Note Julio Camp MD - 03/17/2025 EXAM:MRI BRAIN W WO CONTRAST INDICATION: acute on chronic headache, syncope, convulsions COMPARISON: CT 01/03/2024 TECHNIQUE: Multiplanar multisequence pre and post contrast MR sequences through the head/brain. CONTRAST: 18 mL Dotarem IV. BRAIN FINDINGS: Brain Parenchyma: Mild periventricular and subcortical white matter T2/FLAIR hyperintensities, nonspecific, likely chronic microvascular ischemic changes. Mild age-related parenchymal volume loss. Small chronic lacunar infarcts are seen in the cerebellum bilaterally. No acute infarct or hemorrhage. No mass, mass effect, or midline shift. No abnormal parenchymal or meningeal enhancement is identified. Ventricles and Sulci: Normal for age. Extra-Axial Spaces: No extra-axial fluid collection. Intracranial Flow-Voids: Diminutive right V4 vertebral artery flow void with left dominant vertebral artery. The major vascular intracranial flow voids are present. Orbits: Intact. Paranasal Sinuses: Moderate mucosal thickening in the maxillary sinuses bilaterally with small left and large right maxillary sinus fluid level with near complete opacification of the right maxillary sinus. There is moderate to severe left and moderate right ethmoid air cell mucosal thickening. Mild mucosal thickening in the left frontal sinus. Mastoid Air Cells: Small right mastoid effusion. The left mastoid air cells and bilateral middle ear cavities are clear. Cranium: 1.2 cm enhancing T2 hyperintense lesions seen in the inferior right frontal bone corresponding to the lucent lesion seen on CT 01/03/2024. More posteriorly located right frontoparietal enhancing T2 hyperintense enhancing lesion measuring up to 2.8 cm also corresponds to lucent lesion seen on the prior CT. Both lesions display prominent adjacent vessels/venous channels. Additional 1.8 cm T2 hyperintense enhancing lesion seen in the left parietal bone at the vertex with associated T1 hypointensity is indeterminate and without clear correlate on the prior CT. Calvarium is otherwise intact. Extracranial Soft Tissues: No acute abnormality. IMPRESSION: 1. No acute intracranial abnormality. 2. Mild burden chronic microvascular ischemic changes and age-related parenchymal volume loss with few small chronic lacunar infarcts seen in the cerebellum. 3. Moderate to severe acute on chronic paranasal sinus mucosal inflammatory changes with fluid level seen in the maxillary sinuses bilaterally. 4. Irregular enhancing T2/FLAIR hyperintense lesions seen in the inferior right frontal bone and in the lateral right frontal and parietal bone along the suture corresponding to lucent lesion seen on CT 01/03/2024. Findings are indeterminate and possibly benign vascular lesion such as hemangiomas or venous lakes. CT of the head is recommended for more direct comparison to evaluate for stability. 5. Additional indeterminate T2 hyperintense enhancing lesion seen in the left parietal bone near the vertex without clear correlate on CT is indeterminate, possibly benign lesion such as atypical hemangioma with other marrow replacing lesions not excluded. Correlate clinically and follow-up MRI of the brain with and without contrast in 3-6 months can be obtained to evaluate for stability. Electronically signed by: Julio Camp M.D. us Edwardo Garrett MD IM MRI PROCEDURES Final Resul t * XR Chest PA Lateral 2 Views (03/17/2025 11:16 AM CDT) Anatomical Region Laterality Modality Body, Chest N/A Computed Radiogr aphy 03/17/2025 11:2 0 AM CDT Impressions 03/17/2025 11:20 AM CDT No active infiltrate. Electronically signed by: Tarah Wilkins M.D. Narrative 03/17/2025 11:20 AM CDT CHEST 2 VIEWS DATE: 03/17/2025 11:05 AM INDICATION: acute on chronic headache, syncope, convulsions TECHNIQUE: PA and lateral COMPARISON: 09/04/2024 FINDINGS: Heart size upper limits with aortic atherosclerosis with left pacemaker in place. Mediastinum unremarkable. Focal opacity right lower lung medially adjacent right heart border may represent pericardial fat pad. Lungs are clear. Procedure Note Tarah Wilkins MD - 03/17/2025 CHEST 2 VIEWS DATE: 03/17/2025 11:05 AM INDICATION: acute on chronic headache, syncope, convulsions TECHNIQUE: PA and lateral COMPARISON: 09/04/2024 FINDINGS: Heart size upper limits with aortic atherosclerosis with left pacemaker in place. Mediastinum unremarkable. Focal opacity right lower lung medially adjacent right heart border may represent pericardial fat pad. Lungs are clear. IMPRESSION: No active infiltrate. Electronically signed by: Tarah Wilkins M.D. Edwardo Garrett MD IMG XR PROCEDURES Final Result * eGFR (03/17/2025 3:02 AM CDT) eGFR 74 >=60 mL/min/1. 73 m2 Comment: Interpretive Data [...] interpretive data was last reviewed 2021. Blood 03/17/2025 3:02 AM CDT 03/17/2025 4:25 AM CDT Shelton Lanier MD LAB BLOOD ORDERABLES Final Re sult [facility] [address] Department [place] [address] * Differential, auto (03/17/2025 3:02 AM CDT) Neutrophil abs 3.05 1.50 - 6.50 K/cumm Imm gran abs 0.01 0.00 - 0.10 K/cumm [facility] Lymphocyte abs 0.96 0.80 - 3.30 K/cumm [facility] Monocyte abs 0.63 0.20 - 0.80 K/cumm [facility] Eosinophil abs 0.29 0.00 - 0.50 K/cumm [facility] Basophil abs 0.03 0.00 - 0.10 K/cumm [facility] Neutrophil pct 61.4 % [facility] Comment: Interpretive Data Percent cell count reference ranges are not reported, since discordance with absolute values may lead to misinterpretation of CBC data. Current Interpretive Data was last revised on 2018. Imm gran pct 0.2 % [facility] Comment: Interpretive Data Percent cell count reference ranges are not reported, since discordance with absolute values may lead to misinterpretation of CBC data. Current Interpretive Data was last revised on 2018. Lymphocyte pct 19.3 % [facility] Comment: Interpretive Data Percent cell count reference ranges are not reported, since discordance with absolute values may lead to misinterpretation of CBC data. Current Interpretive Data was last revised on 2018. Monocyte pct 12.7 % [facility] Comment: Interpretive Data Percent cell count reference ranges are not reported, since discordance with absolute values may lead to misinterpretation of CBC data. Current Interpretive Data was last revised on 2018. Eosinophil pct 5.8 % [facility] Comment: Interpretive Data Percent cell count reference ranges are not reported, since discordance with absolute values may lead to misinterpretation of CBC data. Current Interpretive Data was last revised on 2018. Basophil pct 0.6 % [facility] Comment: Interpretive Data Percent cell count reference ranges are not reported, since discordance with absolute values may lead to misinterpretation of CBC data. Current Interpretive Data was last revised on 2018. Blood 03/17/2025 3:02 AM CDT 03/17/2025 4:25 AM CDT Shelton Lanier MD LAB BLOOD ORDERABLES Final Re sult [facility] [address] Department [place] [address] * (ABNORMAL) CBC with auto differential (03/17/2025 3:02 AM CDT) WBC 4.97 3.80 - 9.90 K/cumm Hgb 14.0 13.0 - 17.5 g/dL [facility] Hct 41.8 38.9 - 50.3 % [facility] Plt 106(L) 150 - 400 K/cumm [facility] MPV 11.0 9.1 - 12.3 fL [facility] RBC 4.50 4.30 - 5.80 M/cumm [facility] MCV 92.9 81.3 - 96.4 fL [facility] MCH 31.1 27.1 - 33.3 pg [facility] MCHC 33.5 32.3 - 35.7 g/dL [facility] RDW CV 13.0 11.1 - 14.9 % [facility] RDW SD 44.3 35.7 - 48.1 fL [facility] NRBC abs 0.00 0.00 - 0.01 K/cumm [facility] Blood 03/17/2025 3:02 AM CDT 03/17/2025 4:25 AM CDT Shelton Lanier MD LAB BLOOD ORDERABLES Final Re sult Performing Organization Address City/[facility]/ZIP Co de Phone Number [facility] [address] Department [place] [address] * (ABNORMAL) Vitamin B12 (03/17/2025 3:02 AM CDT) [facility] Vitamin B12 1,765(H) 230 - 1,250 pg/mL Blood 03/17/2025 3:02 AM CDT 03/17/2025 4:25 AM CDT Edwardo Garrett MD LAB BLOOD ORDERABLES Final Res ult Performing Organization Address [facility] Co de Phone Number [facility] [address] Department [place] [address] * Renal function panel (03/17/2025 3:02 AM CDT) [facility] Sodium 140 135 - 145 mmol/L Potassium, pl 4.2 3.3 - 4.9 mmol/L [facility] Chloride 105 97 - 110 mmol/L [facility] CO2 23 22 - 32 mmol/L [facility] Anion gap 12 2 - 15 mmol/L [facility] BUN 22 6 - 25 mg/dL [facility] Creatinine 1.04 0.80 - 1.30 mg/dL [facility] Glucose 86 70 - 199 mg/dL [facility] Comment: Interpretive Data Fasting glucose [...] classification and Diagnosis of Diabetes Diabetes Care 202; 46: S19-S40. Current interpretive data was last revised 2022. Calcium 8.5 8.5 - 10.3 mg/dL [facility] Phosphorus, pl 3.1 2.3 - 4.5 mg/dL [facility] Albumin 3.5 3.5 - 5.0 g/dL [facility] Blood 03/17/2025 3:02 AM CDT 03/17/2025 4:25 AM CDT us Shelton Lanier MD LAB BLOOD ORDERABLES Final Re sult [facility] [address] Department [place] [address] * EEG (03/16/2025 1:55 PM CDT) Anatomical Region Laterality Modality EEG Narrative 03/18/2025 12:05 PM CDT Routine EEG Report Patient Name: Berna Monteiro [facility] Medical Record Number (MRN): [id number] [facility] Record: [id number] Date of (): 1950 EEG Date: 03/14/2025 Ordering Provider: Edwardo Garrett MD CC: Ignacio Henry Start Time: 03/16/2025 1:48:55 PM End Time: 03/16/2025 2:11:01 PM Introduction: Mr. Monteiro is a 74 y.o. male with a history of HFrEF, Afib, CAD, who presented with seizure versus syncope. EEG was performed to evaluate for seizures. This is a 32 channel EEG recording acquired on a [employer] EEG-1200 acquisition system. Scalp electrodes were placed according to the international 10-20 System. The analog EEG was filtered from 1-70 Hz and digitally sampled at 200 Hz. The record was then reformatted for review in bipolar and referential montages. EEG Description: The awake background included a 11 Hz posterior rhythm which attenuated with eye opening and activity. During drowsiness, identified by ocular signs and alpha attenuation, there was intermittent, diffuse, asynchronous theta activity admixed with 2-4 Hz polymorphic frontotemporal delta activity. Hyperventilation and photic strobe stimulation were not performed. There were no focal, lateralized or epileptiform abnormalities. Interpretation: This is a normal awake and drowsy/stage I sleep EEG. Kesha Bonner DO [facility] us Edwardo Garrett MD NEUROLOGY ORDERABLES Final Res ult * eGFR (03/16/2025 5:40 AM CDT) eGFR 79 >=60 mL/min/1. 73 m2 Comment: Interpretive Data [...] interpretive data was last reviewed 2021. Blood 03/16/2025 5:40 AM CDT 03/16/2025 6:50 AM CDT us Shelton Lanier MD LAB BLOOD ORDERABLES Final Re sult [facility] [address] Department [place] [address] * Differential, auto (03/16/2025 5:40 AM CDT) Neutrophil abs 3.51 1.50 - 6.50 K/cumm Imm gran abs 0.02 0.00 - 0.10 K/cumm [facility] Lymphocyte abs 0.89 0.80 - 3.30 K/cumm [facility] Monocyte abs 0.55 0.20 - 0.80 K/cumm [facility] Eosinophil abs 0.27 0.00 - 0.50 K/cumm [facility] Basophil abs 0.04 0.00 - 0.10 K/cumm [facility] Neutrophil pct 66.4 % [facility] Comment: Interpretive Data Percent cell count reference ranges are not reported, since discordance with absolute values may lead to misinterpretation of CBC data. Current Interpretive Data was last revised on 2018. Imm gran pct 0.4 % [facility] Comment: Interpretive Data Percent cell count reference ranges are not reported, since discordance with absolute values may lead to misinterpretation of CBC data. Current Interpretive Data was last revised on 2018. Lymphocyte pct 16.9 % [facility] Comment: Interpretive Data Percent cell count reference ranges are not reported, since discordance with absolute values may lead to misinterpretation of CBC data. Current Interpretive Data was last revised on 2018. Monocyte pct 10.4 % [facility] Comment: Interpretive Data Percent cell count reference ranges are not reported, since discordance with absolute values may lead to misinterpretation of CBC data. Current Interpretive Data was last revised on 2018. Eosinophil pct 5.1 % [facility] Comment: Interpretive Data Percent cell count reference ranges are not reported, since discordance with absolute values may lead to misinterpretation of CBC data. Current Interpretive Data was last revised on 2018. Basophil pct 0.8 % [facility] Comment: Interpretive Data Percent cell count reference ranges are not reported, since discordance with absolute values may lead to misinterpretation of CBC data. Current Interpretive Data was last revised on 2018. Blood 03/16/2025 5:40 AM CDT 03/16/2025 6:51 AM CDT us Shelton Lanier MD LAB BLOOD ORDERABLES Final Re sult [facility] [address] Department [place] [address] * (ABNORMAL) CBC with auto differential (03/16/2025 5:40 AM CDT) WBC 5.28 3.80 - 9.90 K/cumm Hgb 14.6 13.0 - 17.5 g/dL [facility] Hct 42.8 38.9 - 50.3 % [facility] Plt 105(L) 150 - 400 K/cumm [facility] MPV 11.0 9.1 - 12.3 fL [facility] RBC 4.62 4.30 - 5.80 M/cumm [facility] MCV 92.6 81.3 - 96.4 fL [facility] MCH 31.6 27.1 - 33.3 pg [facility] MCHC 34.1 32.3 - 35.7 g/dL [facility] RDW CV 13.0 11.1 - 14.9 % [facility] RDW SD 43.9 35.7 - 48.1 fL [facility] NRBC abs 0.00 0.00 - 0.01 K/cumm [facility] Blood 03/16/2025 5:40 AM CDT 03/16/2025 6:51 AM CDT Shelton Lanier MD LAB BLOOD ORDERABLES Final Re sult Performing Organization Address [facility] Co de Phone Number [facility] [address] [place] [address] * CRP (acute phase) (03/16/2025 5:40 AM CDT) CRP <3.0 <=10.0 mg/L Blood 03/16/2025 5:40 AM CDT 03/16/2025 6:50 AM CDT Edwardo Garrett MD LAB BLOOD ORDERABLES Final Res ult Performing Organization Address City/[facility]/ZIP Co de Phone Number [facility] [address] Department of [employer] [place], [place] [id number] * (ABNORMAL) Renal function panel (03/16/2025 5:40 AM CDT) Sodium 142 135 - 145 mmol/L Potassium, pl 4.6 3.3 - 4.9 mmol/L [facility] Chloride 107 97 - 110 mmol/L [facility] CO2 24 22 - 32 mmol/L [facility] Anion gap 11 2 - 15 mmol/L [facility] BUN 26(H) 6 - 25 mg/dL [facility] Creatinine 0.99 0.80 - 1.30 mg/dL [facility] Glucose 97 70 - 199 mg/dL [facility] Comment: Interpretive Data Fasting glucose [...] 2022. Calcium 8.8 8.5 - 10.3 mg/dL [facility] Phosphorus, pl 2.8 2.3 - 4.5 mg/dL [facility] Albumin 3.4(L) 3.5 - 5.0 g/dL [facility] Blood 03/16/2025 5:40 AM CDT 03/16/2025 6:50 AM CDT Shelton Lanier MD LAB BLOOD ORDERABLES Final Re sult [facility] [address] Department [place] [address] * Glycohemoglobin A1C - Add on lab test (03/15/2025 10:08 AM CDT) Acceptable Yes Blood 03/15/2025 10:0 8 AM CDT 03/15/2025 10:08 AM CDT Narrative [facility] - 03/15/2025 10:08 AM CDT Name of Test->Glycohemoglobin A1C Edwardo Garrett MD LAB BLOOD ORDERABLES Final Res ult Performing Organization Address City/[facility]/ZIP Co de Phone Number [facility] [address] Department [place] [address] * eGFR (03/15/2025 4:14 AM CDT) eGFR >90 >=60 mL/min/1. 73 m2 Comment: Interpretive Data [...] interpretive data was last reviewed 2021. Blood 03/15/2025 4:14 AM CDT 03/15/2025 5:17 AM CDT Shelton Lanier MD LAB BLOOD ORDERABLES Final Re sult Performing Organization Address City/[facility]/ZIP Co de Phone Number [facility] [address] Department [place] [address] * Differential, auto (03/15/2025 4:14 AM CDT) Neutrophil abs 3.01 1.50 - 6.50 K/cumm Imm gran abs 0.01 0.00 - 0.10 K/cumm [facility] Lymphocyte abs 0.89 0.80 - 3.30 K/cumm [facility] Monocyte abs 0.44 0.20 - 0.80 K/cumm [facility] Eosinophil abs 0.26 0.00 - 0.50 K/cumm [facility] Basophil abs 0.03 0.00 - 0.10 K/cumm [facility] Neutrophil pct 64.9 % [facility] Comment: Interpretive Data Percent cell count reference ranges are not reported, since discordance with absolute values may lead to misinterpretation of CBC data. Current Interpretive Data was last revised on 2018. Imm gran pct 0.2 % [facility] Comment: Interpretive Data Percent cell count reference ranges are not reported, since discordance with absolute values may lead to misinterpretation of CBC data. Current Interpretive Data was last revised on 2018. Lymphocyte pct 19.2 % [facility] Comment: Interpretive Data Percent cell count reference ranges are not reported, since discordance with absolute values may lead to misinterpretation of CBC data. Current Interpretive Data was last revised on 2018. Monocyte pct 9.5 % [facility] Comment: Interpretive Data Percent cell count reference ranges are not reported, since discordance with absolute values may lead to misinterpretation of CBC data. Current Interpretive Data was last revised on 2018. Eosinophil pct 5.6 % [facility] Comment: Interpretive Data Percent cell count reference ranges are not reported, since discordance with absolute values may lead to misinterpretation of CBC data. Current Interpretive Data was last revised on 2018. Basophil pct 0.6 % [facility] Comment: Interpretive Data Percent cell count reference ranges are not reported, since discordance with absolute values may lead to misinterpretation of CBC data. Current Interpretive Data was last revised on 2018. Blood 03/15/2025 4:14 AM CDT 03/15/2025 5:16 AM CDT us Cintia Rocha MD LAB BLOOD ORDERABLES Final R esult [facility] [address] Department [place] [address] * (ABNORMAL) CBC with auto differential (03/15/2025 4:14 AM CDT) [facility] WBC 4.64 3.80 - 9.90 K/cumm Hgb 14.2 13.0 - 17.5 g/dL [facility] Hct 42.7 38.9 - 50.3 % [facility] Plt 100(L) 150 - 400 K/cumm [facility] MPV 10.9 9.1 - 12.3 fL [facility] RBC 4.61 4.30 - 5.80 M/cumm [facility] MCV 92.6 81.3 - 96.4 fL [facility] MCH 30.8 27.1 - 33.3 pg [facility] MCHC 33.3 32.3 - 35.7 g/dL [facility] RDW CV 12.8 11.1 - 14.9 % [facility] RDW SD 43.7 35.7 - 48.1 fL [facility] NRBC abs 0.00 0.00 - 0.01 K/cumm [facility] Blood 03/15/2025 4:14 AM CDT 03/15/2025 5:16 AM CDT us Cintia Rocha MD LAB BLOOD ORDERABLES Final R esult Performing Organization Address City/[facility]/ZIP Co de Phone Number [facility] [address] [employer] [place], [place] [id number] * Erythrocyte sedimentation rate (03/15/2025 4:14 AM CDT) [facility] Erythrocyte sedimentation rate 2 1 - 20 mm/hr Blood 03/15/2025 4:14 AM CDT 03/15/2025 5:16 AM CDT Edwardo Garrett MD LAB BLOOD ORDERABLES Final Res ult Performing Organization Address City/[facility]/ZIP Co de Phone Number [facility] [address] [place] [address] * Hemoglobin A1c (03/15/2025 4:14 AM CDT) [facility] Hgb A1C 5.5 4.0 - 5.6 % Estimated Average Glucose 111 mg/dL [facility] Comment: The ADA recommends reporting an estimated Average Glucose (eAG) with all Hemoglobin A1c results using the equation derived from a study of 507 normal and diabetic adults. Minority populations were underrepresented and children were not included. (Diabetes Care 31:6150-4370, 2008). The eAG is not equivalent to a fasting glucose. Blood 03/15/2025 4:14 AM CDT 03/15/2025 5:16 AM CDT us Edwardo Garrett MD LAB BLOOD ORDERABLES Final Res ult [facility] [address] Department [place] [address] * (ABNORMAL) Renal function panel (03/15/2025 4:14 AM CDT) Sodium 140 135 - 145 mmol/L Potassium, pl 4.0 3.3 - 4.9 mmol/L [facility] Chloride 107 97 - 110 mmol/L [facility] CO2 23 22 - 32 mmol/L [facility] Anion gap 10 2 - 15 mmol/L [facility] BUN 24 6 - 25 mg/dL [facility] Creatinine 0.83 0.80 - 1.30 mg/dL [facility] Glucose 84 70 - 199 mg/dL [facility] Comment: Interpretive Data Fasting glucose [...] 2022. Calcium 8.8 8.5 - 10.3 mg/dL [facility] Phosphorus, pl 2.8 2.3 - 4.5 mg/dL [facility] Albumin 3.4(L) 3.5 - 5.0 g/dL [facility] Blood 03/15/2025 4:14 AM CDT 03/15/2025 5:17 AM CDT Shelton Lanier MD LAB BLOOD ORDERABLES Final Re sult Performing Organization Address City/[facility]/ZIP Co de Phone Number [facility] [address] [place] [address] * eGFR (03/14/2025 10:44 PM CDT) Pathologist [facility] eGFR >90 >=60 mL/min/1. 73 m2 Comment: Interpretive Data [...] interpretive data was last reviewed 2021. Blood 03/14/2025 10:4 4 PM CDT 03/14/2025 11:07 PM CDT us Cintia Rocha MD LAB BLOOD ORDERABLES Final R esult Performing Organization Address City/[facility]/ZIP Co de Phone Number [facility] [address] Department of [employer] [place], [place] [id number] * Differential, auto (03/14/2025 10:44 PM CDT) Neutrophil abs 3.18 1.50 - 6.50 K/cumm Imm gran abs 0.01 0.00 - 0.10 K/cumm [facility] Lymphocyte abs 0.89 0.80 - 3.30 K/cumm [facility] Monocyte abs 0.48 0.20 - 0.80 K/cumm [facility] Eosinophil abs 0.20 0.00 - 0.50 K/cumm [facility] Basophil abs 0.03 0.00 - 0.10 K/cumm [facility] Neutrophil pct 66.4 % [facility] Comment: Interpretive Data Percent cell count reference ranges are not reported, since discordance with absolute values may lead to misinterpretation of CBC data. Current Interpretive Data was last revised on 2018. Imm gran pct 0.2 % [facility] Comment: Interpretive Data Percent cell count reference ranges are not reported, since discordance with absolute values may lead to misinterpretation of CBC data. Current Interpretive Data was last revised on 2018. Lymphocyte pct 18.6 % [facility] Comment: Interpretive Data Percent cell count reference ranges are not reported, since discordance with absolute values may lead to misinterpretation of CBC data. Current Interpretive Data was last revised on 2018. Monocyte pct 10.0 % [facility] Comment: Interpretive Data Percent cell count reference ranges are not reported, since discordance with absolute values may lead to misinterpretation of CBC data. Current Interpretive Data was last revised on 2018. Eosinophil pct 4.2 % [facility] Comment: Interpretive Data Percent cell count reference ranges are not reported, since discordance with absolute values may lead to misinterpretation of CBC data. Current Interpretive Data was last revised on 2018. Basophil pct 0.6 % [facility] Comment: Interpretive Data Percent cell count reference ranges are not reported, since discordance with absolute values may lead to misinterpretation of CBC data. Current Interpretive Data was last revised on 2018. Blood 03/14/2025 10:4 4 PM CDT 03/14/2025 11:05 PM CDT Shelton Lanier MD LAB BLOOD ORDERABLES Final Re sult Performing Organization Address City/[facility]/ZIP Co de Phone Number [facility] [address] [place] [address] * Pro B-type natriuretic peptide (03/14/2025 10:44 PM CDT) NT-proBNP 310 <=450 pg/mL Comment: Interpretive Comments: A. Dyspnea [...] as advanced age. - References: 1. Myah JL et.al. Eur Heart J. 2006:27:330-337. 2. Suzy RW, Bill [place]. J. AM Raul Cardiol: Cardiovasc Imag. 2009;2: 216- 225. Interpretive Data Last Revised Date: 2018. Blood 03/14/2025 10:4 4 PM CDT 03/14/2025 11:05 PM CDT us Cintia Rocha MD LAB BLOOD ORDERABLES Final R esult Performing Organization Address [facility]/ZIP Co de Phone Number [facility] [address] Department [place] [address] * Thyroid Function [place] (03/14/2025 10:44 PM CDT) Pathologist [facility] TSH 2.06 0.30 - 4.20 mcIUnit/mL Blood 03/14/2025 10:4 4 PM CDT 03/14/2025 11:05 PM CDT Cintia Rocha MD LAB BLOOD ORDERABLES Final R esult Performing Organization Address [facility]/ZIP Co de Phone Number [facility] [address] [employer] [place], [place] [phone] * (ABNORMAL) CBC with auto differential (03/14/2025 10:44 PM CDT) [facility] WBC 4.79 3.80 - 9.90 K/cumm Hgb 14.0 13.0 - 17.5 g/dL [facility] Hct 40.8 38.9 - 50.3 % [facility] Plt 107(L) 150 - 400 K/cumm [facility] MPV 10.7 9.1 - 12.3 fL [facility] RBC 4.49 4.30 - 5.80 M/cumm [facility] MCV 90.9 81.3 - 96.4 fL [facility] MCH 31.2 27.1 - 33.3 pg [facility] MCHC 34.3 32.3 - 35.7 g/dL [facility] RDW CV 13.1 11.1 - 14.9 % [facility] RDW SD 43.1 35.7 - 48.1 fL [facility] NRBC abs 0.00 0.00 - 0.01 K/cumm [facility] Blood 03/14/2025 10:4 4 PM CDT 03/14/2025 11:05 PM CDT Shelton Lanier MD LAB BLOOD ORDERABLES Final Re sult Performing Organization Address City/[facility]/ZIP Co de Phone Number [facility] [address] Department of Laboratories [place], [place] [phone] * (ABNORMAL) Protime-INR (03/14/2025 10:44 PM CDT) PT 15.9(H) 9.7 - 13.0 sec INR 1.46(H) 0.90 - 1.20 [facility] Comment: Interpretive data Oral anticoagulant therapeutic ranges: Venous thromboembolism prophylaxis or treatment: 2.0-3.0 CARDIOLOGY Standard range: 2.0-3.0 High-intensity range: 2.5-3.5 Refer to indication-specific guidelines for appropriate target ranges for prosthetic heart valve replacement. Current interpretive data was last revised on 2019. Blood 03/14/2025 10:4 4 PM CDT 03/14/2025 11:05 PM CDT us Cintia Rocha MD LAB BLOOD ORDERABLES Final R esult [facility] [address] Department [place] [address] * (ABNORMAL) Comprehensive metabolic panel (03/14/2025 10:44 PM CDT) Pathologist [facility] Sodium 138 135 - 145 mmol/L Potassium, pl 4.0 3.3 - 4.9 mmol/L [facility] Chloride 106 97 - 110 mmol/L [facility] CO2 21(L) 22 - 32 mmol/L [facility] Anion gap 11 2 - 15 mmol/L [facility] BUN 28(H) 6 - 25 mg/dL [facility] Creatinine 0.79(L) 0.80 - 1.30 mg/dL [facility] Glucose 91 70 - 199 mg/dL [facility] Comment: Interpretive Data Fasting glucose [...] interpretive data was last revised 2022. Calcium 8.5 8.5 - 10.3 mg/dL [facility] Bilirubin, total 0.9 0.1 - 1.2 mg/dL [facility] Protein, pl 5.6(L) 6.5 - 8.5 g/dL [facility] Albumin 3.4(L) 3.5 - 5.0 g/dL [facility] Alk phos 64 40 - 130 Units/L [facility] ALT 22 7 - 55 Units/L [facility] AST 16 10 - 50 Units/L [facility] Blood 03/14/2025 10:4 4 PM CDT 03/14/2025 11:05 PM CDT Cintia Rocha MD LAB BLOOD ORDERABLES Final R esult Performing Organization Address City/[facility] Co de Phone Number [facility] [address] Department [place] [address] * ECG 12 lead (03/14/2025 10:27 PM CDT) 03/14/2025 10:2 7 PM CDT Narrative [facility] [employer] - 03/15/2025 10:28 AM CDT Vent Rate: 73 bpm RR Interval: [address] Interval: 194 msec QRS Duration: 168 msec QT Interval: 462 msec QTC Interval: 488 msec P-R-T [place]: -84 - 62 - 265 degrees IMPRESSION: ELECTRONIC ATRIAL PACEMAKER ELECTRONIC VENTRICULAR PACEMAKER ABNORMAL RHYTHM ECG Electronically Signed By: Roverto Velazquez [facility] Card Cintia Rocha MD ECG ORDERABLES Final Result Performing Organization Address [facility] de Phone Number [facility] [facility] * TRANSTHORACIC ECHO (TTE) COMPLETE W DOPPLER/CF W CONTRAST (03/13/2025 11:21 AM CDT) Estimated EF 35-45 % CONS SCIMAGE Anatomical Region Laterality Modality Ultrasound 03/13/2025 10:1 9 AM CDT Narrative 03/16/2025 9:54 PM CDT ECHOCARDIOGRAM Patient Name: BERNA MONTEIRO E : 1950 Study Date: 03/13/2025 10:19:36 AM Gender: M Tech: M Ref Provider: DELMY JORDAN Height(Cm): 180 BSA: 2.15 Weight(Kg): 92.1 BP: 115 / 85 Order Provider: DELMY JORDAN PROCEDURES: Echocardiographic Report: Transthoracic Echocardiogram with 2D, M-Mode, Spectral and Color Flow Doppler examination and administration of intravenous contrast. INDICATIONS: I25.5 Ischemic cardiomyopathy and I50.20 Unspecified systolic (congestive) heart failure. MEASUREMENTS: 2D/MM Value Range Doppler Value Range Estimated EF 35-45 % AV Peak Soren 1.4 m/s [ 1.0 - 1.7 ] LA Dimension 2D 4.18 cm [ 3.00 - 4.00 ] AV Peak PG 8 mmHg LA Dimension MM 5.12 cm [ 3.00 - 4.00 ] AV Mean PG 6 mmHg AoR Diam MM 3.46 cm [ 3.10 - 3.70 ] AV VTI 28.5 cm TAPSE 1.82 cm [ 1.71 - 5.00 ] CAL VTI 2.2 cm2 LVOT Peak Soren 0.98 m/s [ 0.70 - 1.10 ] LVOT Diam 2.1 cm LVOT Peak PG 4 mmHg LVOT VTI 18.0 cm MV Mean PG 1 mmHg MV E Peak Soren 0.5 m/s [ 0.6 - 1.3 ] MV A Peak Soren 0.8 m/s [ 1.0 - 1.2 ] MV Decel Time 194.7 ms [ 104.0 - 258.0 ] MV E/A Ratio 0.6 TR Peak Soren 2.2 m/s [ 1.0 - 2.8 ] TR Peak PG 19 mmHg PV Peak Soren 0.8 m/s [ 0.4 - 0.8 ] PV Peak PG 3 mmHg Lat E` Soren 0.04 m/s [ 0.10 - 0.15 ] E/E` 12.50 2D/MM Value Range Doppler Value Range - FINDINGS: Study Quality: Technically difficult study. Definity Contrast was employed for LV opacification and endocardial border enhancement. BP: Blood pressure: 100/60 mmHg. Left Ventricle: Moderate left ventricular systolic dysfunction. Ejection Fraction is estimated to be 35-45 %. Moderate enlargement of left ventricle. No left ventricular thrombus visualized. Right Ventricle: Normal right ventricular systolic function. Normal right ventricular size. Left Atrium: There is mild enlargement of the left atrium. Right Atrium: The right atrium is normal in size. Atrial Septum: Normal appearing atrial septum. Mitral Valve: Normal appearance of the mitral valve leaflets. Trace mitral valve regurgitation. Aortic Valve: Aortic valve cusps appear mildly sclerotic. There is no aortic stenosis. Mild aortic valve regurgitation. Tricuspid Valve: Normal appearance of the tricuspid leaflets. Trace tricuspid regurgitation. TR envelope inadequate to estimate RVSP. Pulmonic Valve: Pulmonic valve not well visualized. Pericardium: No significant pericardial effusion. Aortic Root and Aorta: Normal caliber aortic root. Upper normal sized ascending aorta. Aortic Arch: The aortic arch is poorly visualized. IVC: The IVC is not well visualized. CONCLUSIONS: 1. Moderate left ventricular systolic dysfunction. Ejection Fraction is estimated to be 35-45 %. Moderate enlargement of left ventricle. No left ventricular thrombus visualized. 2. Normal right ventricular systolic function. Normal right ventricular size. 3. Aortic valve cusps appear mildly sclerotic. There is no aortic stenosis. Mild aortic valve regurgitation. Electronically Signed By: Roverto Velazquez [facility] Card 03/16/2025 9:53:30 PM CDT Procedure Note Roverto Velazquez MD - 03/16/2025 ECHOCARDIOGRAM Patient Name: BERNA MONTEIRO E : 1950 Study Date: 03/13/2025 10:19:36 AM Gender: M Tech: M Ref Provider: DELMY JORDAN Height(Cm): 180 BSA: 2.15 Weight(Kg): 92.1 BP: 115 / 85 Order Provider: DELMY JORDAN PROCEDURES: Echocardiographic Report: Transthoracic Echocardiogram with 2D, M-Mode, Spectral and Color FlowDoppler examination and administration of intravenous contrast. INDICATIONS: I25.5 Ischemic cardiomyopathy and I50.20 Unspecified systolic (congestive)heart failure. MEASUREMENTS: 2D/MM Value Range Doppler ValueRange Estimated EF 35-45 % AV Peak Soren 1.4 m/s[ 1.0 - 1.7 ] LA Dimension 2D 4.18 cm [ 3.00 - 4.00 ] AV Peak PG 8 mmHg LA Dimension MM 5.12 cm [ 3.00 - 4.00 ] AV Mean PG 6 mmHg AoR Diam MM 3.46 cm [ 3.10 - 3.70 ] AV VTI 28.5cm TAPSE 1.82 cm [ 1.71 - 5.00 ] CAL VTI 2.2cm2 LVOT Peak Soren 0.98 m/s [ 0.70 - 1.10 ] LVOT Diam 2.1 cm LVOT Peak PG 4 mmHg LVOT VTI 18.0 cm MV Mean PG 1 mmHg MV E Peak Soren 0.5 m/s [ 0.6 - 1.3 ] MV A Peak Soren 0.8 m/s [ 1.0 - 1.2 ] MV Decel Time 194.7 ms [ 104.0 - 258.0 ] MV E/A Ratio 0.6 TR Peak Soren 2.2 m/s [ 1.0 - 2.8 ] TR Peak PG 19 mmHg PV Peak Soren 0.8 m/s [ 0.4 - 0.8 ] PV Peak PG 3 mmHg Lat E` Soren 0.04 m/s [ 0.10 - 0.15 ] E/E` 12.50 2D/MM Value Range Doppler ValueRange - FINDINGS: Study Quality: Technically difficult study. Definity Contrast was employed for LVopacification and endocardial border enhancement. BP: Blood pressure: 100/60 mmHg. Left Ventricle: Moderate left ventricular systolic dysfunction. Ejection Fraction isestimated to be 35-45 %. Moderate enlargement of left ventricle. No left ventricularthrombus visualized. Right Ventricle: Normal right ventricular systolic function. Normal right ventricularsize. Left Atrium: There is mild enlargement of the left atrium. Right Atrium: The right atrium is normal in size. Atrial Septum: Normal appearing atrial septum. Mitral Valve: Normal appearance of the mitral valve leaflets. Trace mitral valveregurgitation. Aortic Valve: Aortic valve cusps appear mildly sclerotic. There is no aortic stenosis.Mild aortic valve regurgitation. Tricuspid Valve: Normal appearance of the tricuspid leaflets. Trace tricuspidregurgitation. TR envelope inadequate to estimate RVSP. Pulmonic Valve: Pulmonic valve not well visualized. Pericardium: No significant pericardial effusion. Aortic Root and Aorta: Normal caliber aortic root. Upper normal sized ascending aorta. Aortic Arch: The aortic arch is poorly visualized. IVC: The IVC is not well visualized. CONCLUSIONS: 1. Moderate left ventricular systolic dysfunction. Ejection Fraction isestimated to be 35-45 %. Moderate enlargement of left ventricle. No left ventricularthrombus visualized. 2. Normal right ventricular systolic function. Normal right ventricularsize. 3. Aortic valve cusps appear mildly sclerotic. There is no aorticstenosis. Mild aortic valve regurgitation. Electronically Signed By: Roverto Velazquez [facility] Card 03/16/2025 9:53:30 PM CDT us Delmy Jordan NP CV ECHO PROCEDURES Final Resu lt * Potassium level, serum (03/13/2025 10:11 AM CDT) Potassium, sr 4.3 3.6 - 5.2 mmol/L Blood 03/13/2025 10:1 1 AM CDT 03/13/2025 11:10 AM CDT Delmy Jordan [employer] LAB BLOOD ORDERABLES Final Re sult Performing Organization Address [facility] Co de Phone Number [facility] [address] Department [place] [address] * eGFR (03/04/2025 12:16 PM CDT) eGFR [...] PM CDT 03/04/2025 12:53 PM CDT Delmy Jordan [employer] LAB BLOOD ORDERABLES Final Re sult Performing Organization Address [facility]/ZIP Co de Phone Number [facility] [address] Department of Laboratories [place], [place] [phone] * (ABNORMAL) Differential, auto (03/04/2025 12:16 PM CDT) Pathologist [facility] Neutrophil abs 2.97 1.50 - 6.50 K/cumm Imm gran abs 0.01 0.00 - 0.10 K/cumm [facility] Lymphocyte abs 0.77(L) 0.80 - 3.30 K/cumm [facility] Monocyte abs 0.50 0.20 - 0.80 K/cumm [facility] Eosinophil abs 0.24 0.00 - 0.50 K/cumm [facility] Basophil abs 0.04 0.00 - 0.10 K/cumm [facility] Neutrophil pct 65.6 % [facility] Comment: Interpretive Data Percent cell count reference ranges are not reported, since discordance with absolute values may lead to misinterpretation of CBC data. Current Interpretive Data was last revised on 2018. Imm gran pct 0.2 % [facility] Comment: Interpretive Data Percent cell count reference ranges are not reported, since discordance with absolute values may lead to misinterpretation of CBC data. Current Interpretive Data was last revised on 2018. Lymphocyte pct 17.0 % [facility] Comment: Interpretive Data Percent cell count reference ranges are not reported, since discordance with absolute values may lead to misinterpretation of CBC data. Current Interpretive Data was last revised on 2018. Monocyte pct 11.0 % [facility] Comment: Interpretive Data Percent cell count reference ranges are not reported, since discordance with absolute values may lead to misinterpretation of CBC data. Current Interpretive Data was last revised on 2018. Eosinophil pct 5.3 % [facility] Comment: Interpretive Data Percent cell count reference ranges are not reported, since discordance with absolute values may lead to misinterpretation of CBC data. Current Interpretive Data was last revised on 2018. Basophil pct 0.9 % [facility] Comment: Interpretive Data Percent cell count reference ranges are not reported, since discordance with absolute values may lead to misinterpretation of CBC data. Current Interpretive Data was last revised on 2018. Blood 03/04/2025 12:1 6 PM CDT 03/04/2025 12:53 PM CDT us Delmy Jordan [employer] LAB BLOOD ORDERABLES Final Re sult [facility] [address] [place] [address] * Pro B-type natriuretic peptide (03/04/2025 12:16 [...] as advanced age. - References: 1. Myah JL et.al. Eur Heart J. 2006:27:330-337. 2. Suzy RW, Bill NETWON. J. AM Raul Cardiol: Cardiovasc Imag. 2009;2: 216- 225. Interpretive Data Last Revised Date: 2018. Blood 03/04/2025 12:1 6 PM CDT 03/04/2025 12:53 PM CDT us Delmy Jordan NP LAB BLOOD ORDERABLES Final Re sult [facility] [address] Department [place] [address] * (ABNORMAL) CBC with auto differential (03/04/2025 12:16 PM CDT) Pathologist [facility] WBC 4.53 3.80 - 9.90 K/cumm Hgb 14.8 13.0 - 17.5 g/dL [facility] Hct 44.4 38.9 - 50.3 % [facility] Plt 113(L) 150 - 400 K/cumm [facility] MPV 11.0 9.1 - 12.3 fL [facility] RBC 4.74 4.30 - 5.80 M/cumm [facility] MCV 93.7 81.3 - 96.4 fL [facility] MCH 31.2 27.1 - 33.3 pg [facility] MCHC 33.3 32.3 - 35.7 g/dL [facility] RDW CV 13.4 11.1 - 14.9 % [facility] RDW SD 45.7 35.7 - 48.1 fL [facility] NRBC abs 0.00 0.00 - 0.01 K/cumm [facility] Blood 03/04/2025 12:1 6 PM CDT 03/04/2025 12:53 PM CDT Delmy Jordan NP LAB BLOOD ORDERABLES Final Re sult Performing Organization Address [facility] Co de Phone Number [facility] [address] [employer] [place], [place] [phone] * Magnesium (03/04/2025 12:16 PM CDT) [facility] Magnesium 2.3 1.4 - 2.5 mg/dL Blood 03/04/2025 12:1 6 PM CDT 03/04/2025 12:53 PM CDT Delmy Jordan [employer] LAB BLOOD ORDERABLES Final Re sult Performing Organization Address City/[facility]/ZIP Co de Phone Number [facility] [address] [facility] [employer] [place], [place] [phone] * (ABNORMAL) Basic metabolic panel (03/04/2025 12:16 PM CDT) Sodium 140 135 - 145 mmol/L Potassium, pl 5.1(H) 3.3 - 4.9 mmol/L [facility] Chloride 106 97 - 110 mmol/L [facility] CO2 25 22 - 32 mmol/L [facility] Anion gap 9 2 - 15 mmol/L [facility] BUN 19 6 - 25 mg/dL [facility] Creatinine 0.96 0.80 - 1.30 mg/dL [facility] Glucose 91 70 - 199 mg/dL [facility] Comment: Interpretive Data Fasting glucose [...] classification and Diagnosis of Diabetes Diabetes Care 202; 46: S19-S40. Current interpretive data was last revised 2022. Calcium 8.8 8.5 - 10.3 mg/dL [facility] Blood 03/04/2025 12:1 6 PM CDT 03/04/2025 12:53 PM CDT us Delmy Jordan NP LAB BLOOD ORDERABLES Final Re sult [facility] [address] Department [place] [address] * Lipid panel (04/29/2024 1:18 PM CDT) [...] revised on 2018. Triglycerides 71 <=149 mg/dL [facility] Comment: Interpretive Data Ages < or = [...] revised on 2018. HDL 46 >=40 mg/dL [facility] Comment: Interpretive Data Ages < or = [...] on 2018. LDL, calculated 42 <=129 mg/dL [facility] Comment: Interpretive Data Ages < or = [...] revised on 2018. Non-HDL Cholesterol 56 mg/dL [facility] Comment: Interpretive Data Ages < or = [...] last revised on 2018. Chol/HDL ratio 2 [facility] Blood 04/29/2024 1:18 PM CDT 04/29/2024 2:04 PM CDT Gonzalo Helm MD LAB BLOOD ORDERABLES Final Result Performing Organization Address City/[facility] Co de Phone Number [facility] Department [place] [address] * Hepatitis C antibody Blood (07/26/2023 8:13 [...] ORDER EMILIANA Final Result Performing Organization Address City/[facility] Co de Phone Number TETOMELISSA [address] Department [place] [address] * COLONOSCOPY (04/19/2023 11:42 AM CDT) Anatomical Region Laterality Modality Other Narrative Procedure Note David Wilkins, - 04/19/2023 11:42 AM CDT [facility] GI ENDOSCOPY Patient Name: Berna Monteiro Procedure Date: 04/19/2023 11:42 AM Date of : 1950 Admit Type: Outpatient Age: 72 Gender: Male Attending MD: David Wilkins D.O. Room: [facility] ENDOSCOPY ROOM 05 Note Status: Finalized Procedure: [...] On: 04/19/2023 11:42 AM Recognized by the [place] [employer] for promoting quality in endoscopy David Wilkins DO ENDOSCOPY PROCEDURES Fin al Result from Last 3 Months or Most Recently Relevant to Health Maintenance Insurance [employer] CHO[employer] PPO [employer] CHOICE PPO [facility] ADVANTAGE CHOICE PPO Advance Directives For more information, please contact: [phone] Documents on File Type Date Recorded Patient Welcome Desk Agent Expl anation Advance Directives and Livin g Will 12/22/2022 5:37 AM Advance Directives and Livin g Will 09/11/2021 1:37 PM Advance Directives and Livin g Will 08/25/2021 2:50 PM * Full Code (Latest Code Status on File) Date Activated Date Inactivated Comments 03/14/2025 8:41 PM 03/17/2025 8:36 PM * Full Code Date Activated Date Inactivated Comments 06/12/2023 11:29 AM 06/15/2023 6:20 PM * Full Code Date Activated Date Inactivated Comments 07/04/2022 7:16 AM 07/07/2022 3:34 PM * Full Code Date Activated Date Inactivated Comments 05/09/2022 8:49 PM 05/10/2022 9:36 PM * Full Code Date Activated Date Inactivated Comments 08/24/2021 4:28 PM 08/28/2021 5:21 PM Care Teams Geodesist Relationship Specialty [place] [address] [facility] [address] [place] [address] PCP - General Internal Medicine 12/09/24 Roverto Velazquez MD [address] [facility] [address] [place] [address] Consulting Physician Cardiovascular Disease 08/28/21 Viet Olvera III, MD [address] [facility] [address] [place] [address] Consulting Physician Cardiology 08/28/21 Miscellaneous, Not In File 05/10/22 Valdez Leyva MD [address] [address] Consulting Physician General Surgery 12/22/22 Missy Jones NP [address] [facility] [address] [place], [place] [phone] Nurse Practitioner Family Medicine 06/26/23 Obed Garcia MD [address] [facility] [address] [place] [address] Consulting Physician Urology 11/07/23 [place] [address] [facility] [address] [place] [address] Consulting Physician Endocrinology 11/07/23 Delmy Jordan NP [address] [facility] [address] [place] [address] Nurse Practitioner Cardiovascular Disease 03/17/25 Estrella Mcleod MD [address] [facility] [address], [place] [address] Consulting Physician Neurology 03/17/25
--- OUTSIDE RECORDS SUMMARY | 2025-05-04 15:20 | XMS_ITS | Encounter Summary ---
Author Organization [facility] Address [address] [place] [address] Care Team Providers Care Hand Bookbinder Name Role Phone WilkinsDavid dean Primary Care Provider [phone] Encounter Details Date Type Department Care Team (Late st Contact Info) Description 04/08/2025 Lab Requisition [facility] - DermPath Lab [address] [facility], [place] [address] Bhakti Munoz MD [address] 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 Gender Identity Not on file Sexual Orientation Not on file documented as of this encounter Plan of Treatment Not on file documented as of this encounter Procedures Procedure Name Priority Date/Time Associated Diagnosis Comments DERMATOPATHOLOGY Routine 04/08/2025 10:0 7 AM CDT documented in this encounter Results * DERMATOPATHOLOGY (04/08/2025 10:07 AM CDT) Case Report Dermatopathology Report Case: [id number] Authorizing Provider: Bhakti Munoz MD Collected: 04/08/2025 10:07 AM Ordering Location: [facility] - Received: 04/10/2025 07:58 AM DermPath Lab Pathologist: Kandace Gomez MD Specimens: A) - Skin, left back B) - Skin, left hand 1:08 PM T DERMATOPATHOLOGY LABORATORY Final Diagnosis Specimen A. SKIN, left back: BASAL CELL CARCINOMA, SUPERFICIAL MULTIFOCAL (C44.519) (see microscopic description) Specimen B. SKIN, left hand: SQUAMOUS CELL CARCINOMA IN SITU, PRESENT AT THE BASE OF THE SPECIMEN (D04.62) (see microscopic description and comment) 1:08 PM CDT DERMATOPATHOLOGY LABORATORY at 1307 CDT Clinical History A: R/O BCC B: R/O SCC 1:08 PM CD DERMATOPATHOLOGY LABORATORY Gross Description Specimen A: Received [...] characteristic determined by the Dermatopathology Laboratory at [facility], directed by Dr. Haylie Paz. These tests need not be, and therefore are not, approved by the [place] Food and Drug Administration. The tests are used for clinical purposes. Billing Codes Specimen Charges Stain Charges 57766 27970 1 1 5 1:08 PM CDT DERMATOPATHOLOGY LABORATORY Embedded Images 5 1:08 PM CDT DERMATOPATHOLOGY LABORATORY Pathology/Cytology TISSUE SPECIMEN FROM SKIN / Unknown 04/08/2025 10:07 AM CDT 04/10/2025 7:58 AM CDT Miscellaneous samples (specimen) TISSUE SPECIMEN FROM SKIN / Unknown 04/08/2025 10:07 AM CDT 04/10/2025 7:58 AM CDT us Bhakti Munoz MD LAB - PATHOLOGY/CYTOLOGY ORD ERABLES Final Result DERMATOPATHOLOGY LABORATORY [facility] - Department of Dermatology [facility] Medicine [address] [place] [address], [address] [phone] documented in this encounter Visit Diagnoses Not on filedocumented in this encounter Care Teams Hand Bookbinder Relationship Specialty Start Date End Date David Wilkins DO [address] [place] [id number] PCP - General 03/19/17 documented as of this encounter
--- OUTSIDE RECORDS SUMMARY | 2025-05-04 15:20 | XMS_ITS | Referral Summary ---
Author Organization [facility] [address] Address [address] [place] [address] Care Team Providers Care Curing Press Operator Name Role Phone Roverto Velazquez MD Unavailable [phone] Wade PERSON MD, Viet Boo Unavailable [phone] Miscellaneous, Not In File Unavailable Unava ilable Valdez Leyva MD Unavailable [phone] Missy Jones NP Unavailable Obed Garcia MD Unavailable Etta Vivas MD Unavailable [phone] Ignacio Henry DO Primary Care Provider [phone] Laisha Jordan NP Unavailable Estrella Mcleod MD Unavailable Encounters Date Type Department Care Team Description 04/29/2025 Telephone [facility] Cardiology [address] [facility] [address] [place] [address] Roverto Velazquez MD 04/27/2025 Orders Only [facility] Oncology [address] [facility] [address] [place] [phone] Jenise Saini NP Pulmonary nodule (Primary Dx) 04/22/2025 10:00 AM CDT - 04/22/2025 11:59 PM CDT Hospital Encounter [facility] Medical Office Building 1 [address] [facility] [place] [address] Mediastinal mass; Other nonspecific abnormal finding of lung field Discharge Disposition: Discharge to home or self care 04/10/2025 9:45 AM CDT Office Visit [facility] Surgery [address] [facility] [facility] [address] [place] [phone] Ej Ni MD Mediastinal mass (Primary Dx); Abnormal chest CT; Other nonspecific abnormal finding of lung field 04/09/2025 5:30 PM CDT - 04/09/2025 11:59 PM CDT Hospital Encounter [facility] [address] [place] [address] Discharge Disposition: Discharge to home or self care 04/09/2025 5:28 PM CDT - 04/09/2025 11:59 PM CDT Hospital Encounter [facility] Radiology [facility] [address] [place] [address] Diagnosis unknown Discharge Disposition: Discharge to home or self care 04/09/2025 5:25 PM CDT - 04/09/2025 11:59 PM CDT Hospital Encounter [facility] Radiology [facility] [address] [place] [address] Diagnosis unknown Discharge Disposition: Discharge to home or self care 04/08/2025 Documentation 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) (Primary Dx); Ischemic cardiomyopathy; Coronary artery disease involving twenty-nine palms coronary artery of twenty-nine palms heart without angina pectoris; Essential hypertension; Hyperlipidemia, unspecified hyperlipidemia type; Encounter for long-term current use of medication 03/23/2025 3:45 PM CDT Ancillary Procedure [facility] [address] [facility] [address], [place] [phone] Cardiac pacemaker (Primary Dx); Complete heart block (HCC) 03/23/2025 9:00 AM CDT Office Visit [facility] Diabetes and Endocrinology [address] [place] [address] Etta Vivas MD Multinodular goiter (nontoxic) (Primary Dx) 03/17/2025 Results Follow-Up [facility] Cardiology [address] [place] [address] [address], [place] [address] Laisha Jordan NP Transthoracic Echo (TTE) Complete W Doppler/CF 03/14/2025 8:40 PM CDT - 03/17/2025 4:36 PM CDT Hospital Encounter [address] [phone] Shelton Lanier MD Nafee, MD Tami Mckeon, MD Marine Brooke, Zeferino Figueroa MD Syncope and collapse (Primary Dx) Discharge Disposition: Discharge to home or self care 03/14/2025 Orders Only [address] [phone] Shelton Lanier MD 03/13/2025 Results Follow-Up [facility] Cardiology [address] [place] [address] [address] [place] [address] Laisha Jordan NP Potassium level, serum 03/13/2025 10:00 AM CDT Lab [address] [place] [phone] Hyperkalemia 03/13/2025 10:30 AM CDT Ancillary Procedure [facility] Cardiology [address] [place] [address] [address] [place] [address] Ischemic cardiomyopathy; Heart failure with reduced ejection fraction, NYHA class III (HCC) 03/04/2025 Results Follow-Up [facility] Cardiology [facility] [facility] [address] [place] [address] Laisha Jordan NP CBC with auto differential, Basic metabolic panel, Pro B-type natriuretic peptide, Additional followed-up results: 3 03/04/2025 12:05 PM CDT Lab [facility] Outpatient Lab [address] [place] [address] Cardiomyopathy, unspecified type (HCC); Biventricular congestive heart failure (HCC); Hypertension, unspecified type; MARI (dyspnea on exertion) 03/03/2025 Telephone [facility] Cardiology [address] [place] [address] [address] [place] [address] Laisha Jordan NP Testing 03/02/2025 Documentation [facility] Cardiology [address] [place] [address] [address] [place] [address] Laisha Jordan NP from Last 3 Months Allergies Active Allergy [...] 09/26/20 Assessment & Plan (09/26/2024 8:56 PM BODS DEVELOPER): Viral infection. [id number] for symptoms Bilateral impacted cerumen 09/26/2024 Assessment & Plan (09/26/2024 8:56 PM BODS DEVELOPER): Rinsed with warm water bilaterally until clear. Platelets decreased 11/07/2023 Chronic renal failure, stage 3a 11/07/2023 Encounter for Medicare annual wellness exam 10/16 Assessment & Plan (11/07/2023 9:34 AM BODS DEVELOPER): A(n) yearly Medicare Annual Wellness Visit has [...] S/p dual chamber pacemaker, excellent function. 88% FOOD VENDOR in context of moderate LV dysfunction (LVEF 40%). No heart failure symptoms. Could consider device revision to MANAGER PRICING-P system, but in absence of clinical HF would favor observation for now. --Continue remote device monitoring --Consider device revision to MANAGER PRICING-P system in future if HF symptoms arise, LVEF declines or at time of generator replacement. Assessment & Plan (06/26/2023 9:43 AM CDT): S/p dual chamber pacemaker. Excellent device function. --Continue remote device f/u remotely Assessment & Plan (10/02/2022 9:03 AM BODS DEVELOPER): Transient, perioperatively. No recurrence. No current indication [...] losartan Assessment & Plan (10/30/2023 11:03 AM BODS DEVELOPER): Well compensated on physical exam. No significant [...] therapy. Assessment & Plan (10/25/2022 10:03 AM BODS DEVELOPER): Euvolemic with stable NYHA 2 symptoms. Continue [...] 25 Assessment & Plan (12/14/2021 10:28 AM BODS DEVELOPER): EF 25% at time of diagnosis etiology likely multifactorial due to ischemic heart disease and also nonischemic component due to AFib. Significantly improved symptoms following cardioversion, stable NYHA 2 and his ejection fraction has improved to normal range on medical therapy and revascularization - continue metoprolol XL 25, Entresto 24-26 b.i.d. and spironolactone 25 Assessment & Plan (11/09/2021 2:00 PM BODS DEVELOPER): EF 25% at time of diagnosis etiology [...] metoprolol Assessment & Plan (10/18/2021 3:32 PM BODS DEVELOPER): EF 25%, euvolemic on exam but persistent [...] implant Assessment & Plan (09/14/2021 1:52 PM BODS DEVELOPER): EF 25%, has underlying Coronary artery disease [...] determine ICD Coronary artery disease invo lving twenty-nine palms coronary artery of twenty-nine palms heart without angina pectoris 08/24/2021 Assessment & Plan (04/29/2024 9:39 AM CDT): Status post PCI of LAD. Remains free of angina. LDL at goal - continue Eliquis, aspirin 81 - continue lipitor 20 daily Assessment & Plan (10/30/2023 11:02 AM BODS DEVELOPER): Reassuring recent catheterization with nonobstructive CAD and [...] Eliquis. Assessment & Plan (10/25/2022 9:10 AM BODS DEVELOPER): Status post PCI of LAD. Remains free [...] Lipitor Assessment & Plan (12/14/2021 10:27 AM BODS DEVELOPER): Status post PCI of LAD. IFR negative circumflex. Fully revascularized, continue secondary prevention. Remains free of angina - continue Eliquis, Plavix and Lipitor Assessment & Plan (10/18/2021 3:33 PM BODS DEVELOPER): Status post PCI of LAD. IFR negative circumflex. Fully revascularized continue secondary prevention - continue Eliquis, Plavix and Lipitor Assessment & Plan (09/14/2021 1:50 PM BODS DEVELOPER): Status post PCI of LAD. IFR negative circumflex. Fully revascularized continue secondary prevention - stop aspirin - continue Eliquis and Plavix and Lipitor Ventricular tachycardia 08/24/2021 Assessment & Plan (10/30/2023 11:00 AM BODS DEVELOPER): [facility], Dr. Olvera. Continue beta-jitendra. Assessment & Plan (05/29/2022 2:27 PM CDT): Resolved. Initially occurring during ACS. No recurrence, feeling well. --Continue metoprolol. Assessment & Plan (11/29/2021 11:17 AM BODS DEVELOPER): SMVT, occurring in context of severe proximal [...] palpitations Assessment & Plan (11/09/2021 1:59 PM BODS DEVELOPER): Continue life vest, no recent device therapies. Follow-up with Dr. Olvera for mid November after his repeat echo Assessment & Plan (10/18/2021 3:33 PM BODS DEVELOPER): No recent shocks. 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 Currently on LifeVest. Seen by Dr. Olvera. Plan to reassess ICD need after 3 months of therapy and repeat echo Sinus node dysfunction 08/24/2021 Assessment & Plan (10/30/2023 11:01 AM BODS DEVELOPER): Followed by EP as mentioned above. Assessment & Plan (10/02/2022 9:02 AM BODS DEVELOPER): Mild, asymptomatic. No current indication for pacing. Assessment & Plan (05/29/2022 2:28 PM CDT): Significant resting sinus bradycardia. Rate 45 bpm currently on low dose metoprolol. Unable to tolerate antiarrhythmic drugs or higher dose metoprolol. Pacing might be required in future for adequate medical therapy for HF/CAD. --AF ablation as above. --Avoiding pacing for now. Assessment & Plan (11/29/2021 11:18 AM BODS DEVELOPER): With symptomatic sinus bradycardia on amiodarone and [...] year Assessment & Plan (11/11/2021 9:07 AM BODS DEVELOPER): Reviewed patient recent thyroid ultrasound report and [...] of V-tach on LifeVest Patient following with underwriting director and trolley car overhauler, he is due for cardiac procedure next month. Advised patient to discuss with his underwriting director and trolley car overhauler before holding Eliquis. Advised patient to call me back once he gets cleared by his underwriting director. Will schedule thyroid nodule biopsy Accordingly Further [...] BID Assessment & Plan (10/30/2023 11:01 AM BODS DEVELOPER): Heart rates are controlled on oral beta-jitendra, [...] carvedilol. Assessment & Plan (10/25/2022 10:02 AM BODS DEVELOPER): In sinus today, no recurrence since ablation. Continue metoprolol XL 25 and Eliquis Assessment & Plan (10/02/2022 9:02 AM BODS DEVELOPER): Doing very well, maintaining sinus rhythm after AF ablation. --Continue apixaban 5 mg BID --Continue metoprolol XL 25 mg daily Assessment & Plan (08/14/2022 10:00 AM CDT): S/p AF ablation with partial PVI and CTI ablation. Doing very well, maintaining sinus rhythm without any AF recurrence. [id number] = 6+. Indefinite anticoagulation recommended. --Continue apixaban [...] Eliquis Assessment & Plan (12/14/2021 10:27 AM BODS DEVELOPER): Status post cardioversion remains in sinus rhythm today - continue metoprolol 25 and Eliquis Assessment & Plan (11/29/2021 11:20 AM BODS DEVELOPER): Highly symptomatic. Pt reports profound improvement in symptoms/QOL after cardioversion. Maintaining sinus rhythm without recurrence. Will manage expectantly for now. Strong indication for rhythm control if AF returns, given severe symptoms. [id number] = 4. Recommend indefinite anticoagulation. --Continue metoprolol XL 25 mg daily --Continue apixaban 5 mg BID Assessment & Plan (11/09/2021 1:59 PM BODS DEVELOPER): Status post cardioversion remains in sinus rhythm today - continue metoprolol 25 and Eliquis Assessment & Plan (10/18/2021 3:32 PM BODS DEVELOPER): Status post cardioversion and remains in sinus rhythm today - continue Eliquis - reduce metoprolol as stated Assessment & Plan (09/14/2021 1:51 PM BODS DEVELOPER): Persistent AFib. Remains in AFib now and his rate control however remains symptomatic and with low EF therefore recommend rhythm control strategy. - schedule CHACORTA cardioversion - continue Eliquis - drop amiodarone to 200 mg daily maintenance History of non-ST elevation myocardial infarctio n (NSTEMI) 08/22/2021 Overview (08/25/2021): Added automatically from request for surgery [id number] Parkinson's disease without dyskinesia, unspecified whether manifestations [...] 01/2008 Assessment & Plan (10/30/2023 11:02 AM BODS DEVELOPER): Blood pressure was initially elevated, when rechecked [...] the decreased dose of Coreg per his Latin Professor. Assessment & Plan (01/30/2023 10:29 AM CDT): [...] week. Assessment & Plan (11/09/2021 1:59 PM BODS DEVELOPER): Well controlled, continue current meds Resolved Problems Problem Noted Date Diagnosed Date Resolved Date Administrative encounter 05/26/202406/2024 Assessment & Plan (05/26/2024 10:05 AM CDT): A(n) yearly Essence Enhanced Encounter has been performed today. Berna Monteiro is the up to date on [...] (05/29/2022): Added automatically from request for surgery [id number] Stage 3b chronic kidney disease 05/18/2022 07/26/2023 Overview (07/26/2023): Per Dr Ferraro 04-12-23 this is resolved Atrial fibrillation with rap id ventricular response 05/12/2022 05/18/2022 Hyperkalemia 05/09/2022 09/26/2024 Acute kidney injury 05/09/2022 05/18/20 22 Contusion of rib on left side 11/02/2021 07/12/2022 Hypoglycemia 10/18/2021 12/15/2021 Assessment & Plan (10/18/2021 3:34 PM BODS DEVELOPER): He was interestingly noted to have a [...] 09/26/2024 Assessment & Plan (11/09/2021 2:00 PM BODS DEVELOPER): This problem has improved since decreasing his metoprolol Assessment & Plan (10/18/2021 3:33 PM BODS DEVELOPER): He has symptomatic sinus bradycardia on metoprolol [...] alcohol) Stopped alcohol consumption 2 years ago [facility] [employer] Answer Date Recorded In the past 12 months has [employer], [employer], or water [employer] threatened to shut off services in your [...] How often do you attend chur or sikhism services? Never 03/17/2025 Do you belong to any clubs o r organizations such as mandaeism groups, unions, fraternal or athletic groups, or [...] place to sleep or slept in a group home (including now)? No 06/19/2023 Housing Stability Vital Sign Answer Asael e Recorded In the last 12 months, was t here a time when you were not able to pay the mortgage or rent on time? No 03/17/2025 In the past 12 months, how m any times have you moved where you were living? 0 03/17/2025 At any time in the past 12 m [facility], were you homeless or living in a group home (including now)? No 03/17/2025 Personal Safety Answer Date Recorded Have you ever been in or are you currently in a harmful physical or emotional relationship or is someone making you feel afraid or unsafe? Denies 03/15/2025 Sex and Gender Information Value Date Recorded Sex Assigned at Not on file Legal Sex Male 7:05 PM BODS DEVELOPER Gender Identity Male 09/18/2021 7:10 AM BODS DEVELOPER Sexual Orientation Straight 09/18/2021 7: 10 AM BODS DEVELOPER Last Filed Vital Signs Vital Sign Reading [...] 04/10/2025 9:02 AM CDT Plan of Treatment Not on file Medical Devices Implanted Type Area Pulmonologist Intensivist Device Identifier Shelf Expiration Date Model / Serial / Lot [employer] Vascade Mvp 6-12fr Venous Closure [id number] - [id number] - [id number] Implanted:Qty : 1 on 07/05/2022 by Viet Olvera III, MD at [facility] Collagen [employer] 04/05/2024 800-612C- 10U / [id number] [id number] / [id number] 30B [employer] Vascade Mvp 6-12fr Venous Closure [id number] - [id number] - [id number] Implanted:Qty : 1 on 07/05/2022 by Viet Olvera III, MD at [facility] Collagen [employer] 04/05/2024 800-612C- 10U / [id number] 30B / [id number] 30B [employer] Inc Device Closure Vascade Od5 Fr Femoral Artery [id number] - [id number] - [id number] Implanted:Qty : 1 on 07/05/2022 by Viet Olvera III, MD at [facility] Collagen [employer] 11/29/2023 700-500DX -05U / [id number] / [id number] [employer] Vascade Mvp 6-12fr Venous Closure [id number] - [id number] - [id number] Implanted:Qty : 1 on 07/05/2022 by Viet Olvera III, MD at [facility] Collagen [employer] 03/30/2024 800-612C- 10U / [id number] 28A / [id number] 28A Medtronic Inc Capsurefix Novus 6.2fr 2mm 58cm Bipolar Screw In Implantable 5076-58 - [id number] - [id number] Implanted:Qty : 1 on 01/22/2023 by Viet Olvera III, MD at [facility] Lead Medtronic Inc [id number] 09/19/2024 5076-58 / [id number] / Medtronic Inc Capsurefix Novus 6.2fr 2mm 52cm Bipolar Screw In Implantable Latex Free 5076-52 - [id number] - [id number] Implanted:Qty : 1 on 01/22/2023 by Viet Olvera III, MD at [facility] Lead Medtronic Inc [id number] 12/01/2024 5076-52 / [id number] / [employer] Inc/C R Bard Mesh Surg 3dmax [id number] Left Mid Large Inguinal Hernia [id number] - [id number] Implanted:Qty : 1 on 12/22/2022 by Valdez Leyva MD at [facility] Mesh Left: Inguinal [employer] Inc/C R Bard [id number] 04/11/2027 [id number] / / [id number] Other - See Comments Other - see comments Forehead Description:Internal stitche s from [facility] 11/2022 Medtronic Inc [place] S Mri Surescan 50.8x46.6mm 2 Chamber 7.4mm Pacemaker 22.5gm [id number] - [id number] - [id number] Implanted:Qty : 1 on 01/22/2023 by Viet Olvera III, MD at [facility] Pacemaker Medtronic Inc 05/28/2024 [id number] / [id number] / [employer] [id number] Synergy Xd Monorail 4mm 24mm 144cm Delivery System 1 Access Port - [id number] - [id number] Implanted:Qty : 1 on 08/25/2021 by Roverto Velazquez MD at [facility] Stent [employer] 12/13/2022 [id number] / [id number] / [id number] Description:pLAD Moody Vascular Device Clsr Perclose Prostyle Sut-Mediatd Closure-Repai r Sys 01548-63 - S0 - [id number] Implanted:Qty : 1 on 08/22/2023 by Roverto Velazquez MD at [facility] Vascular Closure Device Right: Femoral [employer] 05/14/2025 78392-59 / 0 / [id number] [employer] Angio-Seal Vip 6fr Closere Device [id number] - [id number] Implanted:Qty : 1 on 06/11/2023 at [facility] [employer] Mari 11/14/2023 [id number] / / [id number] Explanted Type Area Pulmonologist Intensivist Device Identifier Shelf Expiration Date Model / Serial / Lot [employer] Inc Tendril Sts 6fr 52cm Is-1 Connector Active Fixation Bipolar Soft 52 - [id number] - [id number] Implanted:Qty : 1 on 07/05/2022 by Viet Olvera III, MD at [facility] Explanted:Qty : 1 on 07/06/[address] [employer] Inc [id number] 04/13/2025/52 / [id number] / [employer] Assurity Mri [id number] 1 Chamber Is-1 Connector Thk6mm Pacemaker [id number] - [id number] - [id number] Implanted:Qty : 1 on 07/05/2022 by Viet Olvera III, MD at [facility] Pacemaker [facility] [employer] [id number] 03/14/2023 [id number] / [id number] / Procedures Procedure Name Priority Date/Time Associated [...] Electronically signed by Mynor Morrissey M.D. CH: NESTOR Report ID: [id number] Reading Location: [place] [address] Procedure Note Mynor Morrissey Jr., MD - [...] Electronically signed by Mynor Morrissey M.D. CH: NESTOR Report ID: [id number] Reading Location: [id number] us Jenise Saini COMMERCIAL PRODUCTION EDITOR IMG PET PROCEDURES Final Result * POCT glucose (04/22/2025 10:22 AM CDT) Glucose, POC 105 70 - 199 mg/dL Comment:Testing performed by : [facility], [address] [place] [address]., [id number] Blood 04/22/2025 10:2 2 AM CDT 04/22/2025 10:22 AM CDT Ignacio Henry DO LAB POCT ORDERABLES - VINCE CE Final Result [facility] [address] [facility] [place] [address] * US Thyroid - Clinic [...] only and have not been reviewed by [facility] Radiology. There will be no report generated by a [facility] Radiologist. Narrative RAD_PACS_BJ - 04/09/2025 5:30 PM CDT EXAMINATION: Images [...] report of this study generated by a [facility] Radiologist. Electronically signed by: Yadiel Petersen M.D. [...] report of this study generated by a [facility] Radiologist. Electronically signed by: Yadiel Petersen M.D. [...] images may or may not represent the twenty-nine palms source data set and thus may contain changes that may lower the accuracy of this second-opinion interpretation. Electronically signed by: Yadiel Petersen M.D. Narrative 04/10/2025 6:58 PM CDT EXAMINATION: RADIOLOGY CONSULTATION ON OUTSIDE IMAGING STUDY STUDY INITIALLY PERFORMED: 03/14/2025 at [facility]. TYPE OF STUDY: Multiple CT images of [...] IMAGING STUDY STUDY INITIALLY PERFORMED: 03/14/2025 at [facility]. TYPE OF STUDY: Multiple CT images of [...] images may or may not represent the twenty-nine palms source data set and thus may contain changes that may lower the accuracy of this second-opinion interpretation. Electronically signed by: Yadiel Petersne M.D. Ej Ni MD IMG CT PROCEDURES [...] to ABBEY Episodes last 90 days/Comments: AF [place] 0 %, longest duration 0. NORMAL DEVICE FUNCTION PROGRAMMED MEDICATIONS: Anti-coagulant(s): Eliquis 5 mg twice daily, aspirin 81 mg daily Anti-arrhythmic(s): Coreg 12.5 mg twice daily PLAN: 1) Medtronic Pacemaker evaluation 2) Medtronic remote transmission scheduled in 3 months. 3) Programming appropriate for device measurements Eleuterio Hernandes, RN us Viet Olvera III, MD [facility] [...] Julio Camp M.D. us Edwardo Garrett MD IMG MRI PROCEDURES Final Resul t * XR [...] infiltrate. Electronically signed by: Tarah Wilkins M.D. us Edwardo Garrett MD IMG XR PROCEDURES Final [...] MD LAB BLOOD ORDERABLES Final Re sult [facility] [address] Department [place] [address] * Differential, auto (03/17/2025 3:02 AM CDT) Neutrophil abs 3.05 1.50 - 6.50 K/cumm Imm gran abs 0.01 0.00 - 0.10 K/cumm [facility] Lymphocyte abs 0.96 0.80 - 3.30 K/cumm [facility] Monocyte abs 0.63 0.20 - 0.80 K/cumm [facility] Eosinophil abs 0.29 0.00 - 0.50 K/cumm [facility] Basophil abs 0.03 0.00 - 0.10 K/cumm [facility] Neutrophil pct 61.4 % [facility] Comment: Interpretive Data Percent cell count reference ranges are not reported, since discordance with absolute values may lead to misinterpretation of CBC data. Current Interpretive Data was last revised on 2018. Imm gran pct 0.2 % [facility] Comment: Interpretive Data Percent cell count reference ranges are not reported, since discordance with absolute values may lead to misinterpretation of CBC data. Current Interpretive Data was last revised on 2018. Lymphocyte pct 19.3 % [facility] Comment: Interpretive Data Percent cell count reference ranges are not reported, since discordance with absolute values may lead to misinterpretation of CBC data. Current Interpretive Data was last revised on 2018. Monocyte pct 12.7 % [facility] Comment: Interpretive Data Percent cell count reference ranges are not reported, since discordance with absolute values may lead to misinterpretation of CBC data. Current Interpretive Data was last revised on 2018. Eosinophil pct 5.8 % [facility] Comment: Interpretive Data Percent cell count reference ranges are not reported, since discordance with absolute values may lead to misinterpretation of CBC data. Current Interpretive Data was last revised on 2018. Basophil pct 0.6 % [facility] Comment: Interpretive Data Percent cell count reference ranges are not reported, since discordance with absolute values may lead to misinterpretation of CBC data. Current Interpretive Data was last revised on 2018. Blood 03/17/2025 3:02 AM CDT 03/17/2025 4:25 AM CDT us Shelton Lanier MD LAB BLOOD ORDERABLES Final Re sult [facility] [address] [place] [address] * (ABNORMAL) CBC with auto differential (03/17/2025 3:02 AM CDT) WBC 4.97 3.80 - 9.90 K/cumm Hgb 14.0 13.0 - 17.5 g/dL [facility] Hct 41.8 38.9 - 50.3 % [facility] Plt 106(L) 150 - 400 K/cumm [facility] MPV 11.0 9.1 - 12.3 fL [facility] RBC 4.50 4.30 - 5.80 M/cumm [facility] MCV 92.9 81.3 - 96.4 fL [facility] MCH 31.1 27.1 - 33.3 pg [facility] MCHC 33.5 32.3 - 35.7 g/dL [facility] RDW CV 13.0 11.1 - 14.9 % [facility] RDW SD 44.3 35.7 - 48.1 fL [facility] NRBC abs 0.00 0.00 - 0.01 K/cumm [facility] Blood 03/17/2025 3:02 AM CDT 03/17/2025 4:25 AM CDT Shelton Lanier MD LAB BLOOD ORDERABLES Final Re sult [facility] [address] [place] [address] * (ABNORMAL) Vitamin B12 (03/17/2025 3:02 AM CDT) Pathologist [facility] Vitamin B12 1,765(H) 230 - 1,250 pg/mL Blood 03/17/2025 3:02 AM CDT 03/17/2025 4:25 AM CDT Edwardo Garrett MD LAB BLOOD ORDERABLES Final Res ult [facility] [address] Department [place] [address] * Renal function panel (03/17/2025 3:02 AM CDT) Pathologist [facility] Sodium 140 135 - 145 mmol/L Potassium, pl 4.2 3.3 - 4.9 mmol/L [facility] Chloride 105 97 - 110 mmol/L [facility] CO2 23 22 - 32 mmol/L [facility] Anion gap 12 2 - 15 mmol/L [facility] BUN 22 6 - 25 mg/dL [facility] Creatinine 1.04 0.80 - 1.30 mg/dL [facility] Glucose 86 70 - 199 mg/dL [facility] Comment: Interpretive Data Fasting glucose [...] 2022. Calcium 8.5 8.5 - 10.3 mg/dL [facility] Phosphorus, pl 3.1 2.3 - 4.5 mg/dL [facility] Albumin 3.5 3.5 - 5.0 g/dL [facility] Blood 03/17/2025 3:02 AM CDT 03/17/2025 4:25 AM CDT Shelton Lanier MD LAB BLOOD ORDERABLES Final Re sult [facility] [address] Department [place] [address] * EEG (03/16/2025 1:55 PM CDT) Anatomical Region Laterality Modality EEG Narrative 03/18/2025 12:05 PM CDT Routine EEG Report Patient Name: Berna Monteiro [facility] Record Number (MRN): [id number] [facility] Record: [id number] Date of (): 1950 EEG Date: 03/14/2025 Ordering Provider: Edwardo Garrett MD CC: Ignacio Henry Start Time: 03/16/2025 1:48:55 PM End Time: 03/16/2025 2:11:01 PM Introduction: Mr. Monteiro is a 74 y.o. male with a history of HFrEF, Afib, CAD, who presented with seizure versus syncope. EEG was performed to evaluate for seizures. This is a 32 channel EEG recording acquired on a GoGoPin EEG-1200 acquisition system. Scalp electrodes were placed [...] MD LAB BLOOD ORDERABLES Final Re sult [facility] [address] Department [place] [address] * Differential, auto (03/16/2025 5:40 AM CDT) Neutrophil abs 3.51 1.50 - 6.50 K/cumm Imm gran abs 0.02 0.00 - 0.10 K/cumm [facility] Lymphocyte abs 0.89 0.80 - 3.30 K/cumm [facility] Monocyte abs 0.55 0.20 - 0.80 K/cumm [facility] Eosinophil abs 0.27 0.00 - 0.50 K/cumm [facility] Basophil abs 0.04 0.00 - 0.10 K/cumm [facility] Neutrophil pct 66.4 % [facility] Comment: Interpretive Data Percent cell count reference ranges are not reported, since discordance with absolute values may lead to misinterpretation of CBC data. Current Interpretive Data was last revised on 2018. Imm gran pct 0.4 % [facility] Comment: Interpretive Data Percent cell count reference ranges are not reported, since discordance with absolute values may lead to misinterpretation of CBC data. Current Interpretive Data was last revised on 2018. Lymphocyte pct 16.9 % [facility] Comment: Interpretive Data Percent cell count reference ranges are not reported, since discordance with absolute values may lead to misinterpretation of CBC data. Current Interpretive Data was last revised on 2018. Monocyte pct 10.4 % [facility] Comment: Interpretive Data Percent cell count reference ranges are not reported, since discordance with absolute values may lead to misinterpretation of CBC data. Current Interpretive Data was last revised on 2018. Eosinophil pct 5.1 % [facility] Comment: Interpretive Data Percent cell count reference ranges are not reported, since discordance with absolute values may lead to misinterpretation of CBC data. Current Interpretive Data was last revised on 2018. Basophil pct 0.8 % [facility] Comment: Interpretive Data Percent cell count reference ranges are not reported, since discordance with absolute values may lead to misinterpretation of CBC data. Current Interpretive Data was last revised on 2018. Blood 03/16/2025 5:40 AM CDT 03/16/2025 6:51 AM CDT us Shelton Lanier MD LAB BLOOD ORDERABLES Final Re sult [facility] [address] Department [place] [address] * (ABNORMAL) CBC with auto differential (03/16/2025 5:40 AM CDT) WBC 5.28 3.80 - 9.90 K/cumm Hgb 14.6 13.0 - 17.5 g/dL [facility] Hct 42.8 38.9 - 50.3 % [facility] Plt 105(L) 150 - 400 K/cumm [facility] MPV 11.0 9.1 - 12.3 fL [facility] RBC 4.62 4.30 - 5.80 M/cumm [facility] MCV 92.6 81.3 - 96.4 fL [facility] MCH 31.6 27.1 - 33.3 pg [facility] MCHC 34.1 32.3 - 35.7 g/dL [facility] RDW CV 13.0 11.1 - 14.9 % [facility] RDW SD 43.9 35.7 - 48.1 fL [facility] NRBC abs 0.00 0.00 - 0.01 K/cumm [facility] Blood 03/16/2025 5:40 AM CDT 03/16/2025 6:51 AM CDT Shelton Lanier MD LAB BLOOD ORDERABLES Final Re sult Performing Organization Address City/[facility]/ZIP Co de Phone Number [facility] [address] Department [place] [address] * CRP (acute phase) (03/16/2025 5:40 AM CDT) [facility] CRP <3.0 <=10.0 mg/L Blood 03/16/2025 5:40 AM CDT 03/16/2025 6:50 AM CDT Edwardo Garrett MD LAB BLOOD ORDERABLES Final Res ult Performing Organization Address [facility] Co de Phone Number [facility] [address] Department [place] [address] * (ABNORMAL) Renal function panel (03/16/2025 5:40 AM CDT) [facility] Sodium 142 135 - 145 mmol/L Potassium, pl 4.6 3.3 - 4.9 mmol/L [facility] Chloride 107 97 - 110 mmol/L [facility] CO2 24 22 - 32 mmol/L [facility] Anion gap 11 2 - 15 mmol/L [facility] BUN 26(H) 6 - 25 mg/dL [facility] Creatinine 0.99 0.80 - 1.30 mg/dL [facility] Glucose 97 70 - 199 mg/dL [facility] Comment: Interpretive Data Fasting glucose [...] 2022. Calcium 8.8 8.5 - 10.3 mg/dL [facility] Phosphorus, pl 2.8 2.3 - 4.5 mg/dL [facility] Albumin 3.4(L) 3.5 - 5.0 g/dL [facility] Blood 03/16/2025 5:40 AM CDT 03/16/2025 6:50 AM CDT us Shelton Lanier MD LAB BLOOD ORDERABLES Final Re sult Performing Organization Address City/[facility]/ZIP Co de Phone Number [facility] [address] Department [employer] [place], [place] [id number] * Glycohemoglobin A1C - Add on lab test (03/15/2025 10:08 AM CDT) Acceptable Yes Blood 03/15/2025 10:0 8 AM CDT 03/15/2025 10:08 AM CDT Narrative [facility] - 03/15/2025 10:08 AM CDT Name of Test->Glycohemoglobin A1C us Edwardo Garrett MD LAB BLOOD ORDERABLES Final Res ult Performing Organization Address City/[facility]/ZIP Co de Phone Number [facility] [address] [facility] [place], [place] [id number] * eGFR (03/15/2025 4:14 AM CDT) eGFR [...] MD LAB BLOOD ORDERABLES Final Re sult [facility] [address] Department [place] [address] * Differential, auto (03/15/2025 4:14 AM CDT) Neutrophil abs 3.01 1.50 - 6.50 K/cumm Imm gran abs 0.01 0.00 - 0.10 K/cumm [facility] Lymphocyte abs 0.89 0.80 - 3.30 K/cumm [facility] Monocyte abs 0.44 0.20 - 0.80 K/cumm [facility] Eosinophil abs 0.26 0.00 - 0.50 K/cumm [facility] Basophil abs 0.03 0.00 - 0.10 K/cumm [facility] Neutrophil pct 64.9 % [facility] Comment: Interpretive Data Percent cell count reference ranges are not reported, since discordance with absolute values may lead to misinterpretation of CBC data. Current Interpretive Data was last revised on 2018. Imm gran pct 0.2 % [facility] Comment: Interpretive Data Percent cell count reference ranges are not reported, since discordance with absolute values may lead to misinterpretation of CBC data. Current Interpretive Data was last revised on 2018. Lymphocyte pct 19.2 % [facility] Comment: Interpretive Data Percent cell count reference ranges are not reported, since discordance with absolute values may lead to misinterpretation of CBC data. Current Interpretive Data was last revised on 2018. Monocyte pct 9.5 % [facility] Comment: Interpretive Data Percent cell count reference ranges are not reported, since discordance with absolute values may lead to misinterpretation of CBC data. Current Interpretive Data was last revised on 2018. Eosinophil pct 5.6 % [facility] Comment: Interpretive Data Percent cell count reference ranges are not reported, since discordance with absolute values may lead to misinterpretation of CBC data. Current Interpretive Data was last revised on 2018. Basophil pct 0.6 % [facility] Comment: Interpretive Data Percent cell count reference ranges are not reported, since discordance with absolute values may lead to misinterpretation of CBC data. Current Interpretive Data was last revised on 2018. Blood 03/15/2025 4:14 AM CDT 03/15/2025 5:16 AM CDT us Cintia Rocha MD LAB BLOOD ORDERABLES Final R esult [facility] [address] [place] [address] * (ABNORMAL) CBC with auto differential (03/15/2025 4:14 AM CDT) WBC 4.64 3.80 - 9.90 K/cumm Hgb 14.2 13.0 - 17.5 g/dL [facility] Hct 42.7 38.9 - 50.3 % [facility] Plt 100(L) 150 - 400 K/cumm [facility] MPV 10.9 9.1 - 12.3 fL [facility] RBC 4.61 4.30 - 5.80 M/cumm [facility] MCV 92.6 81.3 - 96.4 fL [facility] MCH 30.8 27.1 - 33.3 pg [facility] MCHC 33.3 32.3 - 35.7 g/dL [facility] RDW CV 12.8 11.1 - 14.9 % [facility] RDW SD 43.7 35.7 - 48.1 fL [facility] NRBC abs 0.00 0.00 - 0.01 K/cumm [facility] Blood 03/15/2025 4:14 AM CDT 03/15/2025 5:16 AM CDT Cintia Rocha MD LAB BLOOD ORDERABLES Final R esult Performing Organization Address [facility] Co de Phone Number [facility] [address] Department [place] [address] * Erythrocyte sedimentation rate (03/15/2025 4:14 AM CDT) Erythrocyte sedimentation rate 2 1 - 20 mm/hr Blood 03/15/2025 4:14 AM CDT 03/15/2025 5:16 AM CDT Edwardo Garrett MD LAB BLOOD ORDERABLES Final Res ult Performing Organization Address [facility] de Phone Number [facility] [address] [facility] [place] [address] * Hemoglobin A1c (03/15/2025 4:14 AM CDT) Pathologist [facility] Hgb A1C 5.5 4.0 - 5.6 % Estimated Average Glucose 111 mg/dL [facility] Comment: The ADA recommends reporting an estimated Average Glucose (eAG) with all Hemoglobin A1c results using the equation derived from a study of 507 normal and diabetic adults. Minority populations were underrepresented and children were not included. (Diabetes Care 31:7383-0428, 2008). The eAG is not equivalent to a fasting glucose. Blood 03/15/2025 4:14 AM CDT 03/15/2025 5:16 AM CDT Edwardo Garrett MD LAB BLOOD ORDERABLES Final Res ult Performing Organization Address [facility] Co de Phone Number [facility] [address] [facility] [place] [address] * (ABNORMAL) Renal function panel (03/15/2025 4:14 AM CDT) Sodium 140 135 - 145 mmol/L Potassium, pl 4.0 3.3 - 4.9 mmol/L [facility] Chloride 107 97 - 110 mmol/L [facility] CO2 23 22 - 32 mmol/L [facility] Anion gap 10 2 - 15 mmol/L [facility] BUN 24 6 - 25 mg/dL [facility] Creatinine 0.83 0.80 - 1.30 mg/dL [facility] Glucose 84 70 - 199 mg/dL [facility] Comment: Interpretive Data Fasting glucose [...] 2022. Calcium 8.8 8.5 - 10.3 mg/dL [facility] Phosphorus, pl 2.8 2.3 - 4.5 mg/dL [facility] Albumin 3.4(L) 3.5 - 5.0 g/dL [facility] Blood 03/15/2025 4:14 AM CDT 03/15/2025 5:17 AM CDT us Shelton Lanier MD LAB BLOOD ORDERABLES Final Re sult [facility] [address] Department [place] [address] * eGFR (03/14/2025 10:44 PM CDT) eGFR >90 >=60 mL/min/1. 73 m2 [...] MD LAB BLOOD ORDERABLES Final R esult [facility] [address] [place] [address] * Differential, auto (03/14/2025 10:44 PM CDT) Neutrophil abs 3.18 1.50 - 6.50 K/cumm Imm gran abs 0.01 0.00 - 0.10 K/cumm [facility] Lymphocyte abs 0.89 0.80 - 3.30 K/cumm [facility] Monocyte abs 0.48 0.20 - 0.80 K/cumm [facility] Eosinophil abs 0.20 0.00 - 0.50 K/cumm [facility] Basophil abs 0.03 0.00 - 0.10 K/cumm [facility] Neutrophil pct 66.4 % [facility] Comment: Interpretive Data Percent cell count reference ranges are not reported, since discordance with absolute values may lead to misinterpretation of CBC data. Current Interpretive Data was last revised on 2018. Imm gran pct 0.2 % [facility] Comment: Interpretive Data Percent cell count reference ranges are not reported, since discordance with absolute values may lead to misinterpretation of CBC data. Current Interpretive Data was last revised on 2018. Lymphocyte pct 18.6 % [facility] Comment: Interpretive Data Percent cell count reference ranges are not reported, since discordance with absolute values may lead to misinterpretation of CBC data. Current Interpretive Data was last revised on 2018. Monocyte pct 10.0 % [facility] Comment: Interpretive Data Percent cell count reference ranges are not reported, since discordance with absolute values may lead to misinterpretation of CBC data. Current Interpretive Data was last revised on 2018. Eosinophil pct 4.2 % [facility] Comment: Interpretive Data Percent cell count reference ranges are not reported, since discordance with absolute values may lead to misinterpretation of CBC data. Current Interpretive Data was last revised on 2018. Basophil pct 0.6 % [facility] Comment: Interpretive Data Percent cell count reference ranges are not reported, since discordance with absolute values may lead to misinterpretation of CBC data. Current Interpretive Data was last revised on 2018. Blood 03/14/2025 10:4 4 PM CDT 03/14/2025 11:05 PM CDT Shelton Lanier MD LAB BLOOD ORDERABLES Final Re sult [facility] [address] [place] [address] * Pro B-type natriuretic peptide (03/14/2025 10:44 [...] et.al. Eur Heart J. 2006:27:330-337. 2. Suzy BECKETT, Bill NEWTON. J. AM Raul Cardiol: Cardiovasc Imag. 2009;2: 216- 225. Interpretive Data Last Revised Date: 2018. Blood 03/14/2025 10:4 4 PM CDT 03/14/2025 11:05 PM CDT Cintia Rocha MD LAB BLOOD ORDERABLES Final R esult Performing Organization Address City/[facility]/ZIP Co de Phone Number [facility] [address] [facility] [address] * Thyroid Function [place] (03/14/2025 10:44 PM CDT) Pathologist [facility] TSH 2.06 0.30 - 4.20 mcIUnit/mL Blood 03/14/2025 10:4 4 PM CDT 03/14/2025 11:05 PM CDT Cintia Rocha MD LAB BLOOD ORDERABLES Final R esult Performing Organization Address City/[facility]/ZIP Co de Phone Number [facility] [address] [place] [address] * (ABNORMAL) CBC with auto differential (03/14/2025 10:44 PM CDT) Pathologist [facility] WBC 4.79 3.80 - 9.90 K/cumm Hgb 14.0 13.0 - 17.5 g/dL [facility] Hct 40.8 38.9 - 50.3 % [facility] Plt 107(L) 150 - 400 K/cumm [facility] MPV 10.7 9.1 - 12.3 fL [facility] RBC 4.49 4.30 - 5.80 M/cumm [facility] MCV 90.9 81.3 - 96.4 fL [facility] MCH 31.2 27.1 - 33.3 pg [facility] MCHC 34.3 32.3 - 35.7 g/dL [facility] RDW CV 13.1 11.1 - 14.9 % [facility] RDW SD 43.1 35.7 - 48.1 fL [facility] NRBC abs 0.00 0.00 - 0.01 K/cumm [facility] Blood 03/14/2025 10:4 4 PM CDT 03/14/2025 11:05 PM CDT Shelton Lanier MD LAB BLOOD ORDERABLES Final Re sult Performing Organization Address [facility] Co de Phone Number [facility] [address] [place] [address] * (ABNORMAL) Protime-INR (03/14/2025 10:44 PM CDT) PT 15.9(H) 9.7 - 13.0 sec INR 1.46(H) 0.90 - 1.20 [facility] Comment: Interpretive data Oral anticoagulant [...] ORDERABLES Final R esult Performing Organization Address [facility]/ZIP Co de Phone Number [facility] [address] [place] [address] * (ABNORMAL) Comprehensive metabolic panel (03/14/2025 10:44 PM CDT) Sodium 138 135 - 145 mmol/L Potassium, pl 4.0 3.3 - 4.9 mmol/L [facility] Chloride 106 97 - 110 mmol/L [facility] CO2 21(L) 22 - 32 mmol/L [facility] Anion gap 11 2 - 15 mmol/L [facility] BUN 28(H) 6 - 25 mg/dL [facility] Creatinine 0.79(L) 0.80 - 1.30 mg/dL [facility] Glucose 91 70 - 199 mg/dL [facility] Comment: Interpretive Data Fasting glucose [...] 2022. Calcium 8.5 8.5 - 10.3 mg/dL [facility] Bilirubin, total 0.9 0.1 - 1.2 mg/dL [facility] Protein, pl 5.6(L) 6.5 - 8.5 g/dL [facility] Albumin 3.4(L) 3.5 - 5.0 g/dL [facility] Alk phos 64 40 - 130 Units/L [facility] ALT 22 7 - 55 Units/L [facility] AST 16 10 - 50 Units/L [facility] Blood 03/14/2025 10:4 4 PM CDT 03/14/2025 11:05 PM CDT us Cintia Rocha MD LAB BLOOD ORDERABLES Final R esult [facility] [address] [place] [address] * ECG 12 lead (03/14/2025 10:27 PM CDT) 03/14/2025 10:2 7 PM CDT Narrative [facility] - 03/15/2025 10:28 AM CDT Vent Rate: 73 bpm RR Interval: 818 msec UT Interval: 194 msec QRS Duration: 168 msec QT Interval: 462 msec QTC Interval: 488 msec P-R-T [place]: -84 - 62 - 265 degrees IMPRESSION: ELECTRONIC ATRIAL PACEMAKER ELECTRONIC VENTRICULAR PACEMAKER ABNORMAL RHYTHM ECG Electronically Signed By: Roverto Velazquez [facility] Card us Cintia Rocha MD ECG ORDERABLES Final Result [facility] * TRANSTHORACIC ECHO (TTE) COMPLETE W DOPPLER/CF W CONTRAST (03/13/2025 11:21 AM CDT) Estimated EF 35-45 % CONS SCIMAGE Anatomical Region Laterality Modality Ultrasound 03/13/2025 10:1 9 AM CDT Narrative 03/16/2025 9:54 PM CDT ECHOCARDIOGRAM Patient Name: BERNA MONTEIRO E : 1950 Study Date: 03/13/2025 10:19:36 AM Gender: M Tech: [facility] Ref Provider: LAISHA JORDAN Height(Cm): 180 BSA: 2.15 Weight(Kg): 92.1 BP: 115 / 85 Order Provider: LAISHA JORDAN PROCEDURES: Echocardiographic Report: Transthoracic Echocardiogram with [...] valve regurgitation. Electronically Signed By: Roverto Velazquez [facility] Card 03/16/2025 9:53:30 PM CDT Procedure Note Roverto Velazquez MD - 03/16/2025 ECHOCARDIOGRAM Patient Name: BERNA MONTEIRO E : 1950 Study Date: 03/13/2025 10:19:36 AM Gender: M Tech: [facility] Ref Provider: LAISHA JORDAN Height(Cm): 180 BSA: 2.15 Weight(Kg): 92.1 BP: 115 / 85 Order Provider: LAISHA JORDAN PROCEDURES: Echocardiographic Report: Transthoracic Echocardiogram with [...] 5.00 ] CAL VTI 2.2cm2 LVOT Peak Osren 0.98 m/s [ 0.70 - 1.10 ] [...] valve regurgitation. Electronically Signed By: Roverto Velazquez [facility] Card 03/16/2025 9:53:30 PM CDT Laisha Jordan NP CV ECHO PROCEDURES Final Resu lt * Potassium level, serum (03/13/2025 10:11 AM CDT) Potassium, sr 4.3 3.6 - 5.2 mmol/L Blood 03/13/2025 10:1 1 AM CDT 03/13/2025 11:10 AM CDT Laisha Jordan NP LAB BLOOD ORDERABLES Final Re sult [facility] [address] [place] [address] * eGFR (03/04/2025 12:16 PM [...] PM CDT 03/04/2025 12:53 PM CDT us Laisha Jordan [employer] LAB BLOOD ORDERABLES Final Re sult [facility] [address] [place] [address] * (ABNORMAL) Differential, auto (03/04/2025 12:16 PM CDT) Neutrophil abs 2.97 1.50 - 6.50 K/cumm Imm gran abs 0.01 0.00 - 0.10 K/cumm [facility] Lymphocyte abs 0.77(L) 0.80 - 3.30 K/cumm [facility] Monocyte abs 0.50 0.20 - 0.80 K/cumm [facility] Eosinophil abs 0.24 0.00 - 0.50 K/cumm [facility] Basophil abs 0.04 0.00 - 0.10 K/cumm [facility] Neutrophil pct 65.6 % [facility] Comment: Interpretive Data Percent cell count reference ranges are not reported, since discordance with absolute values may lead to misinterpretation of CBC data. Current Interpretive Data was last revised on 2018. Imm gran pct 0.2 % [facility] Comment: Interpretive Data Percent cell count reference ranges are not reported, since discordance with absolute values may lead to misinterpretation of CBC data. Current Interpretive Data was last revised on 2018. Lymphocyte pct 17.0 % [facility] Comment: Interpretive Data Percent cell count reference ranges are not reported, since discordance with absolute values may lead to misinterpretation of CBC data. Current Interpretive Data was last revised on 2018. Monocyte pct 11.0 % [facility] Comment: Interpretive Data Percent cell count reference ranges are not reported, since discordance with absolute values may lead to misinterpretation of CBC data. Current Interpretive Data was last revised on 2018. Eosinophil pct 5.3 % [facility] Comment: Interpretive Data Percent cell count reference ranges are not reported, since discordance with absolute values may lead to misinterpretation of CBC data. Current Interpretive Data was last revised on 2018. Basophil pct 0.9 % [facility] Comment: Interpretive Data Percent cell count reference ranges are not reported, since discordance with absolute values may lead to misinterpretation of CBC data. Current Interpretive Data was last revised on 2018. Blood 03/04/2025 12:1 6 PM CDT 03/04/2025 12:53 PM CDT us Laisha Jordan NP LAB BLOOD ORDERABLES Final Re sult [facility] [address] Department [place] [address] * Pro B-type natriuretic peptide (03/04/2025 12:16 [...] et.al. Eur Heart J. 2006:27:330-337. 2. Suzy BECKETT, Bill NEWTON. J. AM Raul Cardiol: Cardiovasc Imag. 2009;2: 216- 225. Interpretive Data Last Revised Date: 2018. Blood 03/04/2025 12:1 6 PM CDT 03/04/2025 12:53 PM CDT Laisha Jordan NP LAB BLOOD ORDERABLES Final Re sult [facility] [address] [place] [address] * (ABNORMAL) CBC with auto differential (03/04/2025 12:16 PM CDT) WBC 4.53 3.80 - 9.90 K/cumm Hgb 14.8 13.0 - 17.5 g/dL [facility] Hct 44.4 38.9 - 50.3 % [facility] Plt 113(L) 150 - 400 K/cumm [facility] MPV 11.0 9.1 - 12.3 fL [facility] RBC 4.74 4.30 - 5.80 M/cumm [facility] MCV 93.7 81.3 - 96.4 fL [facility] MCH 31.2 27.1 - 33.3 pg [facility] MCHC 33.3 32.3 - 35.7 g/dL [facility] RDW CV 13.4 11.1 - 14.9 % [facility] RDW SD 45.7 35.7 - 48.1 fL [facility] NRBC abs 0.00 0.00 - 0.01 K/cumm [facility] Blood 03/04/2025 12:1 6 PM CDT 03/04/2025 12:53 PM CDT Laisha SantanaNoah Jordan COMMERCIAL PRODUCTION EDITOR LAB BLOOD ORDERABLES Final Re sult Performing Organization Address City/[facility]/ZIP Co de Phone Number [facility] [address] [facility] [place] [place] [address] * Magnesium (03/04/2025 12:16 PM CDT) [facility] Magnesium 2.3 1.4 - 2.5 mg/dL Blood 03/04/2025 12:1 6 PM CDT 03/04/2025 12:53 PM CDT Laisha Pinoncecilia COMMERCIAL PRODUCTION EDITOR LAB BLOOD ORDERABLES Final Re sult Performing Organization Address [facility] Co de Phone Number [facility] [address] [place] [address] * (ABNORMAL) Basic metabolic panel (03/04/2025 12:16 PM CDT) [facility] Sodium 140 135 - 145 mmol/L Potassium, pl 5.1(H) 3.3 - 4.9 mmol/L [facility] Chloride 106 97 - 110 mmol/L [facility] CO2 25 22 - 32 mmol/L [facility] Anion gap 9 2 - 15 mmol/L [facility] BUN 19 6 - 25 mg/dL [facility] Creatinine 0.96 0.80 - 1.30 mg/dL [facility] Glucose 91 70 - 199 mg/dL [facility] Comment: Interpretive Data Fasting glucose [...] 2022. Calcium 8.8 8.5 - 10.3 mg/dL [facility] Blood 03/04/2025 12:1 6 PM CDT 03/04/2025 12:53 PM CDT us Laisha Jordan NP LAB BLOOD ORDERABLES Final Re sult [facility] [address] [place] [address] * Lipid panel (04/29/2024 1:18 PM CDT) [...] revised on 2018. Triglycerides 71 <=149 mg/dL [facility] Comment: Interpretive Data Ages < or = [...] on 2018. HDL 46 >=40 mg/dL [facility] Comment: Interpretive Data Ages < or = [...] on 2018. LDL, calculated 42 <=129 mg/dL [facility] Comment: Interpretive Data Ages < or = [...] revised on 2018. Non-HDL Cholesterol 56 mg/dL [facility] Comment: Interpretive Data Ages < or = [...] last revised on 2018. Chol/HDL ratio 2 [facility] Blood 04/29/2024 1:18 PM CDT 04/29/2024 2:04 PM CDT us Gonzalo Helm MD LAB BLOOD ORDERABLES Final Result [facility] [place] [address] * Hepatitis C antibody Blood (07/26/2023 8:13 [...] - GENERAL ORDER EMILIANA Final Result [facility] [address] [place] [address] * COLONOSCOPY (04/19/2023 11:42 AM CDT) Anatomical Region Laterality Modality Other Narrative Procedure Note David Wilkins, - 04/19/2023 11:42 AM CDT [facility] Patient Name: Berna Monteiro Procedure Date: 04/19/2023 11:42 AM Date of : 1950 Admit Type: Outpatient Age: 72 Gender: Male Attending MD: David Wilkins D.O. Room: [facility] ENDOSCOPY ROOM 05 Note Status: Finalized [...] On: 04/19/2023 11:42 AM Recognized by the [employer] for promoting quality in endoscopy us David Wilkins DO ENDOSCOPY PROCEDURES Fin al Result from Last 3 Months or Most Recently Relevant to Health Maintenance Insurance [facility] ADVANTAGE CHOICE PPO [employer] CHOICE PPO [employer] CHO[employer] PPO Advance Directives For more information, please contact: [phone] Documents on File Type Date Recorded Patient Strickler Attendant Expl anation Advance Directives and Livin g [...] 4:28 PM 08/28/2021 5:21 PM Care Teams Curing Press Operator Relationship Specialty [place] [address] [facility] [address] [place] [address] PCP - General Internal Medicine 12/09/24 Roverto Velazquez MD [address] [facility] [address] [place], [place] [id number] Consulting Physician Cardiovascular Disease 08/28/21 Viet Olvera III, MD [address] [facility] [address] [place] [address] Consulting Physician Cardiology 08/28/21 Miscellaneous, Not In File 05/10/22 Valdez Leyva MD [facility] [address] Consulting Physician General Surgery 12/22/22 Missy Jones NP [address] [place] [address] Nurse Practitioner Family Medicine 06/26/23 Obed Garcia MD [address] [facility] [address] [place] [address] Consulting Physician Urology 11/07/23 [place] [address] [facility] [facility] [address] [place] [address] Consulting Physician Endocrinology 11/07/23 Laisha Jordan NP [address] [facility] [address] [place] [address] Nurse Practitioner Cardiovascular Disease 03/17/25 Estrella Mcleod MD [address] [facility] [address] [place], [place] [id number] Consulting Physician Neurology 03/17/25
[2025-05-04 20:11] LABS: Prostate Specific Antigen 3.1 ng/mL (< OR = 4.0)
== END 2025-05-04 15:15 | disposition home or self-care (01) ==
LOC: ANHGOSHLAB 15:15
PROVIDERS: PCP Internal Medicine; Visit Provider Internal Medicine
DX: R97.20 Elevated prostate specific antigen [PSA] (principal); Z12.5 Encounter for screening for malignant neoplasm of prostate
CPT/HCPCS: 36415; 84153

== ENCOUNTER 2025-05-06 00:52 | Day surgery (SDC) | payer OTHER, SELFPAY ==
[2025-04-21 15:36] VITALS: BMI 28.5
--- NOTE | 2025-04-30 13:53 | PC.NURSE ---
Spoke with _patient_ regarding medication _ELIQUIS_. _PATIENT verbalizes understanding that the last dose is to be taken on _05/02/2025__ and the Endoscopist will instruct them when to restart after the procedure.
--- OUTSIDE RECORDS SUMMARY | 2025-05-06 00:55 | XMS_ITS | Encounter Summary ---
Author Organization Formerly [facility] Address [address] [place] [address] Care Team Providers Care Vending Mechanic Name Role Phone Roverto Velazquez MD Unavailable Wade PERSON MD, Viet Boo Unavailable [phone] Miscellaneous, Not In File Unavailable Unava ilable Valdez Leyva MD Unavailable [phone] Missy Jones NP Unavailable Obed Garcia MD Unavailable Etta Vivas MD Unavailable + [phone] Ignacio Henry DO Primary Care Provider + [phone] Delmy Garcia NP Unavailable [phone] Estrella Mcleod MD Unavailable [phone] Reason for Visit * Reason Onset Date Comments Test Results 03/13/2025 Encounter Details Date Type Department Care Team (Late st Contact Info) Description 03/13/2025 Results Follow-Up [facility] Cardiology [address] [facility] [address] [place] [address] Delmy Garcia NP [address] [facility] [address] [place] [address] Potassium level, serum Social History Tobacco Use Types Packs/Day Years Used Date Smoking Tobacco: Never Cigarettes Passive Smoke Exposure: Never Smokeless Tobacco: Never Alcohol Use Standard Drinks/Week Comments Not Asked 0 (1 standard drink = 0.6 oz pure alcohol) Stopped alcohol consumption 2 years ago [facility] [employer] Answer Date Recorded In the past 12 months has [employer], oil, or water [employer] threatened to shut off services in your [...] How often do you attend chur or roman catholic services? Never 03/17/2025 Do you belong to any clubs o r organizations such as anglican groups, unions, fraternal or athletic groups, or [...] place to sleep or slept in a skilled nursing (including now)? No 06/19/2023 Housing Stability Vital Sign Answer Asael e Recorded In the last 12 months, was t here a time when you were not able to pay the mortgage or rent on time? No 03/17/2025 In the past 12 months, how m any times have you moved where you were living? 0 03/17/2025 At any time in the past 12 m [facility], were you homeless or living in a skilled nursing (including now)? No 03/17/2025 Personal Safety Answer Date Recorded Have you ever been in or are you currently in a harmful physical or emotional relationship or is someone making you feel afraid or unsafe? 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 Gender Identity Male 09/18/2021 7:10 AM SWATCH CLERK Sexual Orientation Straight 09/18/2021 7: 10 AM SWATCH CLERK documented as of this encounter Miscellaneous Notes [...] on filedocumented in this encounter Care Teams Vending Mechanic Relationship Specialty [place] [address] [address] [facility] [address] [place] [address] PCP - General Internal Medicine 12/09/24 Roverto Velazquez MD [address] [facility] [address] [place] [address] Consulting Physician Cardiovascular Disease 08/28/21 Viet Olvera III, MD [address] [facility] [address] [place] [address] Consulting Physician Cardiology 08/28/21 Miscellaneous, Not In File 05/10/22 Valdez Leyva MD [address] [facility] [address] [place] [address] Consulting Physician General Surgery 12/22/22 Msisy Jones NP [address] [facility] [address] [place] [address] Nurse Practitioner Family Medicine 06/26/23 Obed Garcia MD [address] [facility] [address] [place] [address] Consulting Physician Urology 11/07/23 [place] [address] [place] [address] Consulting Physician Endocrinology 11/07/23 Delmy Garcia NP [address] [place] [address] Nurse Practitioner Cardiovascular Disease 03/17/25 Estrella Mcleod MD [address] [place] [address] Consulting Physician Neurology 03/17/25 documented as of this encounter
--- OUTSIDE RECORDS SUMMARY | 2025-05-06 00:55 | XMS_ITS | Clinical Summary ---
Author Organization [facility] [employer] Address [address] [place] [address] Care Team Providers Care Customer Engineering Specialist Name Role Phone WilkinsDavid dean Primary Care Provider [phone] Source Comments [facility] [employer],non-owned Affiliates and Associated Physician Practices is amultiple site organization consisting of ambulatory clinics and hospital sitesin [place], [place], [place] and [place]. This disclosure is being madepursuant to the Care Everywhere program and may not contain all information available regarding this patient. 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 Haylie Paz. These tests need not be, and therefore are not, approved by the [place] Food and Drug Administration. The tests are used for clinical purposes. Billing Codes Specimen Charges Stain Charges 00882 [id number] 1 1 5 1:08 PM CDT [facility]ER[facility]Y LAB[facility] Embedded Images 5 1:08 PM CDT DERMATOPATHOLOGY LABORATORY Pathology/Cytology TISSUE SPECIMEN FROM SKIN / Unknown 04/08/2025 10:07 AM CDT 04/10/2025 7:58 AM CDT Miscellaneous samples (specimen) TISSUE SPECIMEN FROM SKIN / Unknown 04/08/2025 10:07 AM CDT 04/10/2025 7:58 AM CDT Bhakti Munoz MD LAB - PATHOLOGY/CYTOLOGY ORD ERABLES Final Result DERMATOPATHOLOGY LABORATORY [facility] - Department of Dermatology [facility] Medicine [address] [place] [address], [address] [phone] from Last 3 Months Insurance [facility] MEDICARE [facility] MEDICARE [facility] MEDICARE ADV PPO Care Teams Customer Engineering Specialist Relationship Specialty Start Date End Date David Wilkins DO [address] [place] [phone] PCP - General 03/19/17
--- OUTSIDE RECORDS SUMMARY | 2025-05-06 00:55 | XMS_ITS | Clinical Summary ---
Author Organization [facility] [address] Address [address] [place] [address] Care Team Providers Care Reading Tutor Name Role Phone Roverto Velazquez MD Unavailable Wade PERSON MD, Viet Boo Unavailable [phone] Miscellaneous, Not In File Unavailable Unava ilable Valdez Leyva MD Unavailable Missy Jones NP Unavailable Obed Garcia MD Unavailable Etta Vivas MD Unavailable [phone] Ignacio Henry DO Primary Care Provider [phone] Delmy Jordan NP Unavailable [phone] Estrella Mcleod MD Unavailable [phone] Allergies Active Allergy Reactions Criticality Noted Date [...] 09/26/20 Assessment & Plan (09/26/2024 8:56 PM IRS AGENT): Viral infection. Hjpz-qwh-xcmiejke for symptoms Bilateral impacted cerumen 09/26/2024 Assessment & Plan (09/26/2024 8:56 PM IRS AGENT): Rinsed with warm water bilaterally until clear. Platelets decreased 11/07/2023 Chronic renal failure, stage 3a 11/07/2023 Encounter for Medicare annual wellness exam 10/16 Assessment & Plan (11/07/2023 9:34 AM IRS AGENT): A(n) yearly Medicare Annual Wellness Visit has [...] S/p dual chamber pacemaker, excellent function. 88% INCLUSION MANAGER in context of moderate LV dysfunction (LVEF 40%). No heart failure symptoms. Could consider device revision to FAUCET POLISHER-P system, but in absence of clinical HF would favor observation for now. --Continue remote device monitoring --Consider device revision to FAUCET POLISHER-P system in future if HF symptoms arise, LVEF declines or at time of generator replacement. Assessment & Plan (06/26/2023 9:43 AM CDT): S/p dual chamber pacemaker. Excellent device function. --Continue remote device f/u remotely Assessment & Plan (10/02/2022 9:03 AM IRS AGENT): Transient, perioperatively. No recurrence. No current indication [...] losartan Assessment & Plan (10/30/2023 11:03 AM IRS AGENT): Well compensated on physical exam. No significant [...] therapy. Assessment & Plan (10/25/2022 10:03 AM IRS AGENT): Euvolemic with stable NYHA 2 symptoms. Continue [...] 25 Assessment & Plan (12/14/2021 10:28 AM IRS AGENT): EF 25% at time of diagnosis etiology likely multifactorial due to ischemic heart disease and also nonischemic component due to AFib. Significantly improved symptoms following cardioversion, stable NYHA 2 and his ejection fraction has improved to normal range on medical therapy and revascularization - continue metoprolol XL 25, Entresto 24-26 b.i.d. and spironolactone 25 Assessment & Plan (11/09/2021 2:00 PM IRS AGENT): EF 25% at time of diagnosis etiology [...] metoprolol Assessment & Plan (10/18/2021 3:32 PM IRS AGENT): EF 25%, euvolemic on exam but persistent [...] implant Assessment & Plan (09/14/2021 1:52 PM IRS AGENT): EF 25%, has underlying Coronary artery disease [...] determine ICD Coronary artery disease invo lving blue [place] coronary artery of [place] heart without angina pectoris 08/24/2021 Assessment & Plan (04/29/2024 9:39 AM CDT): Status post PCI of LAD. Remains free of angina. LDL at goal - continue Eliquis, aspirin 81 - continue lipitor 20 daily Assessment & Plan (10/30/2023 11:02 AM IRS AGENT): Reassuring recent catheterization with nonobstructive CAD and [...] Eliquis. Assessment & Plan (10/25/2022 9:10 AM IRS AGENT): Status post PCI of LAD. Remains free [...] Lipitor Assessment & Plan (12/14/2021 10:27 AM IRS AGENT): Status post PCI of LAD. IFR negative circumflex. Fully revascularized, continue secondary prevention. Remains free of angina - continue Eliquis, Plavix and Lipitor Assessment & Plan (10/18/2021 3:33 PM IRS AGENT): Status post PCI of LAD. IFR negative circumflex. Fully revascularized continue secondary prevention - continue Eliquis, Plavix and Lipitor Assessment & Plan (09/14/2021 1:50 PM IRS AGENT): Status post PCI of LAD. IFR negative circumflex. Fully revascularized continue secondary prevention - stop aspirin - continue Eliquis and Plavix and Lipitor Ventricular tachycardia 08/24/2021 Assessment & Plan (10/30/2023 11:00 AM IRS AGENT): Followed [facility], Dr. Olvera. Continue beta-jitendra. Assessment & Plan (05/29/2022 2:27 PM CDT): Resolved. Initially occurring during ACS. No recurrence, feeling well. --Continue metoprolol. Assessment & Plan (11/29/2021 11:17 AM IRS AGENT): SMVT, occurring in context of severe proximal [...] palpitations Assessment & Plan (11/09/2021 1:59 PM IRS AGENT): Continue life vest, no recent device therapies. Follow-up with Dr. Olvera for mid November after his repeat echo Assessment & Plan (10/18/2021 3:33 PM IRS AGENT): No recent shocks. 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 Currently on LifeVest. Seen by Dr. Olvera. Plan to reassess ICD need after 3 months of therapy and repeat echo Sinus node dysfunction 08/24/2021 Assessment & Plan (10/30/2023 11:01 AM IRS AGENT): Followed by EP as mentioned above. Assessment & Plan (10/02/2022 9:02 AM IRS AGENT): Mild, asymptomatic. No current indication for pacing. Assessment & Plan (05/29/2022 2:28 PM CDT): Significant resting sinus bradycardia. Rate 45 bpm currently on low dose metoprolol. Unable to tolerate antiarrhythmic drugs or higher dose metoprolol. Pacing might be required in future for adequate medical therapy for HF/CAD. --AF ablation as above. --Avoiding pacing for now. Assessment & Plan (11/29/2021 11:18 AM IRS AGENT): With symptomatic sinus bradycardia on amiodarone and [...] year Assessment & Plan (11/11/2021 9:07 AM IRS AGENT): Reviewed patient recent thyroid ultrasound report and [...] of V-tach on LifeVest Patient following with cigarette examiner and special deputy sheriff, he is due for cardiac procedure next month. Advised patient to discuss with his cigarette examiner and special deputy sheriff before holding Eliquis. Advised patient to call me back once he gets cleared by his cigarette examiner. Will schedule thyroid nodule biopsy Accordingly Further [...] BID Assessment & Plan (10/30/2023 11:01 AM IRS AGENT): Heart rates are controlled on oral beta-jitendra, [...] carvedilol. Assessment & Plan (10/25/2022 10:02 AM IRS AGENT): In sinus today, no recurrence since ablation. Continue metoprolol XL 25 and Eliquis Assessment & Plan (10/02/2022 9:02 AM IRS AGENT): Doing very well, maintaining sinus rhythm after AF ablation. --Continue apixaban 5 mg BID --Continue metoprolol XL 25 mg daily Assessment & Plan (08/14/2022 10:00 AM CDT): S/p AF ablation with partial PVI and CTI ablation. Doing very well, maintaining sinus rhythm without any AF recurrence. [id number] = 6+. Indefinite anticoagulation recommended. --Continue apixaban [...] Eliquis Assessment & Plan (12/14/2021 10:27 AM IRS AGENT): Status post cardioversion remains in sinus rhythm today - continue metoprolol 25 and Eliquis Assessment & Plan (11/29/2021 11:20 AM IRS AGENT): Highly symptomatic. Pt reports profound improvement in symptoms/QOL after cardioversion. Maintaining sinus rhythm without recurrence. Will manage expectantly for now. Strong indication for rhythm control if AF returns, given severe symptoms. [id number] = 4. Recommend indefinite anticoagulation. --Continue metoprolol XL 25 mg daily --Continue apixaban 5 mg BID Assessment & Plan (11/09/2021 1:59 PM IRS AGENT): Status post cardioversion remains in sinus rhythm today - continue metoprolol 25 and Eliquis Assessment & Plan (10/18/2021 3:32 PM IRS AGENT): Status post cardioversion and remains in sinus rhythm today - continue Eliquis - reduce metoprolol as stated Assessment & Plan (09/14/2021 1:51 PM IRS AGENT): Persistent AFib. Remains in AFib now and his rate control however remains symptomatic and with low EF therefore recommend rhythm control strategy. - schedule ABHINAV cardioversion - continue Eliquis - drop amiodarone to 200 mg daily maintenance History of non-ST elevation myocardial infarctio n (NSTEMI) 08/22/2021 Overview (08/25/2021): Added automatically from request for surgery [id number] Parkinson's disease without dyskinesia, unspecified whether manifestations [...] 01/2008 Assessment & Plan (10/30/2023 11:02 AM IRS AGENT): Blood pressure was initially elevated, when rechecked [...] the decreased dose of Coreg per his Speech And Language Assistant. Assessment & Plan (01/30/2023 10:29 AM CDT): [...] week. Assessment & Plan (11/09/2021 1:59 PM IRS AGENT): Well controlled, continue current meds Resolved Problems [...] (05/29/2022): Added automatically from request for surgery [id number] Stage 3b chronic kidney disease 05/18/2022 07/26/2023 Overview (07/26/2023): Per Dr Ferraro 04-12-23 this is resolved Atrial fibrillation with rap id ventricular response 05/12/2022 05/18/2022 Hyperkalemia 05/09/2022 09/26/2024 Acute kidney injury 05/09/2022 05/18/20 22 Contusion of rib on left side 11/02/2021 07/12/2022 Hypoglycemia 10/18/2021 12/15/2021 Assessment & Plan (10/18/2021 3:34 PM IRS AGENT): He was interestingly noted to have a [...] 09/26/2024 Assessment & Plan (11/09/2021 2:00 PM IRS AGENT): This problem has improved since decreasing his metoprolol Assessment & Plan (10/18/2021 3:33 PM IRS AGENT): He has symptomatic sinus bradycardia on metoprolol [...] Type Department Care Team Description 04/29/[address] [facility] Cardiology [address] [place] [address] oRverto Velazquez MD 04/27/2025 Orders Only [facility] On[facility] [address] [place] [address] Jenise Saini NP Pulmonary nodule (Primary Dx) 04/22/2025 10:00 AM CDT - 04/22/2025 11:59 PM CDT Hospital Encounter [facility] Medical Office Building [address] [address] Mediastinal mass; Other nonspecific abnormal finding of lung field Discharge Disposition: Discharge to home or self care 04/10/2025 9:45 AM CDT Office Visit [facility] Surgery [facility] [address] [place] [phone] Ej Ni MD Mediastinal mass (Primary Dx); Abnormal chest CT; Other nonspecific abnormal finding of lung field 04/09/2025 5:30 PM CDT - 04/09/2025 11:59 PM CDT Hospital Encounter [facility] [address] [place] [address] Discharge Disposition: Discharge to home or self care 04/09/2025 5:28 PM CDT - 04/09/2025 11:59 PM CDT Hospital Encounter [facility] [address] [place] [address] Diagnosis unknown Discharge Disposition: Discharge to home or self care 04/09/2025 5:25 PM CDT - 04/09/2025 11:59 PM CDT Hospital Encounter [facility] [address] [place] [address] Diagnosis unknown Discharge Disposition: Discharge to home or self care 04/08/2025 Documentation [facility] Surgery [address] [facility] [address] [place] [phone] Wiley PatelryASHLEY 04/02/2025 11:30 AM CDT Office Visit [facility] Cardiology [address], [place] [address] Delmy Jordan NP 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) (Primary Dx); Ischemic cardiomyopathy; Coronary artery disease involving blue lake coronary artery of [place] heart without angina pectoris; Essential hypertension; Hyperlipidemia, unspecified hyperlipidemia type; Encounter for long-term current use of medication 03/23/2025 3:45 PM CDT Ancillary Procedure [facility] [address] [facility] [address] [facility] [address], [place] [address] Cardiac pacemaker (Primary Dx); Complete heart block (HCC) 03/23/2025 9:00 AM CDT Office Visit [facility] Diabetes and Endocrinology [address] [place] [phone] Etta Vivas MD Multinodular goiter (nontoxic) (Primary Dx) 03/17/2025 Results Follow-Up [facility] Cardiology [facility] [facility] [address], [place] [address] Delmy Jordan NP Transthoracic Echo (TTE) Complete W Doppler/CF 03/14/2025 8:40 PM CDT - 03/17/2025 4:36 PM CDT Hospital Encounter [address] [phone] Shelton Lanier MD Nafee, MD Tami Mckeon Thishara, MD Decuffa, Zeferino Figueroa MD Syncope and collapse (Primary Dx) Discharge Disposition: Discharge to home or self care 03/14/2025 Orders Only [address] [phone] Shelton Lanier MD 03/13/2025 10:30 AM CDT Ancillary Procedure [facility] Cardiology [address] [facility] [address] [place] [address] Ischemic cardiomyopathy; Heart failure with reduced ejection fraction, NYHA class III (HCC) 03/13/2025 10:00 AM CDT Lab [facility] [address] [facility] [address] [place] [address] Hyperkalemia 03/13/2025 Results Follow-Up [facility] Cardiology [address] [place] [address] [address] [place] [phone] Delmy Jordan, SAP CRM DEVELOPER Potassium level, serum 03/04/2025 12:05 PM CDT Lab [facility] Outpatient Lab [address] [place] [phone] Cardiomyopathy, unspecified type (HCC); Biventricular congestive heart failure (HCC); Hypertension, unspecified type; MARI (dyspnea on exertion) 03/04/2025 Results Follow-Up [facility] Cardiology [address] [place] [address] [address] [place] [phone] Delmy Jordan, SAP CRM DEVELOPER CBC with auto differential, Basic metabolic panel, Pro B-type natriuretic peptide, Additional followed-up results: 3 03/03/2025 Telephone [facility] Cardiology [address] [place] [address] Delmy Jordan SAP CRM DEVELOPER Testing 03/02/[address] [address] Delmy Jordan NP from Last 3 Months [...] Name Comments Heart attack Brother 1 Javier Burke Obesity Brother 2 Tremayne Cancer Father David Thyroid cancer Father David Diabetes Mother Evangelina Chadwick Thania Early Mother Evangelnia Junepkins Heart attack Mother Evangelina Junepkins Obesity [...] alcohol) Stopped alcohol consumption 2 years ago [facility] Utilities Answer Date Recorded In the past 12 months has e electric, gas, oil, or water [employer] threatened to shut off services in your [...] often do you attend chur ch or yazidi services? Never 03/17/2025 Do you belong to any clubs o r organizations such as baptist groups, unions, fraternal or athletic groups, or [...] place to sleep or slept in a care home (including now)? No 06/19/2023 Housing Stability [...] any time in the past 12 m [facility], were you homeless or living in a care home (including now)? No 03/17/2025 Personal Safety Answer Date Recorded Have you ever been in or are you currently in a harmful physical or emotional relationship or is someone making you feel afraid or unsafe? Denies 03/15/2025 Sex and Gender Information Value Date Recorded Sex Assigned at Not on file Legal Sex Male 7:05 PM IRS AGENT Gender Identity Male 09/18/2021 7:10 AM IRS AGENT Sexual Orientation Straight 09/18/2021 7: 10 AM IRS AGENT Obstetrics History Last Filed Vital Signs Vital [...] Completed 07/26/2023 Medical Devices Implanted Type Area Billing Administrator Device Identifier Shelf Expiration Date Model / Serial / Lot [employer] Vascade Mvp 6-12fr Venous Closure [id number] - [id number] - [id number] Implanted:Qty : 1 on 07/05/2022 by Viet lOvera III, MD at [facility] Collagen [employer] Inc 04/05/2024 800-612C- 10U / [id number] 30B / [id number] 30B [employer] Inc Vascade Mvp 6-12fr Venous Closure [id number] - [id number] - [id number] Implanted:Qty : 1 on 07/05/2022 by Viet Olvera III, MD at [facility] Collagen [employer] 04/05/2024 800-612C- 10U / [id number] 30B / [id number] 30B [employer] Inc Device Closure Vascade Od5 Fr Femoral Artery [id number] - [id number] - [id number] Implanted:Qty : 1 on 07/05/2022 by Viet Olvera III, MD at [facility] Collagen [employer] 11/29/2023 700-500DX -05U / [id number] 217A / [id number] 217A [employer] Inc Vascade Mvp 6-12fr Venous Closure [id number] - [id number] - [id number] Implanted:Qty : 1 on 07/05/2022 by Viet Olvera III, MD at [facility] Collagen [employer] 03/30/2024 800-612C- 10U / [id number] 28A / [id number] 28A Medtronic Inc Capsurefix Novus 6.2fr 2mm 58cm Bipolar Screw In Implantable 5076-58 - [id number] - [id number] Implanted:Qty : 1 on 01/22/2023 by Viet Olvera III, MD at [facility] Lead Medtronic Inc [id number] 09/19/2024 5076-58 / [id number] / Medtronic Inc Capsurefix Novus 6.2fr 2mm 52cm Bipolar Screw In Implantable Latex Free 5076-52 - [id number] - [id number] Implanted:Qty : 1 on 01/22/2023 by Viet Olvera III, MD at [facility] Lead Medtronic Inc [id number] 12/01/2024 5076-52 / [id number] / Davol Inc/C R Bard Mesh Surg 3dmax [id number] Left Mid Large Inguinal Hernia [id number] - [id number] Implanted:Qty : 1 on 12/22/2022 by Valdez Leyva MD at [facility] Mesh Left: Inguinal Davol Inc/C R Bard [id number] 04/11/2027 [id number] / / [id number] Other - See Comments Other - see comments Forehead Description:Internal stitche s from [facility] 11/2022 Medtronic Inc [place] S Mri Surescan 50.8x46.6mm 2 Chamber 7.4mm Pacemaker 22.5gm W3dr01 - [id number] - [id number] Implanted:Qty : 1 on 01/22/2023 by Viet Olvera III, MD at [facility] Pacemaker Medtronic Inc 05/28/2024 [id number] / [id number] / [employer] [id number] Synergy Xd Monorail 4mm 24mm 144cm Delivery System 1 Access Port - [id number] - [id number] Implanted:Qty : 1 on 08/25/2021 by Roverto Velazquez MD at [facility] Stent [employer] 12/13/2022 [id number] / [id number] / [id number] Description:pLAD Moody Vascular Device Clsr Perclose Prostyle Sut-Mediatd Closure-Repai r Sys 04181-50 - S0 - [id number] Implanted:Qty : 1 on 08/22/2023 by Roverto Velazquez MD at [facility] Vascular Closure Device Right: Femoral [employer] 05/14/2025 67816-26 / 0 / [id number] RealOps Angio-Seal Vip 6fr Closere Device [id number] - [id number] Implanted:Qty : 1 on 06/11/2023 at [facility] [employer] 11/14/2023 [id number] / / [id number] Explanted Type Area Billing Administrator Device Identifier Shelf Expiration Date Model / Serial / Lot [employer] Inc Tendril Sts 6fr 52cm Is-1 Connector Active Fixation Bipolar Soft /52 - [id number] - [id number] Implanted:Qty : 1 on 07/05/2022 by Viet Olvera III, MD at [facility] Explanted:Qty : 1 on 07/06/[address] [employer] Inc [id number] 04/13/2025/52 / [id number] / [employer] Assurity Mri [id number] 1 Chamber Is-1 Connector Thk6mm Pacemaker [id number] - [id number] - [id number] Implanted:Qty : 1 on 07/05/2022 by Viet Olvera III, MD at [facility] Pacemaker [employer] [id number] 03/14/2023 [id number] / [id number] / Procedures Procedure Name Priority Date/Time Associated [...] by Mynor Morrissey M.D. CH: Report ID: [id number] Reading Location: [place] [address] Procedure Note Mynor Morrissey Jr., MD - [...] by Mynor Morrissey M.D. CH: Report ID: [id number] Reading Location: [place] [address] us Jenise Saini SAP CRM DEVELOPER IMG PET PROCEDURES Final Result * POCT glucose (04/22/2025 10:22 AM CDT) Glucose, POC 105 70 - 199 mg/dL Comment:Testing performed by : [facility], [address] [place] [address]., [address] Blood 04/22/2025 10:2 2 AM CDT 04/22/2025 10:22 AM CDT us Ignacio Henry DO LAB POCT ORDERABLES - VINCE CE Final Result [facility] [address] [facility] Department [place] [address] * US Thyroid - Clinic [...] only and have not been reviewed by [facility]. There will be no report generated by a [facility] Radiologist. Narrative RAD_PACS_[facility] - 04/09/2025 5:30 PM [...] report of this study generated by a [facility] Radiologist. Electronically signed by: Yadiel Petersen M.D. [...] report of this study generated by a [facility] Radiologist. Electronically signed by: Yadiel Petersen M.D. [...] images may or may not represent the [place] source data set and thus may contain changes that may lower the accuracy of this second-opinion interpretation. Electronically signed by: Yadiel Petersen M.D. Narrative 04/10/2025 6:58 PM CDT EXAMINATION: RADIOLOGY CONSULTATION ON OUTSIDE IMAGING STUDY STUDY INITIALLY PERFORMED: 03/14/2025 at [facility] [place][note 2]. TYPE OF STUDY: Multiple CT images of [...] IMAGING STUDY STUDY INITIALLY PERFORMED: 03/14/2025 at [facility] [place][note 2]. TYPE OF STUDY: Multiple CT images of [...] images may or may not represent the [place] source data set and thus may contain [...] to ABBEY Episodes last 90 days/Comments: AF Pierce 0 %, longest duration 0. NORMAL DEVICE [...] MD LAB BLOOD ORDERABLES Final Re sult [facility] [address] Department [place] [address] * Differential, auto (03/17/2025 3:02 AM CDT) Neutrophil abs 3.05 1.50 - 6.50 K/cumm Imm gran abs 0.01 0.00 - 0.10 K/cumm [facility] Lymphocyte abs 0.96 0.80 - 3.30 K/cumm [facility] Monocyte abs 0.63 0.20 - 0.80 K/cumm [facility] Eosinophil abs 0.29 0.00 - 0.50 K/cumm [facility] Basophil abs 0.03 0.00 - 0.10 K/cumm [facility] Neutrophil pct 61.4 % [facility] Comment: Interpretive Data Percent cell count reference ranges are not reported, since discordance with absolute values may lead to misinterpretation of CBC data. Current Interpretive Data was last revised on 2018. Imm gran pct 0.2 % [facility] Comment: Interpretive Data Percent cell count reference ranges are not reported, since discordance with absolute values may lead to misinterpretation of CBC data. Current Interpretive Data was last revised on 2018. Lymphocyte pct 19.3 % [facility] Comment: Interpretive Data Percent cell count reference ranges are not reported, since discordance with absolute values may lead to misinterpretation of CBC data. Current Interpretive Data was last revised on 2018. Monocyte pct 12.7 % [facility] Comment: Interpretive Data Percent cell count reference ranges are not reported, since discordance with absolute values may lead to misinterpretation of CBC data. Current Interpretive Data was last revised on 2018. Eosinophil pct 5.8 % [facility] Comment: Interpretive Data Percent cell count reference ranges are not reported, since discordance with absolute values may lead to misinterpretation of CBC data. Current Interpretive Data was last revised on 2018. Basophil pct 0.6 % [facility] Comment: Interpretive Data Percent cell count reference ranges are not reported, since discordance with absolute values may lead to misinterpretation of CBC data. Current Interpretive Data was last revised on 2018. Blood 03/17/2025 3:02 AM CDT 03/17/2025 4:25 AM CDT Shelton Lanier MD LAB BLOOD ORDERABLES Final Re sult [facility] [address] Department [place] [address] * (ABNORMAL) CBC with auto differential (03/17/2025 3:02 AM CDT) WBC 4.97 3.80 - 9.90 K/cumm Hgb 14.0 13.0 - 17.5 g/dL [facility] Hct 41.8 38.9 - 50.3 % [facility] Plt 106(L) 150 - 400 K/cumm [facility] MPV 11.0 9.1 - 12.3 fL [facility] RBC 4.50 4.30 - 5.80 M/cumm [facility] MCV 92.9 81.3 - 96.4 fL [facility] MCH 31.1 27.1 - 33.3 pg [facility] MCHC 33.5 32.3 - 35.7 g/dL [facility] RDW CV 13.0 11.1 - 14.9 % [facility] RDW SD 44.3 35.7 - 48.1 fL [facility] NRBC abs 0.00 0.00 - 0.01 K/cumm [facility] Blood 03/17/2025 3:02 AM CDT 03/17/2025 4:25 AM CDT Shelton Lanier MD LAB BLOOD ORDERABLES Final Re sult Performing Organization Address City/[facility]/ZIP Co de Phone Number [facility] [address] Department [place] [address] * (ABNORMAL) Vitamin B12 (03/17/2025 3:02 AM CDT) [facility] Vitamin B12 1,765(H) 230 - 1,250 pg/mL Blood 03/17/2025 3:02 AM CDT 03/17/2025 4:25 AM CDT Edwardo Garrett MD LAB BLOOD ORDERABLES Final Res ult Performing Organization Address [facility] Co de Phone Number [facility] [address] Department [place] [address] * Renal function panel (03/17/2025 3:02 AM CDT) [facility] Sodium 140 135 - 145 mmol/L Potassium, pl 4.2 3.3 - 4.9 mmol/L [facility] Chloride 105 97 - 110 mmol/L [facility] CO2 23 22 - 32 mmol/L [facility] Anion gap 12 2 - 15 mmol/L [facility] BUN 22 6 - 25 mg/dL [facility] Creatinine 1.04 0.80 - 1.30 mg/dL [facility] Glucose 86 70 - 199 mg/dL [facility] Comment: Interpretive Data Fasting glucose >/= 126 [...] 2022. Calcium 8.5 8.5 - 10.3 mg/dL [facility] Phosphorus, pl 3.1 2.3 - 4.5 mg/dL [facility] Albumin 3.5 3.5 - 5.0 g/dL [facility] Blood 03/17/2025 3:02 AM CDT 03/17/2025 4:25 AM CDT us Shelton Lanier MD LAB BLOOD ORDERABLES Final Re sult [facility] [address] Department [place] [address] * EEG (03/16/2025 1:55 PM CDT) Anatomical Region Laterality Modality EEG Narrative 03/18/2025 12:05 PM CDT Routine EEG Report Patient Name: Berna Monteiro [facility] Medical Record Number (MRN): [id number] [facility] Record: [id number] Date of (): 1950 EEG Date: 03/14/2025 Ordering Provider: Edwardo Garrett MD CC: Ignacio Henry Start Time: 03/16/2025 1:48:55 PM End Time: 03/16/2025 2:11:01 PM Introduction: Mr. Monteiro is a 74 y.o. male with a history of HFrEF, Afib, CAD, who presented with seizure versus syncope. EEG was performed to evaluate for seizures. This is a 32 channel EEG recording acquired on a [employer] EEG-1200 acquisition system. Scalp electrodes were placed [...] MD LAB BLOOD ORDERABLES Final Re sult [facility] [address] Department [place] [address] * Differential, auto (03/16/2025 5:40 AM CDT) Neutrophil abs 3.51 1.50 - 6.50 K/cumm Imm gran abs 0.02 0.00 - 0.10 K/cumm [facility] Lymphocyte abs 0.89 0.80 - 3.30 K/cumm [facility] Monocyte abs 0.55 0.20 - 0.80 K/cumm [facility] Eosinophil abs 0.27 0.00 - 0.50 K/cumm [facility] Basophil abs 0.04 0.00 - 0.10 K/cumm [facility] Neutrophil pct 66.4 % [facility] Comment: Interpretive Data Percent cell count reference ranges are not reported, since discordance with absolute values may lead to misinterpretation of CBC data. Current Interpretive Data was last revised on 2018. Imm gran pct 0.4 % [facility] Comment: Interpretive Data Percent cell count reference ranges are not reported, since discordance with absolute values may lead to misinterpretation of CBC data. Current Interpretive Data was last revised on 2018. Lymphocyte pct 16.9 % [facility] Comment: Interpretive Data Percent cell count reference ranges are not reported, since discordance with absolute values may lead to misinterpretation of CBC data. Current Interpretive Data was last revised on 2018. Monocyte pct 10.4 % [facility] Comment: Interpretive Data Percent cell count reference ranges are not reported, since discordance with absolute values may lead to misinterpretation of CBC data. Current Interpretive Data was last revised on 2018. Eosinophil pct 5.1 % [facility] Comment: Interpretive Data Percent cell count reference ranges are not reported, since discordance with absolute values may lead to misinterpretation of CBC data. Current Interpretive Data was last revised on 2018. Basophil pct 0.8 % [facility] Comment: Interpretive Data Percent cell count reference ranges are not reported, since discordance with absolute values may lead to misinterpretation of CBC data. Current Interpretive Data was last revised on 2018. Blood 03/16/2025 5:40 AM CDT 03/16/2025 6:51 AM CDT us Shelton Lanier MD LAB BLOOD ORDERABLES Final Re sult [facility] [address] Department [place] [address] * (ABNORMAL) CBC with auto differential (03/16/2025 5:40 AM CDT) WBC 5.28 3.80 - 9.90 K/cumm Hgb 14.6 13.0 - 17.5 g/dL [facility] Hct 42.8 38.9 - 50.3 % [facility] Plt 105(L) 150 - 400 K/cumm [facility] MPV 11.0 9.1 - 12.3 fL [facility] RBC 4.62 4.30 - 5.80 M/cumm [facility] MCV 92.6 81.3 - 96.4 fL [facility] MCH 31.6 27.1 - 33.3 pg [facility] MCHC 34.1 32.3 - 35.7 g/dL [facility] RDW CV 13.0 11.1 - 14.9 % [facility] RDW SD 43.9 35.7 - 48.1 fL [facility] NRBC abs 0.00 0.00 - 0.01 K/cumm [facility] Blood 03/16/2025 5:40 AM CDT 03/16/2025 6:51 AM CDT Shelton Lanier MD LAB BLOOD ORDERABLES Final Re sult Performing Organization Address [facility] Co de Phone Number [facility] [address] [place] [address] * CRP (acute phase) (03/16/2025 5:40 AM CDT) CRP <3.0 <=10.0 mg/L Blood 03/16/2025 5:40 AM CDT 03/16/2025 6:50 AM CDT Edwardo Garrett MD LAB BLOOD ORDERABLES Final Res ult Performing Organization Address City/[facility]/ZIP Co de Phone Number [facility] [address] Department of [employer] [place], [place] [phone] * (ABNORMAL) Renal function panel (03/16/2025 5:40 AM CDT) Sodium 142 135 - 145 mmol/L Potassium, pl 4.6 3.3 - 4.9 mmol/L [facility] Chloride 107 97 - 110 mmol/L [facility] CO2 24 22 - 32 mmol/L [facility] Anion gap 11 2 - 15 mmol/L [facility] BUN 26(H) 6 - 25 mg/dL [facility] Creatinine 0.99 0.80 - 1.30 mg/dL [facility] Glucose 97 70 - 199 mg/dL [facility] Comment: Interpretive Data Fasting glucose >/= 126 [...] 2022. Calcium 8.8 8.5 - 10.3 mg/dL [facility] Phosphorus, pl 2.8 2.3 - 4.5 mg/dL [facility] Albumin 3.4(L) 3.5 - 5.0 g/dL [facility] Blood 03/16/2025 5:40 AM CDT 03/16/2025 6:50 AM CDT Shelton Lanier MD LAB BLOOD ORDERABLES Final Re sult [facility] [address] Department [place] [address] * Glycohemoglobin A1C - Add on lab test (03/15/2025 10:08 AM CDT) Acceptable Yes Blood 03/15/2025 10:0 8 AM CDT 03/15/2025 10:08 AM CDT Narrative [facility] - 03/15/2025 10:08 AM CDT Name of Test->Glycohemoglobin A1C Edwardo Garrett MD LAB BLOOD ORDERABLES Final Res ult Performing Organization Address City/[facility]/ZIP Co de Phone Number [facility] [address] Department [place] [address] * eGFR (03/15/2025 4:14 AM [...] ORDERABLES Final Re sult Performing Organization Address City/[facility]/ZIP Co de Phone Number [facility] [address] Department [place] [address] * Differential, auto (03/15/2025 4:14 AM CDT) Neutrophil abs 3.01 1.50 - 6.50 K/cumm Imm gran abs 0.01 0.00 - 0.10 K/cumm [facility] Lymphocyte abs 0.89 0.80 - 3.30 K/cumm [facility] Monocyte abs 0.44 0.20 - 0.80 K/cumm [facility] Eosinophil abs 0.26 0.00 - 0.50 K/cumm [facility] Basophil abs 0.03 0.00 - 0.10 K/cumm [facility] Neutrophil pct 64.9 % [facility] Comment: Interpretive Data Percent cell count reference ranges are not reported, since discordance with absolute values may lead to misinterpretation of CBC data. Current Interpretive Data was last revised on 2018. Imm gran pct 0.2 % [facility] Comment: Interpretive Data Percent cell count reference ranges are not reported, since discordance with absolute values may lead to misinterpretation of CBC data. Current Interpretive Data was last revised on 2018. Lymphocyte pct 19.2 % [facility] Comment: Interpretive Data Percent cell count reference ranges are not reported, since discordance with absolute values may lead to misinterpretation of CBC data. Current Interpretive Data was last revised on 2018. Monocyte pct 9.5 % [facility] Comment: Interpretive Data Percent cell count reference ranges are not reported, since discordance with absolute values may lead to misinterpretation of CBC data. Current Interpretive Data was last revised on 2018. Eosinophil pct 5.6 % [facility] Comment: Interpretive Data Percent cell count reference ranges are not reported, since discordance with absolute values may lead to misinterpretation of CBC data. Current Interpretive Data was last revised on 2018. Basophil pct 0.6 % [facility] Comment: Interpretive Data Percent cell count reference ranges are not reported, since discordance with absolute values may lead to misinterpretation of CBC data. Current Interpretive Data was last revised on 2018. Blood 03/15/2025 4:14 AM CDT 03/15/2025 5:16 AM CDT us Cintia Rocha MD LAB BLOOD ORDERABLES Final R esult [facility] [address] Department [place] [address] * (ABNORMAL) CBC with auto differential (03/15/2025 4:14 AM CDT) [facility] WBC 4.64 3.80 - 9.90 K/cumm Hgb 14.2 13.0 - 17.5 g/dL [facility] Hct 42.7 38.9 - 50.3 % [facility] Plt 100(L) 150 - 400 K/cumm [facility] MPV 10.9 9.1 - 12.3 fL [facility] RBC 4.61 4.30 - 5.80 M/cumm [facility] MCV 92.6 81.3 - 96.4 fL [facility] MCH 30.8 27.1 - 33.3 pg [facility] MCHC 33.3 32.3 - 35.7 g/dL [facility] RDW CV 12.8 11.1 - 14.9 % [facility] RDW SD 43.7 35.7 - 48.1 fL [facility] NRBC abs 0.00 0.00 - 0.01 K/cumm [facility] Blood 03/15/2025 4:14 AM CDT 03/15/2025 5:16 AM CDT us Cintia Rocha MD LAB BLOOD ORDERABLES Final R esult Performing Organization Address City/[facility]/ZIP Co de Phone Number [facility] [address] [employer] [place], [place] [id number] * Erythrocyte sedimentation rate (03/15/2025 4:14 AM CDT) [facility] Erythrocyte sedimentation rate 2 1 - 20 mm/hr Blood 03/15/2025 4:14 AM CDT 03/15/2025 5:16 AM CDT Edwardo Garrett MD LAB BLOOD ORDERABLES Final Res ult Performing Organization Address City/[facility]/ZIP Co de Phone Number [facility] [address] [place] [address] * Hemoglobin A1c (03/15/2025 4:14 AM CDT) [facility] Hgb A1C 5.5 4.0 - 5.6 % Estimated Average Glucose 111 mg/dL [facility] Comment: The ADA recommends reporting an estimated Average Glucose (eAG) with all Hemoglobin A1c results using the equation derived from a study of 507 normal and diabetic adults. Minority populations were underrepresented and children were not included. (Diabetes Care 31:3032-7865, 2008). The eAG is not equivalent to a fasting glucose. Blood 03/15/2025 4:14 AM CDT 03/15/2025 5:16 AM CDT us Edwardo Garrett MD LAB BLOOD ORDERABLES Final Res ult [facility] [address] Department [place] [address] * (ABNORMAL) Renal function panel (03/15/2025 4:14 AM CDT) Sodium 140 135 - 145 mmol/L Potassium, pl 4.0 3.3 - 4.9 mmol/L [facility] Chloride 107 97 - 110 mmol/L [facility] CO2 23 22 - 32 mmol/L [facility] Anion gap 10 2 - 15 mmol/L [facility] BUN 24 6 - 25 mg/dL [facility] Creatinine 0.83 0.80 - 1.30 mg/dL [facility] Glucose 84 70 - 199 mg/dL [facility] Comment: Interpretive Data Fasting glucose >/= 126 [...] 2022. Calcium 8.8 8.5 - 10.3 mg/dL [facility] Phosphorus, pl 2.8 2.3 - 4.5 mg/dL [facility] Albumin 3.4(L) 3.5 - 5.0 g/dL [facility] Blood 03/15/2025 4:14 AM CDT 03/15/2025 5:17 AM CDT Shelton Lanier MD LAB BLOOD ORDERABLES Final Re sult Performing Organization Address City/[facility]/ZIP Co de Phone Number [facility] [address] [place] [place] [address] * eGFR (03/14/2025 10:44 PM [...] ORDERABLES Final R esult Performing Organization Address City/[facility]/ZIP Co de Phone Number [facility] [address] Department of [employer] [place], [place] [phone] * Differential, auto (03/14/2025 10:44 PM CDT) Neutrophil abs 3.18 1.50 - 6.50 K/cumm Imm gran abs 0.01 0.00 - 0.10 K/cumm [facility] Lymphocyte abs 0.89 0.80 - 3.30 K/cumm [facility] Monocyte abs 0.48 0.20 - 0.80 K/cumm [facility] Eosinophil abs 0.20 0.00 - 0.50 K/cumm [facility] Basophil abs 0.03 0.00 - 0.10 K/cumm [facility] Neutrophil pct 66.4 % [facility] Comment: Interpretive Data Percent cell count reference ranges are not reported, since discordance with absolute values may lead to misinterpretation of CBC data. Current Interpretive Data was last revised on 2018. Imm gran pct 0.2 % [facility] Comment: Interpretive Data Percent cell count reference ranges are not reported, since discordance with absolute values may lead to misinterpretation of CBC data. Current Interpretive Data was last revised on 2018. Lymphocyte pct 18.6 % [facility] Comment: Interpretive Data Percent cell count reference ranges are not reported, since discordance with absolute values may lead to misinterpretation of CBC data. Current Interpretive Data was last revised on 2018. Monocyte pct 10.0 % [facility] Comment: Interpretive Data Percent cell count reference ranges are not reported, since discordance with absolute values may lead to misinterpretation of CBC data. Current Interpretive Data was last revised on 2018. Eosinophil pct 4.2 % [facility] Comment: Interpretive Data Percent cell count reference ranges are not reported, since discordance with absolute values may lead to misinterpretation of CBC data. Current Interpretive Data was last revised on 2018. Basophil pct 0.6 % [facility] Comment: Interpretive Data Percent cell count reference ranges are not reported, since discordance with absolute values may lead to misinterpretation of CBC data. Current Interpretive Data was last revised on 2018. Blood 03/14/2025 10:4 4 PM CDT 03/14/2025 11:05 PM CDT Shelton Lanier MD LAB BLOOD ORDERABLES Final Re sult Performing Organization Address City/[facility]/ZIP Co de Phone Number [facility] [address] [place] [address] * Pro B-type natriuretic peptide (03/14/2025 10:44 [...] ORDERABLES Final R esult Performing Organization Address [facility]/ZIP Co de Phone Number [facility] [address] Department [place] [address] * Thyroid Function Bland (03/14/2025 10:44 PM CDT) Pathologist [facility] TSH 2.06 0.30 - 4.20 mcIUnit/mL Blood 03/14/2025 10:4 4 PM CDT 03/14/2025 11:05 PM CDT Cintia Rocha MD LAB BLOOD ORDERABLES Final R esult Performing Organization Address [facility]/ZIP Co de Phone Number [facility] [address] [employer] [place], [place] [phone] * (ABNORMAL) CBC with auto differential (03/14/2025 10:44 PM CDT) [facility] WBC 4.79 3.80 - 9.90 K/cumm Hgb 14.0 13.0 - 17.5 g/dL [facility] Hct 40.8 38.9 - 50.3 % [facility] Plt 107(L) 150 - 400 K/cumm [facility] MPV 10.7 9.1 - 12.3 fL [facility] RBC 4.49 4.30 - 5.80 M/cumm [facility] MCV 90.9 81.3 - 96.4 fL [facility] MCH 31.2 27.1 - 33.3 pg [facility] MCHC 34.3 32.3 - 35.7 g/dL [facility] RDW CV 13.1 11.1 - 14.9 % [facility] RDW SD 43.1 35.7 - 48.1 fL [facility] NRBC abs 0.00 0.00 - 0.01 K/cumm [facility] Blood 03/14/2025 10:4 4 PM CDT 03/14/2025 11:05 PM CDT Shelton Lanier MD LAB BLOOD ORDERABLES Final Re sult Performing Organization Address City/[facility]/ZIP Co de Phone Number [facility] [address] Department of Laboratories [place], [place] [phone] * (ABNORMAL) Protime-INR (03/14/2025 10:44 PM CDT) PT 15.9(H) 9.7 - 13.0 sec INR 1.46(H) 0.90 - 1.20 [facility] Comment: Interpretive data Oral anticoagulant therapeutic ranges: Venous thromboembolism prophylaxis or treatment: 2.0-3.0 CARDIOLOGY Standard range: 2.0-3.0 High-intensity range: 2.5-3.5 Refer to indication-specific guidelines for appropriate target ranges for prosthetic heart valve replacement. Current interpretive data was last revised on 2019. Blood 03/14/2025 10:4 4 PM CDT 03/14/2025 11:05 PM CDT us Cintia Rocha MD LAB BLOOD ORDERABLES Final R esult [facility] [address] Department [place] [address] * (ABNORMAL) Comprehensive metabolic panel (03/14/2025 10:44 PM CDT) Pathologist [facility] Sodium 138 135 - 145 mmol/L Potassium, pl 4.0 3.3 - 4.9 mmol/L [facility] Chloride 106 97 - 110 mmol/L [facility] CO2 21(L) 22 - 32 mmol/L [facility] Anion gap 11 2 - 15 mmol/L [facility] BUN 28(H) 6 - 25 mg/dL [facility] Creatinine 0.79(L) 0.80 - 1.30 mg/dL [facility] Glucose 91 70 - 199 mg/dL [facility] Comment: Interpretive Data Fasting glucose >/= 126 [...] 2022. Calcium 8.5 8.5 - 10.3 mg/dL [facility] Bilirubin, total 0.9 0.1 - 1.2 mg/dL [facility] Protein, pl 5.6(L) 6.5 - 8.5 g/dL [facility] Albumin 3.4(L) 3.5 - 5.0 g/dL [facility] Alk phos 64 40 - 130 Units/L [facility] ALT 22 7 - 55 Units/L [facility] AST 16 10 - 50 Units/L [facility] Blood 03/14/2025 10:4 4 PM CDT 03/14/2025 11:05 PM CDT Cintia Rocha MD LAB BLOOD ORDERABLES Final R esult Performing Organization Address City/[facility] Co de Phone Number [facility] [address] Department [place] [address] * ECG 12 lead (03/14/2025 10:27 PM CDT) 03/14/2025 10:[address] [facility] [employer] - 03/15/2025 10:28 AM CDT Vent Rate: 73 bpm RR Interval: 818 msec MA Interval: 194 msec QRS Duration: 168 msec QT Interval: 462 msec QTC Interval: 488 msec P-R-T [place]: -84 - 62 - 265 degrees IMPRESSION: ELECTRONIC ATRIAL PACEMAKER ELECTRONIC VENTRICULAR PACEMAKER ABNORMAL RHYTHM ECG Electronically Signed By: Rvoerto Velazquez [facility] Card Cintia Rocha MD ECG ORDERABLES Final Result Performing Organization Address [facility] de Phone Number [facility] [employer] [facility] * TRANSTHORACIC ECHO (TTE) COMPLETE W [...] valve regurgitation. Electronically Signed By: Roverto Velazquez [facility] Card 03/16/2025 9:53:30 PM CDT Procedure [...] valve regurgitation. Electronically Signed By: Roverto Velazquez [facility] Card 03/16/2025 9:53:30 PM CDT us Delmy Jordan NP CV ECHO PROCEDURES Final Resu lt * Potassium level, serum (03/13/2025 10:11 AM CDT) Potassium, sr 4.3 3.6 - 5.2 mmol/L Blood 03/13/2025 10:1 1 AM CDT 03/13/2025 11:10 AM CDT Delmy Jordan [employer] LAB BLOOD ORDERABLES Final Re sult Performing Organization Address [facility] Co de Phone Number [facility] [address] Department [place] [address] * eGFR (03/04/2025 12:16 PM CDT) eGFR [...] CDT 03/04/2025 12:53 PM CDT Delmy Jordan [employer] DEVELOPER LAB BLOOD ORDERABLES Final Re sult Performing Organization Address [facility]/ZIP Co de Phone Number [facility] [address] Department of Laboratories [place], [place] [id number] * (ABNORMAL) Differential, auto (03/04/2025 12:16 PM CDT) Pathologist [facility] Neutrophil abs 2.97 1.50 - 6.50 K/cumm Imm gran abs 0.01 0.00 - 0.10 K/cumm [facility] Lymphocyte abs 0.77(L) 0.80 - 3.30 K/cumm [facility] Monocyte abs 0.50 0.20 - 0.80 K/cumm [facility] Eosinophil abs 0.24 0.00 - 0.50 K/cumm [facility] Basophil abs 0.04 0.00 - 0.10 K/cumm [facility] Neutrophil pct 65.6 % [facility] Comment: Interpretive Data Percent cell count reference ranges are not reported, since discordance with absolute values may lead to misinterpretation of CBC data. Current Interpretive Data was last revised on 2018. Imm gran pct 0.2 % [facility] Comment: Interpretive Data Percent cell count reference ranges are not reported, since discordance with absolute values may lead to misinterpretation of CBC data. Current Interpretive Data was last revised on 2018. Lymphocyte pct 17.0 % [facility] Comment: Interpretive Data Percent cell count reference ranges are not reported, since discordance with absolute values may lead to misinterpretation of CBC data. Current Interpretive Data was last revised on 2018. Monocyte pct 11.0 % [facility] Comment: Interpretive Data Percent cell count reference ranges are not reported, since discordance with absolute values may lead to misinterpretation of CBC data. Current Interpretive Data was last revised on 2018. Eosinophil pct 5.3 % [facility] Comment: Interpretive Data Percent cell count reference ranges are not reported, since discordance with absolute values may lead to misinterpretation of CBC data. Current Interpretive Data was last revised on 2018. Basophil pct 0.9 % [facility] Comment: Interpretive Data Percent cell count reference ranges are not reported, since discordance with absolute values may lead to misinterpretation of CBC data. Current Interpretive Data was last revised on 2018. Blood 03/04/2025 12:1 6 PM CDT 03/04/2025 12:53 PM CDT us Delmy Jordan [employer] CRM DEVELOPER LAB BLOOD ORDERABLES Final Re sult [facility] [address] [place] [address] * Pro B-type natriuretic peptide (03/04/2025 12:16 [...] LAB BLOOD ORDERABLES Final Re sult [facility] [address] Department [place] [address] * (ABNORMAL) CBC with auto differential (03/04/2025 12:16 PM CDT) Pathologist [facility] WBC 4.53 3.80 - 9.90 K/cumm Hgb 14.8 13.0 - 17.5 g/dL [facility] Hct 44.4 38.9 - 50.3 % [facility] Plt 113(L) 150 - 400 K/cumm [facility] MPV 11.0 9.1 - 12.3 fL [facility] RBC 4.74 4.30 - 5.80 M/cumm [facility] MCV 93.7 81.3 - 96.4 fL [facility] MCH 31.2 27.1 - 33.3 pg [facility] MCHC 33.3 32.3 - 35.7 g/dL [facility] RDW CV 13.4 11.1 - 14.9 % [facility] RDW SD 45.7 35.7 - 48.1 fL [facility] NRBC abs 0.00 0.00 - 0.01 K/cumm [facility] Blood 03/04/2025 12:1 6 PM CDT 03/04/2025 12:53 PM CDT Delmy Jordan NP LAB BLOOD ORDERABLES Final Re sult Performing Organization Address [facility] Co de Phone Number [facility] [address] [employer] [place], [place] [id number] * Magnesium (03/04/2025 12:16 PM CDT) [facility] Magnesium 2.3 1.4 - 2.5 mg/dL Blood 03/04/2025 12:1 6 PM CDT 03/04/2025 12:53 PM CDT Delmy Jordan SAP CRM DEVELOPER LAB BLOOD ORDERABLES Final Re sult Performing Organization Address City/[facility]/ZIP Co de Phone Number [facility] [address] [facility] [employer] [place], [place] [id number] * (ABNORMAL) Basic metabolic panel (03/04/2025 12:16 PM CDT) Sodium 140 135 - 145 mmol/L Potassium, pl 5.1(H) 3.3 - 4.9 mmol/L [facility] Chloride 106 97 - 110 mmol/L [facility] CO2 25 22 - 32 mmol/L [facility] Anion gap 9 2 - 15 mmol/L [facility] BUN 19 6 - 25 mg/dL [facility] Creatinine 0.96 0.80 - 1.30 mg/dL [facility] Glucose 91 70 - 199 mg/dL [facility] Comment: Interpretive Data Fasting glucose >/= 126 [...] 2022. Calcium 8.8 8.5 - 10.3 mg/dL [facility] Blood 03/04/2025 12:1 6 PM CDT 03/04/2025 12:53 PM CDT us Delmy Jordan NP LAB BLOOD ORDERABLES Final Re sult [facility] [address] Department [place] [address] * Lipid panel (04/29/2024 1:18 PM CDT) [...] revised on 2018. Triglycerides 71 <=149 mg/dL [facility] Comment: Interpretive Data Ages < or [...] revised on 2018. HDL 46 >=40 mg/dL [facility] Comment: Interpretive Data Ages < or [...] on 2018. LDL, calculated 42 <=129 mg/dL [facility] Comment: Interpretive Data Ages < or [...] revised on 2018. Non-HDL Cholesterol 56 mg/dL [facility] Comment: Interpretive Data Ages < or [...] BLOOD ORDERABLES Final Result Performing Organization Address City/[facility] Co de Phone Number [facility] [place] [address] * Hepatitis C antibody Blood (07/26/2023 8:13 [...] ORDER EMILIANA Final Result Performing Organization Address City/[facility] Co de Phone Number [facility] [address] Department [place] [address] * COLONOSCOPY (04/19/2023 11:42 AM CDT) Anatomical Region Laterality Modality Other Narrative Procedure Note David Wilkins, - 04/19/2023 11:42 AM CDT [facility] GI ENDOSCOPY Patient Name: Berna Monteiro Procedure Date: 04/19/2023 11:42 AM Date of : 1950 Admit Type: Outpatient Age: 72 Gender: Male Attending MD: David Wilkins D.O. 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 Advance Directives and Livin g [...] 4:28 PM 08/28/2021 5:21 PM Care Teams Reading Tutor Relationship Specialty [place] [address] [address] [facility] [address] [place] [address] PCP - General Internal Medicine 12/09/24 Roverto Velazquez MD [address] [facility] [address] [place] [address] Consulting Physician Cardiovascular Disease 08/28/21 Viet lOvera III, MD [address] [facility] [address] [place] [address] Consulting Physician Cardiology 08/28/21 Miscellaneous, Not In File 05/10/22 Valdez Leyva MD [address] [address] Consulting Physician General Surgery 12/22/22 Missy Jones NP [address] [facility] [address] [place], [place] [id number] Nurse Practitioner Family Medicine 06/26/23 Obed Garcia MD [address] [facility] [address] [place] [address] Consulting Physician Urology 11/07/23 [place] [address] [address] [facility] [address] [place] [address] Consulting Physician Endocrinology 11/07/23 Delmy Jordan NP [address] [facility] [address] [place] [address] Nurse Practitioner Cardiovascular Disease 03/17/25 Estrella Mcleod MD [address] [facility] [address] [address] Consulting Physician Neurology 03/17/25
--- OUTSIDE RECORDS SUMMARY | 2025-05-06 00:55 | XMS_ITS | Referral Summary ---
Author Organization [facility] [address] Address [address] [place] [address] Care Team Providers Care Roll Out Manager Name Role Phone Roverto Velazquez MD Unavailable Wade PERSON MD, Viet Boo Unavailable [phone] Miscellaneous, Not In File Unavailable Unava ilable Valdez Leyva MD Unavailable [phone] Missy Jones NP Unavailable Obed Garcia MD Unavailable Etta Vivas MD Unavailable [phone] Ignacio Henry DO Primary Care Provider [phone] Laisha Jordan NP Unavailable Estrella Mcleod MD Unavailable Encounters Date Type Department Care Team Description 04/29/2025 Telephone [facility] Cardiology [address] [facility] [address] [place] [address] Roverto Velazquez MD 04/27/2025 Orders Only [facility] Oncology [address] [facility] Floor 5 [place] [phone] Jenise Saini NP Pulmonary nodule (Primary Dx) 04/22/2025 10:00 AM CDT - 04/22/2025 11:59 PM CDT Hospital Encounter [facility] [address] [facility] [place] [address] Mediastinal mass; Other nonspecific abnormal finding of lung field Discharge Disposition: Discharge to home or self care 04/10/2025 9:45 AM CDT Office Visit [facility] Surgery [address] [facility] Floor 5 [place] [phone] Ej Ni MD Mediastinal mass (Primary Dx); Abnormal chest CT; Other nonspecific abnormal finding of lung field 04/09/2025 5:30 PM CDT - 04/09/2025 11:59 PM CDT Hospital Encounter [facility] [address] [place] [address] Discharge Disposition: Discharge to home or self care 04/09/2025 5:28 PM CDT - 04/09/2025 11:59 PM CDT Hospital Encounter [facility] [address] [place] [address] Diagnosis unknown Discharge Disposition: Discharge to home or self care 04/09/2025 5:25 PM CDT - 04/09/2025 11:59 PM CDT Hospital Encounter [facility] [address] [place] [address] Diagnosis unknown Discharge Disposition: Discharge to home or self care 04/08/2025 Documentation [facility] Physicians [facility] Surgery [address] [facility] [address] [place] [phone] Carina Patel RMA 04/02/2025 11:30 AM CDT Office Visit [facility] Cardiology [address] [facility] [address] [place] [phone] Laisha Jordan NP 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) (Primary Dx); Ischemic cardiomyopathy; Coronary artery disease involving lac vieux coronary artery of lac vieux heart without angina pectoris; Essential hypertension; Hyperlipidemia, unspecified hyperlipidemia type; Encounter for long-term current use of medication 03/23/2025 3:45 PM CDT Ancillary Procedure [facility] [address] [facility] [address], [place] [phone] Cardiac pacemaker (Primary Dx); Complete heart block (HCC) 03/23/2025 9:00 AM CDT Office Visit [facility] Diabetes and Endocrinology [address] [place] [phone] Etta Vivas MD Multinodular goiter (nontoxic) (Primary Dx) 03/17/2025 Results Follow-Up [facility] Cardiology [address] [place] [address] [address], [place] [address] Laisha Jordan NP Transthoracic Echo (TTE) Complete W Doppler/CF 03/14/2025 8:40 PM CDT - 03/17/2025 4:36 PM CDT Hospital Encounter [address] [phone] Shelton Lanier MD Nafee, MD Tami Mckeon, MD Marine Brooke, Zeferino Figueroa MD Syncope and collapse (Primary Dx) Discharge Disposition: Discharge to home or self care 03/14/2025 Orders Only [address] [phone] Shelton Lanier MD 03/13/2025 Results Follow-Up [facility] Cardiology [address] [place] [address] [address] [place] [address] Laisha Jordan NP Potassium level, serum 03/13/2025 10:00 AM CDT Lab [address] [place] [phone] Hyperkalemia 03/13/2025 10:30 AM CDT Ancillary Procedure [facility] Cardiology [address] [place] [address] [address] [place] [address] Ischemic cardiomyopathy; Heart failure with reduced ejection fraction, NYHA class III (HCC) 03/04/2025 Results Follow-Up [facility] Cardiology [facility] [facility] [address] [place] [address] Laisha Jordan NP CBC with auto differential, Basic metabolic panel, Pro B-type natriuretic peptide, Additional followed-up results: 3 03/04/2025 12:05 PM CDT Lab [facility] Outpatient Lab [address] [place] [address] Cardiomyopathy, unspecified type (HCC); Biventricular congestive heart failure (HCC); Hypertension, unspecified type; MARI (dyspnea on exertion) 03/03/2025 Telephone [facility] Cardiology [address] [place] [address] [address] [place] [address] Laisha Jordan NP Testing 03/02/2025 Documentation [facility] Cardiology [address] [place] [address] [address] [place] [address] Laisha Jordan NP from Last [...] 09/26/20 Assessment & Plan (09/26/2024 8:56 PM FINGER GRIP MACHINE OPERATOR): Viral infection. Mzjh-bks-dwkmwvmd for symptoms Bilateral impacted cerumen 09/26/2024 Assessment & Plan (09/26/2024 8:56 PM FINGER GRIP MACHINE OPERATOR): Rinsed with warm water bilaterally until clear. Platelets decreased 11/07/2023 Chronic renal failure, stage 3a 11/07/2023 Encounter for Medicare annual wellness exam 10/16 Assessment & Plan (11/07/2023 9:34 AM FINGER GRIP MACHINE OPERATOR): A(n) yearly Medicare Annual Wellness Visit has [...] S/p dual chamber pacemaker, excellent function. 88% SLIPCOVER CUTTER in context of moderate LV dysfunction (LVEF 40%). No heart failure symptoms. Could consider device revision to MANAGER OF COMMUNITY RELATIONS-P system, but in absence of clinical HF would favor observation for now. --Continue remote device monitoring --Consider device revision to MANAGER OF COMMUNITY RELATIONS-P system in future if HF symptoms arise, LVEF declines or at time of generator replacement. Assessment & Plan (06/26/2023 9:43 AM CDT): S/p dual chamber pacemaker. Excellent device function. --Continue remote device f/u remotely Assessment & Plan (10/02/2022 9:03 AM FINGER GRIP MACHINE OPERATOR): Transient, perioperatively. No recurrence. No current indication [...] losartan Assessment & Plan (10/30/2023 11:03 AM FINGER GRIP MACHINE OPERATOR): Well compensated on physical exam. No significant [...] therapy. Assessment & Plan (10/25/2022 10:03 AM FINGER GRIP MACHINE OPERATOR): Euvolemic with stable NYHA 2 symptoms. Continue [...] 25 Assessment & Plan (12/14/2021 10:28 AM FINGER GRIP MACHINE OPERATOR): EF 25% at time of diagnosis etiology likely multifactorial due to ischemic heart disease and also nonischemic component due to AFib. Significantly improved symptoms following cardioversion, stable NYHA 2 and his ejection fraction has improved to normal range on medical therapy and revascularization - continue metoprolol XL 25, Entresto 24-26 b.i.d. and spironolactone 25 Assessment & Plan (11/09/2021 2:00 PM FINGER GRIP MACHINE OPERATOR): EF 25% at time of diagnosis etiology [...] metoprolol Assessment & Plan (10/18/2021 3:32 PM FINGER GRIP MACHINE OPERATOR): EF 25%, euvolemic on exam but persistent [...] implant Assessment & Plan (09/14/2021 1:52 PM FINGER GRIP MACHINE OPERATOR): EF 25%, has underlying Coronary artery disease [...] determine ICD Coronary artery disease invo lving lac vieux coronary artery of lac vieux heart without angina pectoris 08/24/2021 Assessment & Plan (04/29/2024 9:39 AM CDT): Status post PCI of LAD. Remains free of angina. LDL at goal - continue Eliquis, aspirin 81 - continue lipitor 20 daily Assessment & Plan (10/30/2023 11:02 AM FINGER GRIP MACHINE OPERATOR): Reassuring recent catheterization with nonobstructive CAD and [...] Eliquis. Assessment & Plan (10/25/2022 9:10 AM FINGER GRIP MACHINE OPERATOR): Status post PCI of LAD. Remains free [...] Lipitor Assessment & Plan (12/14/2021 10:27 AM FINGER GRIP MACHINE OPERATOR): Status post PCI of LAD. IFR negative circumflex. Fully revascularized, continue secondary prevention. Remains free of angina - continue Eliquis, Plavix and Lipitor Assessment & Plan (10/18/2021 3:33 PM FINGER GRIP MACHINE OPERATOR): Status post PCI of LAD. IFR negative circumflex. Fully revascularized continue secondary prevention - continue Eliquis, Plavix and Lipitor Assessment & Plan (09/14/2021 1:50 PM FINGER GRIP MACHINE OPERATOR): Status post PCI of LAD. IFR negative circumflex. Fully revascularized continue secondary prevention - stop aspirin - continue Eliquis and Plavix and Lipitor Ventricular tachycardia 08/24/2021 Assessment & Plan (10/30/2023 11:00 AM FINGER GRIP MACHINE OPERATOR): [facility], Dr. Olvera. Continue beta-jitendra. Assessment & Plan (05/29/2022 2:27 PM CDT): Resolved. Initially occurring during ACS. No recurrence, feeling well. --Continue metoprolol. Assessment & Plan (11/29/2021 11:17 AM FINGER GRIP MACHINE OPERATOR): SMVT, occurring in context of severe proximal [...] palpitations Assessment & Plan (11/09/2021 1:59 PM FINGER GRIP MACHINE OPERATOR): Continue life vest, no recent device therapies. Follow-up with Dr. Olvera for mid November after his repeat echo Assessment & Plan (10/18/2021 3:33 PM FINGER GRIP MACHINE OPERATOR): No recent shocks. 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 Currently on LifeVest. Seen by Dr. Olvera. Plan to reassess ICD need after 3 months of therapy and repeat echo Sinus node dysfunction 08/24/2021 Assessment & Plan (10/30/2023 11:01 AM FINGER GRIP MACHINE OPERATOR): Followed by EP as mentioned above. Assessment & Plan (10/02/2022 9:02 AM FINGER GRIP MACHINE OPERATOR): Mild, asymptomatic. No current indication for pacing. Assessment & Plan (05/29/2022 2:28 PM CDT): Significant resting sinus bradycardia. Rate 45 bpm currently on low dose metoprolol. Unable to tolerate antiarrhythmic drugs or higher dose metoprolol. Pacing might be required in future for adequate medical therapy for HF/CAD. --AF ablation as above. --Avoiding pacing for now. Assessment & Plan (11/29/2021 11:18 AM FINGER GRIP MACHINE OPERATOR): With symptomatic sinus bradycardia on amiodarone and [...] year Assessment & Plan (11/11/2021 9:07 AM FINGER GRIP MACHINE OPERATOR): Reviewed patient recent thyroid ultrasound report and [...] of V-tach on LifeVest Patient following with motorcycle assembler and health counselor, he is due for cardiac procedure next month. Advised patient to discuss with his motorcycle assembler and health counselor before holding Eliquis. Advised patient to call me back once he gets cleared by his motorcycle assembler. Will schedule thyroid nodule biopsy Accordingly Further [...] BID Assessment & Plan (10/30/2023 11:01 AM FINGER GRIP MACHINE OPERATOR): Heart rates are controlled on oral beta-jitendra, [...] carvedilol. Assessment & Plan (10/25/2022 10:02 AM FINGER GRIP MACHINE OPERATOR): In sinus today, no recurrence since ablation. Continue metoprolol XL 25 and Eliquis Assessment & Plan (10/02/2022 9:02 AM FINGER GRIP MACHINE OPERATOR): Doing very well, maintaining sinus rhythm after AF ablation. --Continue apixaban 5 mg BID --Continue metoprolol XL 25 mg daily Assessment & Plan (08/14/2022 10:00 AM CDT): S/p AF ablation with partial PVI and CTI ablation. Doing very well, maintaining sinus rhythm without any AF recurrence. [id number] = 6+. Indefinite anticoagulation recommended. --Continue apixaban [...] Eliquis Assessment & Plan (12/14/2021 10:27 AM FINGER GRIP MACHINE OPERATOR): Status post cardioversion remains in sinus rhythm today - continue metoprolol 25 and Eliquis Assessment & Plan (11/29/2021 11:20 AM FINGER GRIP MACHINE OPERATOR): Highly symptomatic. Pt reports profound improvement in symptoms/QOL after cardioversion. Maintaining sinus rhythm without recurrence. Will manage expectantly for now. Strong indication for rhythm control if AF returns, given severe symptoms. [id number] = 4. Recommend indefinite anticoagulation. --Continue metoprolol XL 25 mg daily --Continue apixaban 5 mg BID Assessment & Plan (11/09/2021 1:59 PM FINGER GRIP MACHINE OPERATOR): Status post cardioversion remains in sinus rhythm today - continue metoprolol 25 and Eliquis Assessment & Plan (10/18/2021 3:32 PM FINGER GRIP MACHINE OPERATOR): Status post cardioversion and remains in sinus rhythm today - continue Eliquis - reduce metoprolol as stated Assessment & Plan (09/14/2021 1:51 PM FINGER GRIP MACHINE OPERATOR): Persistent AFib. Remains in AFib now and his rate control however remains symptomatic and with low EF therefore recommend rhythm control strategy. - schedule CHACORTA cardioversion - continue Eliquis - drop amiodarone to 200 mg daily maintenance History of non-ST elevation myocardial infarctio n (NSTEMI) 08/22/2021 Overview (08/25/2021): Added automatically from request for surgery [id number] Parkinson's disease without dyskinesia, unspecified whether manifestations [...] 01/2008 Assessment & Plan (10/30/2023 11:02 AM FINGER GRIP MACHINE OPERATOR): Blood pressure was initially elevated, when rechecked [...] the decreased dose of Coreg per his Chef De Partie. Assessment & Plan (01/30/2023 10:29 AM CDT): [...] week. Assessment & Plan (11/09/2021 1:59 PM FINGER GRIP MACHINE OPERATOR): Well controlled, continue current meds Resolved Problems [...] (05/29/2022): Added automatically from request for surgery [id number] Stage 3b chronic kidney disease 05/18/2022 07/26/2023 Overview (07/26/2023): Per Dr Ferraro 04-12-23 this is resolved Atrial fibrillation with rap id ventricular response 05/12/2022 05/18/2022 Hyperkalemia 05/09/2022 09/26/2024 Acute kidney injury 05/09/2022 05/18/20 22 Contusion of rib on left side 11/02/2021 07/12/2022 Hypoglycemia 10/18/2021 12/15/2021 Assessment & Plan (10/18/2021 3:34 PM FINGER GRIP MACHINE OPERATOR): He was interestingly noted to have a [...] 09/26/2024 Assessment & Plan (11/09/2021 2:00 PM FINGER GRIP MACHINE OPERATOR): This problem has improved since decreasing his metoprolol Assessment & Plan (10/18/2021 3:33 PM FINGER GRIP MACHINE OPERATOR): He has symptomatic sinus bradycardia on metoprolol [...] alcohol) Stopped alcohol consumption 2 years ago [facility] [employer] Answer Date Recorded In the past 12 months has [employer], or water [employer] threatened to shut off services in your [...] How often do you attend chur or episcopalian services? Never 03/17/2025 Do you belong to any clubs o r organizations such as religious groups, unions, fraternal or athletic groups, or [...] place to sleep or slept in a chcf (including now)? No 06/19/2023 Housing Stability Vital Sign Answer Asael e Recorded In the last 12 months, was t here a time when you were not able to pay the mortgage or rent on time? No 03/17/2025 In the past 12 months, how m any times have you moved where you were living? 0 03/17/2025 At any time in the past 12 m [facility], were you homeless or living in a chcf (including now)? No 03/17/2025 Personal Safety Answer Date Recorded Have you ever been in or are you currently in a harmful physical or emotional relationship or is someone making you feel afraid or unsafe? Denies 03/15/2025 Sex and Gender Information Value Date Recorded Sex Assigned at Not on file Legal Sex Male 7:05 PM FINGER GRIP MACHINE OPERATOR Gender Identity Male 09/18/2021 7:10 AM FINGER GRIP MACHINE OPERATOR Sexual Orientation Straight 09/18/2021 7: 10 AM FINGER GRIP MACHINE OPERATOR Last Filed Vital Signs Vital Sign Reading [...] on file Medical Devices Implanted Type Area Video Control Engineer Device Identifier Shelf Expiration Date Model / Serial / Lot [employer] Vascade Mvp 6-12fr Venous Closure [id number] - [id number] - [id number] Implanted:Qty : 1 on 07/05/2022 by Viet Olvera III, MD at [facility] Collagen [employer] 04/05/2024 800-612C- 10U / [id number] 30B / [id number] 30B [employer] Vascade Mvp 6-12fr Venous Closure [id number] - [id number] - [id number] Implanted:Qty : 1 on 07/05/2022 by Viet Olvera III, MD at [facility] Collagen [employer] 04/05/2024 800-612C- 10U / [id number] 30B / [id number] 30B [employer] Device Closure Vascade Od5 Fr Femoral Artery [id number] - [id number] - [id number] Implanted:Qty : 1 on 07/05/2022 by Viet Olvera III, MD at [facility] Collagen [employer] 11/29/2023 700-500DX -05U / [id number] 217A / [id number] [employer] Vascade Mvp 6-12fr Venous Closure [id number] - [id number] - [id number] Implanted:Qty : 1 on 07/05/2022 by Viet Olvera III, MD at [facility] Collagen [employer] 03/30/2024 800-612C- 10U / [id number] 28A / [id number] 28A Medtronic Inc Capsurefix Novus 6.2fr 2mm 58cm Bipolar Screw In Implantable 5076-58 - [id number] - [id number] Implanted:Qty : 1 on 01/22/2023 by Viet Olvera III, MD at [facility] Lead Med[employer]onic Inc [id number] 09/19/2024 5076-58 / [id number] / Medtronic Inc Capsurefix Novus 6.2fr 2mm 52cm Bipolar Screw In Implantable Latex Free 5076-52 - [id number] - [id number] Implanted:Qty : 1 on 01/22/2023 by Viet Olvera III, MD at [facility] Lead Med[employer]onic Inc [id number] 12/01/2024 5076-52 / [id number] / Davol Inc/C R Bard Mesh Surg 3dmax [id number] Left Mid Large Inguinal Hernia [id number] - [id number] Implanted:Qty : 1 on 12/22/2022 by Valdez Leyva MD at [facility] Mesh Left: Inguinal [employer] Inc/C R Bard [id number] 04/11/2027 [id number] / / [id number] Other - See Comments Other - see comments Forehead Description:Internal stitche s from [facility] 11/2022 Medtronic Inc Benitez S Mri Surescan 50.8x46.6mm 2 Chamber 7.4mm Pacemaker 22.5gm W3dr01 - [id number] - [id number] Implanted:Qty : 1 on 01/22/2023 by Viet Olvera III, MD at [facility] Pacemaker Medtronic Inc 05/28/2024 [id number] / [id number] / [employer] [employer] [id number] Synergy Xd Monorail 4mm 24mm 144cm Delivery System 1 Access Port - [id number] - [id number] Implanted:Qty : 1 on 08/25/2021 by Roverto Velazquez MD at [facility] Stent [place] [employer] 12/13/2022 [id number] / [id number] / [id number] Description:pLAD Moody Vascular Device Clsr Perclose Prostyle Sut-Mediatd Closure-Repai r Sys 60902-39 - S0 - [id number] Implanted:Qty : 1 on 08/22/2023 by Roverto Velazquez MD at [facility] Vascular Closure Device Right: Femoral [employer] 05/14/2025 25568-79 / 0 / [id number] [employer]Life Angio-Seal Vip 6fr Closere Device [id number] - [id number] Implanted:Qty : 1 on 06/11/2023 at [facility] Terum[employer] Mari 11/14/2023 [id number] / / [id number] Explanted Type Area Video Control Engineer Device Identifier Shelf Expiration Date Model / Serial / Lot [employer] Tendril Sts 6fr 52cm Is-1 Connector Active Fixation Bipolar Soft 52 - [id number] - [id number] Implanted:Qty : 1 on 07/05/2022 by Viet Olvera III, MD at [facility] Explanted:Qty : 1 on 07/06/[address] [employer] [id number] 04/13/2025/52 / [id number] / [employer] Assurity Mri 59k02tr 1 Chamber Is-1 Connector Thk6mm Pacemaker [id number] - [id number] - [id number] Implanted:Qty : 1 on 07/05/2022 by Viet Olvera III, MD at [facility] Pacemaker [facility] Inc [id number] 03/14/2023 [id number] / [id number] / Procedures Procedure Name Priority Date/Time Associated [...] 1:21 PM - Electronically signed by Mynor Morrissye M.D. CH: NESTOR Report ID: [id number] Reading Location: [place] [address] Procedure Note Mynor Morrissey Jr., MD - [...] Electronically signed by Mynor Morrissey M.D. CH: NETSOR Report ID: [id number] Reading Location: [id number] us Jenise Saini PLY SPLICER IMG PET PROCEDURES Final Result * POCT glucose (04/22/2025 10:22 AM CDT) Glucose, POC 105 70 - 199 mg/dL Comment:Testing performed by : [facility], [address] [place] [address]., [id number] Blood 04/22/2025 10:2 2 AM CDT 04/22/2025 10:22 AM CDT Ignacio Henry DO LAB POCT ORDERABLES - VINEC CE Final Result [facility] [address] [facility] Department [place] [address] * US Thyroid - Clinic [...] only and have not been reviewed by [facility]. There will be no report generated by a [facility] Radiologist. Narrative RAD_PACS_BJ - 04/09/2025 5:30 PM [...] report of this study generated by a [facility] Radiologist. Electronically signed by: Yadiel Petersen [...] report of this study generated by a [facility] Radiologist. Electronically signed by: Yadiel Petersen [...] images may or may not represent the lac vieux source data set and thus may contain changes that may lower the accuracy of this second-opinion interpretation. Electronically signed by: Yadiel Petersen M.D. Narrative 04/10/2025 6:58 PM CDT EXAMINATION: RADIOLOGY CONSULTATION ON OUTSIDE IMAGING STUDY STUDY INITIALLY PERFORMED: 03/14/2025 at [facility]. TYPE OF STUDY: Multiple CT images of [...] STUDY STUDY INITIALLY PERFORMED: 03/14/2025 at [facility]. TYPE OF STUDY: Multiple CT images of [...] images may or may not represent the lac vieux source data set and thus may contain changes that may lower the accuracy of this second-opinion interpretation. Electronically signed by: Yadiel Petersen M.D. Ej [...] to ABBEY Episodes last 90 days/Comments: AF Van Meter 0 %, longest duration 0. NORMAL DEVICE [...] MD LAB BLOOD ORDERABLES Final Re sult [facility] [address] [place] [address] * Differential, auto (03/17/2025 3:02 AM CDT) Neutrophil abs 3.05 1.50 - 6.50 K/cumm Imm gran abs 0.01 0.00 - 0.10 K/cumm [facility] Lymphocyte abs 0.96 0.80 - 3.30 K/cumm [facility] Monocyte abs 0.63 0.20 - 0.80 K/cumm [facility] Eosinophil abs 0.29 0.00 - 0.50 K/cumm [facility] Basophil abs 0.03 0.00 - 0.10 K/cumm [facility] Neutrophil pct 61.4 % [facility] Comment: Interpretive Data Percent cell count reference ranges are not reported, since discordance with absolute values may lead to misinterpretation of CBC data. Current Interpretive Data was last revised on 2018. Imm gran pct 0.2 % [facility] Comment: Interpretive Data Percent cell count reference ranges are not reported, since discordance with absolute values may lead to misinterpretation of CBC data. Current Interpretive Data was last revised on 2018. Lymphocyte pct 19.3 % [facility] Comment: Interpretive Data Percent cell count reference ranges are not reported, since discordance with absolute values may lead to misinterpretation of CBC data. Current Interpretive Data was last revised on 2018. Monocyte pct 12.7 % [facility] Comment: Interpretive Data Percent cell count reference ranges are not reported, since discordance with absolute values may lead to misinterpretation of CBC data. Current Interpretive Data was last revised on 2018. Eosinophil pct 5.8 % [facility] Comment: Interpretive Data Percent cell count reference ranges are not reported, since discordance with absolute values may lead to misinterpretation of CBC data. Current Interpretive Data was last revised on 2018. Basophil pct 0.6 % [facility] Comment: Interpretive Data Percent cell count reference ranges are not reported, since discordance with absolute values may lead to misinterpretation of CBC data. Current Interpretive Data was last revised on 2018. Blood 03/17/2025 3:02 AM CDT 03/17/2025 4:25 AM CDT us Shelton Lanier MD LAB BLOOD ORDERABLES Final Re sult [facility] [address] [place] [address] * (ABNORMAL) CBC with auto differential (03/17/2025 3:02 AM CDT) WBC 4.97 3.80 - 9.90 K/cumm Hgb 14.0 13.0 - 17.5 g/dL [facility] Hct 41.8 38.9 - 50.3 % [facility] Plt 106(L) 150 - 400 K/cumm [facility] MPV 11.0 9.1 - 12.[address] [facility] RBC 4.50 4.30 - 5.80 M/cumm [facility] MCV 92.9 81.3 - 96.[address] [facility] MCH 31.1 27.1 - 33.[address] [facility] MCHC 33.5 32.3 - 35.7 g/dL [facility] RDW CV 13.0 11.1 - 14.9 % [facility] RDW SD 44.3 35.7 - 48.[address] [facility] NRBC abs 0.00 0.00 - 0.01 K/cumm [facility] Blood 03/17/2025 3:02 AM CDT 03/17/2025 4:25 AM CDT Shelton Lanier MD LAB BLOOD ORDERABLES Final Re sult [facility] [address] [address] * (ABNORMAL) Vitamin B12 (03/17/2025 3:02 AM CDT) Pathologist [facility] Vitamin B12 1,765(H) 230 - 1,250 pg/mL Blood 03/17/2025 3:02 AM CDT 03/17/2025 4:25 AM CDT Edwardo Garrett MD LAB BLOOD ORDERABLES Final Res ult [facility] [address] Department [place] [address] * Renal function panel (03/17/2025 3:02 AM CDT) Pathologist [facility] Sodium 140 135 - 145 mmol/L Potassium, pl 4.2 3.3 - 4.9 mmol/L [facility] Chloride 105 97 - 110 mmol/L [facility] CO2 23 22 - 32 mmol/L [facility] Anion gap 12 2 - 15 mmol/L [facility] BUN 22 6 - 25 mg/dL [facility] Creatinine 1.04 0.80 - 1.30 mg/dL [facility] Glucose 86 70 - 199 mg/dL [facility] Comment: Interpretive Data Fasting glucose >/= 126 [...] 2022. Calcium 8.5 8.5 - 10.3 mg/dL [facility] Phosphorus, pl 3.1 2.3 - 4.5 mg/dL [facility] Albumin 3.5 3.5 - 5.0 g/dL [facility] Blood 03/17/2025 3:02 AM CDT 03/17/2025 4:25 AM CDT Shelton Lanier MD LAB BLOOD ORDERABLES Final Re sult [facility] [address] [place] [address] * EEG (03/16/2025 1:55 PM CDT) Anatomical Region Laterality Modality EEG Narrative 03/18/2025 12:05 PM CDT Routine EEG Report Patient Name: Berna Monteiro [facility] Medical Record Number (MRN): [id number] [facility] Record: [id number] Date of (): 1950 EEG Date: 03/14/2025 Ordering Provider: Edwardo Garrett MD CC: Ignacio Henry Start Time: 03/16/2025 1:48:55 PM End Time: 03/16/2025 2:11:01 PM Introduction: Mr. Monteiro is a 74 y.o. male with a history of HFrEF, Afib, CAD, who presented with seizure versus syncope. EEG was performed to evaluate for seizures. This is a 32 channel EEG recording acquired on a [employer] EEG-1200 acquisition system. Scalp electrodes were placed [...] MD LAB BLOOD ORDERABLES Final Re sult [facility] [address] [place] [address] * Differential, auto (03/16/2025 5:40 AM CDT) Neutrophil abs 3.51 1.50 - 6.50 K/cumm Imm gran abs 0.02 0.00 - 0.10 K/cumm [facility] Lymphocyte abs 0.89 0.80 - 3.30 K/cumm [facility] Monocyte abs 0.55 0.20 - 0.80 K/cumm [facility] Eosinophil abs 0.27 0.00 - 0.50 K/cumm [facility] Basophil abs 0.04 0.00 - 0.10 K/cumm [facility] Neutrophil pct 66.4 % [facility] Comment: Interpretive Data Percent cell count reference ranges are not reported, since discordance with absolute values may lead to misinterpretation of CBC data. Current Interpretive Data was last revised on 2018. Imm gran pct 0.4 % [facility] Comment: Interpretive Data Percent cell count reference ranges are not reported, since discordance with absolute values may lead to misinterpretation of CBC data. Current Interpretive Data was last revised on 2018. Lymphocyte pct 16.9 % [facility] Comment: Interpretive Data Percent cell count reference ranges are not reported, since discordance with absolute values may lead to misinterpretation of CBC data. Current Interpretive Data was last revised on 2018. Monocyte pct 10.4 % [facility] Comment: Interpretive Data Percent cell count reference ranges are not reported, since discordance with absolute values may lead to misinterpretation of CBC data. Current Interpretive Data was last revised on 2018. Eosinophil pct 5.1 % [facility] Comment: Interpretive Data Percent cell count reference ranges are not reported, since discordance with absolute values may lead to misinterpretation of CBC data. Current Interpretive Data was last revised on 2018. Basophil pct 0.8 % [facility] Comment: Interpretive Data Percent cell count reference ranges are not reported, since discordance with absolute values may lead to misinterpretation of CBC data. Current Interpretive Data was last revised on 2018. Blood 03/16/2025 5:40 AM CDT 03/16/2025 6:51 AM CDT us Shelton Lanier MD LAB BLOOD ORDERABLES Final Re sult [facility] [address] [place] [address] * (ABNORMAL) CBC with auto differential (03/16/2025 5:40 AM CDT) WBC 5.28 3.80 - 9.90 K/cumm Hgb 14.6 13.0 - 17.5 g/dL [facility] Hct 42.8 38.9 - 50.3 % [facility] Plt 105(L) 150 - 400 K/cumm [facility] MPV 11.0 9.1 - 12.[address] [facility] RBC 4.62 4.30 - 5.80 M/cumm [facility] MCV 92.6 81.3 - 96.[address] [facility] MCH 31.6 27.1 - 33.[address] [facility] MCHC 34.1 32.3 - 35.7 g/dL [facility] RDW CV 13.0 11.1 - 14.9 % [facility] RDW SD 43.9 35.7 - 48.[address] [facility] NRBC abs 0.00 0.00 - 0.01 K/cumm [facility] Blood 03/16/2025 5:40 AM CDT 03/16/2025 6:51 AM CDT Shelton Lanier MD LAB BLOOD ORDERABLES Final Re sult Performing Organization Address City/[facility]/ZIP Co de Phone Number [facility] [address] Department [place] [address] * CRP (acute phase) (03/16/2025 5:40 AM CDT) [facility] CRP <3.0 <=10.0 mg/L Blood 03/16/2025 5:40 AM CDT 03/16/2025 6:50 AM CDT Edwardo Garrett MD LAB BLOOD ORDERABLES Final Res ult Performing Organization Address [facility] Co de Phone Number [facility] [address] Department [place] [address] * (ABNORMAL) Renal function panel (03/16/2025 5:40 AM CDT) [facility] Sodium 142 135 - 145 mmol/L Potassium, pl 4.6 3.3 - 4.9 mmol/L [facility] Chloride 107 97 - 110 mmol/L [facility] CO2 24 22 - 32 mmol/L [facility] Anion gap 11 2 - 15 mmol/L [facility] BUN 26(H) 6 - 25 mg/dL [facility] Creatinine 0.99 0.80 - 1.30 mg/dL [facility] Glucose 97 70 - 199 mg/dL [facility] Comment: Interpretive Data Fasting glucose >/= 126 [...] 2022. Calcium 8.8 8.5 - 10.3 mg/dL [facility] Phosphorus, pl 2.8 2.3 - 4.5 mg/dL [facility] Albumin 3.4(L) 3.5 - 5.0 g/dL [facility] Blood 03/16/2025 5:40 AM CDT 03/16/2025 6:50 AM CDT us Shelton Lanier MD LAB BLOOD ORDERABLES Final Re sult Performing Organization Address City/[facility]/ZIP Co de Phone Number [facility] [address] Department [employer] [place], [place] [id number] * Glycohemoglobin A1C - Add on lab test (03/15/2025 10:08 AM CDT) Acceptable Yes Blood 03/15/2025 10:0 8 AM CDT 03/15/2025 10:[address] [facility] - 03/15/2025 10:08 AM CDT Name of Test->Glycohemoglobin A1C us Edwardo Garrett MD LAB BLOOD ORDERABLES Final Res ult Performing Organization Address City/[facility]/ZIP Co de Phone Number [facility] [address] [employer] [place], [place] [id number] * eGFR (03/15/2025 4:14 AM CDT) eGFR [...] MD LAB BLOOD ORDERABLES Final Re sult [facility] [address] [place] [address] * Differential, auto (03/15/2025 4:14 AM CDT) Neutrophil abs 3.01 1.50 - 6.50 K/cumm Imm gran abs 0.01 0.00 - 0.10 K/cumm [facility] Lymphocyte abs 0.89 0.80 - 3.30 K/cumm [facility] Monocyte abs 0.44 0.20 - 0.80 K/cumm [facility] Eosinophil abs 0.26 0.00 - 0.50 K/cumm [facility] Basophil abs 0.03 0.00 - 0.10 K/cumm [facility] Neutrophil pct 64.9 % [facility] Comment: Interpretive Data Percent cell count reference ranges are not reported, since discordance with absolute values may lead to misinterpretation of CBC data. Current Interpretive Data was last revised on 2018. Imm gran pct 0.2 % [facility] Comment: Interpretive Data Percent cell count reference ranges are not reported, since discordance with absolute values may lead to misinterpretation of CBC data. Current Interpretive Data was last revised on 2018. Lymphocyte pct 19.2 % [facility] Comment: Interpretive Data Percent cell count reference ranges are not reported, since discordance with absolute values may lead to misinterpretation of CBC data. Current Interpretive Data was last revised on 2018. Monocyte pct 9.5 % [facility] Comment: Interpretive Data Percent cell count reference ranges are not reported, since discordance with absolute values may lead to misinterpretation of CBC data. Current Interpretive Data was last revised on 2018. Eosinophil pct 5.6 % [facility] Comment: Interpretive Data Percent cell count reference ranges are not reported, since discordance with absolute values may lead to misinterpretation of CBC data. Current Interpretive Data was last revised on 2018. Basophil pct 0.6 % [facility] Comment: Interpretive Data Percent cell count reference ranges are not reported, since discordance with absolute values may lead to misinterpretation of CBC data. Current Interpretive Data was last revised on 2018. Blood 03/15/2025 4:14 AM CDT 03/15/2025 5:16 AM CDT us Cintia Rocha MD LAB BLOOD ORDERABLES Final R esult [facility] [address] [place] [address] * (ABNORMAL) CBC with auto differential (03/15/2025 4:14 AM CDT) WBC 4.64 3.80 - 9.90 K/cumm Hgb 14.2 13.0 - 17.5 g/dL [facility] Hct 42.7 38.9 - 50.3 % [facility] Plt 100(L) 150 - 400 K/cumm [facility] MPV 10.9 9.1 - 12.[address] [facility] RBC 4.61 4.30 - 5.80 M/cumm [facility] MCV 92.6 81.3 - 96.[address] [facility] MCH 30.8 27.1 - 33.[address] [facility] MCHC 33.3 32.3 - 35.7 g/dL [facility] RDW CV 12.8 11.1 - 14.9 % [facility] RDW SD 43.7 35.7 - 48.[address] [facility] NRBC abs 0.00 0.00 - 0.01 K/cumm [facility] Blood 03/15/2025 4:14 AM CDT 03/15/2025 5:16 AM CDT iCntia Rocha MD LAB BLOOD ORDERABLES Final R esult Performing Organization Address [facility] Co de Phone Number [facility] [address] Department [place] [address] * Erythrocyte sedimentation rate (03/15/2025 4:14 AM CDT) Erythrocyte sedimentation rate 2 1 - 20 mm/hr Blood 03/15/2025 4:14 AM CDT 03/15/2025 5:16 AM CDT Edwardo Garrett MD LAB BLOOD ORDERABLES Final Res ult Performing Organization Address [facility] de Phone Number [facility] [address] [facility] [place] [address] * Hemoglobin A1c (03/15/2025 4:14 AM CDT) Pathologist [facility] Hgb A1C 5.5 4.0 - 5.6 % Estimated Average Glucose 111 mg/dL [facility] Comment: The ADA recommends reporting an estimated Average Glucose (eAG) with all Hemoglobin A1c results using the equation derived from a study of 507 normal and diabetic adults. Minority populations were underrepresented and children were not included. (Diabetes Care 31:8749-4017, 2008). The eAG is not equivalent to a fasting glucose. Blood 03/15/2025 4:14 AM CDT 03/15/2025 5:16 AM CDT Edwardo Garrett MD LAB BLOOD ORDERABLES Final Res ult Performing Organization Address [facility] Co de Phone Number [facility] [address] [facility] [place] [address] * (ABNORMAL) Renal function panel (03/15/2025 4:14 AM CDT) Sodium 140 135 - 145 mmol/L Potassium, pl 4.0 3.3 - 4.9 mmol/L [facility] Chloride 107 97 - 110 mmol/L [facility] CO2 23 22 - 32 mmol/L [facility] Anion gap 10 2 - 15 mmol/L [facility] BUN 24 6 - 25 mg/dL [facility] Creatinine 0.83 0.80 - 1.30 mg/dL [facility] Glucose 84 70 - 199 mg/dL [facility] Comment: Interpretive Data Fasting glucose >/= 126 [...] 2022. Calcium 8.8 8.5 - 10.3 mg/dL [facility] Phosphorus, pl 2.8 2.3 - 4.5 mg/dL [facility] Albumin 3.4(L) 3.5 - 5.0 g/dL [facility] Blood 03/15/2025 4:14 AM CDT 03/15/2025 5:17 AM CDT us Shelton Lanier MD LAB BLOOD ORDERABLES Final Re sult [facility] [address] [place] [address] * eGFR (03/14/2025 10:44 PM CDT) eGFR [...] MD LAB BLOOD ORDERABLES Final R esult [facility] [address] [place] [address] * Differential, auto (03/14/2025 10:44 PM CDT) Neutrophil abs 3.18 1.50 - 6.50 K/cumm Imm gran abs 0.01 0.00 - 0.10 K/cumm [facility] Lymphocyte abs 0.89 0.80 - 3.30 K/cumm [facility] Monocyte abs 0.48 0.20 - 0.80 K/cumm [facility] Eosinophil abs 0.20 0.00 - 0.50 K/cumm [facility] Basophil abs 0.03 0.00 - 0.10 K/cumm [facility] Neutrophil pct 66.4 % [facility] Comment: Interpretive Data Percent cell count reference ranges are not reported, since discordance with absolute values may lead to misinterpretation of CBC data. Current Interpretive Data was last revised on 2018. Imm gran pct 0.2 % [facility] Comment: Interpretive Data Percent cell count reference ranges are not reported, since discordance with absolute values may lead to misinterpretation of CBC data. Current Interpretive Data was last revised on 2018. Lymphocyte pct 18.6 % [facility] Comment: Interpretive Data Percent cell count reference ranges are not reported, since discordance with absolute values may lead to misinterpretation of CBC data. Current Interpretive Data was last revised on 2018. Monocyte pct 10.0 % [facility] Comment: Interpretive Data Percent cell count reference ranges are not reported, since discordance with absolute values may lead to misinterpretation of CBC data. Current Interpretive Data was last revised on 2018. Eosinophil pct 4.2 % [facility] Comment: Interpretive Data Percent cell count reference ranges are not reported, since discordance with absolute values may lead to misinterpretation of CBC data. Current Interpretive Data was last revised on 2018. Basophil pct 0.6 % [facility] Comment: Interpretive Data Percent cell count reference ranges are not reported, since discordance with absolute values may lead to misinterpretation of CBC data. Current Interpretive Data was last revised on 2018. Blood 03/14/2025 10:4 4 PM CDT 03/14/2025 11:05 PM CDT Shelton Lanier MD LAB BLOOD ORDERABLES Final Re sult [facility] [address] [place] [address] * Pro B-type natriuretic peptide (03/14/2025 10:44 [...] ORDERABLES Final R esult Performing Organization Address City/[facility]/ZIP Co de Phone Number [facility] [address] [place] [address] * Thyroid Function [place] (03/14/2025 10:44 PM CDT) Pathologist [facility] TSH 2.06 0.30 - 4.20 mcIUnit/mL Blood 03/14/2025 10:4 4 PM CDT 03/14/2025 11:05 PM CDT Cintia Rocha MD LAB BLOOD ORDERABLES Final R esult Performing Organization Address City/[facility]/ZIP Co de Phone Number [facility] [address] [place] [address] * (ABNORMAL) CBC with auto differential (03/14/2025 10:44 PM CDT) Pathologist [facility] WBC 4.79 3.80 - 9.90 K/cumm Hgb 14.0 13.0 - 17.5 g/dL [facility] Hct 40.8 38.9 - 50.3 % [facility] Plt 107(L) 150 - 400 K/cumm [facility] MPV 10.7 9.1 - 12.[address] [facility] RBC 4.49 4.30 - 5.80 M/cumm [facility] MCV 90.9 81.3 - 96.[address] [facility] MCH 31.2 27.1 - 33.[address] [facility] MCHC 34.3 32.3 - 35.7 g/dL [facility] RDW CV 13.1 11.1 - 14.9 % [facility] RDW SD 43.1 35.7 - 48.[address] [facility] NRBC abs 0.00 0.00 - 0.01 K/cumm [facility] Blood 03/14/2025 10:4 4 PM CDT 03/14/2025 11:05 PM CDT Shelton Lanier MD LAB BLOOD ORDERABLES Final Re sult Performing Organization Address [facility] Co de Phone Number [facility] [address] [place] [address] * (ABNORMAL) Protime-INR (03/14/2025 10:44 PM CDT) PT 15.9(H) 9.7 - 13.0 sec INR 1.46(H) 0.90 - 1.20 [facility] Comment: Interpretive data Oral anticoagulant therapeutic ranges: Venous thromboembolism prophylaxis or treatment: 2.0-3.0 CARDIOLOGY Standard range: 2.0-3.0 High-intensity range: 2.5-3.5 Refer to indication-specific guidelines for appropriate target ranges for prosthetic heart valve replacement. Current interpretive data was last revised on 2019. Blood 03/14/2025 10:4 4 PM CDT 03/14/2025 11:05 PM CDT Cintia Rocha MD LAB BLOOD ORDERABLES Final R esult Performing Organization Address [facility]/ZIP Co de Phone Number [facility] [address] [place] [address] * (ABNORMAL) Comprehensive metabolic panel (03/14/2025 10:44 PM CDT) Sodium 138 135 - 145 mmol/L Potassium, pl 4.0 3.3 - 4.9 mmol/L [facility] Chloride 106 97 - 110 mmol/L [facility] CO2 21(L) 22 - 32 mmol/L [facility] Anion gap 11 2 - 15 mmol/L [facility] BUN 28(H) 6 - 25 mg/dL [facility] Creatinine 0.79(L) 0.80 - 1.30 mg/dL [facility] Glucose 91 70 - 199 mg/dL [facility] Comment: Interpretive Data Fasting glucose >/= 126 [...] 2022. Calcium 8.5 8.5 - 10.3 mg/dL [facility] Bilirubin, total 0.9 0.1 - 1.2 mg/dL [facility] Protein, pl 5.6(L) 6.5 - 8.5 g/dL [facility] Albumin 3.4(L) 3.5 - 5.0 g/dL [facility] Alk phos 64 40 - 130 Units/L [facility] ALT 22 7 - 55 Units/L [facility] AST 16 10 - 50 Units/L [facility] Blood 03/14/2025 10:4 4 PM CDT 03/14/2025 11:05 PM CDT us Cintia Rocha MD LAB BLOOD ORDERABLES Final R esult [facility] [address] [place] [address] * ECG 12 lead (03/14/2025 10:27 PM CDT) 03/14/2025 10:2 7 PM CDT Narrative [facility] - 03/15/2025 10:28 AM CDT Vent Rate: 73 bpm RR Interval: 818 msec [place] Interval: 194 msec QRS Duration: 168 msec QT Interval: 462 msec QTC Interval: 488 msec P-R-T [employer]: -84 - 62 - 265 degrees IMPRESSION: ELECTRONIC ATRIAL PACEMAKER ELECTRONIC VENTRICULAR PACEMAKER ABNORMAL RHYTHM ECG Electronically Signed By: Roverto Velazquez [facility] Card us Cintia Rocha MD ECG ORDERABLES Final Result [facility] * TRANSTHORACIC ECHO (TTE) COMPLETE W DOPPLER/CF W CONTRAST (03/13/2025 11:21 AM CDT) Estimated EF 35-45 % CONS SCIMAGE Anatomical Region Laterality Modality Ultrasound 03/13/2025 10:1 9 AM CDT Narrative 03/16/2025 9:54 PM CDT ECHOCARDIOGRAM Patient Name: BERNA MONTEIRO E : 1950 Study Date: 03/13/2025 10:19:36 AM Gender: M Tech: [facility] Ref Provider: LAISHA JORDAN Height(Cm): 180 BSA: [...] valve regurgitation. Electronically Signed By: Roverto Velazquez [facility] Card 03/16/2025 9:53:30 PM CDT Procedure Note Roverto Velazquez MD - 03/16/2025 ECHOCARDIOGRAM Patient Name: BERNA MONTEIRO E : 1950 Study Date: 03/13/2025 10:19:36 AM Gender: M Tech: [facility] Ref Provider: LAISHA JORDAN Height(Cm): 180 BSA: [...] ] MV E/A Ratio 0.6 TR Peak Soern 2.2 m/s [ 1.0 - 2.8 ] [...] valve regurgitation. Electronically Signed By: Roverto Velazquez [facility] Card 03/16/2025 9:53:30 PM CDT Laisha Jordan NP CV ECHO PROCEDURES Final Resu lt * Potassium level, serum (03/13/2025 10:11 AM CDT) Potassium, sr 4.3 3.6 - 5.2 mmol/L Blood 03/13/2025 10:1 1 AM CDT 03/13/2025 11:10 AM CDT Laisha Jordan NP LAB BLOOD ORDERABLES Final Re sult [facility] [address] [place] [address] * eGFR (03/04/2025 12:16 PM [...] 03/04/2025 12:53 PM CDT us Laisha Jordan [employer] LAB BLOOD ORDERABLES Final Re sult [facility] [address] [place] [address] * (ABNORMAL) Differential, auto (03/04/2025 12:16 PM CDT) Neutrophil abs 2.97 1.50 - 6.50 K/cumm Imm gran abs 0.01 0.00 - 0.10 K/cumm [facility] Lymphocyte abs 0.77(L) 0.80 - 3.30 K/cumm [facility] Monocyte abs 0.50 0.20 - 0.80 K/cumm [facility] Eosinophil abs 0.24 0.00 - 0.50 K/cumm [facility] Basophil abs 0.04 0.00 - 0.10 K/cumm [facility] Neutrophil pct 65.6 % [facility] Comment: Interpretive Data Percent cell count reference ranges are not reported, since discordance with absolute values may lead to misinterpretation of CBC data. Current Interpretive Data was last revised on 2018. Imm gran pct 0.2 % [facility] Comment: Interpretive Data Percent cell count reference ranges are not reported, since discordance with absolute values may lead to misinterpretation of CBC data. Current Interpretive Data was last revised on 2018. Lymphocyte pct 17.0 % [facility] Comment: Interpretive Data Percent cell count reference ranges are not reported, since discordance with absolute values may lead to misinterpretation of CBC data. Current Interpretive Data was last revised on 2018. Monocyte pct 11.0 % [facility] Comment: Interpretive Data Percent cell count reference ranges are not reported, since discordance with absolute values may lead to misinterpretation of CBC data. Current Interpretive Data was last revised on 2018. Eosinophil pct 5.3 % [facility] Comment: Interpretive Data Percent cell count reference ranges are not reported, since discordance with absolute values may lead to misinterpretation of CBC data. Current Interpretive Data was last revised on 2018. Basophil pct 0.9 % [facility] Comment: Interpretive Data Percent cell count reference ranges are not reported, since discordance with absolute values may lead to misinterpretation of CBC data. Current Interpretive Data was last revised on 2018. Blood 03/04/2025 12:1 6 PM CDT 03/04/2025 12:53 PM CDT us Laisha Jordan NP LAB BLOOD ORDERABLES Final Re sult [facility] [address] [place] [address] * Pro B-type natriuretic peptide (03/04/2025 12:16 [...] NP LAB BLOOD ORDERABLES Final Re sult [facility] [address] [place] [address] * (ABNORMAL) CBC with auto differential (03/04/2025 12:16 PM CDT) WBC 4.53 3.80 - 9.90 K/cumm Hgb 14.8 13.0 - 17.5 g/dL [facility] Hct 44.4 38.9 - 50.3 % [facility] Plt 113(L) 150 - 400 K/cumm [facility] MPV 11.0 9.1 - 12.[address] [facility] RBC 4.74 4.30 - 5.80 M/cumm [facility] MCV 93.7 81.3 - 96.[address] [facility] MCH 31.2 27.1 - 33.[address] [facility] MCHC 33.3 32.3 - 35.7 g/dL [facility] RDW CV 13.4 11.1 - 14.9 % [facility] RDW SD 45.7 35.7 - 48.[address] [facility] NRBC abs 0.00 0.00 - 0.01 K/cumm [facility] Blood 03/04/2025 12:1 6 PM CDT 03/04/2025 12:53 PM CDT Laisha SantanaNoah Jordan PLY SPLICER LAB BLOOD ORDERABLES Final Re sult Performing Organization Address City/[facility]/ZIP Co de Phone Number [facility] [address] [place] [address] * Magnesium (03/04/2025 12:16 PM CDT) [facility] Magnesium 2.3 1.4 - 2.5 mg/dL Blood 03/04/2025 12:1 6 PM CDT 03/04/2025 12:53 PM CDT Laisha Pinoncecilia PLY SPLICER LAB BLOOD ORDERABLES Final Re sult Performing Organization Address [facility] Co de Phone Number [facility] [address] [place] [address] * (ABNORMAL) Basic metabolic panel (03/04/2025 12:16 PM CDT) [facility] Sodium 140 135 - 145 mmol/L Potassium, pl 5.1(H) 3.3 - 4.9 mmol/L [facility] Chloride 106 97 - 110 mmol/L [facility] CO2 25 22 - 32 mmol/L [facility] Anion gap 9 2 - 15 mmol/L [facility] BUN 19 6 - 25 mg/dL [facility] Creatinine 0.96 0.80 - 1.30 mg/dL [facility] Glucose 91 70 - 199 mg/dL [facility] Comment: Interpretive Data Fasting glucose >/= 126 [...] 2022. Calcium 8.8 8.5 - 10.3 mg/dL [facility] Blood 03/04/2025 12:1 6 PM CDT 03/04/2025 12:53 PM CDT us Laisha Jordan NP LAB BLOOD ORDERABLES Final Re sult [facility] [address] [place] [address] * Lipid panel (04/29/2024 1:18 PM CDT) [...] on 2018. Triglycerides 71 <=149 mg/dL [facility] Comment: Interpretive Data Ages < or [...] on 2018. HDL 46 >=40 mg/dL [facility] Comment: Interpretive Data Ages < or [...] 2018. LDL, calculated 42 <=129 mg/dL [facility] Comment: Interpretive Data Ages < or [...] on 2018. Non-HDL Cholesterol 56 mg/dL [facility] Comment: Interpretive Data Ages < or [...] revised on 2018. Chol/HDL ratio 2 [facility] Blood 04/29/2024 1:18 PM CDT 04/29/2024 2:04 PM CDT us Gonzalo Helm MD LAB BLOOD ORDERABLES Final Result [facility] Department [place] [address] * Hepatitis C antibody Blood (07/26/2023 8:13 [...] - GENERAL ORDER EMILIANA Final Result [facility] [address] [place] [address] * COLONOSCOPY (04/19/2023 11:42 AM CDT) Anatomical Region Laterality Modality Other Narrative Procedure Note David Wilkins, - 04/19/2023 11:42 AM CDT [facility] GI ENDOSCOPY Patient Name: Berna Monteiro Procedure Date: 04/19/2023 11:42 AM Date of : 1950 Admit Type: Outpatient Age: 72 Gender: Male Attending MD: David Wilkins D.O. Room: [facility] ENDOSCOPY ROOM 05 Note Status: Finalized Procedure: [...] On: 04/19/2023 11:42 AM Recognized by the [employer] for promoting quality in endoscopy us David Wilkins DO ENDOSCOPY PROCEDURES Fin al Result from Last 3 Months or Most Recently Relevant to Health Maintenance Insurance [facility] ADVANTAGE CHOICE PPO [employer] CHOICE PPO [employer] CHO[employer] PPO Advance Directives For more information, please contact: [phone] Documents on File Type Date Recorded Patient Storage Battery Tester Expl anation Advance Directives and Livin g [...] 4:28 PM 08/28/2021 5:21 PM Care Teams Roll Out Manager Relationship Specialty [place] [address] [facility] [address] [place] [address] PCP - General Internal Medicine 12/09/24 Roverto Velazquez MD [address] [facility] [address] [place], [place] [id number] Consulting Physician Cardiovascular Disease 08/28/21 Viet Olvera III, MD [address] [facility] [address] [place] [address] Consulting Physician Cardiology 08/28/21 Miscellaneous, Not In File 05/10/22 Valdez Leyva MD [facility] [address] Consulting Physician General Surgery 12/22/22 Missy Jones NP [address] [place] [address] Nurse Practitioner Family Medicine 06/26/23 Obed Garcia MD [address] [facility] [address] [place] [address] Consulting Physician Urology 11/07/23 [place] [address] [facility] [address] [place] [address] Consulting Physician Endocrinology 11/07/23 Laisha Jordan NP [address] [facility] [address] [place] [address] Nurse Practitioner Cardiovascular Disease 03/17/25 Estrella Mcleod MD [address] [facility] [address] [place], [place] [address] Consulting Physician Neurology 03/17/25
--- OUTSIDE RECORDS SUMMARY | 2025-05-06 00:55 | XMS_ITS | Encounter Summary ---
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
--- OUTSIDE RECORDS SUMMARY | 2025-05-06 00:55 | XMS_ITS | Clinical Summary ---
Author Organization [facility] Address [address] [place] [address] Care Team Providers Care Showroom Sales Consultant Name Role Phone Gigi Castellanos MD Primary Care Provider [phone] Allergies Active Allergy Reactions Criticality Noted Date [...] Diagnosed Date Coronary artery disease invo lving shinnecock coronary artery of shinnecock heart without angina pectoris 08/31/2021 Paroxysmal atrial fibrillation ([facility]) 08/31/2021 Vertigo 08/17/2021 Dermatitis 11/27/2020 Herpes zoster without complication 10/14/2020 Parkinson's disease ([facility]) 07/22/2020 Unilateral inguinal hernia without obstruction o [...] 13) 08/07/2018 Tdap (Generic) 04/18/2016 Zoster (Zostavax) [address]61 Unt/0.65Ml 09/14/2010 Family History Medical History Relation [...] on file Legal Sex Male 11:13 PM CLINICAL INFORMATICS EDUCATOR Gender Identity Not on file Sexual Orientation Not on file Last Filed Vital Signs Vital Sign Reading Time Taken Comments Blood Pressure 128/80 08/31/2021 10:07 AM CLINICAL INFORMATICS EDUCATOR Pulse 72 07/22/2020 8:54 AM CDT Temperature 36.7 C (98.1 F) 02/04/2021 9:36 AM CDT Respiratory Rate - - Oxygen Saturation - - Inhaled Oxygen Concentration - - Weight 101.6 kg (224 lb) 08/31/2021 10:07 AM CLINICAL INFORMATICS EDUCATOR Height 180.3 cm (5' 11) 08/31/2021 10:07 AM CLINICAL INFORMATICS EDUCATOR Body Mass Index 31.24 08/31/2021 10:07 AM CLINICAL INFORMATICS EDUCATOR Plan of Treatment Health Maintenance Due Date [...] Essential hypertension COLONOSCOPY Routine 10/15/2012 12:00 AM CLINICAL INFORMATICS EDUCATOR from Last 3 Months or Most Recently [...] LDL-C. Ori FREIRE et al. GRICELDA. 2013;310(19): 7494-4477 (http://education.[employer]/faq/UIL796) CHOL/HDL RATIO 3.7 <5.0 (calc) [facility] [...] t [facility] [address] [place] [address] * Colonoscopy (10/15/2012 12:00 AM CLINICAL INFORMATICS EDUCATOR) 10/15/2012 10/15/2012 Narrative TOUCHWORKS TO EPIC CONVERSION - 10/15/2012 12:00 AM CLINICAL INFORMATICS EDUCATOR Documented hx of procedure Procedure Note , Generic Conversion, - 01/02/2019 Documented hx of procedure us Generic Conversion Md MG GI PROCEDURE ORDERABLES Final Result TOUCHWORKS TO EPIC CONVERSION from Last 3 Months or Most Recently Relevant to Health Maintenance Insurance [employer] Care Teams Showroom Sales Consultant Relationship Specialty Start Date End Date Gigi Castellanos MD [address] [phone] PCP - General FAMILY PRACTICE 01/29/19
--- OUTSIDE RECORDS SUMMARY | 2025-05-06 00:55 | XMS_ITS | Encounter Summary ---
Author Organization [facility] Address [address] [place] [address] Care Team Providers Care Express Clerk Name Role Phone WilkinsDavid dean Primary Care Provider [phone] Encounter Details Date Type Department Care Team (Late st Contact Info) Description 09/18/2023 Lab Requisition [facility] - DermPath Lab [address] [facility] [place] [phone] Wendy Castellanos DO [address] [facility] 3 [place] [address] Social History Tobacco Use Types Packs/Day Years Used Date Smoking Tobacco: Never Smokeless Tobacco: Never Alcohol Use Standard Drinks/Week Comments Yes 0 (1 standard drink = 0.6 oz pur e alcohol) Sex and Gender Information Value Date Recorded Sex Assigned at Not on file Legal Sex Male 5:33 PM COMMERCIAL INSTRUCTOR SUPERVISOR Gender Identity Not on file Sexual Orientation Not on file documented as of this encounter Plan of Treatment Not on file documented as of this encounter Procedures Procedure Name Priority Date/Time Associated Diagnosis Comments DERMATOPATHOLOGY Routine 09/18/2023 10:4 9 AM COMMERCIAL INSTRUCTOR SUPERVISOR documented in this encounter Results * DERMATOPATHOLOGY (09/18/2023 10:49 AM COMMERCIAL INSTRUCTOR SUPERVISOR) Case Report Dermatopathology Report Case: [id number] Authorizing Provider: Wendy Castellanos DO Collected: 09/18/2023 10:49 AM Ordering Location: [facility] DermPath Lab Received: 09/19/2023 01:36 PM Pathologist: Lydia Gomez MD Specimens: A) - Skin, left preauricular B) - Skin, right neck 1:48 PM [facility] DERMATOPATHOLOGY [facility]ORATORY Final Diagnosis Specimen A. SKIN, left preauricular: BASAL CELL CARCINOMA, INFILTRATIVE PATTERN (C44.319) Specimen B. SKIN, right neck: SQUAMOUS CELL CARCINOMA, ACANTHOLYTIC TYPE (C44.42) 1:48 PM [facility] DERMATOPATHOLOGY [facility]ORATORY at [address] COMMERCIAL INSTRUCTOR SUPERVISOR Clinical History A: R/O BCC Growing B: R/O SCC Growing 1:48 PM [facility] DERMATOPATH[facility]Y [facility] Gross Description Specimen A: [...] measuring 7x6x2 mm. Jar 0. 1:48 PM [facility] DERMAT[facility] Microscopic Description Specimen A. [...] cells that lack intercellular bridges. 1:48 PM [facility] DERMATOPATHOLOGY [facility]ORAT[facility] Disclaimer An external and internal positive and negative controls are appropriate for the histochemical, immunohistochemical and immunofluorescence stain(s) in this case (if any), except where stated explicitly. The performance characteristics of the stain(s) cited in this report were developed and its performance characteristic determined by the Dermatopathology Laboratory at [facility], directed by Dr. Haylie Paz. These tests need not be, and therefore are not, approved by the [place] Food and Drug Administration. The tests are used for clinical purposes. Billing Codes Specimen Charges Stain Charges 59807 45089 1 1 3 1:48 PM COMMERCIAL INSTRUCTOR SUPERVISOR DERMATOPATHOLOGY LABORATORY Embedded Images 3 1:48 PM COMMERCIAL INSTRUCTOR SUPERVISOR DERMATOPATHOLOGY LABORATORY Pathology/Cytology TISSUE SPECIMEN FROM SKIN / Unknown 09/18/2023 10:49 AM COMMERCIAL INSTRUCTOR SUPERVISOR 09/19/2023 1:36 PM COMMERCIAL INSTRUCTOR SUPERVISOR Miscellaneous samples (specimen) TISSUE SPECIMEN FROM SKIN / Unknown 09/18/2023 10:49 AM COMMERCIAL INSTRUCTOR SUPERVISOR 09/19/2023 1:36 PM COMMERCIAL INSTRUCTOR SUPERVISOR Wendy Castellanos DO LAB - PATHOLOGY/CYTOLOGY ORDERABLES Final Result DERMATOPATHOLOGY LABORATORY [facility] - Department of Dermatology [facility] [address] [place] [address], [address] [phone] documented in this encounter Visit Diagnoses Not on filedocumented in this encounter Care Teams Express Clerk Relationship Specialty Start Date End Date David Wilkins DO [address] [place] [address] PCP - General 03/19/17 documented as of this encounter
--- OUTSIDE RECORDS SUMMARY | 2025-05-06 00:55 | XMS_ITS | Encounter Summary ---
Author Organization [facility] Address [address] [facility] [place] [address] Care Team Providers Care Packaging Materials Inspector Name Role Phone WilkinsDavid dean Primary Care Provider [phone] Encounter Details Date Type Department Care Team (Late st Contact Info) Description 04/08/2025 Lab Requisition [facility] - DermPath Lab [address] [facility] [place] [phone] Bhakti Munoz MD [address] [facility] [address] [place] [address] Social History Tobacco Use Types Packs/Day Years Used Date Smoking Tobacco: Never Smokeless Tobacco: Never Alcohol Use Standard Drinks/Week Comments Yes 0 (1 standard drink = 0.6 oz pur e alcohol) Sex and Gender Information Value Date Recorded Sex Assigned at Not on file Legal Sex Male 5:33 PM WHIZZER Gender Identity Not on file Sexual Orientation Not on file documented as of this encounter Plan of Treatment Not on file documented as of this encounter Procedures Procedure Name Priority Date/Time Associated Diagnosis Comments DERMATOPATHOLOGY Routine 04/08/2025 10:0 7 AM CDT documented in this encounter Results * DERMATOPATHOLOGY (04/08/2025 10:07 AM CDT) Case Report Dermatopathology Report Case: [id number] Authorizing Provider: Bhakti Munoz MD Collected: 04/08/2025 10:07 AM Ordering Location: [facility] - Received: 04/10/2025 07:58 AM DermPath Lab Pathologist: Kandace oGmez MD Specimens: A) - Skin, left back [...] determined by the Dermatopathology Laboratory at [facility], directed by Dr. Haylie Paz. These tests need not be, and therefore are not, approved by the [place] Food and Drug Administration. The tests are used for clinical purposes. Billing Codes Specimen Charges Stain Charges 89990 25037 1 1 5 1:08 PM CDT DERMATOPATHOLOGY LABORATORY Embedded Images 5 1:08 PM CDT DERMATOPATHOLOGY LABORATORY Pathology/Cytology TISSUE SPECIMEN FROM SKIN / Unknown 04/08/2025 10:07 AM CDT 04/10/2025 7:58 AM CDT Miscellaneous samples (specimen) TISSUE SPECIMEN FROM SKIN / Unknown 04/08/2025 10:07 AM CDT 04/10/2025 7:58 AM CDT us Bhakti Munoz MD LAB - PATHOLOGY/CYTOLOGY ORD ERABLES Final Result DERMATOPATHOLOGY LABORATORY [facility] - Department of Dermatology [facility] Medicine [address] [place] [address], [address] [phone] documented in this encounter Visit Diagnoses Not on filedocumented in this encounter Care Teams Packaging Materials Inspector Relationship Specialty Start Date End Date David Wilkins DO [address] [place] [address] PCP - General 03/19/17 documented as of this encounter
[2025-05-06 07:47] VITALS: BP 127/94; PULSE 84; RESP 18; TEMP 36.3; O2SAT 100
--- NOTE | 2025-05-06 08:01 | P.PNAN_ITS ---
Anes - Initial Pre Proc Eval Procedure: Operation Date: 05/06/25 09:00 Proposed Procedures p Esophagogastroduodenoscopy - Shawn Harvey MD Date/Time: 05/06/25 08:01 Surgeon: Shawn Harvey MD Pre Op Diagnosis: Chronic cough Patient Data Age: 74 Gender: M Height: 1.8 m Weight: 95.2 kg Last Vital Signs Temp 36.3 C L 05/06/25 07:47 Pulse 84 05/06/25 07:47 Resp 18 05/06/25 07:47 BP 127/94 H 05/06/25 07:47 Pulse Ox 100 05/06/25 07:47 O2 Del Method Room Air 05/06/25 07:47 Allergies Allergy/AdvReac Type Severity Reaction Status Date / Time Opioids AdvReac Unknown Itching Uncoded 05/06/25 07:46 Home Medications ?Medication ?Instructions ?Recorded ?Confirmed ?Type atorvastatin 40 mg tablet 40 mg PO DAILY 09/20/21 05/04/25 History multivitamin 1 tablet PO DAILY 09/20/21 05/04/25 History aspirin 81 mg tablet,delayed 81 mg PO DAILY 11/03/24 05/04/25 History release (Adult Aspirin Regimen) carvedilol 12.5 mg tablet 12.5 mg PO Q12H 11/03/24 05/06/25 History ketoconazole 2 % shampoo 1 applic topical 3XW 11/03/24 05/04/25 History tamsulosin 0.4 mg capsule (Flomax) 0.4 mg PO DAILY 11/03/24 05/04/25 History gabapentin 100 mg capsule 200 mg PO BID 03/24/25 05/04/25 History apixaban 5 mg tablet 5 mg PO BID 05/04/25 05/06/25 History sacubitril 24 mg-valsartan 26 mg 1 tablet PO BID 05/04/25 05/06/25 History tablet (Entresto) Patient hx anesthesia problems: none Family hx anesthesia problems: none Results Review: All pre-operative results and documents have been reviewed as part of the pre- operative evaluation. 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 He has 4 children. He lives with his . Lifelong nonsmoker does not use any alcohol marijuana or illicit drugs. His is the durable power criminal attorney for healthcare. Code status full code Smoking status: Never smoker Alcohol intake: never Substance use: never Substance use type: does not use Do You Feel Safe in your Home?: Yes Lack of Transportation: No Lack of Food: Never True Current Housing: I Have Housing Concerned About Future Housing: No Difficulty Paying Gas/Electric Bills: No Difficulty Paying for Meds: No Currently Unemployed: No Education: Decline to Answer Difficulty w/ Childcare or Family Care: No Living arrangements: with family Occupation/Education: retired Gender identity (if verbalized by the patient): Male Sexual Orientation (if Verbalized by the Patient): Straight or Heterosexual Spiritual care concerns: No Anes - Eval Final PreProcedure Day of Procedure 05/06/25 08:01 Patient weight: overweight Heart: regular rate and rhythm Lungs: decreased breath sounds Airway: Mallampati scale class III Neurological: alert and oriented Last oral intake: >/= 8 hours ASA classification: IV Emergent: no Anesthetic plan: proceed Anesthesia type and monitoring: general GIVS and standard monitoring Results Review: All pre-operative results and documents have been reviewed as part of the pre- operative evaluation. Informed Consent: The patient's anesthetic plan and its attendant risks and benefits were discussed with the patient/family/POA. Questions were solicited and answers provided to the satisfaction of the patient/family/POA.
[2025-05-06] MEDS: LACTATED RINGERS 1,000 ML 150 ML IV CONT (08:02)
[2025-05-06] MEDS: SIMETHICONE ORAL SUSPENSION 20 MG/0.3 ML 30 ML BOTTLE 1.8 ML PO (08:48)
--- NOTE | 2025-05-06 09:08 | P.HP_ITS ---
H&P: HPI History of Present Illness Date/Time: 05/06/25 09:08 Chief Complaint: Dysphagia Narrative: the patient started experiencing frequent regurgitation and dysphagia, mainly to solids but occasionally to liquids since November this year. He has been afraid to eat steak because of fear of worsening dysphagia. He is referred for EGD. 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 He lives with his . Lifelong nonsmoker does not use any alcohol marijuana or illicit drugs. His is the durable power tax associate attorney for healthcare. Code status full code Smoking status: Never smoker Alcohol intake: never Substance use: never Substance use type: does not use Do You Feel Safe in your Home?: Yes Lack of Transportation: No Lack of Food: Never True Current Housing: I Have Housing Concerned About Future Housing: No Difficulty Paying Gas/Electric Bills: No Difficulty Paying for Meds: No Currently Unemployed: No Education: Decline to Answer Difficulty w/ Childcare or Family Care: No Living arrangements: with family Occupation/Education: retired Gender identity (if verbalized by the patient): Male Sexual Orientation (if Verbalized by the Patient): Straight or Heterosexual Spiritual care concerns: No Meds Home Medications and Allergies Home Medications ?Medication ?Instructions ?Recorded ?Confirmed ?Type atorvastatin 40 mg tablet 40 mg PO DAILY 09/20/21 05/04/25 History multivitamin 1 tablet PO DAILY 09/20/21 05/04/25 History aspirin 81 mg tablet,delayed 81 mg PO DAILY 11/03/24 05/04/25 History release (Adult Aspirin Regimen) carvedilol 12.5 mg tablet 12.5 mg PO Q12H 11/03/24 05/06/25 History ketoconazole 2 % shampoo 1 applic topical 3XW 11/03/24 05/04/25 History tamsulosin 0.4 mg capsule (Flomax) 0.4 mg PO DAILY 11/03/24 05/04/25 History gabapentin 100 mg capsule 200 mg PO BID 03/24/25 05/04/25 History apixaban 5 mg tablet 5 mg PO BID 05/04/25 05/06/25 History sacubitril 24 mg-valsartan 26 mg 1 tablet PO BID 05/04/25 05/06/25 History tablet (Entresto) Allergies Allergy/AdvReac Type Severity Reaction Status Date / Time Opioids AdvReac Unknown Itching Uncoded 05/06/25 07:46 Vital Signs Vital Signs - 24 hr 05/06/25 07:47 Temperature 97.4 F L Pulse Rate 84 Respiratory Rate 18 Blood Pressure 127/94 H Pulse Oximetry 100 Oxygen Delivery Room Air Exam Const: General: cooperative and healthy appearing Resp: Effort & Inspection: normal respiratory effort and able to speak in complete sentences Auscultation: clear to auscultation bilaterally Cardio: Rate: regular rate Rhythm: regular rhythm GI: Inspection: normal to inspection GI Palp: No No hepatosplenomegaly present Auscultation: normal bowel sounds Rectal Exam: deferred Skin: General skin exam: normal color Psych: Appearance: grossly normal Mental Status: mental status grossly normal Assessment and Plan Assessment and plan (1) Dysphagia: Code(s): R13.10 - Dysphagia, unspecified Status: Acute Assessment and Plan: there is a suspicion for motility disorders of the esophagus, including achalasia. The patient is deemed a good candidate for the procedure. Consent signed. Will proceed.
--- NOTE | 2025-05-06 09:29 | S_PTH ---
PATIENT: Rico Monteiro LOC: [facility] U#:[id number] AGE/SX: 74/M ROOM: RE05/06/[address]: Shawn Harvey MD : 1950 BED: DIS: 05/06/2025 SPEC #: [id number] RECD: 05/06/25 13:31 STATUS: [place] REQ #: [id number] DARRYL: 05/06/25 09:[address]: Shawn Harvey DEPT: [facility] Surgical RECD BY: Lilian Garcia ENTERED: 05/06/25 13:31 SP TYPE: Surgical OTHR DR: Ignacio Henry DO Tissues: A - Esophageal Biopsy Procedures: Hematoxylin and Eosin Stain Gross and Microscopic Level 4
[2025-05-06 09:36] VITALS: BP 154/98; PULSE 76; RESP 19; O2SAT 98
[2025-05-06 09:46] VITALS: BP 152/103; PULSE 70; RESP 16; O2SAT 96
[2025-05-06 09:56] VITALS: BP 124/83; PULSE 69; RESP 19; O2SAT 99
== END 2025-05-06 10:19 | disposition home or self-care (01) ==
PROVIDERS: PCP Internal Medicine; Referring Provider Clinical Nurse Specialist; Visit Provider Internal Medicine Gastroenterology
PROC: 0DJ08ZZ Inspection of Upper Intestinal Tract, Via Natural or Artificial Opening Endoscopic (ICD-10-PCS; CPT 43239; principal; 2025-05-06 09:00)
DX: K20.0 Eosinophilic esophagitis (principal); K29.30 Chronic superficial gastritis without bleeding; E11.22 Type 2 diabetes mellitus with diabetic chronic kidney disease; I12.9 Hypertensive chronic kidney disease with stage 1 through stage 4 chronic kidney disease, or unspecified chronic kidney disease; N18.9 Chronic kidney disease, unspecified; I11.0 Hypertensive heart disease with heart failure; I50.9 Heart failure, unspecified; Z79.82 Long term (current) use of aspirin; Z79.01 Long term (current) use of anticoagulants; Z98.890 Other specified postprocedural states; Z95.0 Presence of cardiac pacemaker; Z95.5 Presence of coronary angioplasty implant and graft; Z80.9 Family history of malignant neoplasm, unspecified; Z82.49 Family history of ischemic heart disease and other diseases of the circulatory system
CPT/HCPCS: 43239; 88305; J2003; J2704; J7120

== ENCOUNTER 2025-09-29 10:46 | Outpatient (CLI) | payer OTHER, SELFPAY ==
--- OUTSIDE RECORDS SUMMARY | 2025-09-29 12:52 | XMS_ITS | Encounter Summary ---
Author Organization [facility] Address [address] [facility] [place] [address] Care Team Providers Care Tufting Machine Operator Single Needle Name Role Phone WilkinsDavid dean Primary Care Provider [phone] Encounter Details Date Type Department Care Team (Late st Contact Info) Description 09/18/2023 Lab Requisition [facility] - DermPath Lab [address] [facility], [place] [phone] Wendy Castellanos DO [address] [facility] [address] [place] [address] Social History Tobacco Use Types Packs/Day Years Used Date Smoking Tobacco: Never Smokeless Tobacco: Never Alcohol Use Standard Drinks/Week Comments Yes 0 (1 standard drink = 0.6 oz pur e alcohol) Sex and Gender Information Value Date Recorded Sex Assigned at Not on file Legal Sex Male 5:33 PM DIRECTOR OF SOCIAL MEDIA MARKETING Gender Identity Not on file Sexual Orientation Not on file documented as of this encounter Plan of Treatment Not on file documented as of this encounter Procedures Procedure Name Priority Date/Time Associated Diagnosis Comments DERMATOPATHOLOGY Routine 09/18/2023 10:4 9 AM DIRECTOR OF SOCIAL MEDIA MARKETING documented in this encounter Results * DERMATOPATHOLOGY (09/18/2023 10:49 AM DIRECTOR OF SOCIAL MEDIA MARKETING) Case Report Dermatopathology Report Case: [id number] Authorizing Provider: Wendy Castellanos DO Collected: 09/18/2023 10:49 AM Ordering Location: [facility] DermPath Lab Received: 09/19/2023 01:36 PM Pathologist: Lydia Gomez MD Specimens: A) - Skin, left preauricular B) - Skin, right neck 1:48 PM [facility] DERMATOPATHOLOGY LABORATORY Final Diagnosis Specimen A. SKIN, left preauricular: BASAL CELL CARCINOMA, INFILTRATIVE PATTERN (C44.319) Specimen B. SKIN, right neck: SQUAMOUS CELL CARCINOMA, ACANTHOLYTIC TYPE (C44.42) 1:48 PM [facility] DERMATOPATHOLOGY LABORATORY at [address] DIRECTOR OF SOCIAL MEDIA MARKETING Clinical History A: R/O BCC Growing B: R/O SCC Growing 1:48 PM [facility] DERMATOPATHOLOGY LABORATORY Gross Description [...] measuring 7x6x2 mm. Jar 0. 1:48 PM [facility] DERMATOPATHOLOGY LABORATORY Microscopic Description [...] cells that lack intercellular bridges. 1:48 PM [facility] DERMATOPATHOLOGY LABORATORY Disclaimer An external and internal positive and negative controls are appropriate for the histochemical, immunohistochemical and immunofluorescence stain(s) in this case (if any), except where stated explicitly. The performance characteristics of the stain(s) cited in this report were developed and its performance characteristic determined by the Dermatopathology Laboratory at [facility], directed by Dr. Haylie Paz. These tests need not be, and therefore are not, approved by the [place] Food and Drug Administration. The tests are used for clinical purposes. Billing Codes Specimen Charges Stain Charges 87749 85706 1 1 3 1:48 PM DIRECTOR OF SOCIAL MEDIA MARKETING DERMATOPATHOLOGY LABORATORY Embedded Images 3 1:48 PM DIRECTOR OF SOCIAL MEDIA MARKETING DERMATOPATHOLOGY LABORATORY Pathology/Cytology TISSUE SPECIMEN FROM SKIN / Unknown 09/18/2023 10:49 AM DIRECTOR OF SOCIAL MEDIA MARKETING 09/19/2023 1:36 PM DIRECTOR OF SOCIAL MEDIA MARKETING Miscellaneous samples (specimen) TISSUE SPECIMEN FROM SKIN / Unknown 09/18/2023 10:49 AM DIRECTOR OF SOCIAL MEDIA MARKETING 09/19/2023 1:36 PM DIRECTOR OF SOCIAL MEDIA MARKETING Wendy Castellanos DO LAB - PATHOLOGY/CYTOLOGY ORDERABLES Final Result DERMATOPATHOLOGY LABORATORY [facility] - Department of Dermatology [facility] Specialized Medicine [address] [place] [address], [address] [phone] documented in this encounter Visit Diagnoses Not on filedocumented in this encounter Care Teams Tufting Machine Operator Single Needle Relationship Specialty Start Date End Date David Wilkins DO [address] [place] [address] PCP - General 03/19/17 documented as of this encounter
--- OUTSIDE RECORDS SUMMARY | 2025-09-29 12:52 | XMS_ITS | Clinical Summary ---
Author Organization [facility] Address [address] [facility] [place] [address] Care Team Providers Care Foil Wrapper Name Role Phone WilkinsDavid dean Primary Care Provider [phone] Source Comments [facility],non-owned Affiliates and Associated Physician Practices is amultiple site organization consisting of ambulatory clinics and hospital sitesin [place], [place], [place] and [place]. This disclosure is being madepursuant to the Care Everywhere program and may not contain all information available regarding this patient. Last updated 18.[facility] Allergies Active Allergy Reactions Criticality Noted Date [...] on file Legal Sex Male 5:33 PM CREDIT REVIEW OFFICER Gender Identity Not on file Sexual Orientation [...] yrs (1 - 1-dose 75+ series) 2023 DEPRESSION SCREENING 10/15/2024 COVID-19 VACCINE (1 - 2024-2 6 season) 2025 INFLUENZA VACCINE (#1) 2025 HEPATITIS B VACCINE [...] patient's age to complete this topic Insurance [facility] MEDICARE [facility] MEDICARE [employer] MED[employer]ARE ADV PPO SELF PAY NO INSURANCE Member Subscriber Plan / Payer (Ef fective for All Dates) Name:Berna Deleon Member ID:Not on file Relation to Subscriber:Not on file Name:BERNA DELEON Subscriber ID:Not on file (Home) Address: [address] [place] [address] Payer ID:Not on file Group ID:Not on file Type:Self Pay Address: [place], [place] Care Teams Foil Wrapper Relationship Specialty [place] [address] [place] [address] [facility] - General 03/19/17
--- OUTSIDE RECORDS SUMMARY | 2025-09-29 12:52 | XMS_ITS | Clinical Summary ---
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 08/31/2021 Paroxysmal atrial fibrillation 08/31/2021 Vertigo 08/17/2021 Dermatitis 11/27/2020 Herpes zoster without complication 10/14/2020 Parkinson's disease 07/22/2020 Unilateral inguinal hernia without obstruction o [...] 13) 08/07/2018 Tdap (Generic) 04/18/2016 Zoster (Zostavax) 23271 Unt/0.65Ml 09/14/2010 Family History Medical History Relation [...] on file Legal Sex Male 11:13 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 Gender Identity Not on file Sexual Orientation Not on file Last Filed Vital Signs Vital Sign Reading Time Taken Comments Blood Pressure 128/80 08/31/2021 10:07 AM FREIGHT CALLER Pulse 72 07/22/2020 8:54 AM CDT Temperature 36.7 C (98.1 F) 02/04/2021 9:36 AM CDT Respiratory Rate - - Oxygen Saturation - - Inhaled Oxygen Concentration - - Weight 101.6 kg (224 lb) 08/31/2021 10:07 AM FREIGHT CALLER Height 180.3 cm (5' 11) 08/31/2021 10:07 AM FREIGHT CALLER Body Mass Index 31.24 08/31/2021 10:07 AM FREIGHT CALLER Plan of Treatment Health Maintenance Due Date Last Done Comments ASCVD Statin 1950 Hepatitis C 1968 Zoster Vaccines (2 of 3) 11/09/2010 09/14/2010 Annual Medicare Wellness Visit 07/23/2021 07/22/2020 ASCVD LDL 07/25/2022 07/25/2021, 05/2020, 08/06/2019, Additional history exists RSV Immunization or 60+ Years (1 - 1-dose 75+ series) 2023 COVID-19 Vaccine ( - season) 2025 07/18/2021, 12/13/2020, 11/22/2020 Influenza Adult (#1) 2025 06/24/2020, 08/27/2019, 08/01/2018 DTaP, Tdap and Td Vaccines (2 - Td or Tdap) 04/18/2026 04/18/2016 Colorectal Cancer Screening Colonoscopy (10 Years) Discontinued 10/15/2012 Pneumococcal Vaccine: 50+ Years Completed 08/29/2019, 08/07/2018 Hepatitis A Vaccines Aged Out No long er eligible based on patient's age to complete this topic Meningococcal B Vaccine Aged Out No l [...] Essential hypertension COLONOSCOPY Routine 10/15/2012 12:00 AM FREIGHT CALLER from Last 3 Months or Most Recently [...] equation in the estimation of LDL-C. Ori SS et al. GRICELDA. 2013;310(19): 9578-2507 (http://education.Revel Touch/faq/ERA977) CHOL/HDL RATIO 3.7 <5.0 (calc) [facility] NON HDL CHOLESTEROL 107 <130 mg/dL (calc) [facility] Comment: For patients with diabetes plus 1 major ASCVD risk factor, treating to a non-HDL-C goal of <100 mg/dL (LDL-C of <70 mg/dL) is considered a therapeutic option. 07/25/2021 10:3 2 AM CDT 07/26/2021 4:15 AM CDT us Gigi Castellanos MD LABORATORY Final Resul t [facility] [address] [phone] * Colonoscopy (10/15/2012 12:00 AM FREIGHT CALLER) 10/15/2012 10/15/2012 Narrative TOUCHWORKS TO EPIC CONVERSION - 10/15/2012 12:00 AM FREIGHT CALLER Documented hx of procedure Procedure Note Kaveh Mg MD - 01/02/2019 Documented hx of procedure us Generic Conversion Md MG GI PROCEDURE ORDERABLES Final Result TOUCHWORKS TO EPIC CONVERSION from Last 3 Months or Most Recently Relevant to Health Maintenance Insurance [employer] Care Teams Windows And Doors Installer Relationship Specialty Start Date End Date Gigi Castellanos MD [address] [id number] PCP - General FAMILY PRACTICE 01/29/19
--- OUTSIDE RECORDS SUMMARY | 2025-09-29 12:52 | XMS_ITS | Clinical Summary ---
Author Organization [facility] Address [address] [place] [address] Care Team Providers Care Forensic Photographer Name Role Phone Unavailable Primary Care Provider Unavailabl e Social History Tobacco Use Types Packs/Day Years Used Date Smoking Tobacco: Never Assessed Sex and Gender Information Value Date Recorded Sex Assigned at Not on file Legal Sex Male 11:17 AM EST Gender Identity Not on file Sexual Orientation Not on file Plan of Treatment Not on file Medical Devices Not on file
--- OUTSIDE RECORDS SUMMARY | 2025-09-29 12:52 | XMS_ITS | Encounter Summary ---
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
--- OUTSIDE RECORDS SUMMARY | 2025-09-29 12:53 | XMS_ITS | Encounter Summary ---
Author Organization [facility] Address [address] [facility] [place] [address] Care Team Providers Care Instructional Technology Specialist Name Role Phone WilkinsDavid dean Primary Care Provider [phone] Encounter Details Date Type Department Care Team (Late st Contact Info) Description 04/08/[address] [facility] - DermPath Lab [address] [facility] [place] [address] Bhakti Munoz MD [address] 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 - Received: 04/10/2025 07:58 AM [...] characteristic determined by the Dermatopathology Laboratory at [facility], directed by Dr. Haylie Paz. These tests need not be, and therefore are not, approved by the [place] Food and Drug Administration. The tests are used for clinical purposes. Billing Codes Specimen Charges Stain Charges 52977 [id number] 1 1 5 1:08 PM CDT DERMATOPATHOLOGY LABORATORY Embedded Images 5 1:08 PM CDT DERMATOPATHOLOGY LABORATORY Pathology/Cytology TISSUE SPECIMEN FROM SKIN / Unknown 04/08/2025 10:07 AM CDT 04/10/2025 7:58 AM CDT Miscellaneous samples (specimen) TISSUE SPECIMEN FROM SKIN / Unknown 04/08/2025 10:07 AM CDT 04/10/2025 7:58 AM CDT us Bhakti Munoz MD LAB - PATHOLOGY/CYTOLOGY ORD ERABLES Final Result DERMATOPATHOLOGY LABORATORY [facility] - Department of Dermatology [facility] Medicine [address] [place] [address], [address] [phone] documented in this encounter Visit Diagnoses Not on filedocumented in this encounter Care Teams Instructional Technology Specialist Relationship Specialty Start Date End Date David Wilkins DO [address] [place] [address] PCP - General 03/19/17 documented as of this encounter
--- OUTSIDE RECORDS SUMMARY | 2025-09-29 12:53 | XMS_ITS | Clinical Summary ---
Author Organization [facility] [address] Address [address] [place] [address] Care Team Providers Care Trolley Car Overhauler Name Role Phone Roverto Velazquez MD Unavailable Wade PERSON MD, Viet Boo Unavailable [phone] Miscellaneous, Not In File Unavailable Unava ilable Valdez Leyva MD Unavailable Missy Jones NP Unavailable Obed Garcia MD Unavailable Etta Vivas MD Unavailable [phone] Ignacio Henry DO Primary Care Provider [phone] Delmy Garcia NP Unavailable [phone] Estrella Mcleod MD Unavailable Allergies Active Allergy Reactions Criticality Noted Date Comments Opioids - Morphine Analogues Nausea only Low 2021 Hiccups Medications aspirin 81 mg enteric coated tablet Take 1 tablet (81 mg total) by mouth daily Active MULTIVITAMIN ORAL Take 1 tablet by mouth daily Active apixaban (ELIQUIS) 5 mg tablet Take 1 tablet (5 mg total) by mouth 2 (two) times a day Active ketoconazole (NIZORAL) 2 % shampoo Apply topically 3 (three) times a week Apply to damp skin, lather, leave on 5 minutes, and rinse Active tamsulosin (FLOMAX) 0.4 mg extended release capsule Take 1 capsule (0.4 mg total) by mouth daily after dinner Active sacubitriL-vals chente (ENTRESTO) 24-26 mg tabletIndicatio ns:chronic heart failure Take 0.5 tablets by mouth daily 0.5 tablet in morning, 1 tablet in evening Active sacubitriL-vals chente (ENTRESTO) 24-26 mg tabletIndicatio ns:chronic heart failure Take 1 tablet by mouth nightly 0.5 tablet in morning, 1 tablet in evening Active gabapentin (NEURONTIN) 100 mg capsule Take 2 capsules (200 mg total) by mouth 2 (two) times a day 120 capsule 11 5 03/17/20 26 Active atorvastatin (LIPITOR) 40 mg tablet TAKE 1 TABLET BY MOUTH EVERY DAY AT NIGHT 90 tablet 3 5 Active furosemide (LASIX) 40 mg tablet Take 1 tablet (40 mg total) by mouth daily as needed (swelling or weight gain) 90 tablet 1 5 Active carvediloL (COREG) 12.5 mg tablet TAKE 1 TABLET BY MOUTH TWICE A DAY WITH MEAL/FOOD 180 tablet 1 5 Active mirabegron ER (Myrbetriq) 25 mg tablet extended release 24 hr Take 1 tablet (25 mg total) by mouth daily 90 tablet 3 5 06/11/[address] (PROTONIX) 40 mg EC tablet TAKE 1 TABLET BY MOUTH EVERY MORNING FOR 30 DAYS 5 Active clobetasoL (TEMOVATE) 0.05 % external solution APPLY TO SCALP DAILY NEEDED 5 Active Active Problems Problem Noted Date Diagnosed Date Complete heart block 07/01/2025 Assessment & Plan (07/01/2025 3:22 PM CDT): Chronic, stable. S/p dual chamber pacemaker implantation. Excellent device function by interrogation in office today. --Continue remote monitoring Mediastinal mass 04/10/2025 Syncope and collapse 03/14/2025 Viral upper respiratory tract infection 09/26/20 Assessment & Plan (09/26/2024 8:56 PM RENAL DIETITIAN): Viral infection. Aeek-rit-aeadwfeo for symptoms Bilateral impacted cerumen 09/26/2024 Assessment & Plan (09/26/2024 8:56 PM RENAL DIETITIAN): Rinsed with warm water bilaterally until clear. Platelets decreased 11/07/2023 Chronic renal failure, stage 3a 11/07/2023 Encounter for Medicare annual wellness exam 10/16 Assessment & Plan (11/07/2023 9:34 AM RENAL DIETITIAN): A(n) yearly Medicare Annual Wellness Visit has [...] Encounter for interrogation of cardiac pacemaker 05/07/2023 Thyroid nodule 11/02/2021 Chronic systolic heart failure 09/13/2021 Assessment & Plan (05/11/2025 3:05 PM CDT): Euvolemic with stable NYHA3 Sx. EF remains persistently <40%. Has nearly 100% RV pacing. Given his decline in LVEF over past year and RV pacing, wonder if [employer] upgrade would offer benefit -- Continue carvedilol 12.5 bid and entresto -- furosemide prn -- will discuss possible [employer] upgrade w/ Dr Olvera Assessment & Plan (04/29/2024 9:39 AM CDT): Euvolemic with stable NYHA 2 symptoms. Continue metoprolol XL 25, torsemide 20 daily. Continue carvedilol and losartan Assessment & Plan (10/30/2023 11:03 AM RENAL DIETITIAN): Well compensated on physical exam. No significant [...] therapy. Assessment & Plan (10/25/2022 10:03 AM RENAL DIETITIAN): Euvolemic with stable NYHA 2 symptoms. Continue [...] 25 Assessment & Plan (12/14/2021 10:28 AM RENAL DIETITIAN): EF 25% at time of diagnosis etiology likely multifactorial due to ischemic heart disease and also nonischemic component due to AFib. Significantly improved symptoms following cardioversion, stable NYHA 2 and his ejection fraction has improved to normal range on medical therapy and revascularization - continue metoprolol XL 25, Entresto 24-26 b.i.d. and spironolactone 25 Assessment & Plan (11/09/2021 2:00 PM RENAL DIETITIAN): EF 25% at time of diagnosis etiology [...] metoprolol Assessment & Plan (10/18/2021 3:32 PM RENAL DIETITIAN): EF 25%, euvolemic on exam but persistent [...] implant Assessment & Plan (09/14/2021 1:52 PM RENAL DIETITIAN): EF 25%, has underlying Coronary artery disease [...] determine ICD Coronary artery disease invo lving seneca coronary artery of seneca heart without angina pectoris 08/24/2021 Assessment & Plan (05/11/2025 10:59 AM CDT): Status post PCI of LAD. Remains free of angina. LDL at goal - continue Eliquis, aspirin 81 - continue lipitor 40 daily Assessment & Plan (04/29/2024 9:39 AM CDT): Status post PCI of LAD. Remains free of angina. LDL at goal - continue Eliquis, aspirin 81 - continue lipitor 20 daily Assessment & Plan (10/30/2023 11:02 AM RENAL DIETITIAN): Reassuring recent catheterization with nonobstructive CAD and [...] Eliquis. Assessment & Plan (10/25/2022 9:10 AM RENAL DIETITIAN): Status post PCI of LAD. Remains free [...] Lipitor Assessment & Plan (12/14/2021 10:27 AM RENAL DIETITIAN): Status post PCI of LAD. IFR negative circumflex. Fully revascularized, continue secondary prevention. Remains free of angina - continue Eliquis, Plavix and Lipitor Assessment & Plan (10/18/2021 3:33 PM RENAL DIETITIAN): Status post PCI of LAD. IFR negative circumflex. Fully revascularized continue secondary prevention - continue Eliquis, Plavix and Lipitor Assessment & Plan (09/14/2021 1:50 PM RENAL DIETITIAN): Status post PCI of LAD. IFR negative circumflex. Fully revascularized continue secondary prevention - stop aspirin - continue Eliquis and Plavix and Lipitor Ventricular tachycardia 08/24/2021 Assessment & Plan (10/30/2023 11:00 AM RENAL DIETITIAN): Followed [facility], Dr. Olvera. Continue beta-jitendra. Assessment & Plan (05/29/2022 2:27 PM CDT): Resolved. Initially occurring during ACS. No recurrence, feeling well. --Continue metoprolol. Assessment & Plan (11/29/2021 11:17 AM RENAL DIETITIAN): SMVT, occurring in context of severe proximal [...] palpitations Assessment & Plan (11/09/2021 1:59 PM RENAL DIETITIAN): Continue life vest, no recent device therapies. Follow-up with Dr. Olvera for mid November after his repeat echo Assessment & Plan (10/18/2021 3:33 PM RENAL DIETITIAN): No recent shocks. 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 Currently on LifeVest. Seen by Dr. Olvera. Plan to reassess ICD need after 3 months of therapy and repeat echo History of CVA (cerebrovascu lar accident) without [...] year Assessment & Plan (11/11/2021 9:07 AM RENAL DIETITIAN): Reviewed patient recent thyroid ultrasound report and [...] of V-tach on LifeVest Patient following with construction trades teacher and director labor standards, he is due for cardiac procedure next month. Advised patient to discuss with his construction trades teacher and director labor standards before holding Eliquis. Advised patient to call me back once he gets cleared by his construction trades teacher. Will schedule thyroid nodule biopsy Accordingly Further plans based on cytology results. Renal cyst 08/24/2021 Persistent atrial fibrillation 08/24/2021 Assessment & Plan (07/01/2025 3:21 PM CDT): Chronic, stable. No AF post-ablation. --Continue carvedilol 12.5 mg BID --Continue apixaban 5 mg BID Assessment & Plan (05/11/2025 3:04 PM CDT): In sinus today, no recurrence since ablation. -- Continue coreg and Eliquis. S/p PPM for CHB Assessment & Plan (06/25/2024 3:15 PM CDT): [...] BID Assessment & Plan (10/30/2023 11:01 AM RENAL DIETITIAN): Heart rates are controlled on oral beta-jitendra, [...] carvedilol. Assessment & Plan (10/25/2022 10:02 AM RENAL DIETITIAN): In sinus today, no recurrence since ablation. Continue metoprolol XL 25 and Eliquis Assessment & Plan (10/02/2022 9:02 AM RENAL DIETITIAN): Doing very well, maintaining sinus rhythm after AF ablation. --Continue apixaban 5 mg BID --Continue metoprolol XL 25 mg daily Assessment & Plan (08/14/2022 10:00 AM CDT): S/p AF ablation with partial PVI and CTI ablation. Doing very well, maintaining sinus rhythm without any AF recurrence. [id number] = 6+. Indefinite anticoagulation recommended. --Continue apixaban [...] Eliquis Assessment & Plan (12/14/2021 10:27 AM RENAL DIETITIAN): Status post cardioversion remains in sinus rhythm today - continue metoprolol 25 and Eliquis Assessment & Plan (11/29/2021 11:20 AM RENAL DIETITIAN): Highly symptomatic. Pt reports profound improvement in symptoms/QOL after cardioversion. Maintaining sinus rhythm without recurrence. Will manage expectantly for now. Strong indication for rhythm control if AF returns, given severe symptoms. [id number] = 4. Recommend indefinite anticoagulation. --Continue metoprolol XL 25 mg daily --Continue apixaban 5 mg BID Assessment & Plan (11/09/2021 1:59 PM RENAL DIETITIAN): Status post cardioversion remains in sinus rhythm today - continue metoprolol 25 and Eliquis Assessment & Plan (10/18/2021 3:32 PM RENAL DIETITIAN): Status post cardioversion and remains in sinus rhythm today - continue Eliquis - reduce metoprolol as stated Assessment & Plan (09/14/2021 1:51 PM RENAL DIETITIAN): Persistent AFib. Remains in AFib now and his rate control however remains symptomatic and with low EF therefore recommend rhythm control strategy. - schedule AHBINAV cardioversion - continue Eliquis - drop amiodarone to 200 mg daily maintenance Parkinson's disease without dyskinesia, unspecified whether manifestations [...] Description: prior to 01/2008 Assessment & Plan (05/11/2025 11:00 AM CDT): Well controlled, continue current meds Assessment & Plan (10/30/2023 11:02 AM RENAL DIETITIAN): Blood pressure was initially elevated, when rechecked [...] the decreased dose of Coreg per his Clinical Research Specialist. Assessment & Plan (01/30/2023 10:29 AM CDT): [...] week. Assessment & Plan (11/09/2021 1:59 PM RENAL DIETITIAN): Well controlled, continue current meds Resolved Problems Problem Noted Date Diagnosed Date Resolved Date Administrative encounter 05/26/202406/2024 Assessment & Plan (05/26/2024 10:05 AM CDT): A(n) yearly Essence Enhanced Encounter has been performed today. Rico Junepkins is the up to date on screening tests. He is in need of Hep B screening . He is up to date on needed preventative vaccinations. We discussed healthy lifestyle habits, educational material has been given. Medications reviewed, changes documented as per the medical record and discussed with patient along with risks vs benefits. Return in 6 months Fall, initial encounter 06/11/202309/14 Colon cancer screening 03/19/202309/26 Stage 3b chronic kidney disease 05/18/2022 07/26/2023 Overview (07/26/2023): Per Dr Ferraro 6-29-23 this is resolved Hyperkalemia 05/09/2022 09/26/2024 Acute kidney injury 05/09/2022 05/18/20 22 Contusion of rib on left side 11/02/2021 07/12/2022 Hypoglycemia 10/18/2021 12/15/2021 Assessment & Plan (10/18/2021 3:34 PM RENAL DIETITIAN): He was interestingly noted to have a [...] make sure he does need further testing Class 1 obesity due to exces s calories with serious comorbidity and body mass index (BMI) of 31.0 to 31.9 in adult 08/24/2021 07/12/2022 Vertigo 08/17/2021 07/12/2022 Herpes zoster without complication 10/14/2020 07/12/2022 Impaired fasting glucose 05/31/201312/2021 Encounters Date Type Department Care Team Description 09/14/2025 1:30 PM RENAL DIETITIAN Ancillary Procedure [facility] [address] [address] Complete heart block (HCC) 08/05/2025 12:45 PM CDT Office Visit [facility] Medicine Surgery [address] [place] [address] Ej Ni MD Mediastinal mass (Primary Dx) 08/05/2025 10:55 AM CDT - 08/05/2025 11:59 PM CDT Hospital Encounter [facility] [place] [address] [address] [place] [address] Pulmonary nodule Discharge Disposition: Discharge to home or self care 07/31/2025 9:10 AM CDT - 07/31/2025 11:59 PM CDT Hospital Encounter [facility] [address] [place] [address] Lia Bunn Chronic left hip pain Discharge Disposition: Discharge to home or self care 07/24/2025 1:30 PM CDT Office Visit [facility] [address] [place] [address] [address], [place] [phone] Marti Zhou NP Primary osteoarthritis of both knees (Primary Dx) 07/23/2025 Orders Only [facility] [place] [phone] Marti Zhou NP Primary osteoarthritis of both knees (Primary Dx); Left hip pain; Chronic left hip pain 07/23/2025 Telephone [facility] [address] [place] [address] [address] [place] [phone] Marti Zhou NP 07/01/2025 2:15 PM CDT Office Visit [facility] [address] [address] Viet Olvera III, MD Persistent atrial fibrillation (HCC) (Primary Dx); Complete heart block (HCC); Cardiac arrhythmia, unspecified cardiac arrhythmia type; Cardiac pacemaker 07/01/2025 2:00 PM CDT Ancillary Procedure [facility] [address] [place] [address] [address] [address] SSS (sick sinus syndrome) (HCC) (Primary Dx); Pacemaker from Last 3 Months Immunizations Immunization Administration Dates Next Due Influenza, Quad, Adjuvantate d, Intramuscular 08/03/2023 Influenza, Quadrivalent, Hig h Dose, Preservative Free, Intrr 06/16/2022 Influenza, Quadrivalent, Spl it, Preservative Free, Intramuscular 06/24/2020 Influenza, Trivalent, High D ose, Split, Preservative Free, Intramuscular 06/18/2024,08/27/2019 Influenza, Unspecified 11/07/2023(Deferr ed: Patient Refused),08/03/2023,10/15/2022(Deferre d: Patient Refused),07/15/2021,08/01/2018 [employer] Sars-Cov-2 Bivalent V accination (12+ YRS) 12/26/2022 [...] IP LEFT 05/25/2023 Left HERNIA REPAIR 2022 FL FLUORO GUIDED INJECTION H IP LEFT 07/31/2025 Left Medical History Medical History Date Comments Atrial [...] attack Mother Evangelina Monteiro Obesity Mother Evangelina Monteiro Hypothyroidism Sister Relation Name Status Comments Brother 1 Javier Stokeskins Brother 2 Tremayne Father David Mother Evangelina Monteiro Sister Social History Tobacco Use Types Packs/Day Years Used Date Smoking Tobacco: Never Cigarettes Passive Smoke Exposure: Never Smokeless Tobacco: Never Tobacco Cessation:Counseling Given: Not Answered Alcohol Use Standard Drinks/Week Comments Never 0 (1 standard drink = 0.6 oz pure alcohol) Stopped alcohol consumption 2 years ago [facility] [employer] Answer Date Recorded In the past 12 months has [employer] gas, oil, or water [employer] threatened to shut off services in your home? No 03/17/2025 Social Connection and Isolation Panel Answer Date Recorded In a typical week, how many times do you talk on the phone with family, friends, or neighbors? More than three times a week 03/17/2025 How often do you get togethe r with friends or relatives? More than three times a week 03/17/2025 How often do you attend chur ch or sabianist services? Never 03/17/2025 Do you belong to any clubs o r organizations such as rastafarian groups, unions, fraternal or athletic groups, or school groups? Yes 03/17/2025 How often do you attend meet ings of the clubs or organizations you belong to? More than 4 times per year 03/17/2025 Are you , , di vorced, , never , or living with a partner? 03/17/2025 Overall Financial Resource Strain (CARDIA) Answe r [...] place to sleep or slept in a intermediate (including now)? No 06/19/2023 Housing Stability Vital Sign Answer Asael e Recorded In the last 12 months, was t here a time when you were not able to pay the mortgage or rent on time? No 03/17/2025 In the past 12 months, how m any times have you moved where you were living? 0 03/17/2025 At any time in the past 12 m [facility], were you homeless or living in a intermediate (including now)? No 03/17/2025 AUDIT-C Answer Date Recorded Q1: How often do you have a drink containing alcohol? Never 07/24/2025 Q2: How many drinks containi ng alcohol do you have on a typical day when you are drinking? Patient does not drink 10/10/202 5 Q3: How often do you have si x or more drinks on one occasion? Never 07/24/2025 Personal Safety Answer Date Recorded Have you ever been in or are you currently in a harmful physical or emotional relationship or is someone making you feel afraid or unsafe? Denies 03/15/2025 Sex and Gender Information Value Date Recorded Sex Assigned at Not on file Legal Sex Male 7:05 PM RENAL DIETITIAN Gender Identity Male 09/18/2021 7:10 AM RENAL DIETITIAN Sexual Orientation Straight 09/18/2021 7: 10 AM RENAL DIETITIAN Last Filed Vital Signs Vital Sign Reading Time Taken Comments Blood Pressure 134/92 08/05/2025 12:28 PM CDT Pulse 72 08/05/2025 12:28 PM CDT Temperature 36.2 C (97.1 F) 08/05/2025 12:28 PM CDT Respiratory Rate 18 08/05/2025 12:2 8 PM CDT Oxygen Saturation 99% 08/05/2025 12: 28 PM CDT Inhaled Oxygen Concentration - - Weight 96.1 kg (211 lb 12.8 oz) 025 12:28 PM CDT Height 177.8 cm (5' 10) 07/24/2025 1:12 PM CDT Body Mass Index 30.39 07/24/2025 1:12 PM CDT Plan of Treatment Health Maintenance Due Date Last Done Comments Albumin Creatinine Ratio, Urine 1948 Dilated Eye Exam 1950 Foot Exam 1948 Hepatitis B Screening 1966 Zoster Vaccine (2 of 3) 11/09/2010 09/14/2010 Depression Screening 05/26/2025 05/26/2024, 11/07/2023, 08/01/2023, Additional history exists Well Visit 65+ 05/26/2025 05/26/2024, 11/07/2023 Covid-19 Vaccine (2024-11 6 season) 2025 06/18/2024, 08/11/2023, 08/11/2023, Additional history exists Hemoglobin A1C 09/14/2025 03/15/2025, 07/15, 11/01/2022, Additional history exists Fall Risk Assessment 03/17/2026 03/17/2025, 05/26/2024, 03/24/2024, Additional history exists eGFR 03/17/2026 03/17/2025, 11/2024, 03/15/2025, Additional history exists Lipid Panel 04/03/2026 04/03/2025, 04/14, 07/26/2023, Additional history exists DTaP/Tdap/Td Vaccine (2 - Td or Tdap) 04/18/2026 04/18/2016 Pneumococcal vaccine 65+ Completed 08/29/2019, 07/16 Colon Cancer Screening-Colonoscopy Discontinued 04/19/2023, 03/03/2013 Hepatitis C Screening Completed 07/26/2023 Influenza Vaccine Completed 07/24/2025, , 08/03/2023, Additional history exists Medical Devices Implanted Type Area Milk Pasteurizer Device Identifier Shelf Expiration Date Model / Serial / Lot [employer] Vascade Mvp 6-12fr Venous Closure [id number] - [id number] - [id number] Implanted:Qty : 1 on 07/05/2022 by Viet Olvera III, MD at [facility] Collagen [employer] 04/05/2024 800-612C- 10U / [id number] 30B / [id number] 30B [employer] Vascade Mvp 6-12fr Venous Closure [id number] - [id number] - [id number] Implanted:Qty : 1 on 07/05/2022 by Viet Olvera III, MD at [facility] Collagen [employer] 04/05/2024 800-612C- 10U / [id number] 30B / [id number] 30B [employer] Device Closure Vascade Od5 Fr Femoral Artery [id number] - [id number] - [id number] Implanted:Qty : 1 on 07/05/2022 by Viet Olvera III, MD at [facility] Collagen [employer] 11/29/2023 700-500DX -05U / [id number] / [id number] [employer] Vascade Mvp 6-12fr Venous Closure [id number] - [id number] - [id number] Implanted:Qty : 1 on 07/05/2022 by Viet Olvera III, MD at [facility] Collagen [employer] 03/30/2024 800-612C- 10U / [id number] 28A / [id number] 28A Medtronic Inc Capsurefix Novus 6.2fr 2mm 58cm Bipolar Screw In Implantable 5076-58 - [id number] - [id number] Implanted:Qty : 1 on 01/22/2023 by Viet Olvera III, MD at [facility] Lead Med[employer]onic Inc [id number] 09/19/2024 5076-58 / [id number] / Med[employer]onic Inc Capsurefix Novus 6.2fr 2mm 52cm Bipolar Screw In Implantable Latex Free 5076-52 - [id number] - [id number] Implanted:Qty : 1 on 01/22/2023 by Viet Olvera III, MD at [facility] Lead [employer] Inc [id number] 12/01/2024 5076-52 / [id number] / [employer] Inc/C R Bard Mesh Surg 3dmax [id number] Left Mid Large Inguinal Hernia [id number] - [id number] Implanted:Qty : 1 on 12/22/2022 by Valdez Leyva MD at [facility] Mesh Left: Inguinal [employer] Inc/C R Bard [id number] 04/11/2027 [id number] / / [id number] Other - See Comments Other - see comments Forehead Description:Internal stitche s from [facility] 11/2022 Medtronic Inc Eolia S Mri Surescan 50.8x46.6mm 2 Chamber 7.4mm Pacemaker 22.5gm [id number] - [id number] - [id number] Implanted:Qty : 1 on 01/22/2023 by Viet Olvera III, MD at [facility] Pacemaker Med[employer]onic Inc 05/28/2024 [id number] / [id number] / [place] [employer] [id number] Synergy Xd Monorail 4mm 24mm 144cm Delivery System 1 Access Port - [id number] - [id number] Implanted:Qty : 1 on 08/25/2021 by Roverto Velazquez MD at [facility] Stent [employer] [employer] 12/13/2022 [id number] / [id number] / [id number] Description:pLAD [employer] Vascular Device Clsr Perclose Prostyle Sut-Mediatd Closure-Repai r Sys 53487-32 - S0 - [id number] Implanted:Qty : 1 on 08/22/2023 by Roverto Velazquez MD at [facility] Vascular Closure Device Right: Femoral [employer] 05/14/2025 10086-89 / 0 / [id number] [employer] Blue Angio-Seal Vip 6fr Closere Device [id number] - [id number] Implanted:Qty : 1 on 06/11/2023 at [facility] [employer] 11/14/2023 [id number] / / [id number] Explanted Type Area Milk Pasteurizer Device Identifier Shelf Expiration Date Model / Serial / Lot [employer] Tendril Sts 6fr 52cm Is-1 Connector Active Fixation Bipolar Soft 52 - [id number] - [id number] Implanted:Qty : 1 on 07/05/2022 by Viet Olvera III, MD at [facility] Explanted:Qty : 1 on 07/06/[address] [employer] [id number] 04/13/20252087TC/52 / [id number] / [employer] Assurity Mri [id number] 1 Chamber Is-1 Connector Thk6mm Pacemaker [id number] - [id number] - [id number] Implanted:Qty : 1 on 07/05/2022 by Viet Olvera III, MD at [facility] Pacemaker [employer] [id number] 03/14/2023 [id number] / [id number] / Procedures Procedure Name Priority Date/Time Associated Diagnosis Comments DEVICE CHECK - REMOTE Routine 09/14/2025 10:22 AM RENAL DIETITIAN Complete heart block (HCC) CT CHEST WO CONTRAST Schedule Routine, Read Routine (OP Routine) 08/05/2025 11:35 AM CDT Pulmonary nodule FL FLUORO GUIDED INJECTION HIP LEFT Schedule Routine, Read Routine (OP Routine) 07/31/2025 9:58 AM CDT Chronic left hip pain PA ARTHROCENTESIS ASPIR&/INJ MAJOR JT/BURSA W/O US Routine 07/24/2025 1:30 PM CDT Primary osteoarthritis of both knees ECG 12-LEAD Routine 07/01/2025 2:17 PM CDT Cardiac arrhythmia, unspecified cardiac arrhythmia type DEVICE CHECK - IN OFFICE Routine 07/01/2025 1:19 PM CDT Pacemaker LIPID PANEL Routine 04/03/2025 EGFR Routine 03/17/2025 3:02 AM CDT HEMOGLOBIN A1C Routine 03/15/2025 4:14 AM CDT HEPATITIS C ANTIBODY Routine 07/26/2023 8:13 AM CDT Encounter for hepatitis C screening test for low risk patient COLONOSCOPY 04/19/2023 11:42 AM CDT from Last 3 Months or Most Recently Relevant to Health Maintenance Results * DEVICE CHECK - REMOTE (09/14/2025 10:22 AM RENAL DIETITIAN) Anatomical Region Laterality Modality Other Narrative 09/22/2025 3:16 PM RENAL DIETITIAN Table formatting from the original result was not included. PM CHECK (REMOTE) Patient ID: Rico Monteiro is a 75 y.o. male This patient received a Medtronic Pacemaker. They had a routine remote transmission on 09/14/2025. Device implant indications: SSS Interrogation of the patient's device demonstrates the following: Presenting EGM: A paced V paced PVCs @ 60 bpm Original Device Settings Right Atrium Right Ventricle Sensitivity (mV) 0.3 mV 1.2 mV Pacing Outputs 3.0 V @ 0.4 ms 2.0 V @ 0.4 ms Testing Measurements Right Atrium Right Ventricle Sensitivity (mV) 4.1 mV 7.0 mV Impedence (Ohms) 418 ohms 437 ohms Pace Threshold Not done 0.5 V @ 0.4 ms Pacing % 98 % 91 % Battery Status: 6.3 years to ABBEY Episodes last 90 days/Comments: AF Evarts 0 % 3 VHR - NSVT longest at 3 sec, max ventricle rate at 173 bpm NORMAL DEVICE FUNCTION PROGRAMMED MEDICATIONS: Anti-coagulant(s): Eliquis 5 mg twice a day Anti-arrhythmic(s): Coreg 6.25 mg twice a day PLAN: 1) Medtronic Pacemaker evaluation 2) Medtronic remote transmission scheduled in 3 months. 3) Programming appropriate for device measurements Yessi Paige RN Viet Olvera III, MD [facility] PROCEDURES Final Result * CT chest without contrast (08/05/2025 11:35 AM CDT) Anatomical Region Laterality Modality Body N/A Computed Tomogra phy 08/05/2025 11:5 5 AM CDT Impressions 08/05/2025 12:30 PM CDT 1. 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 2. Stable pulmonary nodules. 3. Mild cardiomegaly with enlargement of the left ventricle. Dictated by: Jeff Brian M.D. The radiology attending physician has personally reviewed this study, and had reviewed and/or edited this written report and agrees with it. Electronically signed by: Ernie Truong M.D. Narrative 08/05/2025 12:30 PM CDT EXAMINATION: Computed tomography of the chest without intravenous contrast HISTORY: Lung nodule TECHNIQUE: Transaxial computed tomographic images of the chest were obtained without intravenous contrast according to the standard protocol. COMPARISON: PET/CT 04/22/2025 FINDINGS: 5 mm solid pulmonary nodule in the right middle lobe (series 6, image 94). 5 mm partially calcified pulmonary nodule associated with the oblique fissure of the right lung (series 6, image 85]. These are both stable in size compared to PET CT 04/22/2025. No pleural effusion. No pneumothorax. No pulmonary edema. No other new or suspicious pulmonary nodule. Heart size is mildly enlarged but unchanged with specific enlargement of the left ventricle. The ascending thoracic aorta has a maximum caliber of 4.2 cm. Left chest wall pacemaker with leads in the right atrium and right ventricle. Main pulmonary artery has normal caliber. Multivessel coronary disease. 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 Relative stability in size of anterior mediastinal soft tissue structure. Left greater than right thyroid goiter. Nonobstructing stones in the left kidney. No other acute abnormality in the imaged portion of the upper abdomen. No aggressive osseous lesion. Procedure Note Ernie Truong MD - 08/05/2025 EXAMINATION: Computed tomography of the chest without intravenous contrast HISTORY: Lung nodule TECHNIQUE: Transaxial computed tomographic images of the chest were obtained without intravenous contrast according to the standard protocol. COMPARISON: PET/CT 04/22/2025 FINDINGS: 5 mm solid pulmonary nodule in the right middle lobe (series 6, image 94). 5 mm partially calcified pulmonary nodule associated with the oblique fissure of the right lung (series 6, image 85]. These are both stable in size compared to PET CT 04/22/2025. No pleural effusion. No pneumothorax. No pulmonary edema. No other new or suspicious pulmonary nodule. Heart size is mildly enlarged but unchanged with specific enlargement of the left ventricle. The ascending thoracic aorta has a maximum caliber of 4.2 cm. Left chest wall pacemaker with leads in the right atrium and right ventricle. Main pulmonary artery has normal caliber. Multivessel coronary disease. 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 Relative stability in size of anterior mediastinal soft tissue structure. Left greater than right thyroid goiter. Nonobstructing stones in the left kidney. No other acute abnormality in the imaged portion of the upper abdomen. No aggressive osseous lesion. IMPRESSION: 1. 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 2. Stable pulmonary nodules. 3. Mild cardiomegaly with enlargement of the left ventricle. Dictated by: Jeff Brian M.D. The radiology attending physician has personally reviewed this study, and had reviewed and/or edited this written report and agrees with it. Electronically signed by: Ernie Truong M.D. Jenise Saini EXCAVATING SUPERVISOR IMG CT PROCEDURES Final Result * FL Fluoro Guided Injection Hip Left (07/31/2025 9:58 AM CDT) Anatomical Region Laterality Modality Hip Left Radio Fluoroscop y 07/31/2025 12:5 6 PM CDT Narrative 07/31/2025 12:57 PM CDT EXAM DESCRIPTION: FL FLUORO GUIDED INJECTION HIP LEFT REASON FOR STUDY: L hip Pain Chronic pain .13 sec ft 1.96 mgy Hip pain. COMPARISON: 05/11/2025 RADIATION DOSE: Dose: 0.0591 mGycm2 Dose Area Product (DAP) TECHNIQUE/FINDINGS: After informed consent including the risks, benefits, and alternatives, the patient was placed on the fluoroscopy table. The left hip was localized with fluoroscopy. After localization, the left hip was prepped and draped in usual sterile fashion. 1% lidocaine was utilized for local anesthetic. A 22-gauge spinal needle was advanced into the left hip joint from anterior approach. 1 mL of Omnipaque 240 was injected to confirm needle placement within the joint. After confirmation of needle placement, 4 mL of a solution of 3 mL ropivacaine and 1 mL Kenalog 40 mg was injected into the joint space under fluoroscopy. Hard copy image was obtained. The patient tolerated the procedure well. IMPRESSION: 1. Technically successful fluoroscopic guided left hip steroid injection. THIS IS AN ELECTRONICALLY VERIFIED FINAL REPORT 07/31/2025 12:57 PM - Electronically signed by Jade Norwood D.O. PS: PS Report ID: [id number] Reading Location: [id number] Procedure Note Jade Norwood DO - 07/31/2025 EXAM DESCRIPTION: FL FLUORO GUIDED INJECTION HIP LEFT REASON FOR STUDY: L hip Pain Chronic pain .13 sec ft 1.96 mgy Hip pain. COMPARISON: 05/11/2025 RADIATION DOSE: Dose: 0.0591 mGycm2 Dose Area Product (DAP) TECHNIQUE/FINDINGS: After informed consent including the risks, benefits, and alternatives,the patient was placed on the fluoroscopy table. The left hip was localized with fluoroscopy. After localization, the lefthip was prepped and draped in usual sterile fashion. 1% lidocaine was utilizedfor local anesthetic. A 22-gauge spinal needle was advanced into the left hip joint from anterior approach. 1 mL of Omnipaque 240 was injected toconfirm needle placement within the joint. After confirmation of needle placement, 4 mL of a solution of 3 mLropivacaine and 1 mL Kenalog 40 mg was injected into the joint space underfluoroscopy. Hard copy image was obtained. The patient tolerated the procedure well. IMPRESSION: 1. Technically successful fluoroscopic guided left hip steroidinjection. THIS IS AN ELECTRONICALLY VERIFIED FINAL REPORT 07/31/2025 12:57 PM - Electronically signed by Jade Norwood D.O. PS: PS Report ID: [id number] Reading Location: [place] [address] [place] Marti Zhou NP IMG FLUOROSCOPY PROCEDU RES Final Result * PA ARTHROCENTESIS ASPIR&/INJ MAJOR JT/BURSA W/O US (07/24/2025 1:30 PM CDT) Narrative Marti Zhou NP - 07/24/2025 1:30 PM CDT Marti Zhou NP 07/24/2025 1:42 PM Large Joint (Hip, Knee, Shoulder) Injection: L knee Performed by: Marti Zhou NP Authorized by: Marti Zhou NP Large Joint Injection/Aspiration: Consent Given by: Patient Site marked: the procedure site was marked Timeout: prior to procedure the correct patient, procedure, and site was verified Verbal consent obtained: Yes Supporting Documentation: Indications: Pain Procedure Details: Location: Knee Site: L knee Needle Size: 22 G Approach: Anterolateral Ultrasound guided: No Fluroscopic guidance: No Medications: 80 mg methylPREDNISolone acetate 80 mg/mL; 3 mL lidocaine 20 mg/mL (2 %) Patient tolerance: Patient tolerated the procedure well with no immediate complications Marti Zhou NP IN CLINIC/BEDSIDE ORDER EMILIANA Final Result * ECG 12 lead (07/01/2025 2:17 PM CDT) Viet Olvera III, MD ECG ORDERABLES Fin al Result * DEVICE CHECK - IN OFFICE (07/01/2025 1:19 PM CDT) Anatomical Region Laterality Modality Other Narrative 07/02/2025 9:37 AM CDT Table formatting from the original result was not included. PM CHECK (IN OFFICE) Patient ID: Rico Monteiro is a 75 y.o. male This patient received a Medtronic Pacemaker. They had a routine in-office device interrogation on 07/01/25 Device implant indications: SSS Interrogation of the patient's device demonstrates the following: Presenting EGM: A paced V paced with PACs @ 78 bpm Underlying rhythm: Paced at 40 Original Device Settings Right Atrium Right Ventricle Sensitivity (mV) 0.3 mV 1.2 mV Pacing Outputs 3.0 V @ 0.4 ms 2.0 V @ 0.4 ms Testing Measurements Right Atrium Right Ventricle Sensitivity (mV) 0.5 mV 11.4 mV Impedence (Ohms) 418 ohms 475 ohms Pace Threshold 0.5 V @ 0.4 ms 0.5 V @ 0.4 ms Pacing % 99 % 92.4 % Battery Status: 6.6 years to ABBEY Episodes last 90 days/Comments: AF Evarts 0 % No new ventricular events. NORMAL DEVICE FUNCTION PROGRAMMED MEDICATIONS: Anti-coagulant(s): Aspirin 81 mg, Eliquis 5 mg twice a day Anti-arrhythmic(s): Coreg 12.5 mg twice a day PLAN: 1) Medtronic Pacemaker evaluation 2) Medtronic remote transmission scheduled in 3 months. 3) Programming appropriate for device measurements Marilyn Craig RN Viet Olvera III, MD [facility] PROCEDURES Final Result * (ABNORMAL) Lipid panel (04/03/2025) SCRIBED Cholesterol, Total 94 30 - 199 mg/dL EXTERNAL LAB SCRIBED Triglycerides 65 <=149 mg/dL EXTERNAL LAB SCRIBED HDL 33(A) >=40 mg/dL EXTERNAL LAB SCRIBED LDL 37 <=129 mg/dL EXTERNAL LAB Scribed Non-HDL Cholesterol 0 NONE mg/dL EXTERNAL LAB SCRIBED Total Cholesterol/HDL Ratio 0 NONE EXTERNAL LAB Blood 04/03/2025 Historical Provider LAB BLOOD ORDERABLES María l Result EXTERNAL LAB * eGFR (03/17/2025 3:02 AM CDT) eGFR [...] MD LAB BLOOD ORDERABLES Final Re sult [facility] [address] Department [place] [address] * Hemoglobin A1c (03/15/2025 4:14 AM CDT) Pathologist [facility] Hgb A1C 5.5 4.0 - 5.6 % Estimated Average Glucose 111 mg/dL [facility] Comment: The ADA recommends reporting an estimated Average Glucose (eAG) with all Hemoglobin A1c results using the equation derived from a study of 507 normal and diabetic adults. Minority populations were underrepresented and children were not included. (Diabetes Care 31:8700-3639, 2008). The eAG is not equivalent to a fasting glucose. Blood 03/15/2025 4:14 AM CDT 03/15/2025 5:16 AM CDT Edwardo Garrett MD LAB BLOOD ORDERABLES Final Res ult Performing Organization Address [facility] Co de Phone Number [facility] [address] [place] [address] * Hepatitis C antibody Blood (07/26/2023 8:13 AM CDT) Pathologist [facility] Hep C Ab Nonreactive Nonreactive Comment: Interpretive [...] ORDER EMILIANA Final Result Performing Organization Address City/[facility] Co de Phone Number [facility] [address] [place] [address] * COLONOSCOPY (04/19/2023 11:42 AM CDT) Anatomical Region Laterality Modality Other Narrative Procedure Note David Wilkins, - 04/19/2023 11:42 AM CDT [facility] GI ENDOSCOPY Patient Name: Rico Monteiro Procedure Date: 04/19/2023 11:42 AM Date of : 1950 Admit Type: Outpatient Age: 72 Gender: Male Attending MD: David Wilkins D.O. Room: [facility] ENDOSCOPY ROOM 05 Note Status: Finalized [...] On: 04/19/2023 11:42 AM Recognized by the [employer] for promoting quality in endoscopy David Wilkins DO ENDOSCOPY PROCEDURES Fin al Result from Last 3 Months or Most Recently Relevant to Health Maintenance Insurance [employer] PPO [id number] ADVANTAGE CHOICE PPO [facility] ADVANTAGE CHOICE PPO Advance Directives For more information, please contact: [phone] Documents on File Type Date Recorded Patient Clothing Man Expl anation Advance Directives and Livin g [...] 4:28 PM 08/28/2021 5:21 PM Care Teams Trolley Car Overhauler Relationship Specialty [place] [address] [address] [facility] [address] [place] [address] PCP - General Internal Medicine 12/09/24 Roverto Velazquez MD [address] [facility] [address] [place] [address] Consulting Physician Cardiovascular Disease 08/28/21 Viet Olvera III, MD [address] [facility] [address] [place] [address] Consulting Physician Cardiology 08/28/21 Miscellaneous, Not In File 05/10/22 Valdez Leyva MD [address] [id number] Consulting Physician General Surgery 12/22/22 Missy Jones NP [address] [facility] [address] [place] [address] Nurse Practitioner Family Medicine 06/26/23 Obed Garcia MD [address] [facility] [address] [place] [address] Consulting Physician Urology 11/07/23 [place] [address] [address] [facility] [address] [place] [address] Consulting Physician Endocrinology 11/07/23 Delmy Garcia NP [address] [facility] [address] [place] [address] Nurse Practitioner Cardiovascular Disease 03/17/25 Estrella Mcleod MD [address] [facility] [address] [place] [address] Consulting Physician Neurology 03/17/25
[2025-09-29 19:19] LABS: Anion Gap 4 mmol/L (4-12); Blood Urea Nitrogen 24 mg/dL (9-20); Calcium 8.7 mg/dL (8.4-10.2); Carbon Dioxide 28 mmol/L (22-30); Chloride 108 mmol/L (98-107); Estimated Glomerular Filt Rate > 60; Glucose 143 mg/dL (65-110); Potassium 4.3 mmol/L (3.4-5.0); Sodium 140 mmol/L (137-145)
[2025-09-29 19:24] LABS: Hematocrit 43.6 % (42.0-52.0); Hemoglobin 14.3 g/dL (14.0-18.0); Immature Granulocyte Percent A 0.2 % (0-0.5); Immature Platelet Fraction Pct 4.5 % (0.9-11.2); Lymphocytes Absolute Auto 0.55 K/mm3 (0.9-3.2); Mean Corpuscular HGB Conc 32.8 g/dl (32-36); Mean Corpuscular Hemoglobin 31.7 pg (26-34); Mean Corpuscular Volume 96.7 fl (80-100); Nucleated Red Blood Cells Absolute Auto 0.000 K/mm3 (0.0-0.012); Nucleated Red Blood Cells Perc 0.0 % (0.0-0.2); Platelet Count Result 111 k/mm3 (150-375); Red Blood Count 4.51 M/mm3 (4.6-6.20); White Blood Count 4.6 K/mm3 (4.5-10.0)
== END 2025-09-29 10:47 | disposition home or self-care (01) ==
LOC: ANHGOSHLAB 10:46
PROVIDERS: PCP Internal Medicine; Visit Provider Clinical Nurse Specialist
DX: R97.20 Elevated prostate specific antigen [PSA] (principal); I10 Essential (primary) hypertension; D69.6 Thrombocytopenia, unspecified
CPT/HCPCS: 36415; 80048; 85025; 85055

== ENCOUNTER 2025-09-29 10:56 | Outpatient (CLI) | payer OTHER, SELFPAY ==
--- NOTE | ~2025-09-29 | XR_ITS ---
EXAMINATION: XR hand LT min 3V, 09/29/2025 11:00 SKIDDER HISTORY: Lt hand/thumb pain s/p fall 5 days ago COMPARISON: No comparisons available. Findings: No acute fracture or malalignment. Moderate to severe degenerative changes of the first metacarpal carpal joint. Soft tissues unremarkable. Impression: No acute fracture or malalignment. Reviewed, dictated and finalized at location P. DER Impression: No acute fracture or malalignment.
--- NOTE | ~2025-09-29 | XR_ITS ---
EXAMINATION: XR ribs LT 2V w CXR 2V, 09/29/2025 11:00 STOVE MOUNTER HISTORY: Lt sided mid rib pain s/p fall 5 days ago COMPARISON: No comparisons available. Findings: No acute fracture or malalignment. No significant degenerative changes. Mild pulmonary venous congestion otherwise the lungs are clear. Mild cardiomegaly. Left pacemaker. Impression: No fracture identified. Mild CHF Reviewed, dictated and finalized at location P. E MOUNTER Impression: No fracture identified. Mild CHF
== END 2025-09-29 10:57 | disposition home or self-care (01) ==
PROVIDERS: PCP Clinical Nurse Specialist; Visit Provider Clinical Nurse Specialist
DX: M79.89 Other specified soft tissue disorders (principal); R07.89 Other chest pain; W19.XXXA Unspecified fall, initial encounter; I50.9 Heart failure, unspecified
CPT/HCPCS: 71046; 71100; 73130